=== PATIENT | female | born 1950 | race African-American/Black ===

== ENCOUNTER 2025-06-06 06:46 | Outpatient (REF) | payer OTHER, SELFPAY ==
--- OUTSIDE RECORDS SUMMARY | 2025-06-02 23:59 | XMS_ITS | Continuity of Care Document ---
Author Organization [facility] ter Address [address] [place] [id number]- Care Team Providers Care Speech Language Pathologist Prn Name Role Phone Faustino Guy MD Primary Care Physician Encounter 06/01/25 - 06/02/[address] [address] Attending Physician: Not on Staff, Attending MD Referring Physician: Not on Staff, Referring MD Encounter Type: SMRI Allergies, Adverse Reactions, Alerts Substance Criticality Severity Reaction Reaction Severity Status codeine VOMITING Active Contrast Dye ANAPHLAXIS/HIVES Active Losartan Potassium Prednisone Active NIFEdipine 1 Active Enbrel RASH ON LEGS Active NSAIDs BLEEDING Active Feraheme dyspnea,hives,b ack pain,cough,chest pain Active 1leg swelling Immunizations Given and Recorded Vaccine Date Status Refusal Reason pneumococcal 13-valent vaccine 10/27/15 Given pneumococcal 23-valent vaccine 05/25/14 Given Medications Actemra 162 mg/0.9 mL subcutaneous solution = 162 mg, Subcutaneous Injection, Every week, 0 Refills, Maintenance, 10/31/24 9:00:00 PM EST, Solution, Partial fill upon patient request if the prescription is for a schedule II opioid drug. Start Date: 10/31/24 Status: Ordered Repeat number: 1 bisoprolol 5 mg oral tablet 2 tablet = 10 mg, By Mouth, Daily, # 30 tablet, 0 Refills, Maintenance, 12/19/24 9:15:00 AM EST, Tablet, Partial fill upon patient request if the prescription is for a schedule II opioid drug. Start Date: 12/19/24 Status: Ordered Quantity: 30.0 Unit: tablet Repeat number: 1 calcitriol 0.5 mcg oral capsule 1 capsule = 0.5 mcg, By Mouth, Daily, # 30 capsule, 0 Refills, Maintenance, 10/31/24 9:00:00 PM EST, Capsule, Partial fill upon patient request if the prescription is for a schedule II opioid drug. Start Date: 10/31/24 Status: Ordered Quantity: 30.0 Unit: capsule Repeat number: 1 Compression Stockings See Instructions, # 1 pair, Maintenance, surgical, knee length 20-30 mm Hg. Diagnosis: Lower extremity edema; R60.0, 10/27/15 5:32:26 PM EST, Compound Start Date: 10/27/15 Status: Ordered Quantity: 1.0 Unit: pair Repeat number: 1 diazepam 5 mg oral tablet 5 mg, 1, tablet, By Mouth, Daily at bedtime, # 5 tablet, Refills 0, Tot. Refills 0, Maintenance, 05/08/23 5:38:00 PM EDT, Route to Pharmacy Electronically, [facility]/pharmacy #[id number], Partial fill upon patientrequest if the prescription is for a schedule II opioid drug., 170, cm, 05/08/23 9:45:00 EDT, Height, 77.5, kg, 05/08/23 9:45:00 EDT, Dry Weight Start Date: 05/08/23 Status: Ordered Quantity: 5.0 Unit: tablet Repeat number: 1 Farxiga 5 mg oral tablet 1 tablet = 5 mg, By Mouth, Daily, # 30 tablet, 0 Refills, Maintenance, 10/31/24 9:00:00 PM EST, Tablet, Partial fill upon patient request if the prescription is for a schedule II opioid drug. Start Date: 10/31/24 Status: Ordered Quantity: 30.0 Unit: tablet Repeat number: 1 fluticasone 50 mcg/inh nasal spray SHAKE LIQUID AND USE 2 SPRAYS IN EACH NOSTRIL EVERY DAY DIRECTED Start Date: 10/31/24 Status: Ordered Repeat number: 1 Home Blood Pressure Monitor See Instructions, # 1 each, Maintenance, Diagnosis: CKD stage 3; N18.3. To be used daily to monitorblood pressure, 10/27/15 5:32:40 PM EST, Compound Start Date: 10/27/15 Status: Ordered Quantity: 1.0 Unit: each Repeat number: 1 NIFEdipine 30 mg oral tablet, extended release 90 mg, By Mouth, Daily, # 30 tablet, Refills 0, Tot. Refills 0, Maintenance, 11/03/24 3:39:00 PM EST, Route to Pharmacy Electronically, [facility]/pharmacy #[id number], Partial fill upon patient request if the prescription is for a schedule II opioid drug., 170, cm, 11/03/24 8:10:00 EST, Height, 86, kg, 10/31/24 21:23:00 EST, Dry Weight Start Date: 11/03/24 Stop Date: 12/03/24 Status: Ordered Quantity: 30.0 Unit: tablet Repeat number: 1 torsemide 10 mg oral tablet 1 tablet = 10 mg, By Mouth, Daily, # 30 tablet, 0 Refills, Maintenance, 12/19/24 9:42:00 AM EST, Tablet, Partial fill upon patient request if the prescription is for a schedule II opioid drug. Start Date: 12/19/24 Status: Ordered Quantity: 30.0 Unit: tablet Repeat number: 1 traMADol 50 mg oral tablet TAKE 1 TABLET BY MOUTH EVERY MORNING Start Date: 10/31/24 Status: Ordered Repeat number: 1 Problem List Condition Confirmation Course Effective Dates Status Health St atus Informant Anemia Confirmed Active Asthma Confirmed Active CKD (chronic kidney disease) stage 2, GFR 60-89 ml/min Confirmed Active Lower extremity edema Confirmed Active Obesity Confirmed Active Acute pulmonary embolus Confirmed Active Lumbar spinal stenosis Confirmed Active Social History Social History Type Response Smoking Status Never smoker entered on: 01/05/16 Sex Female Sex Representation Female (finding) Patient Care team information Care Team Personnel Name: Darleen White NP Position: [facility] PCO Associate Professional Member Role: Primary Care Nurse Name: Mireya Cervantes RN Position: [facility] SN RN Member Role: Primary Care Nurse Name: Rebecca Corrales Position: [facility] Outreach Member Role: Lifetime Consulting Physician Name: Chloe Leon RN Position: [facility] RN Member Role: Primary Care Nurse Name: Tayla Blake Position: [facility] Outreach Member Role: Lifetime Consulting Physician Name: Tomasa Charles RN Position: [facility] AMB Nurse Member Role: Primary Care Nurse Name: Radu Frazier MD Position: [facility] Renal MD Member Role: Lifetime Consulting Physician Address: [address] [place], [place] [address] [place] [place] [address]- Telecom: Name: Nora Barrios RN Position: S RN Member Role: Primary Care Nurse Name: Micheline Blackmon RN Position: S RN Member Role: Primary Care Nurse Name: Faustino Guy MD Position: Reference Physician Member Role: PCP Address: [address] [place], [place] [address] Telecom: Name: Will Mccauley DO Position: [facility] Renal MD Member Role: Lifetime Consulting Physician Address: [address] [facility] [place] [place] [address]- Telecom: Name: Odell Hernández III, RN Position: [facility] RN Member Role: Primary Care Nurse Name: Florina Red RN Position: S RN Member Role: Primary Care Nurse Name: Thomas Cooper Position: [facility] Outreach Member Role: Lifetime Consulting Physician Address: [address], [address] [place], [place] [address] Telecom: Name: Mary Kapadia RN Position: S RN Member Role: Primary Care Nurse Name: Jen Pike NP Position: [facility] Associate Professional Member Role: Primary Care Nurse Address: [address] [facility] [place], [place] [address] Telecom: Name: Kiara Workman LPN Position: S RN Member Role: Primary Care Nurse Care Team Related Persons Name: EMMETT REAGAN Name: NISHA REAGAN Insurance Providers Guarantor name: JAN REAGAN Health Plan Information #: 1 Payer: GROUP [employer]OUNT Payer Identifier: NA Member Number: NA Group Number: NA Subscriber Identifier: [id number] Relationship to Subscriber: self Coverage Type: MISCELLANEOUS/OTHER Coverage Verification Date: NA Telecom: NA Address: NA
--- OUTSIDE RECORDS SUMMARY | 2025-06-03 20:00 | XMS_ITS ---
Author Name Ada Trejo Address [address] [place] [address] Phone [phone] Organization [facility] e, NA DOCUMENT DISCLAIMER Multiple document versions may exist, please be sure you review the latest version. The information in the [facility] Progress Note Document represents a providers documented clinical note containing certain health and medical information. It may not contain the complete medical history for the patient and should be independently verified. The represented time in the document is Eastern Time PROVIDER ROUNDING NOTE BASIC Patient:?Lauren?Owen,?1950,?74y,?F Dialysis?Location:?[facility] Attending?Multimedia Editor:?Will?Garrick Service?Date:?06/04/2025 Service?Provider:?Ada?Maya,?GLUING MACHINE OFFBEARER I?met?face?to?face?with?the?patient?today. 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 Primary?cause?of?renal?failure:?Polycystic?kidney,?adult?type DIALYSIS?PRESCRIPTION ??IHD?3x?Week?Start?date:?06/01/25 ??Dialyzer:?160NRe?Optiflux ??BFR:?450 ??DFR:?Manual?700 ??Potassium:?2.0 ??Sodium:?138 ??EDW:?86.5 ??Duration:?4:00 ??Calcium:?2.50 ??Bicarb:?34 ??Rx?updated?on:?05/30/2025 TREATMENT?ASSESSMENT BP?Sit?Pre ??06/01/2025:?156/71 ??05/30/2025:?151/64 ??05/28/2025:?199/83 BP?Stand?Post ??05/30/2025:?135/64 ??05/28/2025:?140/70 BP?Sit?Post ??06/01/2025:?131/57 ??05/30/2025:?143/68 ??05/28/2025:?149/64 Tx?Duration ??06/01/2025:?4:00 ??05/30/2025:?4:00 ??05/28/2025:?4:03 Missed?Treatments 0?-?last?30?days 0?-?last?60?days FLUID?ASSESSMENT EDW?(kg) ??06/01/2025:?86.5 ??05/30/2025:?87.0 ??05/28/2025:?87.0 Weight?Pre?(kg) ??06/01/2025:?89.3 ??05/30/2025:?88.8 ??05/28/2025:?89.9 Weight?Post?(kg) ??06/01/2025:?86.6 ??05/30/2025:?86.3 ??05/28/2025:?86.7 PWV?(kg) ??06/01/2025:?0.1 ??05/30/2025:?-0.7 ??05/28/2025:?-0.3 UF?Rate?(mL/kg/hr) ??06/01/2025:?7.8 ??05/30/2025:?7.2 ??05/28/2025:?9.1 ADEQUACY?ASSESSMENT spKt/V,?URR ??05/09/2025:?1.7,?77.0 ??04/11/2025:?1.83,?79.0 ??03/14/2025:?1.63,?75.0 ?? Urine?Cr?Clearance ??04/23/2025:?1.2 ACCESS?ASSESSMENT ??Access?Type:?CVCatheter ??Access?SubType:?Tunneled ??Access?Status:?Active?(In?Use)?-?02/04/2025 ??Access?Location:?Chest ??Placed:?02/04/2025 ANEMIA?ASSESSMENT HGB,?TSAT ??05/30/2025:?9.8,?- ??05/23/2025:?10.3,?81.0 ??05/16/2025:?10.8,?- ?? Ferritin ??05/23/2025:?840.0 ??04/25/2025:?746.0 ??03/28/2025:?647.0 Mircera,?IVP?(mcg) ??05/28/2025:?50 ??04/16/2025:?60 ??03/19/2025:?75 Iron?Sucrose?(Venofer)?(mg) ??05/21/2025:?50 ??05/14/2025:?50 ??05/07/2025:?50 BMM?ASSESSMENT PTH,?Intact ??05/23/2025:?484.0 ??04/25/2025:?408.0 ??03/28/2025:?426.0 ?? Calcium,?Phosphorus ??05/23/2025:?9.0,?7.5 ??04/25/2025:?8.9,?6.6 ??04/02/2025:?9.0,?- Vitamin?D?(Calcitriol)?Oral?(mcg) ??06/01/2025:?0.5 ??05/30/2025:?0.5 ??05/28/2025:?0.5 NUTRITION?ASSESSMENT Potassium,?Albumin ??05/23/2025:?5.4,?4.4 ??04/25/2025:?5.0,?4.3 ??03/28/2025:?4.9,?4.0 ?? eNPCR ??05/09/2025:?1.03 ??04/11/2025:?1.12 ??03/14/2025:?0.74 DIAGNOSIS Chief?Complaint:?N18.6?End?stage?renal?disease Comments:?Patient?seen?and?examined.?VSS?with?no?complaints& #160;to?offer.?S1,?S2,?RRR.?LS?CTA?bilaterally.?Access?patent.? Patient?is?stable. Patient?data?updated?06/04/2025?at?8:22?AM Signed?By:?Maya,?Ada,?GLUING MACHINE OFFBEARER??on?06/04/2025?8:22:54?AM END OF DOCUMENT
--- NOTE | ~2025-06-06 | XR_ITS ---
EXAMINATION: XR PELVIS CLINICAL INFORMATION: M25.559 - Pain in unspecified hip COMPARISON: 06/23/2017. TECHNIQUE: AP view of the pelvis. FINDINGS: There has been total arthroplasty of the right hip, with femoral and acetabular components intact, in anatomic alignment, without periprosthetic abnormality. There is an associated with lateral plate and screw fixation construct involving the lateral right femur, also well seated without complication. There is a healed fracture in the proximal metadiaphyseal region of the right femur. There are compression screws within the left femoral head. There is severe arthritis in the left hip joint, with complete joint space loss, subchondral sclerosis and cystic changes of the femoral head and acetabulum. There are marginal osteophytic spurs. This has progressed somewhat since 2017. The pelvis is intact without fracture. Severe degenerative changes in the lower lumbar spine. Moderate degenerative changes in both SI joints. Soft tissues demonstrate no significant abnormality. XR/XR pelvis 1-2V IMPRESSION: 1. Worsening left hip arthrosis, now severe with complete joint space loss. 2. Right hip total arthroplasty without complication. 3. Additional findings as discussed. Electronically signed by: Refugio Barlow MD 06/06/2025 11:31 AM EDT
--- OUTSIDE RECORDS SUMMARY | 2025-06-06 06:48 | XMS_ITS | Clinical Summary ---
Author Organization [address] [place] [address] [place] [phone] Phone Care Team Providers Care Volunteer Coordinator Name Role Phone Lew Victor MD Primary Care Provider [phone] Allergies Active Allergy Reactions Criticality Noted Date Comments Codeine Nausea And Vomiting Medium 01/31/2025 Iodinated Contrast Media Hives Medium 01/31/2025 Ibuprofen Hives Medium 01/31/2025 Prednisone Hives Medium 01/31/2025 Medications capsaicin (ZOSTRIX) 0.025 % cream Apply topically 4 (four) times a day if needed (pain). 60 g 4 Active hydrALAZINE (APRESOLINE) 25 mg tablet Take 1 tablet (25 mg total) by mouth 2 (two) times a day. 5 12/28/19 26 Active labetaloL (NORMODYNE) 100 mg tablet Take 1 tablet (100 mg total) by mouth 2 (two) times a day. 60 each 5 Active sevelamer carbonate (RENVELA) 800 mg tabletIndications :ESRD (end stage renal disease) (CMS/HCC V24, CMS/[facility] V28) Take 2 tablets (1,600 mg total) by mouth 3 (three) times a day with meals. Swallow tablet whole; do not crush, break, or chew. 180 each 5 Active torsemide (DEMADEX) 20 mg tablet Take 4 tablets (80 mg total) by mouth 1 (one) time each day. 120 each 5 Active Actemra subcutaneous injection Inject 0.9 mL (162 mg total) under the skin 1 (one) time. 2 Active Active Problems Problem Noted Date Diagnosed Date Acute renal failure superimp osed on stage 5 chronic kidney disease, not on chronic dialysis, unspecified acute renal failure type ([facility] [place], [facility] V28) 01/31/2025 Surgical History Surgery Date Site/Laterality Comments HIP FRACTURE SURGERY Medical History Medical History Date Comments DM (diabetes mellitus) ([facility] [place]24, [facility] V28 ) HTN (hypertension) Asthma CKD (chronic kidney disease), stage V ([facility] V 24, [facility] V28) Polycystic kidney disease Social History Tobacco Use Types Packs/Day Years Used Date Smoking Tobacco: Never Smokeless Tobacco: Never Tobacco Cessation:Counseling Given: Not Answered Housing Instability Answer Date Recorde d Are you worried that in the next 2 months you may not have stable housing? No 02/01/2025 Food Access & Nutrition Answer Date Rec orded Do you have access to a vari ety of food including fruits and vegetables? Yes 02/01/2025 Health Literacy Answer Date Recorded How often do you need to hav e someone help you when you read instructions, pamphlets, or other written material from your doctor or pharmacy? Never 02/01/2025 Caregiver: How often do you need to have someone help you when you read instructions, pamphlets, or other written material from your doctor or pharmacy? Not on file 02/01/2025 Financial Risk Answer Date Recorded How hard is it for you to pa y for the very basics like food, housing, medical care, and air conditioning / heating? Not asked 02/01/2025 Transportation Answer Date Recorded Has the lack of transportati on kept you from meetings, work, or from getting things needed for daily living? No Has the lack of transportati on kept you from medical appointments or from getting medications? No 02/01/2025 Social Isolation Answer Date Recorded How often do you feel lonely or isolated from th ose around you? Never 02/01/2025 Food Risk Answer Date Recorded Within the past 12 months we worried whether our food would run out before we got money to buy more. Never true 02/01/2025 Within the past 12 months th e food we bought just didn't last and we didn't have money to get more. Never true 02/01/2025 Dependent Care Answer Date Recorded Do you need help finding or paying for care for your loved ones. For example, child care giver or elderly care for an older adult? No 02/01/2025 Education Answer Date Recorded Do you think completing more education or training, like finishing a GED, going to college, or learning a trade, would be helpful for you? Yes 02/01/2025 Employment and Income Answer Date Recor ded During the last four weeks, have you been actively looking for work? No 02/01/2025 Living Situation Answer Date Recorded What is your living situation? 0 02/01/2025 Interpersonal Safety Answer Date Record ed Physical Abuse 02/01/2025 Verbal Abuse 02/01/2025 Comments Unknown Sex and Gender Information Value Date Recorded Sex Assigned at Female 01/11/2025 4:21 PM EST Legal Sex Female 6:51 AM EST Gender Identity Female 01/11/2025 4:21 PM EST Sexual Orientation Straight 01/11/2025 4: 21 PM EST Obstetrics History Last Filed Vital Signs Vital Sign Reading Time Taken Comments Blood Pressure 124/60 02/12/2025 12:17 PM EDT Pulse 73 02/12/2025 12:17 PM EDT Temperature 36.5 C (97.7 F) 02/12/2025 12:17 PM EDT Respiratory Rate 16 02/12/2025 12:17 PM EDT Oxygen Saturation 100% 02/12/2025 12:17 PM EDT Inhaled Oxygen Concentration - - Weight 107 kg (235 lb 12.8 oz) 02/12/2025 6:00 A M EDT Height 167.6 cm (5' 5.98 ) 02/03/2025 11:30 AM E DT Body Mass Index 38.08 02/03/2025 11:30 AM EDT Plan of Treatment Health Maintenance Due Date Last Done Comments Diabetes: Annual Foot Exam 1960 Diabetes: Annual Retina Eye Exam 1960 Zoster Vaccines (1 of 2) 1969 Breast Cancer Screening 11/21/2020 11/21/2018, 11/21 Colorectal Cancer Screening: Colonoscopy 10/10/2022 Medicare Annual Wellness Visit 10/10/2022 DTaP,Tdap,and Td Vaccines (2 - Td or Tdap) 01/10/2023 01/10/2013 COVID-19 Vaccine ( season) 2024 08/24/2023, 08/05/2022, 04/01/2022, Additional history exists Depression Screening 11/07/2024 Influenza Vaccine (#1) 2025 , 07/21/2022, 07/28/2021, Additional history exists Diabetes: Blood Sugar Control Test (HGBA1C) 08/03/2025 01/31/2025, 01/23/2024 Osteoporosis Screening (Bone Density Screening) 12/16/2025 12/16/2015 Social Influencers of Health Screening 02/01/2026 02/01/2025 Falls Risk Assessment 02/12/2026 02/12/2025 Hypertension/CHF/CAD Annual BMP Blood Test 02/12/2026 02/12/2025, 02/11/2025, 02/10/2025, Additional history exists Cholesterol Screening (Lipid Panel) 12/21/2029 12/21/2024 Pneumococcal Vaccine: 50+ Years Completed 02/13/2018, 08/02/2017, 10/27/2015, Additional history exists RSV Immunization Adult Patients Completed 10/11/2023 Hepatitis C Screening Completed 02/03/2025, 024 HIB Vaccines Aged Out No longer eligi ble based on patient's age to complete this topic HPV Vaccines Aged Out No longer eligi ble based on patient's age to complete this topic Hepatitis A Vaccines Aged Out No long er eligible based on patient's age to complete this topic Hepatitis B Vaccines Aged Out No long er eligible based on patient's age to complete this topic IPV Vaccines Aged Out No longer eligi ble based on patient's age to complete this topic MMR Vaccines Aged Out No longer eligi ble based on patient's age to complete this topic Meningococcal ACWY Vaccine Aged Out N o longer eligible based on patient's age to complete this topic Meningococcal B Vaccine Aged Out No l onger eligible based on patient's age to complete this topic RSV Immunization Patients Under 20 months Aged Out No longer eligible based on patient's age to complete this topic Varicella Vaccines Aged Out No longer eligible based on patient's age to complete this topic Medical Devices Implanted Type Area Fabrication Operator Device Identifier Shelf Expiration Date Model / Serial / Lot Cath Dial W/Vt Kt [id number] Palindrome Tim - [id number] - [id number] Implanted:Qty: 1 on 02/04/2025 by Darien Yanes MD at [facility] Dialysis Catheters Right: Chest Wall [facility] [id number] 04/06/2029 [id number] / [id number] / [id number] Procedures Procedure Name Priority Date/Time Associated Diagnosis Comments BASIC METABOLIC PANEL Timed 02/12/2025 7:37 AM EDT HEPATITIS C ANTIBODY Routine 02/03/2025 6:08 AM EDT HEMOGLOBIN A1C Add-On 01/31/2025 6:02 PM EDT CHANCE SCREENING DIGITAL Routine 11/21/2018 11:45 AM EST Encounter for screening mammogram for malignant neoplasm of breast from Last 3 Months or Most Recently Relevant to Health Maintenance Results * (ABNORMAL) Basic metabolic panel (02/12/2025 7:37 AM EDT) Sodium 131(L) 133 - 145 mmol/L LAB CHEMISTRY METHOD 02/12/2025 8:18 AM EDT [facility] Potassium 4.3 3.5 - 5.5 mmol/L LAB CHEMISTRY METHOD 02/12/2025 8:18 AM EDT [facility] Chloride 97 96 - 110 mmol/L LAB CHEMISTRY METHOD 02/12/2025 8:18 AM EDT [facility] CO2 29 21 - 32 mmol/L LAB CHEMISTRY METHOD 02/12/2025 8:18 AM EDT [facility] Anion Gap 5 3 - 11 LAB CHEMISTRY METHOD 02/12/2025 8:18 AM EDT [facility] Glucose 87 70 - 100 mg/dL LAB CHEMISTRY METHOD 02/12/2025 8:18 AM EDT [facility] BUN 16 5 - 25 mg/dL LAB CHEMISTRY METHOD 02/12/2025 8:18 AM EDT [facility] Creatinine 4.24(H) 0.50 - 1.10 mg/dL LAB CHEMISTRY METHOD 02/12/2025 8:18 AM EDT [facility] eGFR 10(L) >=60 mL/min/1. 73m2 LAB CHEMISTRY METHOD 02/12/2025 8:18 AM EDT [facility] Comment:Calculation based on the Chronic Kidney Disease Epidemiology Collaboration (CKD-EPI) equation refit without adjustment for race. BUN/Creatinine Ratio 3.8 LAB CHEMISTRY METHOD 02/12/2025 8:18 AM EDT [facility] Calcium 8.5 8.5 - 10.5 mg/dL LAB CHEMISTRY METHOD 02/12/2025 8:18 AM EDT [facility] Blood Venous blood specimen / Unknown Venipuncture / Unknown 02/12/2025 7:37 AM EDT 02/12/2025 7:43 AM EDT us Maninder Frankel MD LAB BLOOD ORDERABLES Final Resul t Performing Organization Address City/[facility]/ZIP Co de Phone Number [facility] [address] [place] [address], * Hepatitis C antibody (02/03/2025 6:08 AM EDT) Hepatitis C Antibody Negative Negative LAB CHEMISTRY METHOD 02/03/2025 9:05 AM EDT [facility] Blood Venous blood specimen / Unknown Venipuncture / Unknown 02/03/2025 6:08 AM EDT 02/03/2025 6:13 AM EDT us Anastasia Lugo MD LAB BLOOD ORDERABLES Final Re sult [facility] [address] [place] [address], * Hemoglobin A1c (01/31/2025 6:02 PM EDT) Hemoglobin A1C 5.3 <6.5 % LAB CHEMISTRY METHOD 02/01/2025 12:41 PM EDT [facility] Mean Bld Glu Estim. 105 mg/dL LAB CHEMISTRY METHOD 02/01/2025 12:41 PM EDT [facility] Blood Venous blood specimen / Unknown Venipuncture / Unknown 01/31/2025 6:02 PM EDT 01/31/2025 6:38 PM EDT Dhara Becerra NP LAB BLOOD ORDERABLES Fin al Result [facility] [address] [place] [address], * CHANCE SCREENING DIGITAL (11/21/2018 11:45 AM EST) Anatomical Region Laterality Modality Mammography 11/21/2018 9:37 AM EST Narrative 11/21/2018 11:45 AM EST [facility] Diagnostic Imaging Department [address] [place] [address] Patient: JAN WEAVER./Age/Sex: 1950 - 68 - F Unit#: [id number] Location/Status: SPDIMAM/REG CLI Mnemonic/Ordering Site: DIGSC/SPMAM Ordering Physician: LEW VICTOR MD Chance Screening Digital - 11/21/18 - 1008 INDICATION: SCREENING COMPARISON: [facility] mammograms dating back to 12/22/2011 FINDINGS: CC and MLO views of the breasts were obtained, using full field digital mammography with 3D tomosynthesis views in the MLO projection. Computer aided detection with the [employer]2-H was employed. The breasts are almost entirely composed of fat. A metallic biopsy marker is present within the upper inner quadrant of the right breast. No suspicious masses, suspicious microcalcifications, or areas of architectural distortion are identified. Benign-appearing breast calcifications are present bilaterally. There are no secondary signs of breast malignancy. Compared to the prior exam, no adverse interval change. IMPRESSION: No specific mammographic evidence of breast malignancy. Lack of a mammographic finding in the presence of a clinically suspicious palpable abnormality does not preclude the possibility of malignancy or alter the indications for biopsy. BI-RADS - Category 2 - Benign finding 3342F, 7025F Annual screening mammography is recommended. Patient entered into a reminder system with a target date for the next mammogram. [id number] / [id number]) , [id number] Dictating Physician: REMINGTON VÁSQUEZ MD Electronically Signed by: REMINGTON VÁSQUEZ MD Dic Date/Time: 11/21/18 1141 Sign date/Time: 11/21/18 1145 Procedure Note Remington Vásquez MD - 10/27/2022 [facility] Diagnostic Imaging Department [address] [place] [address] Patient: JAN WEAVER./Age/Sex: 1950 - 68 - F Unit#: [id number] Location/Status: SPDIMAM/REG CLI Mnemonic[facility] Order[facility] Physician: LEW VICTOR MD Chance Screening Digital - 11/21/18 - 1008 INDICATION: SCREENING COMPARISON: [facility] mammograms dating back to 12/22/2011 FINDINGS: CC and MLO views of the breasts were obtained, using full field digital mammography with 3D tomosynthesis views in the MLO projection. Computeraided detection with the [employer]2-H was employed. The breasts are almost entirely composed of fat. A metallic biopsy markeris present within the upper inner quadrant of the right breast. No suspicious masses, suspicious microcalcifications, or areas ofarchitectural distortion are identified. Benign-appearing breast calcifications arepresent bilaterally. There are no secondary signs of breast malignancy. Comparedto the prior exam, no adverse interval change. IMPRESSION: No specific mammographic evidence of breast malignancy. Lack of a mammographic finding in the presence of a clinicallysuspicious palpable abnormality does not preclude the possibility of malignancy oralter the indications for biopsy. BI-RADS - Category 2 - Benign finding 3342F, 7025F Annual screening mammography is recommended. Patient entered into a reminder system with a target date for the next mammogram. 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 Do not modify or discontinue any currently active code status orders. * Full Code - Default Date Activated Date Inactivated Comments 01/31/2025 8:26 PM 01/31/2025 10:07 PM This is ord er is used when code status has not been discussed with the patient, or code status is otherwise unknown/unconfirmed To update the patient's code status, place a code status order. Do not modify or discontinue any currently active code status orders. Healthcare Agents on File Name Relationship Healthcare Agent [facility] p Communication rFoylan Weaver Spouse Health Care Agent Zachery Cr First Alternate Health Care Agent Care Teams Volunteer Coordinator Relationship Specialty Start Date End Date Lew Victor MD [address] PCP - General Internal Medicine 04/10/14
--- OUTSIDE RECORDS SUMMARY | 2025-06-06 06:48 | XMS_ITS | Encounter Summary ---
Author Organization [facility], Address [address] [place] [address] Phone Care Team Providers Care Assistant Inventory Manager Name Role Phone Lew Keys MD Primary Care Provider [phone] Encounter Details Date Type Department Care Team (Late st Contact Info) Description 05/16/2025 Documentation Only [facility], [address] [place] [address] [address] [place] [phone] Social History Tobacco Use Types Packs/Day Years Used Date Smoking Tobacco: Never Alcohol Use Standard Drinks/Week Comments No 0 (1 standard drink = 0.6 oz pur e alcohol) Comments Unknown Sex and Gender Information Value Date Recorded Sex Assigned at Not on file Legal Sex Female 4:34 PM EST Gender Identity Female 11/25/2023 3:27 PM EST Sexual Orientation Not on file documented as of this encounter Plan of Treatment Not on file documented as of this encounter Visit Diagnoses Not on filedocumented in this encounter Care Teams Assistant Inventory Manager Relationship Specialty Start Date End Date Lew Keys MD [address] [facility] [address] [place], [place] PCP - General Internal Medicine 03/03/20 documented as of this encounter
--- OUTSIDE RECORDS SUMMARY | 2025-06-06 06:49 | XMS_ITS | Clinical Summary ---
Author Organization [facility] Address [address] [place] [address] Care Team Providers Care Aco Coordinator Name Role Phone Unavailable Primary Care Provider Unavailabl e Source Comments PLEASE NOTE, if this patient is a minor, it may be UNLAWFUL to discuss sensitive information that is contained in these records (such as FAMILY PLANNING, MENTAL HEALTH or SUBSTANCE ABUSE) with the minor patient's parent or other person without the patient's specific authorization.[facility] Social History Tobacco Use Types Packs/Day Years Used Date Smoking Tobacco: Never Assessed Social Connections Answer Date Recorded Connectedness 0 07/19/2024 Financial Resource Strain Answer Date R ecorded Financial Resource Strain 0 2020 Stress Answer Date Recorded Stress 0 08/01/2021 Physical Activity Answer Date Recorded Physical Activity 0 08/01/2021 Food Insecurity Answer Date Recorded Food 0 08/02/2024 Transportation Needs Answer Date Record ed Transportation 0 08/01/2021 Housing Stability Answer Date Recorded Housing 0 08/01/2021 Safety and Environment Answer Date Jacoby rded Safety 0 08/01/2021 Utilities Answer Date Recorded Utilities 0 08/01/2021 Employment Answer Date Recorded Stress 0 07/19/2024 Comments Unknown Sex and Gender Information Value Date Recorded Sex Assigned at Not on file Legal Sex Female 9:32 AM PDT Gender Identity Not on file Sexual Orientation Not on file Plan of Treatment Not on file Insurance [facility]
--- OUTSIDE RECORDS SUMMARY | 2025-06-06 06:49 | XMS_ITS | Clinical Summary ---
Author Organization [facility] Address [address] [place] [address] Care Team Providers Care Community Support Specialist Name Role Phone Lew Keys MD Primary Care Provider [phone] Social History Tobacco Use Types Packs/Day Years Used Date Smoking Tobacco: Never Assessed Sex and Gender Information Value Date Recorded Sex Assigned at Not on file Gender Identity Not on file Sexual Orientation Not on file Plan of Treatment Health Maintenance Due Date Last Done Comments Hepatitis C Screening 1950 COVID-19 Vaccine (#1) 01/04/1951 Depression Screening 1962 Preventative Health Evaluation 1968 Colon Cancer Screening (Colonoscopy) 1995 Breast Cancer Screening (Mammogram) 2000 Shingrix-Zoster Vaccine (1 of 2) 2000 Fall Risk Assessment 2015 Osteoporosis Screening (DEXA Scan) 2015 DTap / Tdap / Td (2 - Td or Tdap) 01/10/2023 01/10/2013 RSV Adult > 60+ Yrs or (1 - 1-dose 75+ series) 2025 Influenza Vaccine (#1) 2025 0, 07/18/2020, 07/18/2020, Additional history exists Pneumococcal Vaccine Completed 02/13/2018, 10/27/2015, 05/25/2014, Additional history exists Hepatitis B Vaccines Aged Out No long er eligible based on patient's age to complete this topic RSV Ped < 20 months Aged Out No longe r eligible based on patient's age to complete this topic Care Teams Community Support Specialist Relationship Specialty Start Date End Date Lew Keys MD [address] [facility] [address] [place] [address] PCP - General Internal Medicine 01/06/21
--- OUTSIDE RECORDS SUMMARY | 2025-06-06 06:49 | XMS_ITS | Patient Health Record ---
Author Organization [facility] [place] Address [address] [place] [address] Care Team Providers Care Blood Bank Laboratory Technician Name Role Phone Lew Keys MD Primary Care Provider Bharti Marks Unavailable [phone] Allergies Allergen (clinical drug ingredient) Drug/Non Drug Allergy documented on EMR Reaction Allergy Type Onset Date Status pregabalin Lyrica swelling Drug Allergy Active gabapentin Neurontin swelling Drug Allergy Active ibuprofen Ibuprofen stomach irritations Drug Allergy Active IVP dye Unknown Drug Allergy Active nsaids Unknown Drug Allergy Active Reason For Referral No Information Medications Medication SIG (Take, Route, Frequency, Duration) Notes Start Date End Date Status metFORMIN HCl 500 MG Orally Once a day Not-Taking oxyCODONE HCl Active Lisinopril 10 MG 1 tablet Orally Once a day Not-Taking Simvastatin Active Lasix Active Furosemide Active oxyCODONE-Acetaminophen Active Actemra Active Atorvastatin Calcium Not-Taking Enbrel Not-Taking Social History Tobacco use other than smoking: Question Answer Notes Are you an other tobacco user? No Problems Problem Type SNOMED Code ICD Code Onset Dates Problem Status W/U Status Risk Notes Problem Diabetes mellitus type 2, diet-controlle d (E11.9) Active confirmed Plan Of Treatment Pending Test Test Name Order Date , J0702- INJECT or DRAIN, JOINT/BUR SA 08/14/2015, J0702- INJECT or DRAIN, JOINT/BUR SA 08/28/2015, J0702- INJECT or DRAIN, JOINT/BUR SA 01/16/2016 Insurance Providers Payer Name Payer Address Payer Phone Subscriber Number Group Number Insured Name Patient Relationship to Insured Coverage Start Date Coverage End Date Medicare National [employer] [address] [place] [phone] [id number] Lauren Weaver Self - patient is the insured 5 Medical (General) History Medical History History ICD Code Allergic rhinitis Anemia of Chronic Disease Ankle Pain Arthritis of Hip asthma back pain Chronic Pain Syndrome Chronic Renal Impairment chronic sinusitis Degenerative of Lumbosacral Intervertebr al Disc Degenerative of Lumbar Intervertebral Di sc Diabetes Edema Hyperlipidemia hypertension Inflammation of Rotator Cuff Tendon Iridocyclitis Lumbosacral Radiculitis Obesity, morbid osteoarthritis Otitis Media Premature Beats rheumatoid arthritis Spinal Stenosis of Lumbar Region Vitamin D deficiency Injury of Ullnar Nerve Surgical History Surgery Date(Month/Year) appendectomy 11/07/1969 back surgery 2006 left hip replacement right hip replacement 12/2014 knee surgery, right 11/07/1989, 11/07/1993 Lumbar Spine Fusion 11/07/1987,05/07/2007, 05/24/2014 leg surgery 1989 total knee 09/15/2009, 05/16/11 total hip 12/22/2013 Orthopedic Surgery 12/10/2014 Hospitalization History Reason Date(Month/Year) Right hip replacement 12/22
--- OUTSIDE RECORDS SUMMARY | 2025-06-06 06:49 | XMS_ITS | Patient Health Record ---
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 Name Role Phone Lew Keys Primary Care Provider Unavailabl e Allergies Allergen (clinical drug ingredient) Drug/Non Drug Allergy documented on EMR Reaction Allergy Type Onset Date Status codeine codeine (uncoded) hives (moderat e to severe) Allergy Active Iodinated contrast media (substance) Iodinated contrast media (uncoded) Unknown Allergy Active etanercept Enbrel Unknown Drug Allergy Active ibuprofen Ibuprofen Unknown Drug Allergy Active doxycycline Doxycycline abdominal pain (mild) Drug Allergy Active atorvastatin Atorvastatin myalgias (muscle pain) Drug Allergy Active simvastatin Simvastatin myalgias (muscle pain) Drug Allergy Active etanercept Etanercept Unknown Drug Allergy Activ e ferumoxytol Ferumoxytol Unknown Drug Allergy Act isaias indomethacin Indomethacin Unknown Drug Allergy A ctive Non-steroidal anti-inflammatory agent (FN) NSAIDs Unknown Drug Allergy Active Reason For Referral No Information Medications Medication SIG (Take, Route, Frequency, Duration) Notes Start Date End Date Status Benefiber - as directed Orally Active oxyCODONE-Acetaminoph en 10-325 MG 1 tablet as needed Orally every 6 hrs Active Narcan 4 MG/0.1ML as directed Nasally Active Durezol 0.05 % 1 drop into affected eye Ophthalmic Twice a day Active Rosuvastatin Calcium 5 MG 1 tablet Orally Once a day Active diazePAM 10 MG 1 tablet Orally Once a day Active ProAir HFA 108 (90 Base) MCG/ACT 1 puff as needed Inhalation every 4 hrs Active Capsaicin 0.025 % 1 application as needed Externally Three times a day Active Lidocaine 5 % 1 patch remove after 12 hours Externally Once a day Active Calcitriol 0.5 MCG 1 capsule Orally Onc e a day Active Potassium 10 mEq tablet, extended release take 2 tablets twice a day Active metOLazone 5 MG 1 tablet Orally Once a day Active Lidocaine 5 % 1 application as needed Externally Three times a day Active Fluticasone Propionate 50 MCG/ACT 1 spray in each nostril Nasally Once a day Active Torsemide 20 MG as directed Orally Active Fexofenadine HCl 180 MG 1 tablet Orally Once a day Active Symbicort 160-4.5 MCG/ACT 2 puffs Inhalation Twice a day Active Allopurinol 300 MG 1 tablet Orally Once a day Active Actemra 162 MG/0.9ML 0.9 ml Subcutaneous Active Multivitamin - 1 tablet Orally Once a day Active Problems Problem Type SNOMED Code ICD Code Onset Dates Problem Status W/U Status Risk Notes Problem Osteoarthritis of right subtalar joint (9993489905588302 1) 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 Plan Of Treatment Pending Test Test Name Order Date X ray : Foot, left 3v 10/24/2020 X ray : Foot, right 3v 10/24/2020 DRAIN/INJECT, INTERMEDIATE JOINT/BURSA 1 12/25/2019 AFO ANK GADRAKE PREFAB [id number] 020 Insurance Providers Payer Name Payer Address Payer Phone Subscriber Number Group Number Insured Name Patient Relationship to Insured Coverage Start Date Coverage End Date [facility] [address] [place] [address] [id number] Lauren Weaver Self - patient is the insured Medications Administered Medication Instructions Date of Administration Dosage Notes Dexamethasone 10/24/2020 4 mg Medical (General) History Medical History History ICD Code 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 me llitus Vitamin D deficiency Hyperlipidemia Gout-onset: 11/22/2016 Hypokalemia-onset: 03/15/2019 Obesity Body Mass index 30+ - obesity Anemia of chronic disease Chronic pain syndrome Iridocyclitis Essential hypertension Pulmonary embolism Premature beats Heart failure-onset: 07/30/18 Allergic Rhinitis Asthma Chronic kidney disease stage 3- Onset: 0 07/30/19 Rheumatoid arthritis Osteoarthritis Arthritis of hip, right Shoulder joint pain Degeneration of lumbosacral intervertebr al disc Degeneration of lumbar intervertebral di sc Spinal stenosis of lumbar region- with s lippage; L3-L4 Low back pain Lumbosacral radiculitis Inflammation of rotator cuff tendon Edema Edema of lower extremity Contusion of chest- onset: 10/11/19 Injury of ulnar nerve Screening for malignant neoplasm of colo n- onset: 09/15/19 Menopause present Surgical History Surgery Date(Month/Year) Facet injections to lumbar spine 12/09/16 Egd diagnostic brush wash 09/10/16 Orthopedic surgery-Right total hip arthr oplasty/removal of hardware 12/10/14 Lumbar spine fusion L3-L4 05/24/14 Total knee arthroplasty- Right TKA 2008; Left TKA 200911/07/09 Lumbar spine fusion 05/2007 Knee surgery-arthroscopy 1993 Knee surgery-arthroscopy 1989 Lumbar spine fusion 1987 Appendectomy 1970 Revision of femur epiphysis 11/07/1960
--- OUTSIDE RECORDS SUMMARY | 2025-06-06 06:49 | XMS_ITS ---
Author Name [facility] Address [address] [place] [id number] Phone [phone] Organization [facility], NA DOCUMENT DISCLAIMER Multiple document versions may exist, please be sure you review the latest version. The information in the [facility] Continuity of Care Document represents a summary of certain health and medical information. It may not contain the complete medical history for the patient and should be independently verified. The represented time in the document is Eastern Time. 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, or end stage renal disease I13.2 Active February 13 Dependence on renal dialysis Z99.2 Active February 13, 2025 Rheumatoid arthritis, unspecified M06.9 Active February 12, 2025 Other disorders of phosphorus metabolism E83.39 Active February 12, 2025 Other asthma J45.998 Active February 12, 2025 Polycystic kidney, adult type Q61.2 Active February 12, 2025 Acute on chronic diastolic (congestive) heart failure I50.33 Active February 12, 2025 Pruritus, unspecified L29.9 Active February 12, 2025 Shortness of breath R06.02 Active February Encounter for screening for respiratory tuberculosis Z 11.1 Active February 12, 2025 Allergy, unspecified, initial encounter T78.40XA A ctive February 12, 2025 Anaphylactic shock, unspecified, initial encounter T78 .2XXA Active February 12, 2025 Coagulation defect, unspecified D68.9 Active February 12, 2025 Iron deficiency anemia, unspecified D50.9 Activ e February 12, 2025 Anemia in chronic kidney disease D63.1 Active February 12, 2025 Secondary hyperparathyroidism of renal origin N25.81 Active February 12, 2025 End stage renal disease N18.6 Active Apri l 2024 ALLERGIES AND ADVERSE REACTIONS Substance Reaction Severity Status Motrin Unknown Moderate Active Decadron Unknown Active IODINATED CONTRAST MEDIA Unknown Moderate Act isaias CODEINE Unknown Moderate Active prednisone Unknown Moderate Active SOCIAL HISTORY Tobacco Use Status Tobacco Type Unknown if ever consumed tobacco - Caregiver Characteristics No Information Available Characteristics of Home environment No Information Available Gender and Sex Information Gender Identity Sexual Orientation Female Heterosexual MEDICATIONS Prescribed Medications for Dialysis Treatments Medication Instructions Dosage Route Start Date End Date Status Heparin Sodium (Porcine) 1,000 Units/mL Catheter Lock Arterial Every Treatment 1900 units Arterial Red Port February 26, 2025 February 22, 2026 Active Heparin Sodium (Porcine) 1,000 Units/mL Catheter Lock Venous Every Treatment 1900 units Venous Blue Port February 26, 2025 February 22, 2026 Active Heparin Sodium (Porcine) 1,000 Units/mL Systemic Bolus, Every Treatment, Total treatment minutes 240 3000 units Intravenous - push March 12, 2025 March 11, 2026 Active Mircera During Dialysis, Every 2 weeks 50 mcg Intravenous - push May 28, 2025 May 27, 2026 Active Vitamin D (Calcitriol) Oral During Dialysis, 3X Week 0.5 mcg Oral March 05, 2025 March 04, 2026 Active Iron Sucrose (Venofer) During Dialysis, 1X Week 50 mg Intravenous - push April 02, 2025 April 01, 2026 Discontinued Home Medications Medication Instructions Dosage Route Start Date End Date Stat us Actemra 162 mg/0.9 mL subcutaneously once a month 1 syringe SUBCUTANEOUS May 16, 2025 Active azelastine 137 mcg (0.1 %) into both nostrils once a day 1 spray NASAL May 16, 2025 Active capsaicin 0.1% TOPICAL May 16, 2025 Active labetalol 100 mg twice a day 1 tablet ORAL April Active pravastatin 20 mg once a day 1 tablet ORAL May Active Sevelamer Carbonate Tablet 800 mg Take By Mouth Three times a day With Meals 1 Tablet By Mouth March 13, 2025 March 12, 2026 Active torsemide 20 mg every morning 2 tablet ORAL April Active valsartan 160 mg once a day 1 tablet ORAL March 07, 2025 Active VITAL SIGNS Post-Treatment Vital Signs Vital Sign Value Date / Time Blood Pressure-sitting 106/103 mmHg June 04, 2025 07:31 AM Blood Pressure-standing 120/73 mmHg June 04, 2025 07:31 AM Heart Rate 92 beats per minute June 04 07:31 AM Respiratory Rate 18 breaths per minute June 04, 2025 07:31 AM Temperature 98.0 deg. F June 04, 2025 07 :31 AM Weight Vital Sign Value Date / Time Estimated Dry Weight 86.5 kg June 01 11:59 PM Pre-Dialysis 89.60 kg June 04, 2025 07 :31 AM Post-Dialysis 86.10 kg June 04, 2025 07 :31 AM Other Other Value Date / Time Height 170 cm February 25, 2025 1 2:00 AM Body Mass Index 29.93 kg/m2 June 04, 2025 08 :52 AM HEALTH CONCERNS Tuberculosis Testing TST Date Administered TST Date Read TST Result 02/14/2025 02/16/2025 Negative (<5) mm LAB RESULTS Hematology Result Type Result Value Relevant Referen ce Range Interpretation Date WBC (No Diff) 5.77 1000/mcL 4.80 - 10.80 1000/mcL - February 14, 2025 Transferrin Sat. (Calc) 18 % 20 - 55 % Low February 14, 2025 UIBC/TIBC 218 mcg/dL 155 - 355 mcg/dL - February TIBC (Calc) 267 mcg/dL 185 - 515 mcg/dL - February 052024 Ferritin 395 ng/mL 10 - 291 ng/mL High February 14, 2025 UIBC/TIBC 256 mcg/dL 155 - 355 mcg/dL - February WBC (No Diff) 4.04 1000/mcL 4.80 - 10.80 1000/mcL Low February 28, 2025 Transferrin Sat. (Calc) 18 % 20 - 55 % Low February 28, 2025 TIBC (Calc) 313 mcg/dL 185 - 515 mcg/dL - February 062024 Ferritin 288 ng/mL 10 - 291 ng/mL - February 28, 2025 Platelets 132 1000/mcL 130 - 400 1000/mcL - Apri l 2024 Hemoglobin x 3 31.2 % 36.0 - 48.0 % Low March 16, 2025 Hemoglobin x 3 30.3 % 36.0 - 48.0 % Low March 21, 2025 Iron 104 mcg/dL 30 - 160 mcg/dL - March 28 025 UIBC/TIBC 175 mcg/dL 155 - 355 mcg/dL - March 28, 2025 TIBC (Calc) 279 mcg/dL 185 - 515 mcg/dL - March 28, 2025 Ferritin 647 ng/mL 10 - 291 ng/mL High March 28 25 Transferrin Sat. (Calc) 37 % 20 - 55 % - March 28, 2025 MCH 29.1 pg 27.0 - 31.0 pg - March 28 25 RDW 17.7 % 11.5 - 14.5 % High March 28 MCHC 31.7 g/dL 30.0 - 36.0 g/dL - March 28, 2025 Hemoglobin x 3 34.5 % 36.0 - 48.0 % Low March 28, 2025 Platelets 150 1000/mcL 130 - 400 1000/mcL - March 28, 2025 WBC (No Diff) 5.59 1000/mcL 4.80 - 10.80 1000/mcL - March 28, 2025 Hemoglobin x 3 33.9 % 36.0 - 48.0 % Low April 04, 2025 Retic HGB (CHr) 31.6 pg 25.4 - 31.8 pg - March 082024 Hemoglobin x 3 33 % 36.0 - 48.0 % Low April Hemoglobin x 3 33.6 % 36.0 - 48.0 % Low April WBC (No Diff) 5.45 1000/mcL 4.80 - 10.80 1000/mcL - April 25, 2025 MCH 30.0 pg 27.0 - 31.0 pg - April 25 025 Hemoglobin x 3 35.7 % 36.0 - 48.0 % Low April Platelets 129 1000/mcL 130 - 400 1000/mcL Low April 25, 2025 MCHC 31.7 g/dL 30.0 - 36.0 g/dL - April 25, 2025 RDW 16.9 % 11.5 - 14.5 % High April 25 25 Iron 99 mcg/dL 30 - 160 mcg/dL - April 25, 2025 Transferrin Sat. (Calc) 37 % 20 - 55 % - April 25, 2025 TIBC (Calc) 269 mcg/dL 185 - 515 mcg/dL - April UIBC/TIBC 170 mcg/dL 155 - 355 mcg/dL - April 25, 2025 Ferritin 746 ng/mL 10 - 291 ng/mL High April 25 Hemoglobin x 3 33.6 % 36.0 - 48.0 % Low April HGB 11.3 g/dL 12.0 - 16.0 g/dL Low May 09, 2025 Hemoglobin x 3 33.9 % 36.0 - 48.0 % Low May Hemoglobin x 3 32.4 % 36.0 - 48.0 % Low May HGB 10.8 g/dL 12.0 - 16.0 g/dL Low May 16, 2025 RBC 3.52 mill/mcL 4.20 - 5.40 mill/mcL Low May 23, 2025 WBC (No Diff) 4.27 1000/mcL 4.80 - 10.80 1000/mcL Low May 23, 2025 HCT 33.6 % 37.0 - 47.0 % Low May 23 MCHC 30.6 g/dL 30.0 - 36.0 g/dL - May 23, 2025 MCH 29.2 pg 27.0 - 31.0 pg - May 23 Hemoglobin x 3 30.9 % 36.0 - 48.0 % Low May Platelets 134 1000/mcL 130 - 400 1000/mcL - May 23, 2025 HGB 10.3 g/dL 12.0 - 16.0 g/dL Low May 23, 2025 Transferrin Sat. (Calc) 81 % 20 - 55 % High May 23, 2025 RDW 14.7 % 11.5 - 14.5 % High May 23 TIBC (Calc) 263 mcg/dL 185 - 515 mcg/dL - May UIBC/TIBC 51 mcg/dL 155 - 355 mcg/dL Low May 23, 2025 Iron 212 mcg/dL 30 - 160 mcg/dL High May 23, 2025 Ferritin 840 ng/mL 10 - 291 ng/mL High May 23 Hemoglobin x 3 29.4 % 36.0 - 48.0 % Low May HGB 9.8 g/dL 12.0 - 16.0 g/dL Low May 30, 2025 Metabolic/Renal Result Type Result Value Relevant Referen ce Range Interpretation Date Hemoglobin A1c 5.0 % 4.8 - 5.9 % - February 14, 2025 BUN, Post 10 mg/dL 6 - 19 mg/dL - March 14, 2025 Potassium 4.7 mEq/L 3.5 - 5.1 mEq/L - March 14 BUN 40 mg/dL 6 - 19 mg/dL High March 14, 2025 URR, Calc 75 % 65 - 80 % - March 14, 2025 Sodium 136 mEq/L 136 - 145 mEq/L - March 28 Potassium 4.9 mEq/L 3.5 - 5.1 mEq/L - March 28 Bicarbonate 26 mEq/L 22 - 29 mEq/L - March 28 Creatinine, Serum 7.48 mg/dL 0.60 - 1.30 mg/dL High April 02, 2025 BUN, Post 13 mg/dL 6 - 19 mg/dL - April 11 URR, Calc 79 % 65 - 80 % - April 11, 2025 BUN 62 mg/dL 6 - 19 mg/dL High April 11 Creatinine, Serum 8.65 mg/dL 0.60 - 1.30 mg/dL High April 23, 2025 BUN 62 mg/dL 6 - 19 mg/dL High April 23 BUN/Creat Ratio 7.2 10.0 - 20.0 Low April 23, 2025 Creatinine Clearance, Urine 1.2 mL/min 77.0 - 94.0 mL/min Low April 23, 2025 Urea Nitrogen, Urine, Timed 203 mg/dL No Reference Range Provided - April 23, 2025 Creatinine, Serum 6.90 mg/dL 0.60 - 1.30 mg/dL High April 25, 2025 Sodium 139 mEq/L 136 - 145 mEq/L - April 25, 2025 Potassium 5.0 mEq/L 3.5 - 5.1 mEq/L - April 25, 2025 Bicarbonate 22 mEq/L 22 - 29 mEq/L - April 25 BUN 57 mg/dL 6 - 19 mg/dL High May 09 URR, Calc 77 % 65 - 80 % - May 09, 2025 BUN, Post 13 mg/dL 6 - 19 mg/dL - May 09 Bicarbonate 25 mEq/L 22 - 29 mEq/L - May 23 Potassium 5.4 mEq/L 3.5 - 5.1 mEq/L High May 23, 2025 Sodium 137 mEq/L 136 - 145 mEq/L - May 23, 2025 Creatinine, Serum 7.24 mg/dL 0.60 - 1.30 mg/dL High May 23, 2025 HD Adequacy Result Type Result Value Relevant Referen ce Range Interpretation Date Krt/V 0.00 No Reference Ran ge Provided - February 16, 2025 Krt/V 0.00 No Reference Ran ge Provided - February 28, 2025 spKt/V ([place]augirdas II) 1.63 No Referen ce Range Provided - March 14, 2025 wstdKt/V, residual 0.0 No Reference Range Provided - March 14, 2025 wstdKt/V without residual 2.5 No Reference Range Provided - March 14, 2025 spKt/V Gotch 1.67 No Reference Ran ge Provided - March 14, 2025 wstdKt/V 2.5 No Reference Ran ge Provided - March 14, 2025 eKt/V ([place]) 1.42 No Reference Range Provided - March 14, 2025 Krt/V 0.00 No Reference Ran ge Provided - March 14, 2025 spKt/V (Daugirdas II) 1.83 No Referen ce Range Provided - April 11, 2025 wstdKt/V 2.6 No Reference Ran ge Provided - April 11, 2025 spKt/V Gotch 1.89 No Reference Ran ge Provided - April 11, 2025 Krt/V 0.00 No Reference Ran ge Provided - April 11, 2025 wstdKt/V, residual 0.0 No Reference Range Provided - April 11, 2025 eKt/V ([place]) 1.60 No Reference Range Provided - April 11, 2025 wstdKt/V without residual 2.6 No Reference Range Provided - April 11, 2025 wstdKt/V without residual 2.5 No Reference Range Provided - May 09, 2025 wstdKt/V, residual 0.2 No Reference Range Provided - May 09, 2025 Krt/V 0.07 No Reference Ran ge Provided - May 09, 2025 spKt/V (Daugirdas II) 1.70 No Referen ce Range Provided - May 09, 2025 eKt/V ([place]) 1.49 No Reference Range Provided - May 09, 2025 wstdKt/V 2.7 No Reference Ran ge Provided - May 09, 2025 spKt/V Gotch 1.74 No Reference Ran ge Provided - May 09, 2025 Bone/Mineral Result Type Result Value Relevant Referen ce Range Interpretation Date PTH-Intact, Plasma 350 pg/mL 16 - 80 pg/mL High Feb Magnesium 2.0 mg/dL 1.6 - 2.6 mg/dL - February 14, 2025 Vitamin D 25 Hydroxy 33.6 ng/mL 30.0 - 100.0 ng/mL - February 14, 2025 PTH-Intact, Plasma 577 pg/mL 16 - 80 pg/mL High Feb Magnesium 2.0 mg/dL 1.6 - 2.6 mg/dL - February 28, 2025 Vitamin D 25 Hydroxy 35.4 ng/mL 30.0 - 100.0 ng/mL - February 28, 2025 Phosphorus 5.2 mg/dL 2.6 - 4.5 mg/dL High March 28 Magnesium 2.1 mg/dL 1.6 - 2.6 mg/dL - March 28 PTH-Intact, Plasma 426 pg/mL 16 - 80 pg/mL High March 28, 2025 Calcium, Total 9.0 mg/dL 8.4 - 10.2 mg/dL - April 02, 2025 PTH-Intact, Plasma 408 pg/mL 16 - 80 pg/mL High Apr Phosphorus 6.6 mg/dL 2.6 - 4.5 mg/dL High April 25, 2025 Corrected Ca x P Product 57 0 - 54 High April 25, 2025 Ca x P Product 59 0 - 54 High April 25 025 Calcium, Total 8.9 mg/dL 8.4 - 10.2 mg/dL - April 25, 2025 Magnesium 2.3 mg/dL 1.6 - 2.6 mg/dL - April 25, 2025 PTH-Intact, Plasma 484 pg/mL 16 - 80 pg/mL High May Magnesium 2.2 mg/dL 1.6 - 2.6 mg/dL - May 23, 2025 Corrected Ca x P Product 65 0 - 54 High May 23, 2025 Ca x P Product 68 0 - 54 High Holly 17, 2 025 Phosphorus 7.5 mg/dL 2.6 - 4.5 mg/dL High May 23, 2025 Calcium, Total 9.0 mg/dL 8.4 - 10.2 mg/dL - May 23, 2025 Liver/Nutrition Result Type Result Value Relevant Reference Range Interpre tation eNPCR 0.74 No Reference Range Provided - March 14, 2025 SGOT (AST) 14 U/L 13 - 39 U/L - March 28, 2025 SGPT (ALT) 10 U/L 7 - 52 U/L - March 28, 2025 Albumin (BCG) 4.0 g/dL 3.5 - 5.2 g/dL - March 28, 2025 eNPCR 1.12 No Reference Range Provided - April 11, 2025 Albumin (BCG) 4.3 g/dL 3.5 - 5.2 g/dL - April eNPCR 1.03 No Reference Range Provided - May 09, 2025 Albumin (BCG) 4.4 g/dL 3.5 - 5.2 g/dL - May Immunochemistry Result Type Result Value Relevant Reference Range Interpre tation HCV s/co ratio 0.15 0.00 - 0.79 - February 14, 2025 HCV s/co ratio < 0.02 0.00 - 0.79 - February 28, 2025 Trace Elements Result Type Result Value Relevant Reference Range Interpre tat Aluminum < 5 mcg/L 0 - 10 mcg/L - February 14 Aluminum < 5 mcg/L 0 - 10 mcg/L - February 28 Peritoneal Dialysis Testing Result Type Result Value Relevant Referen ce Range Interpretation Date Total Urea Nitrogen, Urine 0.4 g/24 hr 12.0 - 20.0 g/24 hr Low April 23 Urea Clearance, Urine 0.5 mL/min 64.0 - 99.0 mL/min Low April 23, 2025 Creatinine, Urine 88.6 mg/dL No Reference R damon Provided - April 23, 2025 Total Creatinine, Urine 0.2 g/24 hr 0.5 - 1.6 g/24 hr Low April 23, 2025 Infectious Diseases Result Type Result Value Relevant Referen ce Range Interpretation Date Hep B core Ab Total (anti-HBc) Negative No Reference Range Provided - February 28, 2025 HCV Ab (anti-HCV) Nonreactive No Reference R damon Provided - February 28, 2025 Hep B Surface Ab (anti-HBs) < 10 mIU/mL No Reference Range Provided - February 28, 2025 Hep B Surface Ag (HBsAg) Negative No Reference Range Provided - May 23, 2025 DIALYSIS PRESCRIPTION Conventional Hemodialysis Data Element Value Order Date/Time June 01, 2025 Frequency 3X Week Treatment Days TueThuSat Dialyzer [id number] Optiflux Treatment Time (Total Minutes) 240 min Blood Flow Rate (mL/min) 450 mL/min Dialysate Flow Rate Manual 700 Estimated Dry Weight 86.5 kg Dialysate Concentrate 2.0 K, 2.50 Ca, 1. 0 Mg, 100 Dextrose ([id number]) Sodium (mEq/L) 138 mEq/L Bicarb Machine Setting (mEq/L) 34 mEq/L Dialysis Access Hemodialysis-CV Cath eter-Tunneled, Chest, Right Subclavian Access Placed on February 04, 2025 IMMUNIZATIONS Vaccine Date Dose Route Status HEPLISAV-B, Series 3 of 4 April 30, 2025 20.0 mcg Intramu scular Completed HEPLISAV-B, Series 2 of 4 April 02, 2025 20.0 mcg Intramus cular Completed HEPLISAV-B, Series 1 of 4 February 21, 2025 20.0 mcg Intram uscular Completed PREVNAR 20 February 19, 2025 0.5 mL Intramuscular Complet ed TRANSPLANT WAITLIST STATUS No Information on Transplant Waitlist Status ADVANCE DIRECTIVES Directive Description Ordered By Effective Date Resuscitation status Full Code Will Mccauley Feb DIALYSIS TREATMENTS Conventional Hemodialysis Date Pre-Treatment Vitals Post-Treatment Alla ls Duration (hr) BFR (mL/min) Dialysate Dialyzer Dialysis Access Meds Admin May 30, 2025 Weight 88.80 kg Weight 86.30 kg 04:00:00 450 2.0 K, 2.50 Ca, 1.0 Mg, 100 Dextrose ([id number]) 160nre Optifl ux Blood Pressure-sitting 151/64 mmHg Blood Pressure-sit ting 143/68 mmHg Heart Rate 76 beats per minute Blood Pressure-standi ng 135/64 mmHg Respiratory Rate 18 breaths per minute Heart Rate 71 beats per minute Temperature 98.0 deg. F Respiratory Rate 18 breaths per minute - - Temperature 97.1 deg. F June 01, 2025 Weight 89.30 kg Weight 86.60 kg 04:00:00 450 2.0 K, 2.50 Ca, 1.0 Mg, 100 Dextrose ([id number]) 160nre Optiflux Hemodialysis-CV Catheter-Tunneled, Chest, Right Subclavian Access Placed on February 04, 2025 Heparin Sodium (Porcine) 1,000 Units/mL Catheter Lock Arterial; 1900units,Arterial Red Port Heparin Sodium (Porcine) 1,000 Units/mL Catheter Lock Venous; 1900units,Venous Blue Port Heparin Sodium (Porcine) 1,000 Units/mL Systemic; 3000units,Intravenous - push Vitamin D (Calcitriol) Oral; 0.5mcg,Oral Blood Pressure-sitting 156/71 mmHg Blood Pressure-sit ting 131/57 mmHg Heart Rate 82 beats per minute Heart Rate 99 beats per minute Respiratory Rate 16 breaths per minute Respiratory Rate 16 breaths per minute Temperature 97.0 deg. F Temperature 96.6 deg. F June 04, 2025 Weight 89.60 kg Weight 86.10 kg 03:51:00 450 2.0 K, 2.50 Ca, 1.0 Mg, 100 Dextrose ([id number]) 160nre Optiflux Hemodialysis-CV Catheter-Tunneled, Chest, Right Subclavian Access Placed on February 04, 2025 Heparin Sodium (Porcine) 1,000 Units/mL Catheter Lock Arterial; 1900units,Arterial Red [place] Heparin Sodium (Porcine) 1,000 Units/mL Catheter Lock Venous; 1900units,Venous Blue [place] Heparin Sodium (Porcine) 1,000 Units/mL Systemic; 3000units,Intravenous - push Vitamin D (Calcitriol) Oral; 0.5mcg,Oral Blood Pressure-sitting 208/89 mmHg Blood Pressure-sit ting 106/103 mmHg Heart Rate 93 beats per minute Blood Pressure-standi ng 120/73 mmHg Respiratory Rate 18 breaths per minute Heart Rate 92 beats per minute Temperature 98.2 deg. F Respiratory Rate 18 breaths per minute - - Temperature 98.0 deg. F
--- OUTSIDE RECORDS SUMMARY | 2025-06-06 06:49 | XMS_ITS | Clinical Summary ---
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 Name Role Phone Faustino Guy MD Primary Care Provider [phone] Allergies Active Allergy Reactions Criticality Noted Date Comments Atorvastatin Other (See Comments) 03/04/2020 Myalgia Azathioprine 12/12/2023 Codeine Nausea and/or Vomiting 12/12/2023 Doxycycline Other (See Comments) Low 03/04/2020 Abdominal pain (mild) Etanercept 03/04/2020 Other Reaction(s): RASH ON LEGS Ferumoxytol 12/08/2009 Other Reaction(s): dyspnea,hives,back pain,cough,chest pain Gabapentin 04/08/2022 Gadolinium-Containing Contrast Media 12/12/2023 Ibuprofen 03/04/2020 Indomethacin 03/04/2020 Iodinated Contrast Media Anaphylaxis High 12/12/2023 Losartan 12/21/2024 Leg swell Nifedipine 12/21/2024 leg swelling Nsaids (Non-Steroidal Anti-Inflammatory Drug) Bleeding High 03/04/2020 Simvastatin Other (See Comments) 09/09/2020 Medications amLODIPine (NORVASC) 5 MG tablet Take 5 mg by mouth. 4 Active dapagliflozin propanediol (FARXIGA) 5 mg tablet Take 5 mg by mouth. 4 Active torsemide (DEMADEX) 10 MG tablet Take 10 mg by mouth daily. 5 Active azelastine (ASTELIN) 137 mcg (0.1 %) nasal spray 2 sprays by Nasal route 2 (two) times a day. 5 Active ACTEMRA 162 mg/0.9 mL subcutaneous injection syringeIndications :Rheumatoid arthritis involving multiple sites with positive rheumatoid factor Inject 0.9 mL (162 mg total) under the skin every 7 days. 7.2 mL 3 5 Active labetaloL (TRANDATE) 100 MG tablet Take 100 mg by mouth 2 (two) times a day. 5 Active pravastatin (PRAVACHOL) 20 MG tablet Take 1 tablet by mouth every morning. 5 Active valsartan (DIOVAN) 160 MG tablet Take 160 mg by mouth daily. 5 Active traMADoL (ULTRAM) 50 mg tabletIndications: Primary osteoarthritis involving multiple joints Take 1 tablet (50 mg total) by mouth every morning. 30 tablet 5 5 Active traMADoL (ULTRAM) 50 mg tabletIndications: Primary osteoarthritis involving multiple joints Take 1 tablet (50 mg total) by mouth every morning. 30 tablet 5 4 05/22/20 25 Discontinu ed(Reorder ) bisoprolol (ZEBETA) 5 MG tablet Take 10 mg by mouth daily. 5 05/22/20 25 Discontinu ed(No longer taking) Active Problems Problem Noted Date Diagnosed Date Class 1 obesity due to exces s calories with serious comorbidity and body mass index (BMI) of 31.0 to 31.9 in adult 05/22/2025 Assessment & Plan (05/22/2025 5:22 PM EDT): Congratulations on losing 7 pounds from 203 on 12/21/2024 down to 196 today and keep it off. Portion control. Limit concentrated sugars, saturated fats and calories in the diet. Keep well-hydrated. If unable to achieve expected goal consider formal dietary/nutritional support. On statin therapy 05/22/2025 Assessment & Plan (05/22/2025 5:18 PM EDT): Monitor for muscle tenderness, swelling and weakness Trochanteric bursitis of left hip 05/22/2025 Assessment & Plan (05/22/2025 4:15 PM EDT): Procedure: After an informed written consent, under sterile conditions using Ethyl chloride spray for local anesthesia I have injected 40 mg Kenalog and 2 cc 1% Lidocaine into Left trochanteric bursa approach uneventfully. Details of post-procedure care were explained to the patient in the office and given in writing. Provider: Celi Zaragoza MD Patient: Lauren Weaver : 1950 Date: 05/22/2025 ESRD (end stage renal disease) on dialysis 05/22 Assessment & Plan (05/22/2025 5:17 PM EDT): Believed secondary to poorly controlled hypertension vs chronic GN vs/and possible additional insult from nephrotoxic antibiotics. She follows closely with her credit risk analyst-Dr. Mccauley Renal failure 12/23/2024 Assessment & Plan (12/23/2024 11:06 AM EST): She just underwent renal biopsy yesterday and has a follow-up scheduled with her credit risk analyst= Dr. Mccauley on 12/29/2024. Later in the afternoon I was paged regarding critical creatinine 8.50 (0.5-1.5) and communicated it to patient and covering credit risk analyst- Dr Frazier. Visit for monitoring Actemra therapy 12/21/2024 Assessment & Plan (05/22/2025 3:45 PM EDT): Carefully continue weekly subcutaneous injections on the same weekly daily. Hold Actemra whenever running fever, feeling sick or taking antibiotics. Monitor for injection site reaction versus unusual abdominal pain, diarrhea, nausea, skin discoloration etc. Make sure to inform any new MD, PA, SANITARIAN INSPECTOR about chronic therapy with Actemra particularly in emergency situations. Assessment & Plan (12/23/2024 11:01 AM EST): Carefully continue weekly subcutaneous injections on the same weekly daily. Hold Actemra whenever running fever, feeling sick or taking antibiotics. Monitor for injection site reaction versus unusual abdominal pain, diarrhea, nausea, skin discoloration etc. Make sure to inform any new MD, PA, SANITARIAN INSPECTOR about chronic therapy with Actemra particularly in emergency situations. Rheumatoid arthritis involvi ng multiple sites with positive rheumatoid factor 12/12/2023 Assessment & Plan (05/22/2025 5:21 PM EDT): Clinically appears stable today once she resumed weekly subcutaneous Actemra. New set of lab work requested at the time of lab work for Dr. Mccauley and prior to next visit with me in 5 months. Continue joint protection, energy conservation techniques. Avoid falls, injuries, overuse and sick contacts. Gentle, regular exercise routine. Call if problems or questions otherwise return in 5 months. Assessment & Plan (12/23/2024 10:58 AM EST): Clinically appears stable today once she resumed weekly subcutaneous Actemra. New set of lab work requested today Continue joint protection, energy conservation techniques. Avoid falls, injuries, overuse and sick contacts. Gentle, regular exercise routine. Call if problems or questions otherwise return in 3 months. Assessment & Plan (06/18/2024 2:01 PM EDT): Seropositive rheumatoid arthritis well-controlled on Actemra injected weekly. She has no active synovitis or swelling. Sent her for some baseline labs today. Assessment & Plan (01/09/2024 11:13 PM EST): Seropositive RA well-controlled on weekly Actemra with no active synovitis and swelling. Continue with same dose she has chronic joint deformities but no active synovitis. Her for some labs today. 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 May need to restart it once credit risk analyst approves it to prevent uric acid crystallization and subsequent risk of gouty attacks and renal stones formation. Assessment & Plan (12/23/2024 11:00 AM EST): Was well-controlled with allopurinol 300 mg that was stopped by her credit risk analyst recently. May need to restart it once credit risk analyst approves it to prevent uric acid crystallization and subsequent risk of gouty attacks and renal stones formation. Assessment & Plan (06/18/2024 2:00 PM EDT): Chronic gout well-controlled on allopurinol 300 mg. Continue with same dose. Assessment & Plan (01/09/2024 11:13 PM EST): Chronic gout with no recent flares. Continue with allopurinol 300 mg daily. Primary osteoarthritis involving multiple joints 12/12/2023 Assessment & Plan (05/22/2025 3:45 PM EDT): Joint protection, energy conservation. Gentle, regular exercise routine. Avoid falls, injuries, overuse. Work on reducing her body weight as close as possible to ideal range for her height. Topical cream such as Aspercreme, Arnica, Biofreeze versus medicated patches such as Salonpas or Icy hot 2-3 times daily and if needed at bedtime x 3 wks.to Assessment & Plan (12/21/2024 10:08 AM EST): Joint protection, energy conservation. Gentle, regular exercise routine. Avoid falls, injuries, overuse. Work on reducing her body weight as close as possible to ideal range for her height. Topical cream such as Aspercreme, Arnica, Biofreeze versus medicated patches such as Salonpas or Icy hot 2-3 times daily and if needed at bedtime x 3 wks.to Assessment & Plan (06/18/2024 2:01 PM EDT): Osteoarthritis in multiple joints with no swelling. She takes tramadol 1 tablet daily which I prescribe for her. Assessment & Plan (01/09/2024 11:12 PM EST): Arthritis in multiple joints with chronic joint deformities but no active swelling. Continue with tramadol as needed once daily. Resolved Problems Problem Noted Date Diagnosed Date Resolved Date Class 1 obesity due to exces s calories with serious comorbidity and body mass index (BMI) of 32.0 to 32.9 in adult 12/21/2024 05/22/2025 Assessment & Plan (12/23/2024 11:07 AM EST): Continue diligent portion control particularly in view of 3 pounds weight gain from 200 on 06/18/2024 up to 203 today. Limit concentrated sugars, saturated fats and calories in the diet. Keep well-hydrated. If unable to achieve expected goal consider formal dietary/nutritional support. Encounters Date Type Department Care Team Description 05/29/2025 Orders Only [facility] Health Info Management Virtual Department [address] [place] [address] ProviderEsteban MD 05/22/2025 3:30 PM EDT Office Visit [facility] Rheumatology [address] [place] [address] Celi Zaragoza MD Rheumatoid arthritis involving multiple sites with positive rheumatoid factor (Primary Dx); Visit for monitoring Actemra therapy; Trochanteric bursitis of left hip; Primary osteoarthritis involving multiple joints; Idiopathic chronic gout of multiple sites without tophus; ESRD (end stage renal disease) on dialysis; On statin therapy; Class 1 obesity due to excess calories with serious comorbidity and body mass index (BMI) of 31.0 to 31.9 in adult 05/22/2025 Telephone [facility] All[facility] Medicine [address] [place] [address] Mckenzie Marcelo cortisone injection from Last 3 Months Family History Medical History Relation Comments Arthritis Father Coronary artery disease Father Diabetes Mother Kidney disease Mother Relation Status Comments Father Mother Social History Tobacco Use Types Packs/Day Years Used Date Smoking Tobacco: Never Smokeless Tobacco: Never Tobacco Cessation:Counseling Given: Not Answered Alcohol Use Standard Drinks/Week Comments Never 0 (1 standard drink = 0.6 oz pur e alcohol) Education Answer Date Recorded Are you interested in more education? Not on jonathan e 06/09/2023 Are you concerned about learning? Not on file 06/09/2023 No 06/09/2023 No 06/09/2023 Digital Access Answer Date Recorded No 06/09/2023 No 06/09/2023 Reliable internet access at home? Not on file 06/09/2023 Device with a working camera? Not on file Comments Unknown Sex and Gender Information Value Date Recorded Sex Assigned at Not on file Legal Sex Female 4:19 PM EDT Gender Identity Not on file Sexual Orientation Not on file Last Filed Vital Signs Vital Sign Reading Time Taken Comments Blood Pressure 142/72 05/22/2025 3:30 PM EDT Pulse 74 05/22/2025 3:30 PM EDT Temperature - - Respiratory Rate - - Oxygen Saturation 92% 05/22/2025 3:30 PM EDT Inhaled Oxygen Concentration - - Weight 89 kg (196 lb 3.2 oz) 05/22/2025 3:30 PM EDT Height 167.6 cm (5' 6 ) 05/22/2025 3:30 PM EDT Body Mass Index 31.67 05/22/2025 3:30 PM EDT Plan of Treatment Upcoming Encounters Date Type Department Care Team (Late st Contact Info) Description 10/23/2025 10:00 AM EST Office Visit [facility] Rheumatology [address] [place] [address] Celi Zaragoza MD [address] [facility], [address] [place] [address] Health Maintenance Due Date Last Done Comments DEPRESSION SCREENING 1962 ZOSTER VACCINES (1 of 2) 1969 COLOGUARD 1995 COLONOSCOPY 1995 COLORECTAL CANCER SCREENING 1995 FIT TEST 1995 FOBT 1995 SIGMOIDOSCOPY 1995 VIRTUAL COLONOSCOPY 1995 OSTEOPOROSIS SCREENING INITIAL (ONE-TIME) 2015 MAMMOGRAM 11/21/2020 11/21/2018 Adult Td,Tdap Booster 01/10/2023 01/10/2013 COVID-19 VACCINE ( season) 2024 08/24/2023, 08/05/2022, 04/01/2022, Additional history exists CREATININE LEVEL 12/21/2025 12/21/2024, 10/2024, 12/12/2023 POTASSIUM LEVEL 12/21/2025 12/21/2024, 06/07, 12/12/2023 LIPID PANEL 12/21/2029 12/21/2024 RSV VACCINE Completed 10/11/2023 HEPATITIS C SCREENING Completed 12/12/2023 PNEUMOCOCCAL VACCINES (50+ years) Completed 02/19/2025, 02/13/2018, 08/02/2017, Additional history exists SMOKING STATUS SCREENING (Once After 26 Yrs) Completed 05/22/2025 HEPATITIS A VACCINES Aged Out No long er eligible based on patient's age to complete this topic HIB VACCINES Aged Out No longer eligi ble based on patient's age to complete this topic MENINGOCOCCAL VACCINES (ACWY) Aged Out No longer eligible based on patient's age to complete this topic MENINGOCOCCAL VACCINES (B) Aged Out N o longer eligible based on patient's age to complete this topic Medical Devices Not on file Procedures Procedure Name Priority Date/Time Associated Diagnosis Comments LIPID PANEL Routine 12/21/2024 10:27 AM EST Encounter for monitoring statin therapy Class 1 obesity due to excess calories with serious comorbidity and body mass index (BMI) of 32.0 to 32.9 in adult COMPREHENSIVE METABOLIC PANEL Routine 12/21/2024 10:27 AM EST Rheumatoid arthritis involving multiple sites with positive rheumatoid factor Idiopathic chronic gout of multiple sites without tophus Visit for monitoring Actemra therapy HEPATITIS C ANTIBODY, QUALITATIVE Routine 12/12/2023 2:31 PM EST Rheumatoid arthritis involving multiple sites with positive rheumatoid factor from Last 3 Months or Most Recently Relevant to Health Maintenance Results * (ABNORMAL) Comprehensive metabolic panel (12/21/2024 10:27 AM EST) SODIUM 139 133 - 146 mmol/L [facility] POTASSIUM 4.3 3.3 - 5.1 mmol/L [facility] CHLORIDE 101 96 - 108 mmol/L [facility] CO2 23 21 - 35 mmol/L [facility] BUN 99(H) 6 - 19 mg/dL [facility] CREATININE 8.50(HH) 0.5 - 1.5 mg/dL [facility] Comment: Critical value: Results called to and read back by: JOSE Montelongo, 1655 GLUCOSE 113(H) 70 - 99 mg/dL [facility] ALBUMIN 4.3 3.9 - 4.8 g/dL [facility] TOTAL PROTEIN 6.6 6.5 - 8.0 g/dL [facility] CALCIUM 9.4 8.4 - 10.3 mg/dL [facility] ALKALINE PHOSPHATASE 68 39 - 117 U/L [facility] TOTAL BILIRUBIN 0.3 0.0 - 1.2 mg/dL [facility] AST 22 0 - 37 U/L [facility] ALT 30 0 - 40 U/L [facility] GLOBULIN 2.3 1 - 4.8 g/dL [facility] EGFR 5(L) >59 mL/min/1.7 3m2 [facility] Comment:Estimated glomerular filtration rate calculated using the CKD-EPI refit equation. ANION GAP 19 10 - 20 mmol/L [facility] Blood 12/21/2024 10:2 7 AM EST 12/21/2024 10:34 AM EST us Celi Zaragoza MD LAB BLOOD ORDERABLES Fin al Result [facility] [address] [place], [place] [id number] * (ABNORMAL) Lipid panel (12/21/2024 10:27 AM EST) HDL 57 mg/dL [facility] Comment: Interpretation <40 mg/dL: Low HDL cholesterol (major risk factor for CHD) Greater than or equal to 60 mg/dL: High HDL cholesterol ( negative risk factor for CHD) HDL - cholesterol is affected by a number of factors, e.g. smoking, excerise, hormones, sex and age. CHOLESTEROL 227 0 - 240 mg/dL [facility] TRIGLYCERIDES 110 30 - 160 mg/dL [facility] LDL 148(H) 50 - 129 mg/dL [facility] Comment: LDL levels in terms of risk for coronary heart disease: <100 mg/dL: Optimal 100-129 mg/dL: Near or above optimal 130-159 mg/dL: Borderline high 160-189 mg/dL: High >190 mg/dL: Very High CARDIAC RISK RATIO 4.0 3.3 - 4.4 [facility] Blood 12/21/2024 10:2 7 AM EST 12/21/2024 10:34 AM EST us Celi Zaragoza MD LAB BLOOD ORDERABLES Fin al Result [address] [address] * Hepatitis C antibody, qualitative (12/12/2023 2:31 PM EST) HCV NON-REACTIV E NON-REACTI VE [facility] Blood 12/12/2023 2:31 PM EST 12/12/2023 2:33 PM EST us Alex Antoine MD LAB BLOOD ORDERABLES Fi nal Result Performing Organization Address City[facility] Co de Phone Number [address] [address] from Last 3 Months or Most Recently Relevant to Health Maintenance Insurance MEDICARE REPLACEMENT MEDICARE REPLACEMENT MEDICARE REPLACEMENT MEDICARE REPLACEMENT MEDICARE REPLACEMENT [facility] MEDICARE REPLACEMENT Care Teams Cement Worker Relationship Specialty Start Date End Date Faustino Guy MD [address] [id number] PCP - General Family Medicine 06/09/23 Additional Source Comments The information contained in this document represents components of the legal health record. It is not the complete legal health record.[facility]
== END 2025-06-06 06:47 | disposition home or self-care (01) ==
LOC: HO.HOSX 06:46
PROVIDERS: Visit Provider Orthopaedic Surgery
DX: M16.52 Unilateral post-traumatic osteoarthritis, left hip (principal); M25.552 Pain in left hip
CPT/HCPCS: 72170

== ENCOUNTER 2025-06-06 11:10 | Outpatient (AMB) | payer OTHER, SELFPAY ==
--- NOTE | 2025-06-06 11:20 | A.OFFVIS_ITS ---
Vital Signs 06/06/25 11:23 Height 5 ft 6 in Weight 180 lb BMI 29.0 Intake Visit Reasons: New Patient - Left Hip Pain Intake Note: Lauren is a 74 year old female who presents today as a New Patient with complaints of Left Hip Pain. Patient has called office requesting an urgent MRI, when we called back to inform her that we cannot place this order as we have not seen them in quite some time, they hung up. Patient reports pain has been going on for about 8 months, stating when she walk she hears a clicking and feels a popping sensation in her hip. Pain is felt in her groin area, and when she lays its felt in her back and radiates down to her knee. Had a previous injection done in with jewelry bearing maker office in [facility]. Has taken Tylenol, with minimal relief. Denies any other treatments or injury. Allergies Iodinated Contrast Media Allergy (Mild, Verified 06/06/25 11:29) HIVES NSAIDS (Non-Steroidal Anti-Inflamma Allergy (Mild, Verified 06/06/25 11:29) SWELLING/BLEEDING fentanyl (FENTANYL) Allergy (Unknown, Verified 06/06/25 11:29) ADVISED NOT TO TAKE Gadolinium-Containing Contrast Medi (GADOLINIUM-CONTAINING CONTRAST) Allergy (Unknown, Verified 06/06/25 11:29) HIVES acetaminophen (From Vicodin) Adverse Reaction (Severe, Verified 06/06/25 11:29) Hives hydrocodone (From Vicodin) Adverse Reaction (Severe, Verified 06/06/25 11:29) Hives codeine (CODEINE) Adverse Reaction (Intermediate, Verified 06/06/25 11:29) VOMITING HPI HPI New Patient - Left Hip Pain: Details: Lauren is a 74 year old female who presents today as a New Patient with complaints of Left Hip Pain. Patient has called office requesting an urgent MRI, when we called back to inform her that we cannot place this order as we have not seen them in quite some time, they hung up. Patient reports pain has been going on for about 8 months, stating when she walk she hears a clicking and feels a popping sensation in her hip. Pain is felt in her groin area, and when she lays its felt in her back and radiates down to her knee. Had a previous injection done in with jewelry bearing maker office in [facility]. Has taken Tylenol, with minimal relief. Denies any other treatments or injury. 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 She has an antalgic gait for which she uses a walker. Results Reviewed Results Reviewed: I personally reviewed relevant radiographs. RIght CORNELL in expected post operative position with no hardware complications or evidence of loosening Left hip with severe and worsening progression of osteoarthritis. Pediatric orthopedic hardware present in the femoral neck and head on the left. Assessment & Plan Assessment & Plan (1) Post-traumatic osteoarthritis of left hip: Code(s): M16.52 - Unilateral post-traumatic osteoarthritis, left hip Category: Medical Plan: This is a 74-year-old woman known to me from a prior right hip surgery. She had been doing well until some worsening underlying medical problems required a hospitalization and she has since been suffering from worsening left hip pain. This has been going on since the new year. She did have hip pain in the past but it has never been this bad. Radiographs show worsening left hip severe osteoarthritis. I had a long discussion with her and her . I think she would benefit from hip arthroplasty but she is very hesitant to undergo this. She would like, instead, to try another hip injection. I discussed that this is reasonable to do but in the long term care pharmacist I am not really sure if it is going to suffice as a reasonable solution to her pain. She understands this. I will set up a guided injection in her left hip and she can follow up to see me in approximately 3 months. Thank you Orders: Orders XR pelvis 1-2V 06/06/25 M25.559 - Pain in unspecified hip Referrals Pain Management Referral M16.52 - Unilateral post-traumatic osteoarthritis, left hip Coding Level of Care Code New Pt Level 4 (47486) Diagnoses Post-traumatic osteoarthritis of left hip M16.52
[2025-06-06 11:23] VITALS: BMI 29.0
== END 2025-06-06 11:51 | disposition home or self-care (01) ==
LOC: HO.HOS 11:10
PROVIDERS: PCP Internal Medicine; Visit Provider Orthopaedic Surgery
DX: M16.52 Unilateral post-traumatic osteoarthritis, left hip (principal)
CPT/HCPCS: 99204

== ENCOUNTER → 2025-06-06 11:11 | Outpatient (BNV) | payer OTHER, SELFPAY | PROVIDERS: Visit Provider Radiology Diagnostic Radiology | DX: M16.12 Unilateral primary osteoarthritis, left hip (principal) | CPT/HCPCS: 72170 ==

== ENCOUNTER 2025-08-09 11:07 | Outpatient (AMB) | payer OTHER, MEDICAID, SELFPAY ==
[2025-08-09 11:14] VITALS: BP 150/76; PULSE 67; RESP 16; O2SAT 96; BMI 29.0
--- NOTE | 2025-08-09 11:14 | A.OFFVIS_ITS ---
Vital Signs 08/09/25 11:14 Height 5 ft 6 in Weight 180 lb BMI 29.0 BP 150/76 H Blood Pressure Location Rt brachial Position Sitting Respiration 16 Pulse 67 Pulse Source Pulse Oximeter Pulse Oximetry (%) 96 Oxygen Delivery Method Room Air Intake Visit Reasons: Left hip intra-articular injection Incident Manager Required: No Facility Maintenance Worker: Facility Maintenance Worker Present Accompanied by: Fred Deng Allergies Iodinated Contrast Media Allergy (Mild, Verified 08/09/25 11:17) HIVES NSAIDS (Non-Steroidal Anti-Inflamma Allergy (Mild, Verified 08/09/25 11:17) SWELLING/BLEEDING fentanyl (FENTANYL) Allergy (Unknown, Verified 08/09/25 11:17) ADVISED NOT TO TAKE Gadolinium-Containing Contrast Medi (GADOLINIUM-CONTAINING CONTRAST) Allergy (Unknown, Verified 08/09/25 11:17) HIVES hydrocodone (From Vicodin) Adverse Reaction (Severe, Verified 08/09/25 11:17) Hives codeine (CODEINE) Adverse Reaction (Intermediate, Verified 08/09/25 11:17) VOMITING Medication List - Last Reconciled 08/09/25 by Gladys Antonio LPN labetalol 100 mg PO BID sevelamer carbonate 800 mg PO TID torsemide 40 mg PO valsartan 160 mg PO DAILY HPI HPI Left hip intra-articular injection: Details: History of Present Illness The patient is a 75-year-old female presenting with left hip pain. She was initially referred for a left hip injection but has since decided to proceed with a left hip replacement scheduled for December. The patient had a previous injection in February which was ineffective and caused discomfort radiating to her cheek bone. The patient has a history of right hip replacement in 2014, which was complicated by a femur fracture requiring additional surgery. She is currently on dialysis, which poses a risk for infection with surgical procedures. The patient reports pain radiating from the hip to the buttocks, which is suspected to be due to greater trochanteric bursitis. She also has a history of rheumatoid arthritis, which was managed by her family practice medical doctor. Pain Description - Onset: Pain has been ongoing, with a previous ineffective injection in February. - Quality: Pain radiates from the hip to the buttocks, described as severe. - Location: Primarily in the left hip, radiating to the buttocks. - Exacerbating factors: Sitting and certain movements increase the pain. - Relieving factors: No specific relieving factors were discussed. Physical Exam - Appears afebrile. - Alert and oriented. - Mood and affect appropriate. - Follows and participates in conversation appropriately. - Respiratory effort is unlabored. Procedure - Procedure: Left hip injection with 30 mg of Kenalog and ropivacaine 0.5% at the femoral neck and hip capsule under ultrasound guidance. - Additional injection: 10 mg of Kenalog injected into the greater trochanteric bursa under ultrasound guidance. - Consent: Informed consent was obtained prior to the procedure. Images saved. [facility] Medical History (Updated 08/05/25 @ 09:35 by Gladys Antonio LPN) Chronic kidney disease Injury of ulnar nerve Lumbosacral radiculitis Spinal stenosis of lumbar region Degeneration of lumbosacral intervertebral disc Osteoarthritis Rheumatoid arthritis Asthma Allergic rhinitis Heart failure Premature beats Pulmonary embolism Hypertensive renal disease Iridocyclitis Chronic pain syndrome Anemia Obesity Hypokalemia Gout Hyperlipidemia Vitamin D deficiency Post-traumatic osteoarthritis of left hip Surgical History (Updated 06/06/25 @ 11:32 by SMA Seth) History of total knee arthroplasty History of total right hip arthroplasty Social History (Updated 06/06/25 @ 11:32 by SMA Seth) Patient Tobacco Use Status: Never used Tobacco Current occupational status: retired 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 1. Left Hip Osteoarthritis - Plan: Proceed with left hip replacement surgery scheduled for December. - Interim management: Hip injection performed today to manage pain until surgery. 2. Greater Trochanteric Bursitis - Plan: Injection of Kenalog into the bursa to alleviate pain. 3. Dialysis Dependency - Considerations: Monitor for potential infection risk due to dialysis during surgical procedures. 4. Rheumatoid Arthritis - Management: Continue current management with family practice medical doctor. Discussion Notes I discussed with the patient the plan to proceed with left hip replacement surgery in December and the interim management with a hip injection today to alleviate pain. We also addressed the potential risk of infection due to her dialysis dependency and the importance of monitoring for any signs of infection post-procedure. The patient was informed about the injection procedure, and informed consent was obtained prior to the administration of Kenalog and ropivacaine. Patient Instructions - Monitor for any signs of infection, such as redness, swelling, or fever, and report immediately. - Follow up with the orthopedic surgeon for the scheduled hip replacement in December. - Continue current management for rheumatoid arthritis with your family practice medical doctor. Coding Level of Care Code New Pt Level 4 (66161) Diagnoses Post-traumatic osteoarthritis of left hip M16.52 Comment w/ procedure
--- OUTSIDE RECORDS SUMMARY | 2025-08-09 12:22 | XMS_ITS | Encounter Summary ---
Author Organization [facility], Address [address] [place] [address] Phone Care Team Providers Care Pouncing Machine Operator Name Role Phone Lew Keys MD Primary Care Provider [phone] Encounter Details Date Type Department Care Team (Late st Contact Info) Description 05/16/2025 Documentation Only [facility], [address] [place] [address] [address] [place] [address] [place] [phone] Social History Tobacco Use Types Packs/Day Years [...] on filedocumented in this encounter Care Teams Pouncing Machine Operator Relationship Specialty Start Date End Date Lew Keys MD [address] [facility] [address] [place], [place] PCP - General Internal Medicine 03/03/20 documented as of this encounter
--- OUTSIDE RECORDS SUMMARY | 2025-08-09 12:22 | XMS_ITS | Encounter Summary ---
Author Organization [facility], Address [address] [place] [address] Phone Care Team Providers Care Casting Carrier Name Role Phone Lew Keys MD Primary Care Provider [phone] Encounter Details Date Type Department Care Team (Late st Contact Info) Description 11/08/2024 Documentation Only [facility], [address] [place] [address] Will Mccauley, [address] [place] [phone] Social History Tobacco Use Types Packs/Day Years [...] on filedocumented in this encounter Care Teams Casting Carrier Relationship Specialty Start Date End Date Lew Keys MD [address] [facility] [address] [place], [place] PCP - General Internal Medicine 03/03/20 documented as of this encounter
--- OUTSIDE RECORDS SUMMARY | 2025-08-09 12:22 | XMS_ITS | Encounter Summary ---
Author Organization [facility], Address [address] [place] [address] Phone Care Team Providers Care Technician Anatomic Pathology Name Role Phone Lew Keys MD Primary Care Provider [phone] Encounter Details Date Type Department Care Team (Late st Contact Info) Description 03/04/2025 Documentation Only [facility], [address] [place] [address] [address] [place] [address] [place] [phone] Social History Tobacco Use Types Packs/Day Years [...] on filedocumented in this encounter Care Teams Technician Anatomic Pathology Relationship Specialty Start Date End Date Lew Keys MD [address] [facility] [address] [place], [place] PCP - General Internal Medicine 03/03/20 documented as of this encounter
--- OUTSIDE RECORDS SUMMARY | 2025-08-09 12:22 | XMS_ITS | Clinical Summary ---
Author Organization [facility] Address [address] [place] [address] Care Team Providers Care Paleologist Name Role Phone Unavailable Primary Care Provider [...] Plan of Treatment Not on file Insurance [facility]
--- OUTSIDE RECORDS SUMMARY | 2025-08-09 12:22 | XMS_ITS | Clinical Summary ---
Author Organization [address] [place] [address] [place] [phone] Phone Care Team Providers Care Chiller Tender Name Role Phone Faustino Guy MD Primary Care Provider [phone] Allergies Active Allergy Reactions Criticality Noted Date Comments Atorvastatin Other,Pain 03/04/2020 Myalgia Azathioprine Unknown 12/12/2023 Codeine Nausea And Vomiting Medium 01/31/2025 Dapagliflozin Propanediol Unknown 07/24/2025 Farxiga Dexamethasone Swelling High 07/24/2025 Doxycycline Other Low 03/04/2020 Other Reaction(s): abdominal pain (mild) Abdominal pain (mild) Etanercept Unknown 03/27/2014 Other Reaction(s): RASH ON LEGS Ferumoxytol Unknown 12/08/2009 Other Reaction(s): dyspnea,hives,back pain,cough,chest pain Gabapentin Unknown 04/08/2022 gabapentin Gadolinium-Containing Contrast Media Unknown 12/12/2023 Indomethacin Unknown 03/27/2014 Iodinated Contrast Media Hives Medium 01/31/2025 Lifitegrast Rash Low 04/24/2021 Ibuprofen Hives Medium 01/31/2025 Nsaids (Non-Steroidal Anti-Inflammatory Drug) GI bleeding,Unknown High 03/04/2020 Prednisone Hives Medium 01/31/2025 Simvastatin Muscular Issues,Other 09/09/2020 Medications capsaicin (ZOSTRIX) 0.025 % cream Apply topically 4 (four) times a day if needed (pain). 60 g 4 Active hydrALAZINE (APRESOLINE) 25 mg tablet Take 1 tablet (25 mg total) by mouth 2 (two) times a day. 5 026 Active labetaloL (NORMODYNE) 100 mg tablet Take 1 tablet (100 mg total) by mouth 2 (two) times a day. 60 each 5 Active sevelamer carbonate (RENVELA) 800 mg tabletIndication s:ESRD (end stage renal disease) ([facility] V24, [facility] V28) Take 2 tablets (1,600 mg total) [...] the skin 1 (one) time. 2 Active azelastine (ASTELIN) 137 mcg (0.1 %) nasal spray SPRAY 2 SPRAYS BY INTRANASAL ROUTE TWICE A DAY FOR 30 DAYS 2 Active dapagliflozin propanediol (Farxiga) 5 mg tablet Take 1 tablet (5 mg total) by mouth. 4 Active fluticasone propionate (FLONASE) 50 mcg/actuation nasal spray Administer 2 sprays into each nostril 1 (one) time each day. 4 Active capsaicin cream (CAPZASIN-HP) 0.1 % cream cream Apply topically 2 (two) times a day. Active bran/gum/fib/santiago /psyl/kelp/pec (FIBER 6 ORAL) Take by mouth. Active pravastatin (PRAVACHOL) 20 mg tablet Take 1 tablet (20 mg total) by mouth at bedtime. Active blood-glucose meter kit 1 each if needed. Active polyethylene glycol (Golytely) 236-22.74-6.74 -5.86 gram solution Take 4L by mouth once for one dose. May substitue any PEG. Starting at 2PM the day before your procedure drink 1 8oz glasses at your own pace until you complete half of the gallon. Finish 2nd half of the gallon at 8PM. 4000 mL 5 Active bisacodyL (DULCOLAX) 5 mg EC tablet Take 2 tablets by mouth right before beginning bowel prep. See instructions provided by the office 2 tablet 5 Active Active Problems Problem Noted Date Diagnosed Date Acute renal failure superimp osed on stage 5 chronic kidney disease, not on chronic dialysis, unspecified acute renal failure type ([facility] V24, [facility] V28) 01/31/2025 Encounters Date Type Department Care Team Description 07/31/2025 10:00 AM EDT - 07/31/2025 11:59 PM EDT [facility] [address] [place] [address] Encounter for screening mammogram for breast cancer Discharge Disposition: Home or Self Care 07/23/2025 Telephone Gastroenterology - [place] [address] [facility] [address] [facility] [address] [place] [address] Dulce Tovar MD from Last 3 Months Surgical History Surgery Date Site/Laterality Comments HIP FRACTURE SURGERY Medical History Medical History Date Comments DM (diabetes mellitus) ([facility] V24, [facility] V28 ) HTN (hypertension) Asthma CKD (chronic kidney disease), stage V ([facility] V 24, [facility] V28) Polycystic kidney disease Family History Medical History Relation Name Comments Breast cancer Mother's Sister Relation Name Status Comments Mother's Sister Alive Social History Tobacco Use Types Packs/Day Years [...] for your loved ones. For example, child abuse worker or elderly care for an older adult? [...] Date Recorded What is your living situation? Unrecognized valu e 02/01/2025 Interpersonal Safety Answer Date Record ed Physical Abuse Unrecognized value 02/01/2025 Verbal Abuse Unrecognized value 02/01/2025 Comments No Sex and Gender Information Value Date Recorded Sex Assigned at Female 01/11/2025 4:21 PM EST Legal Sex Female 6:51 AM EST Gender Identity Female 01/11/2025 4:21 PM EST Sexual Orientation Straight 01/11/2025 4: 21 PM EST Obstetrics History Para Term AB IAB SAB Ectopic Multiple Livin g Live Births 2 Last Filed Vital Signs Vital Sign Reading Time Taken Comments Blood Pressure 124/60 02/12/2025 12:17 PM EDT Pulse 73 02/12/2025 12:17 PM EDT Temperature 36.5 C (97.7 F) 02/12/2025 12:17 PM EDT Respiratory Rate 16 02/12/2025 12:17 PM EDT Oxygen Saturation 100% 02/12/2025 12:17 PM EDT Inhaled Oxygen Concentration - - Weight 80.7 kg (178 lb) 07/31/2025 11:00 AM EDT Height 167.6 cm (5' 6 ) 07/31/2025 11:00 AM EDT Body Mass Index 28.73 07/31/2025 11:00 AM EDT Plan of Treatment Upcoming Encounters Date Type Department Care Team (Late st Contact Info) Description 08/13/2025 3:00 PM EDT Appointment [facility] Endoscopy [address] [place] [address] Osmin Arriola MD [address] [place] [phone] Health Maintenance Due Date Last Done Comments Colorectal Cancer Screening: Colonoscopy 1950 Diabetes: Annual Foot Exam 1960 Diabetes: Annual Retina Eye Exam 1960 Zoster Vaccines (1 of 2) 1969 Medicare Annual Wellness Visit 10/10/2022 DTaP,Tdap,and Td Vaccines (2 - Td or Tdap) 01/10/2023 01/10/2013 Depression Screening 11/07/2024 Hepatitis B Vaccines (2 of 2 - CpG 2-dose series) 03/21/2025 02/21/2025 COVID-19 Vaccine ( season) 2025 08/24/2023, 08/05/2022, 04/01/2022, Additional history exists Influenza Vaccine (#1) 2025 , 07/21/2022, 07/28/2021, Additional history exists Diabetes: Blood Sugar Control Test (HGBA1C) 08/03/2025 01/31/2025, 01/23/2024 Osteoporosis Screening (Bone Density Screening) 12/16/2025 12/16/2015 Social Influencers of Health Screening 02/01/2026 02/01/2025 Falls Risk Assessment 02/12/2026 02/12/2025 Hypertension/CHF/CAD Annual BMP Blood Test 02/12/2026 02/12/2025, 02/11/2025, 02/10/2025, Additional history exists Cholesterol Screening (Lipid Panel) 12/21/2029 12/21/2024 RSV Immunization Adult Patients Completed 10/11/2023 Hepatitis C Screening Completed 02/03/2025, 024 Pneumococcal Vaccine: 50+ Years Completed 02/19/2025, 02/13/2018, 08/02/2017, Additional history exists Breast Cancer Screening Discontinued 07/31/20, 11/21/2018, 11/21/2018 HIB Vaccines Aged Out No longer eligi [...] on patient's age to complete this topic Goals Goal Patient Goal Type Associated Problems Recent Progress Patient-Stated? Author Autocarli yun Goal Care Plan Autogenerated Problem No Nicole Garvin Medical Devices Implanted Type Area Gauge And Weigh Machine Adjuster Device Identifier Shelf Expiration Date Model / Serial / Lot Cath Dial W/Vt Kt [id number] Palindrome Precision - [id number] - [id number] Implanted:Qty: 1 on 02/04/2025 by Darien Yanes MD at [facility] Dialysis Catheters Right: Chest Wall [facility] [id number] 04/06/2029 [id number] / [id number] / [id number] Procedures Procedure Name Priority Date/Time Associated Diagnosis Comments MG MAMMO DIGITAL SCREENING W CLAY BILAT Routine 07/31/2025 11:04 AM EDT Encounter for screening mammogram for breast cancer BASIC METABOLIC PANEL Timed 02/12/2025 7:37 AM EDT HEPATITIS C ANTIBODY Routine 02/03/2025 6:08 AM EDT HEMOGLOBIN A1C Add-On 01/31/2025 6:02 PM EDT from Last 3 Months or Most Recently Relevant to Health Maintenance Results * MG Mammo Digital Screening w Clay bilat (07/31/2025 11:04 AM EDT) Anatomical Region Laterality Modality Breast Bilateral Mammography 07/31/2025 11:1 4 AM EDT Impressions 07/31/2025 11:25 AM EDT Benign. BI-RADS CATEGORY: 2 - BENIGN RECOMMENDATION: Screening bilateral mammogram is recommended in 1 year. Mammo Location: [facility], [address] [place] [address], [id number], . -------- FINAL REPORT -------- Dictated By: Ad Baumann Dictated Date: 07/31/2025 11:14 ET Assigned Physician: Ad Baumann Reviewed and Electronically Signed By: Ad Baumann Signed Date: 07/31/2025 11:25 ET Workstation ID: [id number] Transcribed By: Self Edit Transcribed Date: 07/31/2025 11:14 ET Narrative 07/31/2025 11:25 AM EDT CLINICAL: 75 years old, Female, routine annual exam. COMPARISON: None. TECHNIQUE: Bilateral MLO and CC views were obtained digitally with 3-D mammogram (digital breast tomosynthesis). Computer-aided detection was utilized in evaluation of this exam (CAD). FINDINGS: Scattered benign calcifications. Postbiopsy marker clip in the posterior medial right breast. No suspicious mass or architectural distortion. No suspicious calcification. There has been no significant change from prior exam(s). BREAST DENSITY: B - There are scattered areas of fibroglandular density. Procedure Note Ad Baumann MD - 07/31/2025 CLINICAL: 75 years old, Female, routine annual exam. COMPARISON: None. TECHNIQUE: Bilateral MLO and CC views were obtained digitally with 3-Dmammogram (digital breast tomosynthesis). Computer-aided detection wasutilized in evaluation of this exam (CAD). FINDINGS: Scattered benign calcifications. Postbiopsy marker clip in theposterior medial right breast. No suspicious mass or architectural distortion. No suspiciouscalcification. There has been no significant change from prior exam(s). BREAST DENSITY: B - There are scattered areas of fibroglandular density. IMPRESSION: Benign. BI-RADS CATEGORY: 2 - BENIGN RECOMMENDATION: Screening bilateral mammogram is recommended in 1 year. Mammo Location: [facility], [address] [place] [address], [address], . -------- FINAL REPORT -------- Dictated By: Ad Baumann Dictated Date: 07/31/2025 11:14 ET Assigned Physician: Ad Baumann Reviewed and Electronically Signed By: Ad Baumann Signed Date: 07/31/2025 11:25 ET Workstation ID: [id number] Transcribed By: Self Edit Transcribed Date: 07/31/2025 11:14 ET us Self Referral Sppl IMG BI PROCEDURES Final Resul t * (ABNORMAL) Basic metabolic panel (02/12/2025 7:37 AM EDT) Sodium 131(L) 133 - 145 mmol/L LAB CHEMISTRY METHOD 02/12/2025 8:18 AM EDT [facility] Potassium 4.3 3.5 - 5.5 mmol/L LAB CHEMISTRY METHOD 02/12/2025 8:18 AM EDT [facility] Chloride 97 96 - 110 mmol/L LAB CHEMISTRY METHOD 02/12/2025 8:18 AM EDT [facility] CO2 29 21 - 32 mmol/L LAB CHEMISTRY METHOD 02/12/2025 8:18 AM EDT [facility] Anion Gap 5 3 - 11 LAB CHEMISTRY METHOD 02/12/2025 8:18 AM EDT [facility] Glucose 87 70 - 100 mg/dL LAB CHEMISTRY METHOD 02/12/2025 8:18 AM EDT [facility] BUN 16 5 - 25 mg/dL LAB CHEMISTRY METHOD 02/12/2025 8:18 AM EDT [facility] Creatinine 4.24(H) 0.50 - 1.10 mg/dL LAB CHEMISTRY METHOD 02/12/2025 8:18 AM EDT [facility] eGFR 10(L) >=60 mL/min/1. 73m2 LAB CHEMISTRY METHOD 02/12/2025 8:18 AM EDT [facility] Comment:Calculation based on the Chronic Kidney Disease Epidemiology Collaboration (CKD-EPI) equation refit without adjustment for race. BUN/Creatinine Ratio 3.8 LAB CHEMISTRY METHOD 02/12/2025 8:18 AM [facility] Calcium 8.5 8.5 - 10.5 mg/dL LAB CHEMISTRY METHOD 02/12/2025 8:18 AM EDT [facility] Blood Venous blood specimen / Unknown Venipuncture / Unknown 02/12/2025 7:37 AM EDT 02/12/2025 7:43 AM EDT us Maninder Frankel MD LAB BLOOD ORDERABLES Final Resul t [facility] [address] [place] [address], * Hepatitis C antibody (02/03/2025 6:08 AM EDT) Hepatitis C Antibody Negative Negative LAB CHEMISTRY METHOD 02/03/2025 9:05 AM EDT [facility] Blood Venous blood specimen / Unknown Venipuncture / Unknown 02/03/2025 6:08 AM EDT 02/03/2025 6:13 AM EDT Anastasia Lugo MD LAB BLOOD ORDERABLES Final Re sult Performing Organization Address City/[facility]/ZIP Co de Phone Number [facility] [address] [place] [address], [place] [phone] * Hemoglobin A1c (01/31/2025 6:02 PM EDT) Hemoglobin A1C 5.3 <6.5 % LAB CHEMISTRY METHOD 02/01/2025 12:41 PM EDT [facility] Mean Bld Glu Estim. 105 mg/dL LAB CHEMISTRY METHOD 02/01/2025 12:41 PM EDT [facility] Blood Venous blood specimen / Unknown Venipuncture / Unknown 01/31/2025 6:02 PM EDT 01/31/2025 6:38 PM EDT Dhara Becerra NP LAB BLOOD ORDERABLES Fin al Result Performing Organization Address [facility] Co de Phone Number [facility] [address] [place] [address], from Last 3 Months or Most Recently Relevant to Health Maintenance Additional Health Concerns Active Problems Noted Date Diagnosed Date Autogenerated Problem 08/07/2025 Insurance [employer] MEDICARE [place]ICAID - [place] Advance Directives Documents on File Type Date Recorded Patient Staff Development Manager Expl anation Advance Directives and Living Will 02/07/2025 3:06 PM Zachery Weaver [facility] Pr oxy * Full Code - Confirmed [...] Agents on File Name Relationship Healthcare Agent Relationshi p Communication Froylan Weaver Spouse Health Care Agent [phone] (Mobile) Zachery Weaver Son First Alternate Health Care Agent Care Teams Chiller Tender Relationship Specialty Start Date End Date Faustino Guy MD [address] [phone] PCP - General Family Medicine 07/23/25
--- OUTSIDE RECORDS SUMMARY | 2025-08-09 12:22 | XMS_ITS | Clinical Summary ---
Author Organization [facility] Address [address] [place] [id number] Phone Care Team Providers Care Chain Machine Operator Name Role Phone Faustino Guy MD Primary Care Provider [phone] Allergies Active Allergy Reactions Criticality Noted Date [...] Active ACTEMRA 162 mg/0.9 mL subcutaneous injection syringeIndications: Rheumatoid arthritis involving multiple sites with positive [...] daily. 5 Active traMADoL (ULTRAM) 50 mg tabletIndications:P rimary osteoarthritis involving multiple joints Take 1 tablet (50 mg total) by mouth every morning. 30 tablet 5 5 Active Active Problems Problem Noted Date [...] in writing. Provider: Celi Zaragoza MD Patient: Laruen Weaver : 1950 Date: 05/22/2025 ESRD (end stage renal disease) on dialysis 05/22 Assessment & Plan (05/22/2025 5:17 PM EDT): Believed secondary to poorly controlled hypertension vs chronic GN vs/and possible additional insult from nephrotoxic antibiotics. She follows closely with her parquetry floor layer-Dr. Mccauley Renal failure 12/23/2024 Assessment & Plan (12/23/2024 11:06 AM EST): She just underwent renal biopsy yesterday and has a follow-up scheduled with her parquetry floor layer= Dr. Mccauley on 12/29/2024. Later in the afternoon I was paged regarding critical creatinine 8.50 (0.5-1.5) and communicated it to patient and covering parquetry floor layer- Dr Frazier. Visit for monitoring Actemra therapy 12/21/2024 Assessment & Plan (05/22/2025 3:45 PM EDT): Carefully continue weekly subcutaneous injections on the same weekly daily. Hold Actemra whenever running fever, feeling sick or taking antibiotics. Monitor for injection site reaction versus unusual abdominal pain, diarrhea, nausea, skin discoloration etc. Make sure to inform any new MD PA, CLUB ATTENDANT about chronic therapy with Actemra particularly in emergency situations. Assessment & Plan (12/23/2024 11:01 AM EST): Carefully continue weekly subcutaneous injections on the same weekly daily. Hold Actemra whenever running fever, feeling sick or taking antibiotics. Monitor for injection site reaction versus unusual abdominal pain, diarrhea, nausea, skin discoloration etc. Make sure to inform any new MD PA, CLUB ATTENDANT about chronic therapy with Actemra particularly in [...] 300 mg that was stopped by her parquetry floor layer recently. May need to restart it once parquetry floor layer approves it to prevent uric acid crystallization and subsequent risk of gouty attacks and renal stones formation. Assessment & Plan (12/23/2024 11:00 AM EST): Was well-controlled with allopurinol 300 mg that was stopped by her parquetry floor layer recently. May need to restart it once parquetry floor layer approves it to prevent uric acid crystallization [...] Department Care Team Description 05/29/[address] [facility] Health Info Management Virtual Department [address] [place] [address] ProviderEsteban MD 05/22/2025 3:30 PM EDT Office Visit [facility] Rheumatology [address] [place] [address] Celi Zaragoza MD Rheumatoid arthritis involving multiple [...] Pulmonary, Allergy and Critical Care Medicine [address] [place] [address] Mckenzie Marcelo cortisone injection from Last 3 [...] Description 10/23/2025 10:00 AM EST Office Visit [facility] Rheumatology [address] [place] [address] Celi Zaragoza MD [address] [facility], [address] [place] [address] [email or web address] Maintenance Due Date Last Done Comments DEPRESSION SCREENING 1962 ZOSTER VACCINES (1 of 2) 1969 COLOGUARD 1995 COLONOSCOPY 1995 COLORECTAL CANCER SCREENING 1995 FIT TEST 1995 FOBT 1995 SIGMOIDOSCOPY 1995 VIRTUAL COLONOSCOPY 1995 OSTEOPOROSIS SCREENING INITIAL (ONE-TIME) 2015 Adult Td,Tdap Booster 01/10/2023 01/10/2013 INFLUENZA VACCINE (#1) 2025 , 07/21/2022, 07/28/2021, Additional history exists COVID-19 VACCINE ( season) 2025 08/24/2023, 08/05/2022, 04/01/2022, Additional history exists CREATININE [...] EST) SODIUM 139 133 - 146 mmol/L [facility] POTASSIUM 4.3 3.3 - 5.1 mmol/L [facility] CHLORIDE 101 96 - 108 mmol/L [facility] CO2 23 21 - 35 mmol/L [facility] BUN 99(H) 6 - 19 mg/dL [facility] CREATININE 8.50(HH) 0.5 - 1.5 mg/dL [facility] Comment: Critical value: Results called to and read back by: JOSE Montelongo 5225 GLUCOSE 113(H) 70 - 99 mg/dL [facility] ALBUMIN 4.3 3.9 - 4.8 g/dL [facility] TOTAL PROTEIN 6.6 6.5 - 8.0 g/dL [facility] CALCIUM 9.4 8.4 - 10.3 mg/dL [facility] ALKALINE PHOSPHATASE 68 39 - 117 U/L [facility] TOTAL BILIRUBIN 0.3 0.0 - 1.2 mg/dL [facility] AST 22 0 - 37 U/L [facility] ALT 30 0 - 40 U/L [facility] GLOBULIN 2.3 1 - 4.8 g/dL [facility] EGFR 5(L) >59 mL/min/1.7 3m2 [facility] Comment:Estimated glomerular filtration rate calculated using the CKD-EPI refit equation. ANION GAP 19 10 - 20 mmol/L [facility] Blood 12/21/2024 10:2 7 AM EST 12/21/2024 10:34 AM EST us Celi Zaraogza MD LAB BLOOD ORDERABLES Fin al Result [address] [address] * (ABNORMAL) Lipid panel (12/21/2024 10:27 AM EST) HDL 57 mg/dL [facility] Comment: Interpretation <40 mg/dL: Low HDL cholesterol (major risk factor for CHD) Greater than or equal to 60 mg/dL: High HDL cholesterol ( negative risk factor for CHD) HDL - cholesterol is affected by a number of factors, e.g. smoking, excerise, hormones, sex and age. CHOLESTEROL 227 0 - 240 mg/dL [facility] TRIGLYCERIDES 110 30 - 160 mg/dL [facility] LDL 148(H) 50 - 129 mg/dL [facility] Comment: LDL levels in terms of risk for coronary heart disease: <100 mg/dL: Optimal 100-129 mg/dL: Near or above optimal 130-159 mg/dL: Borderline high 160-189 mg/dL: High >190 mg/dL: Very High CARDIAC RISK RATIO 4.0 3.3 - 4.4 C [facility] Blood 12/21/2024 10:2 7 AM EST 12/21/2024 10:34 AM EST us Celi Zaragoza MD LAB BLOOD ORDERABLES Fin al Result [address] [address] * Hepatitis C antibody, qualitative (12/12/2023 2:31 PM EST) HCV NON-REACTIV E NON-REACTI VE [facility] Blood 12/12/2023 2:31 PM EST 12/12/2023 2:33 PM EST us Alex Antoine MD LAB BLOOD ORDERABLES Fi nal Result Performing Organization Address [facility] Co de Phone Number [address] [address] from Last 3 Months or Most Recently Relevant to Health Maintenance Insurance [place] [address] [place] [address] MEDICARE REPLACEMENT [place] [id number] MEDICARE REPLACEMENT MEDICARE REPLACEMENT [place]IC[place] [address] [place] [address] MEDICARE REPLACEMENT Care Teams Chain Machine Operator Relationship Specialty Start Date End Date Faustino Guy MD [address] [address] PCP - General Family Medicine 06/09/23 Additional Source Comments The information contained in this document represents components of the legal health record. It is not the complete legal health record.[facility]
--- OUTSIDE RECORDS SUMMARY | 2025-08-09 12:22 | XMS_ITS | Encounter Summary ---
Author Organization [facility] Address [address] [place] [address] Phone Care Team Providers Care Assembler Small Products Name Role Phone Lew Keys MD Primary Care Provider [phone] Encounter Details Date Type Department Care Team (Late st Contact Info) Description 03/07/2025 Telephone [facility], [address] [place] [address] Lesley Ramirez Social History Tobacco Use Types Packs/Day Years [...] on file documented as of this encounter Miscellaneous Notes * Telephone Encounter - Lesley Ramirez - 03/07/2025 11:20 AM EDT Hi Madeline Hassan called requesting a referral for [facility] for skin sensitivity/burning sensation she stated. Usually I would have pt give their PCP a call but unsure with Madeline, please advise, thanks! documented in this encounter Plan of Treatment Not on file documented as of this encounter Visit Diagnoses Not on filedocumented in this encounter Care Teams Assembler Small Products Relationship Specialty Start Date End Date Lew Keys MD [facility] [address] [place], [place] PCP - General Internal Medicine 03/03/20 documented as of this encounter
--- OUTSIDE RECORDS SUMMARY | 2025-08-09 12:22 | XMS_ITS | Encounter Summary ---
Author Organization [facility], Address [address] [place] [address] Phone Care Team Providers Care Cad Design Engineer Name Role Phone Lew Keys MD Primary Care Provider [phone] Encounter Details Date Type Department Care Team (Late st Contact Info) Description 12/10/2024 Documentation Only [facility], [address] [place] [address] Amador Cornejo [place] [address] [place] [phone] Social History Tobacco Use Types Packs/Day Years [...] on filedocumented in this encounter Care Teams Cad Design Engineer Relationship Specialty Start Date End Date Lew Keys MD [address] [facility] 207 [place], [place] PCP - General Internal Medicine 03/03/20 documented as of this encounter
--- OUTSIDE RECORDS SUMMARY | 2025-08-09 12:22 | XMS_ITS | Encounter Summary ---
Author Organization [facility] [place], Address [address] [place] [address] Phone Care Team Providers Care Hvac Project Engineer Name Role Phone Lew Keys MD Primary Care Provider [phone] Encounter Details Date Type Department Care Team (Late st Contact Info) Description 07/18/2023 Documentation Only [facility], [address] [place] [address] Will Mccauley, [address] [place] [phone] Social History Tobacco Use Types Packs/Day Years [...] on filedocumented in this encounter Care Teams Hvac Project Engineer Relationship Specialty Start Date End Date Lew Keys MD [address] [facility] 207 [place], [place] PCP - General Internal Medicine 03/03/20 documented as of this encounter
--- OUTSIDE RECORDS SUMMARY | 2025-08-09 12:22 | XMS_ITS | Encounter Summary ---
Author Organization [facility], Address [address] [place] [address] Phone Care Team Providers Care Lead Coater Name Role Phone Lew Keys MD Primary Care Provider [phone] Encounter Details Date Type Department Care Team (Late st Contact Info) Description 11/16/2024 Documentation Only [facility], [address] [place] [address] Will Mccauley, [address] [place] [phone] Social History Tobacco Use Types Packs/Day Years [...] on filedocumented in this encounter Care Teams Lead Coater Relationship Specialty Start Date End Date Lew Keys MD [address] [facility] [address] [place], [place] PCP - General Internal Medicine 03/03/20 documented as of this encounter
--- OUTSIDE RECORDS SUMMARY | 2025-08-09 12:22 | XMS_ITS | Encounter Summary ---
Author Organization [facility], Address [address] [place] [address] Phone Care Team Providers Care Process Architect Name Role Phone Lew Keys MD Primary Care Provider [phone] Encounter Details Date Type Department Care Team (Late st Contact Info) Description 12/05/2024 Documentation Only [facility], [address] [place] [address] Amador Cornejo [place] [address] [place] [phone] Social History Tobacco Use Types Packs/Day Years [...] on filedocumented in this encounter Care Teams Process Architect Relationship Specialty Start Date End Date Lew Keys MD [address] [facility] 207 [place], [place] PCP - General Internal Medicine 03/03/20 documented as of this encounter
--- OUTSIDE RECORDS SUMMARY | 2025-08-09 12:22 | XMS_ITS | Encounter Summary ---
Author Organization [facility] Address [address] [place] [address] Phone Care Team Providers Care Commissioning Agent Name Role Phone Faustino Guy MD Primary Care Provider Reason for Visit * Reason Onset Date Comments cortisone injection 05/22/2025 Encounter Details Date Type Department Care Team ([facility] st Contact Info) Description 05/22/2025 Telephone [facility] Pulmonary, Allergy and Critical Care Medicine [address] [facility][1] [place], [place] [id number] [email or web address] cortisone injection Social History Tobacco Use Types Packs/Day Years Used Date Smoking Tobacco: Never Smokeless Tobacco: Never Alcohol Use Standard Drinks/Week Comments Never 0 [...] on file Sexual Orientation Not on file documented as of this encounter Progress Notes * Renay Lantigua RN - 05/22/2025 12:54 PM EDT Spoke to patient who is in need of a left hip injection, Dr Leal used to give them to her. Appt booked at 3:30pm, patient thankful. * Mckenzie Marcelo - 05/22/2025 12:29 PM EDT Patient called requesting to see if she can receive a cortisone shot. Please contact and advise. Central Support Moisture Meter Reader (Please do not reply to this user; this inbox is not monitored.) Thank you. documented in this encounter Plan of Treatment Upcoming Encounters Date Type Department Care Team (Late st Contact Info) Description 10/23/2025 10:00 AM EST Office Visit [facility] Rheumatology [address] [place] [address] Celi Zaragoza MD 22 [facility], [facility] [address] [place] [address] documented as of this encounter Visit Diagnoses Not on filedocumented in this encounter Care Teams Commissioning Agent Relationship Specialty Start Date End Date Faustino Guy MD [address] [phone] PCP - General Family Medicine 06/09/23 documented as of this encounter Additional Source Comments The information contained in this document represents components of the legal health record. It is not the complete legal health record.[facility]
--- OUTSIDE RECORDS SUMMARY | 2025-08-09 12:22 | XMS_ITS | Encounter Summary ---
Author Organization [facility], Address [address] [place] [address] Phone Care Team Providers Care Pit Tanner Name Role Phone Lew Keys MD Primary Care Provider [phone] Encounter Details Date Type Department Care Team (Late st Contact Info) Description 06/01/2023 Documentation Only [facility], [address] [place] [address] Will Mccauley, [address] [facility] [place] [phone] Social History Tobacco Use Types Packs/Day Years [...] on filedocumented in this encounter Care Teams Pit Tanner Relationship Specialty Start Date End Date Lew Keys MD [address] [facility] 207 [place], [place] PCP - General Internal Medicine 03/03/20 documented as of this encounter
--- OUTSIDE RECORDS SUMMARY | 2025-08-09 12:22 | XMS_ITS | Encounter Summary ---
Author Organization [facility], Address [address] [place] [address] Phone Care Team Providers Care Lapeler Name Role Phone Lew Keys MD Primary Care Provider [phone] Encounter Details Date Type Department Care Team (Late st Contact Info) Description 01/25/2024 Documentation Only [facility], [address] [place] [address] Will Mccauley, [address] [place] [phone] Social History Tobacco Use Types Packs/Day Years [...] on filedocumented in this encounter Care Teams Lapeler Relationship Specialty Start Date End Date Lew Keys MD [address] [facility] [address] [place], [place] PCP - General Internal Medicine 03/03/20 documented as of this encounter
--- OUTSIDE RECORDS SUMMARY | 2025-08-09 12:22 | XMS_ITS | Clinical Summary ---
Author Organization [facility] Address [address] [place] [address] Care Team Providers Care Body Shop Manager Name Role Phone Lew Keys MD Primary Care Provider [phone] Social History Tobacco Use Types Packs/Day Years [...] Evaluation 1968 Colon Cancer Screening (Colonoscopy) 1995 Shingrix-Zoster Vaccine (1 of 2) 2000 Fall [...] age to complete this topic Care Teams Body Shop Manager Relationship Specialty Start Date End Date Lew Keys MD [address] [facility] [address] [place] [phone] PCP - General Internal Medicine 01/06/21
--- OUTSIDE RECORDS SUMMARY | 2025-08-09 12:22 | XMS_ITS | Clinical Summary ---
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 Name Role Phone Lew Keys MD Primary Care Provider [phone] Allergies Active Allergy Reactions Criticality Noted Date Comments Atorvastatin Other (see comments) 03/04/2020 Myalgia Codeine Hives High 09/09/2020 Iodinated Contrast Media 03/04/2020 Oral and IV dye Doxycycline Other (see comments) Low 03/04/2020 Abdominal pain (mild) Etanercept 03/04/2020 Ferumoxytol 04/24/2021 Gabapentin 04/08/2022 Ibuprofen 03/04/2020 Indomethacin 03/04/2020 Lifitegrast Rash Low 04/24/2021 Nsaids 03/04/2020 Simvastatin Other (see comments) 09/09/2020 Medications budesonide-form oterol (SYMBICORT) 160-4.5 MCG/ACT inhaler Inhale 2 puffs 2 (two) times a day Active simvastatin (ZOCOR) 10 MG tablet Take 10 mg by mouth 1 (one) time each day Active oxyCODONE-aceta minophen (PERCOCET) 10-325 MG per tablet Take 1 tablet by mouth twice a day Active Multiple Vitamin (MULTIVITAMIN) tablet Take 1 tablet by mouth 1 (one) time each day Active fluticasone (FLONASE) 50 MCG/ACT nasal spray Administer 2 sprays into each nostril 1 (one) time each day Active diazePAM (VALIUM) 10 MG tablet Take 10 mg by mouth at bed time Active fexofenadine (CECILY) 180 MG tablet Take 180 mg by mouth 1 (one) time each day Active allopurinol (ZYLOPRIM) 100 MG tablet Take 1 tablet (100 mg total) by mouth 1 (one) time each day 0 Active rosuvastatin (CRESTOR) 5 MG tablet rosuvastatin 5 mg tablet TK 1 T PO QOD Active calcitriol (ROCALTROL) 0.5 MCG capsuleIndicati ons:Stage 3a chronic kidney disease (HCC),Essential hypertension,Rh eumatoid arteritis (HCC),Type 2 diabetes mellitus with diabetic nephropathy (HCC) TAKE 4 CAPSULES BY MOUTH ONCE WEEKLY 52 capsule 3 4 Active torsemide (DEMADEX) 20 MG tabletIndicatio ns:Edema,Renal Disease Take 2 tablets (40 mg total) by mouth in the morning and 2 tablets (40 mg total) in the evening. 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 Stage 3a chronic kidney disease 03/04/2020 Overview (11/10/2020): Update for Diagnosis Load Anemia Vitamin D deficiency Hypokalemia Hyperlipidemia Heart failure Essential hypertension Resolved Problems Problem Noted Date Diagnosed Date Resolved Date Type 2 diabetes mellitus 01/2022 Edema 03/04/2022 Encounters Date Type Department Care Team Description 08/08/2025 Treatment [facility], [address] [place] [id number] Ada Trejo APRN End stage renal disease; Dependence on renal dialysis 08/04/2025 Refill [facility] [address] [place] [id number] Will Mccauley DO Anemia in chronic kidney disease; Iron deficiency anemia, not otherwise specified; Chronic kidney disease, Stage V (HCC); Hypertension; Edema of lower extremity 08/01/2025 Orders Only [facility] [address] [address] Will Mccauley, 08/01/2025 Treatment [facility] [address] [place] [address] Will Mccauley DO End stage renal disease; Dependence on renal dialysis; Hypertensive chronic kidney disease with stage 5 chronic kidney disease or end stage renal disease 07/25/2025 Orders Only [facility] [address] [address] Will Mccauley, 07/25/2025 Treatment [facility] [address] [place] [address] Ada Trejo APRN End stage renal disease; Dependence on renal dialysis 07/18/2025 Orders Only [facility] [address] [address] Will Mccauley, 07/16/2025 Treatment [facility] [address] [place] [address] Will Mccauley DO End stage renal disease; Dependence on renal dialysis; Hypertensive chronic kidney disease with stage 5 chronic kidney disease or end stage renal disease 07/11/2025 Orders Only [facility] [address] [address] Will Mccauley, 07/09/2025 Treatment [facility] [address] [place] [address] Will Mccauley DO End stage renal disease; Dependence on renal dialysis; Hypertensive chronic kidney disease with stage 5 chronic kidney disease or end stage renal disease 2025 Orders Only [facility] [address] [address] Will Mccauley, 06/27/2025 Orders Only [facility] [address] [address] Will Mccauley, DO 06/27/2025 Treatment [facility], [address] [place] [address] Ada Treoj APRN End stage renal disease; Dependence on renal dialysis 06/20/2025 Orders Only [facility] [address] [address] Will Mccauley, DO 06/20/2025 Treatment [facility], [address] [place] [address] Ada Trejo APRN End stage renal disease; Dependence on renal dialysis 06/19/2025 Documentation Only [facility] [address] [place] [address] Will Mccauley, 06/19/2025 Documentation Only [facility] [address] [place] [address] Will cMcauley, 06/13/2025 Orders Only [facility] [address] [address] Will Mccauley, DO 06/13/2025 Treatment [facility], [address] [place] [address] Will Mccauley DO End stage renal disease; Dependence on renal dialysis; Hypertensive chronic kidney disease with stage 5 chronic kidney disease or end stage renal disease 06/11/2025 Treatment [facility], [address] [place] [address] Will Mccauley DO End stage renal disease; Dependence on renal dialysis; Hypertensive chronic kidney disease with stage 5 chronic kidney disease or end stage renal disease 06/06/2025 Orders Only [facility] [address] [address] Will Mccauley, DO 06/04/2025 Treatment [facility], [address] [place] [address] Ada Trejo APRN End stage renal disease; Dependence on renal dialysis 05/30/2025 Orders Only [facility] [address] [address] Will Mccauley, DO 05/30/2025 Treatment [facility], [address] [place] [address] Ada Trejo APRN End stage renal disease; Dependence on renal dialysis 05/23/2025 Orders Only [facility] [address] [address] Will Mccauley, 05/21/2025 Treatment [facility], [address] [place] [address] Will Mccauley, End stage renal disease; Dependence on renal dialysis; Hypertensive chronic kidney disease with stage 5 chronic kidney disease or end stage renal disease 05/16/2025 Orders Only [facility] [address] [address] Will Mccauley, 05/16/2025 Documentation Only [facility], [address] [place] [address] [place] 05/09/2025 Orders Only [facility] [address] [address] Will Mccauley, 05/09/2025 Treatment [facility], [address] [place] [address] Ada Trejo APRN End stage renal disease; Dependence on renal dialysis from Last 3 Months Immunizations Immunization Administration Dates Next Due H1N1 All Forms 11/21/2009 Influenza (IM) Preservative Free 08/02/2014 Influenza Split High Dose Pr eservative Free IM 07/30/2019,07/29/2018,08/02/2017,08/18 Influenza Split Preservative Free ID 07/18/2013, 01/10/2013,01/10/2013 Influenza TIV (IM) 08/07/2015, 1,09/23/2010,09/23,07/25/2009 Influenza Vaccine, Quadrival ent, Adjuvanted 07/18/2020 Influenza, Intrademal, Quadr ivalent, Preservative Free 07/18/2020 Influenza, Quadrivalent, Intranasal 07/18/2020 Influenza, Quadrivalent, Pre servative Free 08/14/2015 Influenza, Unspecified 07/28/2021,2019,07/26/2011,09/23,07/25/2009 Pfizer SARS-COV-2 04/01/2022, 1,01/26/2021,01/05 Pneumococcal Conjugate 13-Valent 08/02/2017,10/08 Pneumococcal Polysaccharide 02/13/2018, 4,11/07/2008 Shingrix 10/06/2021,09/15/2019 Tdap 01/10/2013 Family History Medical History Relation Comments Heart disease Father Hypertension Father Other Father coronary arterio sclerosis Diabetes Mother Hypertension Mother Kidney disease Mother Kidney failure Mother Diabetes Sibling Other Sibling cerebral amyloid angiopathy Diabetes Sister Relation Status Comments Father Mother Sibling Sister Social History Tobacco Use Types Packs/Day Years Used Date Smoking Tobacco: Never Alcohol Use Standard Drinks/Week Comments No 0 (1 standard drink = 0.6 oz pur e alcohol) Comments Unknown Sex and Gender Information Value Date Recorded Sex Assigned at Not on file Legal Sex Female 4:34 PM EST Gender Identity Female 11/25/2023 3:27 PM EST Sexual Orientation Not on file Last Filed Vital Signs Vital Sign [place] Time Taken Comments Blood Pressure 142/80 11/16/2023 3:16 PM EST Pulse 74 11/16/2023 3:16 PM EST Temperature - - Respiratory Rate 22 01/30/2018 12:00 PM EDT Oxygen Saturation - - Inhaled Oxygen Concentration - - Weight 94.3 kg (208 lb) 04/09/2022 1:51 PM EDT Height 170.2 cm (5' 7 ) 05/28/2019 12:00 PM EDT Body Mass Index 32.58 05/28/2019 12:00 PM EDT Plan of Treatment Health Maintenance Due Date Last Done Comments Breast Cancer Screening 1950 Hepatitis B Vaccine (1 of 5 - Risk Dialysis 4-dose series) 1970 Colorectal Cancer Screening: Annual FOBT 1999 Colorectal Cancer Screening: Colonoscopy 1999 Colorectal Cancer Screening: Sigmoidoscopy 1999 Diabetes: Ophthalmology Exam 01/28/2020 Diabetes: Pedal Pulse Checked 01/28/2020 Diabetes: Sensory Foot Exam 01/28/2020 Diabetes: Visual Foot Exam 01/28/2020 Diabetes: Hemoglobin A1C 05/16/2025 025, 01/31/2025, 01/23/2024, Additional history exists Influenza Vaccine (#1) 2025 3, 07/21/2022, 07/28/2021, Additional history exists Pneumococcal Vaccine: 50+ Years Completed 02/13/2018, 08/02/2017, 10/27/2015, Additional history exists Pneumococcal Vaccine: Peds ( 0 to 5 Years) and At-Risk Patients (6 to 49 Years) Discontinued 02/13/2018, 08/02/2017, 10/27/2015, Additional history exists Procedures Procedure Name Priority Date/Time Associated Diagnosis Comments HEMATOLOGY Routine 08/01/2025 IMMUNO CHEMISTRY Routine 07/25/2025 CHEMISTRY Routine 07/25/2025 HEMATOLOGY Routine 07/25/2025 CHEMISTRY Routine 07/25/2025 HEMATOLOGY Routine 07/18/2025 [facility] RESULTS Routine 07/11/2025 HD KINETICS Routine 07/11/2025 CHEMISTRY Routine 07/11/2025 POST CHEMISTRY Routine 07/11/2025 HEMATOLOGY Routine 07/11/2025 HEMATOLOGY Routine 2025 TRACE ELEMENTS Routine 06/27/2025 IMMUNO CHEMISTRY Routine 06/27/2025 SPECIAL CHEMISTRY Routine 06/27/2025 CHEMISTRY Routine 06/27/2025 HEMATOLOGY Routine 06/27/2025 CHEMISTRY Routine 06/27/2025 HEMATOLOGY Routine 06/20/2025 [facility] RESULTS Routine 06/13/2025 HD KINETICS Routine 06/13/2025 POST CHEMISTRY Routine 06/13/2025 CHEMISTRY Routine 06/13/2025 HEMATOLOGY Routine 06/13/2025 HEMATOLOGY Routine 06/06/2025 HEMATOLOGY Routine 05/30/2025 IMMUNO CHEMISTRY Routine 05/23/2025 CHEMISTRY Routine 05/23/2025 CHEMISTRY Routine 05/23/2025 HEMATOLOGY Routine 05/23/2025 HEMATOLOGY Routine 05/16/2025 [facility] RESULTS Routine 05/09/2025 HD KINETICS Routine 05/09/2025 CHEMISTRY Routine 05/09/2025 POST CHEMISTRY Routine 05/09/2025 HEMATOLOGY Routine 05/09/2025 SPECIAL CHEMISTRY Routine 02/14/2025 from Last 3 Months or Most Recently Relevant to Health Maintenance Results * (ABNORMAL) HEMATOLOGY (08/01/2025) Only the most recent of13 resultswithin the time period is included. Hemoglobin 11.0(L) 12.0 - 16.0 g/dL [facility] Hemoglobin x 3 33(L) 36.0 - 48.0 % [facility] 08/01/2025 08/02/2025 7:4 6 AM EDT Narrative [facility] - 08/02/2025 Unless otherwise specified, test(s) performed at: [facility], [address] [place] [address] [employer] ENTERTAINER: Vince Fournier M.D. For any questions, please call customer service at FREQUENCY:OTHER Resulting Agency Comment Specimen source: Blood [place] LAB BLOOD ORDERABLES Final Resu lt Performing Organization Address [facility]/ZIP Co de Phone Number [facility] See order comments or contact performing lab Unknown, [place] * IMMUNO CHEMISTRY (07/25/2025) Only the most recent of3 resultswithin the time period is included. Pathologist [facility] Hep B Surface Ag Negative Negative [facility] 07/25/2025 07/26/2025 8:4 8 AM EDT Narrative Resulting Agency Comment Specimen source: Serum [email or web address] LAB BLOOD ORDERABLES Final Resu lt [facility] See order comments or contact performing lab Unknown, [place] * (ABNORMAL) [facility] (07/25/2025) Only the most recent of9 resultswithin the time period is included. Creatinine 7.95(H) 0.60 - 1.30 mg/dL [facility] Sodium 135(L) 136 - 145 mEq/L [facility] Potassium 5.6(H) 3.5 - 5.1 mEq/L [facility] Bicarbonate (CO2) 22 22 - 29 mEq/L [facility] Calcium 8.9 8.4 - 10.2 mg/dL [facility] Corrected Calcium 8.7 8.4 - 10.2 mg/dL [facility] Comment: Corrected Calcium is not equivalent to measured Ionized Calcium. Phosphorus 6.9(H) 2.6 - 4.5 mg/dL [facility] Calcium Phosphorus Product 61(H) 0 - 54 [facility] Calcium Phosporus Product, Cor 60(H) 0 - 54 [facility] Albumin 4.2 3.5 - 5.2 g/dL [facility] Magnesium 2.3 1.6 - 2.6 mg/dL [facility] Ferritin 496(H) 10 - 291 ng/mL [facility] Iron 110 30 - 160 mcg/dL [facility] UIBC 168 155 - 355 mcg/dL [facility] TIBC 278 185 - 515 mcg/dL [facility] Iron Saturation (TSat) 40 20 - 55 % [facility] 07/25/2025 07/26/2025 8:4 8 AM EDT Narrative [facility] - 07/26/2025 Unless otherwise specified, test(s) performed at: [facility], [address] [place] [address] [employer] ENTERTAINER: Vince Fournier M.D. For any questions, please call customer service at FREQUENCY:MONTHLY Resulting Agency Comment Specimen source: Serum Will Mccauley DO LAB BLOOD ORDERABLES Final Resu lt [facility] See order comments or contact performing lab Unknown, [place] * HD KINETICS (07/11/2025) Only the most recent of3 resultswithin the time period is included. % Urea Reduction 73 65 - 80 % [facility] 07/11/2025 07/15/2025 11: 12 AM EDT Narrative [facility] - 07/15/2025 Unless otherwise specified, test(s) performed at: [facility], [address] [place] [address] [employer] ENTERTAINER: Vince Fournier M.D. For any questions, please call customer service at FREQUENCY:OTHER Resulting Agency Comment Specimen source: Plasma Will Longoriary LAB BLOOD ORDERABLES Final Resu lt Performing Organization Address City/[facility]/ZIP Co de Phone Number [facility] See order comments or contact performing lab Unknown, [place] * POST CHEMISTRY (07/11/2025) Only the most recent of3 resultswithin the time period is included. BUN Post Dialysis 16 6 - 19 mg/dL [facility] 07/11/2025 07/15/2025 11: 12 AM EDT Narrative [facility] - 07/15/2025 Unless otherwise specified, test(s) performed at: [facility], [address] [place] [address] [employer] ENTERTAINER: Vince Forunier M.D. For any questions, please call customer service at FREQUENCY:OTHER Resulting Agency Comment Specimen source: Plasma Will Mccauley DO LAB BLOOD ORDERABLES Final Resu lt Performing Organization Address [facility] de Phone Number [facility] See order comments or contact performing lab Unknown, [place] * [facility] Results (07/11/2025) Only the most recent of3 resultswithin the time period is included. Pathologist [facility] eKdrt/V 1.38 [facility] nPCR_HD 1.09 [facility] [place] PCR 61.63 [facility] WSTDKT/V 2.6 [facility] Center spKt/V (Daugirdas II) 1.51 [facility] eKt/V ([place]) 1.28 [facility] Center spKt/V Gotch 1.57 [facility] eKt/V Gotch 1.31 Know[facility]g e [facility] eNPCR 1.00 [facility] 07/11/2025 07/11/2025 [facility] Ordering Provider LAB BLOOD ORDERABLES Final Result Performing Organization Address City/[facility]/ZIP Co de Phone Number [facility] Contact Performing lab Unknown, [place] * SPECIAL CHEMISTRY (06/27/2025) Only the most recent of2 resultswithin the time period is included. Vitamin D, 25-OH, Total 39.7 30.0 - 100.0 ng/mL [facility] Comment: Please Note: Effective September 05, 2023, the methodology for this test has changed to the [facility]. 06/27/2025 06/28/2025 9:3 6 AM EDT Narrative Resulting Agency Comment Specimen source: Serum Will Mccauley DO LAB BLOOD BANK TEST ORDERABLES Final Result [facility] See order comments or contact performing lab Unknown, [place] * TRACE ELEMENTS (06/27/2025) Pathologist [facility] Aluminum <5 0 - 10 mcg/L [facility] Comment: This test was developed and its performance characteristics determined by [facility]. It has not been cleared or approved by the FDA. The laboratory is regulated under CLIA as qualified to perform high complexity testing. This test is used for clinical purposes. It should not be regarded as investigational or for research. 06/27/2025 06/28/2025 8:5 1 AM EDT Narrative [facility] - 06/28/2025 Unless otherwise specified, test(s) performed at: [facility], [address] [place] [address] [employer] ENTERTAINER: Vince Fournier M.D. For any questions, please call customer service at FREQUENCY:MONTHLY Resulting Agency Comment Specimen source: Serum Will Mccauley DO LAB BLOOD ORDERABLES Final Resu lt [facility] See order comments or contact performing lab Unknown, [place] from Last 3 Months or Most Recently Relevant to Health Maintenance Insurance [facility] Choice ([id number]) Medicaid [place] UHC Medicare Care Teams Mechanical Apprentice Relationship Specialty Start Date End Date Lew Keys MD [address] [place] [address] PCP - General Internal Medicine 03/03/20
--- OUTSIDE RECORDS SUMMARY | 2025-08-09 12:23 | XMS_ITS | Data Portability ---
Author Organization MD - [facility], Allergy Address [address] [facility] [address] [place] [address] Care Team Providers Care Supervisor Liquid Yeast Name Role Phone TOMMY FLORES Primary Care Provider TESSY LARKIN Referring Provider [phone] Assessment Encounter Date Assessment Date Assessment LastModified by Organization Details LastModified Time 04/11/2025 04/11/2025 Patient feels decreased hearing on the right side. Cerumen was removed and audiometric testing was obtained. There is evidence of right-sided middle ear effusion that has likely been present since December. Nasopharynx examination was performed with no significant adenoid tissue or lesions of the fossa of Rosenmuller to better explain her eustachian tube dysfunction on the right side. Offered opportunity for placement of right side myringotomy tube in the office. [email or web address] Not available 04/11/2025 15:37:13 Plan of Treatment Reminders Order Date Submit Date Provider Last Modified By Organization Details Last Modified Time Details Appointments None record ed. Lab None record ed. Referral None record ed. Procedures None record ed. Surgeries None record ed. Imaging None record ed. Medication Orders None record ed. Patient TargetsNo targets recorded. Patient InstructionsNo instructions recorded. Reason for Referral None Reported. Results Created Date Observation Date Name Description Value Unit Range Abnormal Flag Note LastModifiedBy Organization Detail LastModifiedTime 04/12/20 25 audio gram No observ ation record ed. BARCODE Not Available 2024 10:24:55 Result Notes None recorded. Problems Name Problem SNOMED Code Status Onset Date Resolution Date Notes Provider Name and Address Organization Details Recorded Time Impacted cerumen in right ear 5421925509213 103 Active 2024 BON CHO MD [address] [address], [place], [phone], [facility] [place] 14:36:39 Sensorineur al hearing loss of bilateral ears 817961473 Active 2024 CÉSAR PAINTER [place], [facility] [address] [address], [place], [address], [facility] [place] 15:07:15 Problem Notes None recorded. Procedures Surgical History Date Name Laterality Status Provider Name and Address Organization Details Recorded Time 04/11/2025 Comp Audio with Tymps - 58982 & 23426 completed CÉSAR PAINTER [place], [address], [address], [facility] [place] 04/11/2025 15:07:03 04/11/2025 Wax_DP completed BON CHO MD [address] [place] [address], [phone], [facility] 04/11/2025 14:36:30 04/11/2025 Nasopharyng oscopy_DP completed BON CHO MD [address] [place] [address], [phone], [facility] 04/11/2025 15:34:58 Imaging Results None recorded. Procedure Notes None recorded. Medical Equipment None Reported. Allergies Allergen ID Allergen Name Allergen Category Reaction Reaction Severity Criticality Documentation Date Start Date Code Code System Note Provider Name and Address Organization Details Recorded Time 402262 prednison e medicatio n Not available Not available Not available 04/11/2025 8640 RxNorm LUZ MARIA COMVasile rodriguez [facility] 14:21:00 193013 Tylenol-C odeine medicatio n Not available Not available Not available 04/11/2025 LUZ MARIA rodriguez [facility] 14:21:22 Medications Name Sig Start Date Stop Date Status Note LastModified by Organization Details LastModified Time losartan 50 mg tablet TAKE 1 TABLET BY MOUTH TWICE A DAY (MORNING AND EVENING) active Not Available Not Available No t Available amoxicillin 500 mg capsule TAKE 4 CAPSULES BY MOUTH DIRECTED ONE HOUR BEFORE PROCEDURE active Not Available Not Available No t Available furosemide 40 mg tablet TAKE 2 TABLETS (80 MG TOTAL) BY MOUTH 1 (ONE) TIME EACH DAY active Not Available Not Available No t Available torsemide 20 mg tablet TAKE 2 TABLETS BY MOUTH IN THE MORNING AND 2 TABLETS IN THE EVENING. active Not Available Not Available No t Available hydralazine 25 mg tablet TAKE 1 TABLET (25 MG TOTAL) BY MOUTH IN THE MORNING AND IN THE EVENING active Not Available Not Available No t Available amlodipine 5 mg tablet TAKE 1 TABLET BY MOUTH 1 TIME EACH DAY. active Not Available Not Available No t Available tramadol 50 mg tablet TAKE 1 TABLET BY MOUTH EVERY MORNING active Not Available Not Available No t Available bisoprolol fumarate 5 mg tablet TAKE 1 TABLET BY MOUTH EVERY DAY FOR 30 DAYS active Not Available Not Available No t Available nifedipine ER 90 mg tablet,exten ded release 24 hr TAKE 1 TABLET BY MOUTH EVERY DAY active Not Available Not Available No t Available calcitriol 0.5 mcg capsule TAKE 4 CAPSULES BY MOUTH ONCE WEEKLY active Not Available Not Available No t Available allopurinol 300 mg tablet TAKE 1 TABLET (300 MG TOTAL) BY MOUTH EVERY MORNING. active Not Available Not Available No t Available capsaicin 0.025 % topical cream APPLY TO AFFECTED AREA 4 TIMES A DAY NEEDED FOR PAIN active Not Available Not Available No t Available azelastine 137 mcg (0.1 %) nasal spray SPRAY 2 SPRAYS BY INTRANASAL ROUTE TWICE A DAY FOR 30 DAYS active Not Available Not Available No t Available labetalol 100 mg tablet TAKE 1 TABLET BY MOUTH TWICE DAILY active Not Available Not Available No t Available fluticasone propionate 50 mcg/actuatio n nasal spray,suspen elicia SHAKE LIQUID AND USE 2 SPRAYS IN EACH NOSTRIL EVERY DAY DIRECTED active Not Available Not Available Not Available amoxicillin 875 mg-potassium clavulanate 125 mg tablet TAKE 1 TABLET BY MOUTH EVERY 12 HOURS FOR 2 DAYS active Not Available Not Available N ot Available valsartan 160 mg tablet TAKE 1 TABLET BY MOUTH 1 TIME EACH DAY. active Not Available Not Available No t Available sevelamer carbonate 800 mg tablet TAKE 1 TABLET BY MOUTH THREE TIMES A DAY WITH MEALS active Not Available Not Available N ot Available Farxiga 5 mg tablet TAKE 1 TABLET BY MOUTH EVERY MORNING active Not Available Not Available No t Available Vitals Date Recorded Body height Body mass index (BMI) Body weight Provider Name and Address Organization Details Last Updated DateTime 04/11/2025 167.64 cm 30.7 kg/m2 32394.55 g LUZ MARIA VELASQUEZ [place] - [facility] 04/11/2025 14:20:35 Social History None recorded. Functional Status None recorded. Mental Status None recorded. Family History Nothing Reported. Medical History No medical history recorded. Gynecological HistoryNo gynecological history recorded. Obstetrics History GPAL:G 0 P 0 0 0 0 Past Encounters Encounter ID Performer Location Encounter Start Date Encounter Closed Date Diagnosis/Indication Diagnosis SNOMED-CT Code Diagnosis ICD10 Code Diagnosis IMO Codes Diagnosis Note [id number] BON CHO MD [facility] [address] [address] 04/11/2025 13:04:18 04/11/2025 16:17:40 Impacted cerumen in right ear 5270101547 949609 H61.21 [id number] Ears were meticulous ly cleaned RIGHT today with fine pics, curettes and/or suction. Patient is encouraged to avoid Q-tips in their ears relative to packing the wax in tighter. They may use the corner of their bath towel to gently clean the nooks and crannies of the external ears as needed. Yearly visits or as needed are recommende maggie Sensorineu ral hearing loss of bilateral ears 386977236 H90.3 45860084 Audiologic al evaluation results: Right ear: Borderline normal hearing thru 3000Hz sloping to a mild to moderately severe SNHL with excellent word recognitio n. Left ear: Normal/ borderline normal hearing thru 6000Hz with a mild loss at 8000Hz with excellent word recognitio n. Tympanomet ry: Right Ear:Type Cs Left Ear:Type A Health Concerns Section Related Observation LastModified by Organization Detai ls LastModified Time None Recorded Concern Status LastModified by Organization Details LastModified Time None Recorded Advance Directives Directive None Recorded Payers Insurance Date Sequence Insurance Name Policy Number Policy Alexander Covered Member ID Alexander Member ID Guarantor Name 04/11/2025 1 [facility] (MEDICARE REPLACEMENT/ ADVANTAGE - HMO) [id number] Lauren Weaver [id number] Lauren Weaver 04/11/2025 2 [place] [facility] Lauren Weaver [id number] Lauren Weaver Notes Date Note Type Note Provider Name and Address Organization Details Recorded Time 04/11/2025 text/html ROS as noted in the HPI hearing loss right sideonset after hospital visit in Dec 2024hx of ear tube placement in 1990sno otorrhea BON CHO MD [address] [place] [address], [phone], [place] - [facility] 04/11/2025 15:38:11 OBGyn Episode No OBEpisode recorded.
--- OUTSIDE RECORDS SUMMARY | 2025-08-09 12:23 | XMS_ITS | Encounter Summary ---
Author Organization [facility] Address [address] [place] [address] Phone Care Team Providers Care Scientific Artist Name Role Phone Lew Keys MD Primary Care Provider [phone] Encounter Details Date Type Department Care Team (Late st Contact Info) Description 02/01/2025 Telephone [facility] [address] [place] [address] Lesley Ramirez Social History Tobacco [...] * Telephone Encounter - Lesley Ramirez - 02/01/2025 4:08 PM EDT Hi Madeline Hassan called to report she had echocardiogram done and would like to review with you. I've uploaded to media - thanks! documented in this encounter Plan of Treatment Not on file documented as of this encounter Visit Diagnoses Not on filedocumented in this encounter Care Teams Scientific Artist Relationship Specialty Start Date End Date Lew Keys MD [address] [place] [address] [address] [place], [place] PCP - General Internal Medicine 4/27/20 documented as of this encounter
--- OUTSIDE RECORDS SUMMARY | 2025-08-09 12:23 | XMS_ITS | Encounter Summary ---
Author Organization [facility] [place], Address [address] [place] [address] Phone Care Team Providers Care Spring Coverer Name Role Phone Lew Keys MD Primary Care Provider [phone] Encounter Details Date Type Department Care Team (Late st Contact Info) Description 02/01/2025 Documentation Only [facility] [place], [address] [place] [address] Will Mccauley, [address] [place] [phone] Social History Tobacco Use Types Packs/Day Years [...] on filedocumented in this encounter Care Teams Spring Coverer Relationship Specialty Start Date End Date Lew Keys MD [address] [facility] [address] [place], [place] PCP - General Internal Medicine 03/03/20 documented as of this encounter
--- OUTSIDE RECORDS SUMMARY | 2025-08-09 12:23 | XMS_ITS | Encounter Summary ---
Author Organization [facility] [place], Address [address] [place] [address] Phone Care Team Providers Care Mat Machine Operator Name Role Phone Lew Keys MD Primary Care Provider [phone] Encounter Details Date Type Department Care Team (Late st Contact Info) Description 01/14/2025 Documentation Only [facility] [place], [address] [place] [address] Amador Cornejo [place] [address] [place] [address] Social History Tobacco Use Types Packs/Day Years [...] on filedocumented in this encounter Care Teams Mat Machine Operator Relationship Specialty Start Date End Date Lew Keys MD [address] [facility] [address] [place], [place] PCP - General Internal Medicine 03/03/20 documented as of this encounter
--- OUTSIDE RECORDS SUMMARY | 2025-08-09 12:23 | XMS_ITS | Encounter Summary ---
Author Organization [facility] [place], Address [address] [place] [address] Phone Care Team Providers Care Senior Software Qa Engineer Name Role Phone Lew Keys MD Primary Care Provider [phone] Encounter Details Date Type Department Care Team (Late st Contact Info) Description 12/10/2024 Documentation Only [facility] [place], [address] [place] [address] Will Mccauley, [address] [place] [phone] Social History Tobacco Use Types Packs/Day Years [...] on filedocumented in this encounter Care Teams Senior Software Qa Engineer Relationship Specialty Start Date End Date Lew Keys MD [address] [facility] [address] [place], [place] PCP - General Internal Medicine 03/03/20 documented as of this encounter
--- OUTSIDE RECORDS SUMMARY | 2025-08-09 12:23 | XMS_ITS | Encounter Summary ---
Author Organization [facility] [place], Address [address] [place] [address] Phone Care Team Providers Care Scalehouse Attendant Name Role Phone Lew Keys MD Primary Care Provider Encounter Details Date Type Department Care Team (Late st Contact Info) Description 08/08/2025 Treatment [facility], [address] [place] [address] Ada Trejo APRN [address] [place] [address] End stage renal disease; Dependence on renal dialysis Social History Tobacco Use Types Packs/Day Years [...] as of this encounter Miscellaneous Notes * Dialysis Note - Ada Trejo APRN - 08/08/2025 12:00 AM EDT Patient: Lauren Weaver, 1950, 75y, F Dialysis Location: [facility] Attending Gear Cutting Machine Set Up Operator: iWll Mccauley Service Date: 08/08/2025 Service Provider: Ada Trejo NP I met face to face with the patient today. OVERVIEW The patient presented with ESRD on dialysis Primary cause of renal failure: Polycystic kidney, adult type DIALYSIS PRESCRIPTION IHD 3x Week Start date: 08/03/25 Dialyzer: FX CorAL 60 BFR: 400 DFR: Manual 700 Potassium: 2.0 Sodium: 138 EDW: 86.5 Duration: 4:00 Calcium: 2.50 Bicarb: 34 Rx updated on: 08/02/2025 TREATMENT ASSESSMENT BP Stand Pre 08/02/2025: 199/85 BP Sit Pre 08/06/2025: 199/96 08/02/2025: 177/76 08/01/2025: 218/96 BP Stand Post 08/06/2025: 135/80 08/02/2025: 185/97 BP Sit Post 08/06/2025: 164/81 08/02/2025: 177/80 08/01/2025: 158/107 Prescribed Tx time 08/06/2025: 4:00 08/02/2025: 4:00 08/01/2025: 4:00 Tx Duration 08/06/2025: 3:02 08/02/2025: 3:47 08/01/2025: 3:02 Missed Treatments 1 - last 30 days 1 - last 60 days 08/02 - recent FLUID ASSESSMENT EDW (kg) 08/06/2025: 86.5 08/02/2025: 86.5 08/01/2025: 86.5 Weight Pre (kg) 08/06/2025: 90.3 08/02/2025: 88.3 08/01/2025: 90.5 Weight Post (kg) 08/06/2025: 88.0 08/02/2025: 87.2 08/01/2025: 87.8 PWV (kg) 08/06/2025: 1.5 08/02/2025: 0.7 08/01/2025: 1.3 UF Rate (mL/kg/hr) 08/06/2025: 8.6 08/02/2025: 3.3 08/01/2025: 10.1 ADEQUACY ASSESSMENT spKt/V, URR 07/11/2025: 1.51, 73.0 06/13/2025: 1.78, 79.0 05/09/2025: 1.7, 77.0 Urine Cr Clearance 04/23/2025: 1.2 ACCESS ASSESSMENT Access Type: CVCatheter Access SubType: Tunneled Access Status: Active (In Use) - 02/04/2025 Access Location: Chest Placed: 02/04/2025 ANEMIA ASSESSMENT HGB, TSAT 08/01/2025: 11.0, - 07/25/2025: 11.3, 40.0 07/18/2025: 11.5, - Ferritin 07/25/2025: 496.0 06/27/2025: 498.0 05/23/2025: 840.0 Mircera, IVP (mcg) 08/06/2025: 30 07/09/2025: 50 06/25/2025: 50 Iron Sucrose (Venofer) (mg) 08/06/2025: 50 07/30/2025: 50 07/23/2025: 50 BMM ASSESSMENT PTH, Intact 07/25/2025: 452.0 06/27/2025: 405.0 05/23/2025: 484.0 Calcium, Phosphorus 07/25/2025: 8.9, 6.9 06/27/2025: 9.5, 6.0 05/23/2025: 9.0, 7.5 Vitamin D (Calcitriol) Oral (mcg) 08/06/2025: 0.75 08/02/2025: 0.75 08/01/2025: 0.75 NUTRITION ASSESSMENT Potassium, Albumin 07/25/2025: 5.6, 4.2 06/27/2025: 5.0, 4.2 05/23/2025: 5.4, 4.4 eNPCR 07/11/2025: 1.0 06/13/2025: 1.04 05/09/2025: 1.03 DIAGNOSIS Chief Complaint: N18.6 End stage renal disease Comments: Patient seen and examined. VSS with no complaints to offer. S1, S2, RRR. LS CTA bilaterally. Access patent. Patient is stable. Patient data updated 08/08/2025 at 8:26 AM Signed By: Ada Trejo NP on 08/08/2025 8:26:27 AM documented in this encounter Plan of Treatment Not on file documented as of this encounter Visit Diagnoses Diagnosis End stage renal disease Dependence on renal dialysis documented in this encounter Care Teams Scalehouse Attendant Relationship Specialty Start Date End Date Lew Keys MD [facility] [address] PCP - General Internal Medicine 03/03/20 documented as of this encounter
--- OUTSIDE RECORDS SUMMARY | 2025-08-09 12:23 | XMS_ITS | Encounter Summary ---
Author Organization [facility] [place], Address [address] [place] [address] Phone Care Team Providers Care Sack Filler Name Role Phone Lew Keys MD Primary Care Provider [phone] Encounter Details Date Type Department Care Team (Late st Contact Info) Description 12/13/2024 Documentation Only [facility] [place], [address] [place] [address] Amador Cornejo [place] [address] [place] [address] Social History Tobacco Use Types Packs/Day Years [...] on filedocumented in this encounter Care Teams Sack Filler Relationship Specialty Start Date End Date Lew Keys MD [address] [facility] [address] [place], [place] PCP - General Internal Medicine 03/03/20 documented as of this encounter
--- OUTSIDE RECORDS SUMMARY | 2025-08-09 12:23 | XMS_ITS | Patient Health Record ---
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
--- OUTSIDE RECORDS SUMMARY | 2025-08-09 12:23 | XMS_ITS | Patient Health Record ---
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
--- OUTSIDE RECORDS SUMMARY | 2025-08-09 12:23 | XMS_ITS | Encounter Summary ---
Author Organization [facility] [place], Address [address] [place] [address] Phone Care Team Providers Care Spring Floor Service Worker Name Role Phone Lew Keys MD Primary Care Provider [phone] Encounter Details Date Type Department Care Team (Late st Contact Info) Description 02/07/2025 Documentation Only [facility] [place], [address] [place] [address] Will Mccauley, [address] [place] [phone] Social History Tobacco Use Types Packs/Day Years [...] filedocumented in this encounter Care Teams Spring Floor Service Worker Relationship Specialty Start Date End Date Lew Keys MD [address] [facility] [address] [place], [place] PCP - General Internal Medicine 03/03/20 documented as of this encounter
--- OUTSIDE RECORDS SUMMARY | 2025-08-09 12:23 | XMS_ITS | Encounter Summary ---
Author Organization [facility] Address [address] [place] [address] Phone Care Team Providers Care Condenser Tester Name Role Phone Lew Keys MD Primary Care Provider [phone] Encounter Details Date Type Department Care Team (Late st Contact Info) Description 02/28/2025 Documentation Only [facility] [place], [address] [place] [address] Lesley Ramirez Social History Tobacco [...] on filedocumented in this encounter Care Teams Condenser Tester Relationship Specialty Start Date End Date Lew Keys MD [address] [place] [address] PCP - General Internal Medicine 03/03/20 documented as of this encounter
--- OUTSIDE RECORDS SUMMARY | 2025-08-09 12:23 | XMS_ITS | Encounter Summary ---
Author Organization [facility] [place], Address [address] [place] [address] Phone Care Team Providers Care Program Medical Director Name Role Phone Lew Keys MD Primary Care Provider [phone] Encounter Details Date Type Department Care Team (Late st Contact Info) Description 02/08/2025 Documentation Only [facility] [place], [address] [place] [address] Will Mccauley, [address] [place] [phone] Social History Tobacco Use Types Packs/Day Years [...] on filedocumented in this encounter Care Teams Program Medical Director Relationship Specialty Start Date End Date Lew Keys MD [address] [facility] [address] [place], [place] PCP - General Internal Medicine 03/03/20 documented as of this encounter
--- OUTSIDE RECORDS SUMMARY | 2025-08-09 12:23 | XMS_ITS | Encounter Summary ---
Author Organization [facility] [place], Address [address] [place] [address] Phone Care Team Providers Care Scoop Filler Name Role Phone Lew Keys MD Primary Care Provider [phone] Reason for Visit * Reason Comments Med Refill Encounter Details Date Type Department Care Team (Late st Contact Info) Description 08/04/2025 Refill [facility] [place], - [facility] [address] [place] [phone] Will Mccauley DO [address] [place] [phone] Anemia in chronic kidney disease; Iron deficiency anemia, not otherwise specified; Chronic kidney disease, Stage V (HCC); Hypertension; Edema of lower extremity Social History Tobacco Use Types Packs/Day Years [...] encounter Miscellaneous Notes * Telephone Encounter - Amador Cornejo MA - 08/05/2025 8:10 AM EDT Dialysis patient documented in this encounter Plan of Treatment Not on file documented as of this encounter Visit Diagnoses Diagnosis Anemia in chronic kidney disease Iron deficiency anemia, not otherwise specified Chronic kidney disease, Stage V (HCC) Chronic kidney disease, Stage V Hypertension Edema of lower extremity documented in this encounter Care Teams Scoop Filler Relationship Specialty Start Date End Date Lew Keys MD [address] [place] [address] PCP - General Internal Medicine 03/03/20 documented as of this encounter
--- OUTSIDE RECORDS SUMMARY | 2025-08-09 12:23 | XMS_ITS | Encounter Summary ---
Author Organization [facility] [place], Address [address] [place] [address] Phone Care Team Providers Care Help Desk Rep Name Role Phone Lew Keys MD Primary Care Provider [phone] Encounter Details Date Type Department Care Team (Late st Contact Info) Description 02/04/2025 Documentation Only [facility] [place], [address] [place] [address] Will Mccauley, [address] [facility] [place] [phone] Social History Tobacco Use Types Packs/Day Years [...] on filedocumented in this encounter Care Teams Help Desk Rep Relationship Specialty Start Date End Date Lew Keys MD [address] [facility] [address] [place], [place] PCP - General Internal Medicine 03/03/20 documented as of this encounter
--- OUTSIDE RECORDS SUMMARY | 2025-08-09 12:23 | XMS_ITS | Encounter Summary ---
Author Organization [facility], Address [address] [place] [address] Phone Care Team Providers Care Drug Room Clerk Name Role Phone Lew Keys MD Primary Care Provider [phone] Encounter Details Date Type Department Care Team (Late st Contact Info) Description 12/28/2024 Documentation Only [facility], [address] [place] [address] Will Mccauley, [address] [place] [phone] Social History Tobacco Use Types Packs/Day Years [...] on filedocumented in this encounter Care Teams Drug Room Clerk Relationship Specialty Start Date End Date Lew Keys MD [address] [facility] [address] [place], [place] PCP - General Internal Medicine 03/03/20 documented as of this encounter
--- OUTSIDE RECORDS SUMMARY | 2025-08-09 12:23 | XMS_ITS | Encounter Summary ---
Author Organization [facility], Address [address] [place] [address] Phone Care Team Providers Care Supervisor [employer] Name Role Phone Lew Keys MD Primary Care Provider Encounter Details Date Type Department Care Team (Late st Contact Info) Description 01/09/2025 Documentation Only [facility], [address] [place] [address] Will Mccauley, [address] [place] [phone] Social History Tobacco Use Types Packs/Day Years [...] on filedocumented in this encounter Care Teams Supervisor [employer] Relationship Specialty Start Date End Date Lew Keys MD [address] [facility] 207 [place], [place] PCP - General Internal Medicine 03/03/20 documented as of this encounter
--- OUTSIDE RECORDS SUMMARY | 2025-08-09 12:23 | XMS_ITS | Encounter Summary ---
Author Organization [facility], Address [address] [place] [address] Phone Care Team Providers Care Chronometer Adjuster Name Role Phone Lew Keys MD Primary Care Provider [phone] Encounter Details Date Type Department Care Team (Late st Contact Info) Description 01/31/2025 Documentation Only [facility], [address] [place] [address] Will Mccauley, [address] [place] [phone] Social History Tobacco Use Types Packs/Day Years [...] on filedocumented in this encounter Care Teams Chronometer Adjuster Relationship Specialty Start Date End Date Lew Keys MD [address] [facility] 207 [place], [place] PCP - General Internal Medicine 03/03/20 documented as of this encounter
--- OUTSIDE RECORDS SUMMARY | 2025-08-09 12:23 | XMS_ITS | Encounter Summary ---
Author Organization [facility], Address [address] [place] [address] Phone Care Team Providers Care Community Relations Police Lieutenant Name Role Phone Lew Keys MD Primary Care Provider Encounter Details Date Type Department Care Team (Late st Contact Info) Description 02/20/2025 Telephone [facility], [address] [place] [address] Lesley Ramirez Social History Tobacco [...] * Telephone Encounter - Lesley Ramirez - 02/21/2025 3:14 PM EDT Madeline White called to follow up on yesterday's call. Please advise- thanks. * Telephone Encounter - Lesley Ramirez - 02/20/2025 3:41 PM EDT Christopher Mccauley, Call from Madeline to report she's noticed lumps in her stomach since she was dc from the hospital; she's questioning those lumps. Please advise- thanks! documented in this encounter Plan of Treatment Not on file documented as of this encounter Visit Diagnoses Not on filedocumented in this encounter Care Teams Community Relations Police Lieutenant Relationship Specialty Start Date End Date Lew Keys MD [address] [place] [address] PCP - General Internal Medicine 03/03/20 documented as of this encounter
--- OUTSIDE RECORDS SUMMARY | 2025-08-09 12:23 | XMS_ITS | Encounter Summary ---
Author Organization [facility] Address [address] [place] [address] Care Team Providers Care Lye Bath Operator Name Role Phone Faustino Guy MD Primary Care Provider [phone] Reason for Visit * Reason Onset Date Comments special procedure 07/23/2025 Encounter Details Date Type Department Care Team (Late st Contact Info) Description 07/23/2025 Telephone Gastroenterology - [place] [address] [facility] [address] [place] [address] Dulce Tovar MD [address] [facility] [address] [place], [place] [id number] Social History Tobacco Use Types Packs/Day Years Used Date Smoking Tobacco: Never Smokeless Tobacco: Never Housing Instability Answer Date Recorde d Are [...] care for your loved ones. For example, children's court magistrate or elderly care for an older adult? [...] 02/01/2025 Verbal Abuse Unrecognized value 02/01/2025 Comments Unknown Sex and Gender Information Value Date Recorded Sex Assigned at Female 01/11/2025 4:21 PM EST Legal Sex Female 6:51 AM EST Gender Identity Female 01/11/2025 4:21 PM EST Sexual Orientation Straight 01/11/2025 4: 21 PM EST documented as of this encounter Progress Notes * Hanna Asher MA - 08/07/2025 1:56 PM EDT scheduled * Trista Mendoza - 08/07/2025 9:12 AM EDT Patient returning call to schedule colonoscopy * Ghassan Lozano - 07/30/2025 2:34 PM EDT 3rd attempt to schedule an appointment patient left message to call back letter sent * Ghassan Lozano - 07/29/2025 1:25 PM EDT 2nd attempt to schedule an appointment patient left message to call back * Ghassan Lozano - 07/25/2025 2:38 PM EDT 1st attempt to schedule an appointment patient left message to call back ASK PT HX * Merle Natarajan MA - 07/24/2025 12:26 PM EDT Meds and allergies updates, referral packet given to schedulers. K * Trista Mendoza - 07/23/2025 11:52 AM EDT Records received from [facility] for colonoscopy, given to Selena to update meds &allergies documented in this encounter Plan of Treatment Upcoming Encounters Date Type Department Care Team (Late st Contact Info) Description 08/13/2025 3:00 PM EDT Appointment [facility] [address] [place] [address] Osmin Arriola MD [address] [place] [phone] documented as of this encounter Goals Goal Patient Goal Type Associated Problems Recent Progress Patient-Stated? Author Autogenera jama Goal Care Plan Autogenerated Problem No Virgie, Nicole Sasha documented as of this encounter Visit Diagnoses Not on filedocumented in this encounter Additional Health Concerns Active Problems Noted Date Diagnosed Date Autogenerated Problem 08/07/2025 documented as of this encounter Care Teams Lye Bath Operator Relationship Specialty Start Date End Date Faustino Guy MD [address] [phone] PCP - General Family Medicine 07/23/25 documented as of this encounter
== END 2025-08-09 11:39 | disposition home or self-care (01) ==
PROVIDERS: PCP Family Medicine; Visit Provider Internal Medicine
DX: M16.52 Unilateral post-traumatic osteoarthritis, left hip (principal); M70.62 Trochanteric bursitis, left hip
CPT/HCPCS: 20611; 99204

== ENCOUNTER → 2025-08-09 11:07 | Outpatient (BNVA) | payer OTHER, SELFPAY | PROVIDERS: PCP Family Medicine; Visit Provider Internal Medicine | DX: M16.12 Unilateral primary osteoarthritis, left hip (principal) | CPT/HCPCS: 20611; J2795; J3301 ==

== ENCOUNTER 2025-10-07 09:36 | Outpatient (AMB) | payer OTHER, MEDICAID, SELFPAY ==
--- NOTE | 2025-10-07 09:43 | MHC.OFFVIS ---
Vital Signs 10/07/25 09:46 Height 5 ft 6 in Weight 180 lb BMI 29.0 BP 146/82 H Blood Pressure Location Rt brachial Position Sitting Respiration 16 Pulse 68 Pulse Source Pulse Oximeter Pulse Oximetry (%) 98 Oxygen Delivery Method Room Air Intake Visit Reasons: Bursa injection Clean Room Operator Required: No Terrazzo Tile Maker: Terrazzo Tile Maker Present Accompanied by: Fred Deng Allergies Iodinated Contrast Media Allergy (Mild, Verified 10/07/25 09:50) HIVES NSAIDS (Non-Steroidal Anti-Inflamma Allergy (Mild, Verified 10/07/25 09:50) SWELLING/BLEEDING fentanyl (FENTANYL) Allergy (Unknown, Verified 10/07/25 09:50) ADVISED NOT TO TAKE Gadolinium-Containing Contrast Medi (GADOLINIUM-CONTAINING CONTRAST) Allergy (Unknown, Verified 10/07/25 09:50) HIVES hydrocodone (From Vicodin) Adverse Reaction (Severe, Verified 10/07/25 09:50) Hives codeine (CODEINE) Adverse Reaction (Intermediate, Verified 10/07/25 09:50) VOMITING Medication List - Last Reconciled 10/07/25 by Gladys Antonio LPN labetalol 100 mg PO BID sevelamer carbonate 800 mg PO TID torsemide 40 mg PO valsartan 160 mg PO DAILY HPI HPI Bursa injection: Details: History of Present Illness The patient is a 75-year-old individual presenting with left hip pain. The patient reports daily soreness in the front and side of the hip. The patient has a history of receiving prior hip injections, which provided some relief. However, the patient notes that the pain relief dissipates after undergoing dialysis. The patient was previously informed that anterior hip pain may indicate a need for hip replacement surgery. Pain Description - Location: The patient experiences pain in the left hip, localized to both the anterior and lateral aspects. - Quality: The pain is described as soreness. - Timing: The patient reports being sore every day. - Alleviating factors: Previous hip injections have provided relief. - Exacerbating factors: Dialysis treatments appear to diminish the effect of the injections. Physical Exam - General: The patient was placed in a supine position for the procedure. - Musculoskeletal: Ultrasound was used to visualize the left hip joint and femoral neck. Results - Imaging: An ultrasound image of the left hip injection was saved to the patient's record. Pain Management - Analgesia: The patient reports prior injections have been helpful for pain relief. - Activities of Daily Living: The patient reports being sore every day. Procedure - Procedure: Ultrasound-guided left hip injection. - Informed consent was obtained. - The patient was placed in a supine position. - Under direct ultrasound visualization of the left hip joint and femoral neck, a 100 mm 21-gauge sonographic needle was advanced, and contact was made with the femoral neck. - A solution containing 40 mg of Kenalog and 0.25% ropivacaine was injected. - The patient tolerated the procedure well and was discharged in stable condition. - An image of the injection was saved to the record. [facility] Medical History (Updated 08/05/25 @ 09:35 by Gladys Antonio LPN) Chronic kidney disease Injury of ulnar nerve Lumbosacral radiculitis Spinal stenosis of lumbar region Degeneration of lumbosacral intervertebral disc Osteoarthritis Rheumatoid arthritis Asthma Allergic rhinitis Heart failure Premature beats Pulmonary embolism Hypertensive renal disease Iridocyclitis Chronic pain syndrome Anemia Obesity Hypokalemia Gout Hyperlipidemia Vitamin D deficiency Post-traumatic osteoarthritis of left hip Surgical History (Updated 06/06/25 @ 11:32 by SMA Seth) History of total knee arthroplasty History of total right hip arthroplasty Social History (Updated 06/06/25 @ 11:32 by SMA Seth) Patient Tobacco Use Status: Never used Tobacco Current occupational status: retired Current occupation: right Physical Exam Vital Signs: Last Vital Signs Pulse 68 10/07/25 09:46 Resp 16 10/07/25 09:46 BP 146/82 H 10/07/25 09:46 Pulse Ox 98 10/07/25 09:46 Oxygen Delivery Method Room Air 10/07/25 09:46 BMI result Body Mass Index 29.0 Assessment & Plan Assessment & Plan (1) Post-traumatic osteoarthritis of left hip: Code(s): M16.52 - Unilateral post-traumatic osteoarthritis, left hip Category: Medical Plan Plan Patient was informed and verbally consented to the use of an ambient scribe for clinic note documentation during this visit. 1. Left Hip Pain - An ultrasound-guided left hip joint injection was performed to address the patient's pain, targeting the anterior aspect of the hip as requested. - The injection consisted of 40 mg of Kenalog and a local anesthetic. - The patient may follow up as needed. 2. End-Stage Renal Disease - The patient will continue with regularly scheduled dialysis treatments, although it is noted this may reduce the efficacy of the hip injection. Discussion Notes I discussed the patient's hip pain, noting that pain in the front is typically from the joint, while pain on the side is from the bursa. The options of injecting either the bursa or the joint were presented, and the patient opted for an injection in the front (joint). Informed consent was obtained for a left hip injection. I advised the patient to follow up as needed. Patient Instructions - A Band-Aid will be applied to the injection site. - You should follow up as needed if your pain persists or worsens. Coding Level of Care Code Procedure Only Diagnoses Post-traumatic osteoarthritis of left hip M16.52
[2025-10-07 09:46] VITALS: BP 146/82; PULSE 68; RESP 16; O2SAT 98; BMI 29.0
--- OUTSIDE RECORDS SUMMARY | 2025-10-07 11:21 | XMS_ITS | Clinical Summary ---
Author Organization [facility] Address [address] [place] [phone] Phone Care Team Providers Care C Developer Name Role Phone Faustino Guy MD Primary Care Provider [phone] Allergies Active Allergy Reactions Criticality Noted Date [...] 2 (two) times a day. 5 Active labetaloL (TRANDATE) 100 MG tablet [...] every morning. 30 tablet 5 5 Active ACTEMRA 162 mg/0.9 mL subcutaneous injection syringeIndications: Rheumatoid arthritis involving multiple sites with positive rheumatoid factor Inject 0.9 mL (162 mg total) under the skin every 7 days. 7.2 mL 3 5 Active Active Problems Problem Noted Date [...] nephrotoxic antibiotics. She follows closely with her customer experience analyst-Dr. Mccauley Renal failure 12/23/2024 Assessment & Plan (12/23/2024 11:06 AM EST): She just underwent renal biopsy yesterday and has a follow-up scheduled with her customer experience analyst= Dr. Mccauley on 12/29/2024. Later in the afternoon I was paged regarding critical creatinine 8.50 (0.5-1.5) and communicated it to patient and covering customer experience analyst- Dr Frazier. Visit for monitoring Actemra therapy 12/21/2024 Assessment & Plan (05/22/2025 3:45 PM EDT): Carefully continue weekly subcutaneous injections on the same weekly daily. Hold Actemra whenever running fever, feeling sick or taking antibiotics. Monitor for injection site reaction versus unusual abdominal pain, diarrhea, nausea, skin discoloration etc. Make sure to inform any new MD PA, [employer] CONSULTANT about chronic therapy with Actemra particularly in emergency situations. Assessment & Plan (12/23/2024 11:01 AM EST): Carefully continue weekly subcutaneous injections on the same weekly daily. Hold Actemra whenever running fever, feeling sick or taking antibiotics. Monitor for injection site reaction versus unusual abdominal pain, diarrhea, nausea, skin discoloration etc. Make sure to inform any new MD PA, [employer] CONSULTANT about chronic therapy with Actemra particularly in [...] 300 mg that was stopped by her customer experience analyst recently. May need to restart it once customer experience analyst approves it to prevent uric acid crystallization and subsequent risk of gouty attacks and renal stones formation. Assessment & Plan (12/23/2024 11:00 AM EST): Was well-controlled with allopurinol 300 mg that was stopped by her customer experience analyst recently. May need to restart it once customer experience analyst approves it to prevent uric acid [...] Encounters Date Type Department Care Team Description 08/15/2025 Documentation [facility] Rheumatology [address] [place] [address] [place] [address] Celi Zaragoza MD 08/15/2025 Orders Only [facility] Rhe[facility]ology [address] [place] [address] [place] [address] Tish Fermin CMA Rheumatoid arthritis involving multiple sites with positive rheumatoid factor; Encounter for monitoring tocilizumab therapy; Idiopathic chronic gout of multiple sites without tophus; Encounter for monitoring allopurinol therapy 08/15/2025 Telephone [facility] Rheumatology [address] [place] [address] [place] [address] Celi Zaragoza MD RX Request 08/13/2025 Refill [facility] [address] [place] [address] [place] [address] Celi Zaragoza MD Medication Refill 08/13/2025 Telephone [facility] Rhe[facility]ology [address] [place] [address] [place] [address] Celi Zaragoza MD Medication Refill from Last 3 Months Family History Medical [...] Description 10/23/2025 10:00 AM EST Office Visit [facility] Rheumatology [address] [place] [address] Celi Zaragoza MD [address] [facility], [address] [place] [address] [email or web address] Health Maintenance Due Date Last Done Comments [...] 2025 08/24/2023, 08/05/2022, 04/01/2022, Additional history exists POTASSIUM LEVEL 12/21/2025 12/21/2024, 06/07, 12/12/2023 CREATININE LEVEL 08/14/2026 08/14/2025, , 06/18/2024, Additional history exists LIPID PANEL 12/21/2029 12/21/2024 RSV VACCINE Completed 10/11/2023 HEPATITIS C SCREENING Completed 12/12/2023, 024 PNEUMOCOCCAL VACCINES (50+ years) Completed 02/19/2025, 02/13/2018, [...] Procedure Name Priority Date/Time Associated Diagnosis Comments COMPREHENSIVE METABOLIC PANEL (CMP) Routine 08/14/2025 11:39 AM EDT Rheumatoid arthritis involving multiple sites with positive rheumatoid factor Encounter for monitoring tocilizumab therapy Idiopathic chronic gout of multiple sites without tophus Encounter for monitoring allopurinol therapy C-REACTIVE PROTEIN (CRP) Routine 08/14/2025 11:38 AM EDT Rheumatoid arthritis involving multiple sites with positive rheumatoid factor Encounter for monitoring tocilizumab therapy Idiopathic chronic gout of multiple sites without tophus Encounter for monitoring allopurinol therapy SEDIMENTATION RATE (ESR) Routine 08/14/2025 11:38 AM EDT Rheumatoid arthritis involving multiple sites with positive rheumatoid factor Encounter for monitoring tocilizumab therapy Idiopathic chronic gout of multiple sites without tophus Encounter for monitoring allopurinol therapy CBC AND DIFFERENTIAL Routine 08/14/2025 11:38 AM EDT Rheumatoid arthritis involving multiple sites with positive rheumatoid factor Encounter for monitoring tocilizumab therapy Idiopathic chronic gout of multiple sites without tophus Encounter for monitoring allopurinol therapy URIC ACID Routine 08/14/2025 11:38 AM EDT Idiopathic chronic gout of multiple sites without tophus Encounter for monitoring allopurinol therapy LIPID PANEL Routine 12/21/2024 10:27 AM EST Encounter for monitoring statin therapy Class 1 obesity due to excess calories with serious comorbidity and body mass index (BMI) of 32.0 to 32.9 in adult COMPREHENSIVE METABOLIC PANEL (CMP) Routine 12/21/2024 10:27 AM EST Rheumatoid arthritis involving multiple sites with positive rheumatoid factor Idiopathic chronic gout of multiple sites without tophus Visit for monitoring Actemra therapy HEPATITIS C ANTIBODY, QUALITATIVE Routine 12/12/2023 2:31 PM EST Rheumatoid arthritis involving multiple sites with positive rheumatoid factor from Last 3 Months or Most Recently Relevant to Health Maintenance Results * Comprehensive metabolic panel (08/14/2025 11:39 AM EDT) Only the most recent of2 resultswithin the time period is included. Blood us Celi Zaragoza MD LAB BLOOD BKR ORDERABLES Final Result Performing Organization Address [facility] Co de Phone Number EXTERNAL NON-INTERFACED REF LAB * C-Reactive Protein (08/14/2025 11:38 AM EDT) Blood Result Alex Zaragoza MD LAB BLOOD BKR ORDERABLES Final Result Performing Organization Address [facility] Co de Phone Number EXTERNAL NON-INTERFACED REF LAB * Sedimentation rate (ESR) (08/14/2025 11:38 AM EDT) Blood us Celi Zaragoza MD LAB BLOOD BKR ORDERABLES Final Result Performing Organization Address [facility] Co de Phone Number EXTERNAL NON-INTERFACED REF LAB * CBC and differential (08/14/2025 11:38 AM EDT) Blood us Celi Zaragoza MD LAB BLOOD BKR ORDERABLES Final Result EXTERNAL NON-INTERFACED REF LAB * Uric acid (08/14/2025 11:38 AM EDT) Blood us Celi Zaragoza MD LAB BLOOD BKR ORDERABLES Final Result Performing Organization Address [facility] Co de Phone Number EXTERNAL NON-INTERFACED REF LAB * (ABNORMAL) Lipid panel (12/21/2024 10:27 AM EST) HDL 57 mg/dL [facility] Comment: Interpretation <40 mg/dL: Low HDL cholesterol (major risk factor for CHD) Greater than or equal to 60 mg/dL: High HDL cholesterol ( negative risk factor for CHD) HDL - cholesterol is affected by a number of factors, e.g. smoking, excerise, hormones, sex and age. CHOLESTEROL 227 0 - 240 mg/dL [facility] TRIGLYCERIDES 110 30 - 160 mg/dL [facility] LDL 148(H) 50 - 129 mg/dL [facility] Comment: LDL levels in terms of risk for coronary heart disease: <100 mg/dL: Optimal 100-129 mg/dL: Near or above optimal 130-159 mg/dL: Borderline high 160-189 mg/dL: High >190 mg/dL: Very High CARDIAC RISK RATIO 4.0 3.3 - 4.4 [facility] Blood 12/21/2024 10:2 7 AM EST 12/21/2024 10:34 AM EST us Celi Zaragoza MD LAB BLOOD BKR ORDERABLES Final Result Performing Organization Address [facility] Co de Phone Number [address] [address] * Hepatitis C antibody, qualitative (12/12/2023 2:31 PM EST) HCV NON-REACTIV E NON-REACTI VE [facility] Blood 12/12/2023 2:31 PM EST 12/12/2023 2:33 PM EST us Alex Antoine MD LAB BLOOD BKR ORDERABLE S Final Result [facility] [address] [place] [address] from Last 3 Months or Most Recently Relevant to Health Maintenance Insurance MEDICARE REPLACEMENT Member Subscriber Plan / Payer (Ef fective 2023-Present) Name:Lauren Weaver Relation to Subscriber:Self Name:Lauren Weaver Payer ID:[id number] (NAIC) Type:Medicare Address: [place] [phone] MEDICARE REPLACEMENT Member Subscriber Plan / Payer (Ef fective 2023-Present) Name:Lauren Weaver Relation to Subscriber:Self Name:Lauren Weaver Payer ID:[id number] (NAIC) Type:Medicare Address: [place] [id number] [place] [address] MEDICARE REPLACEMENT MEDICARE REPLACEMENT MEDICARE REPLACEMENT MEDICARE REPLACEMENT Care Teams C Developer Relationship Specialty Start Date End Date Faustino Guy MD [address] [phone] PCP - General Family Medicine 06/09/23 Additional Source Comments The information contained in this document represents components of the legal health record. It is not the complete legal health record.[facility]
--- OUTSIDE RECORDS SUMMARY | 2025-10-07 11:21 | XMS_ITS | Encounter Summary ---
Author Organization [facility] Address [address] [place] [address] Phone Care Team Providers Care Television Station Manager Name Role Phone Lew Keys MD Primary Care Provider [phone] Encounter Details Date Type Department Care Team (Late st Contact Info) Description 03/07/2025 Telephone [facility] [place], [address] [place] [place] [address] Lesley Ramirez Social History Tobacco [...] Madeline Hassan called requesting a referral for [place] [facility] for skin sensitivity/burning sensation she stated. Usually I would have pt give their PCP a call but unsure with Madeline, please advise, thanks! documented in this encounter Plan of Treatment Not on file documented as of this encounter Visit Diagnoses Not on filedocumented in this encounter Care Teams Television Station Manager Relationship Specialty Start Date End Date Lew eKys MD [facility] [address] [place], [place] PCP - General Internal Medicine 03/03/20 documented as of this encounter
--- OUTSIDE RECORDS SUMMARY | 2025-10-07 11:21 | XMS_ITS | Encounter Summary ---
Author Organization [facility], Address [address] [place] [address] Phone Care Team Providers Care Foundry Technician Name Role Phone Lew Keys MD Primary Care Provider [phone] Encounter Details Date Type Department Care Team (Late st Contact Info) Description 05/16/2025 Documentation Only [facility], [address] [place] [address] Amador Cornejo [place] [address] [place] [phone] Social History Tobacco Use Types Packs/Day Years [...] on filedocumented in this encounter Care Teams Foundry Technician Relationship Specialty Start Date End Date Lew Keys MD [address] [facility] [address] [place], [place] PCP - General Internal Medicine 03/03/20 documented as of this encounter
--- OUTSIDE RECORDS SUMMARY | 2025-10-07 11:21 | XMS_ITS | Clinical Summary ---
Author Organization [facility] Address [address] [facility] [address] [place] [address] Phone Care Team Providers Care Respiratory Therapy Director Name Role Phone Lew Keys MD Primary Care Provider [phone] Allergies Active Allergy Reactions Criticality Noted Date [...] in the evening. 120 tablet 6 5 Active valsartan (Diovan) 160 MG tablet Take [...] Encounters Date Type Department Care Team Description 10/02/2025 Orders Only [facility] [address] [place] [address] Will Mccauley DO 09/30/2025 Treatment [facility], [address] [place] [address] Ada Trejo APRN End stage renal disease; Dependence on renal dialysis 09/26/2025 Orders Only [facility] [address] [address] Will Mccauley DO 09/24/2025 Treatment [facility] [address] [place] [address] Will Mccauley, End stage renal disease; Dependence on renal dialysis; Hypertensive chronic kidney disease with stage 5 chronic kidney disease or end stage renal disease 09/21/2025 Orders Only [facility] [address] [address] Will Mccauley, 09/19/2025 Orders Only [facility] [address] [address] Will Mccauley, 09/17/2025 Treatment [facility] [address] [place] [address] Will Mccauley DO End stage renal disease; Dependence on renal dialysis; Hypertensive chronic kidney disease with stage 5 chronic kidney disease or end stage renal disease 09/12/2025 Orders Only [facility] [address] [address] Will Mccauley, 09/10/2025 Treatment [facility] [address] [place] [address] Ada Trejo APRN End stage renal disease; Dependence on renal dialysis 09/05/2025 Orders Only [facility] [address] [address] Will Mccauley, 08/29/2025 Orders Only [facility] [address] [address] Will Mccauley, 08/29/2025 Treatment [facility] [address] [place] [address] Will Mccauley, End stage renal disease; Dependence on renal dialysis; Hypertensive chronic kidney disease with stage 5 chronic kidney disease or end stage renal disease 08/24/2025 Orders Only [facility] [address] [address] Will Mccauley, 08/22/2025 Orders Only [facility] [address] [address] Will Mccauley, 08/22/2025 Treatment [facility] [address] [place] [address] Ada Trejo APRN End stage renal disease; Dependence on renal dialysis 08/17/2025 Orders Only [facility] [address] [place] [address] Will Mccauley, 08/15/2025 Orders Only [facility] [address] [address] Will Mccauley, 08/13/2025 Treatment [facility] [address] [place] [address] Will Mccauley DO End stage renal disease; Dependence on renal dialysis; Hypertensive chronic kidney disease with stage 5 chronic kidney disease or end stage renal disease 08/08/2025 Orders Only [facility] [address] [phone] Will Mccauley, 08/08/2025 Treatment [facility], [address] [place] [address] Ada Trejo, JASMYN End stage renal disease; Dependence on renal dialysis 08/04/2025 Refill [facility] [address] [place] [phone] Will Mccauley DO Anemia in chronic kidney disease; Iron deficiency anemia, not otherwise specified; Chronic kidney disease, Stage V (HCC); Hypertension; Edema of lower extremity 08/01/2025 Orders Only [facility] [address] [address] Will Mccauley, 08/01/2025 Treatment [facility] [address] [place] [address] Will Mccauley DO End stage renal disease; Dependence on renal dialysis; Hypertensive chronic kidney disease with stage 5 chronic kidney disease or end stage renal disease 07/25/2025 Orders Only [facility] [address] [address] Will Mccauley, 07/25/2025 Treatment [facility] [address] [place] [address] Ada Trejo APRN End stage renal disease; Dependence on renal dialysis 07/18/2025 Orders Only [facility] [address] [address] Will Mccauley, 07/16/2025 Treatment [facility] [address] [place] [address] Will Mccauley DO End stage renal disease; Dependence on renal dialysis; Hypertensive chronic kidney disease with stage 5 chronic kidney disease or end stage renal disease 07/11/2025 Orders Only [facility] [address] [address] Will Mccauley, 07/09/2025 Treatment [facility] [address] [place] [address] Will Mccauley DO End stage renal disease; Dependence on renal dialysis; Hypertensive chronic kidney disease with stage 5 chronic kidney disease or end stage renal disease from Last 3 Months Immunizations Immunization Administration [...] 01/28/2020 Diabetes: Hemoglobin A1C 05/16/2025 025, 01/31/2025, 01/31/2025, Additional history exists Influenza Vaccine (#1) 2025 3, 07/21/2022, 07/28/2021, Additional history exists Pneumococcal Vaccine: 50+ Years Completed 02/13/2018, 08/02/2017, 10/27/2015, Additional history exists Pneumococcal Vaccine: Peds ( 0 to 5 Years) and At-Risk Patients (6 to 49 Years) Discontinued 02/13/2018, 08/02/2017, 10/27/2015, Additional history exists Procedures Procedure Name Priority Date/Time Associated Diagnosis Comments HEMATOLOGY Routine 10/02/2025 HD KINETICS Routine 09/26/2025 POST CHEMISTRY Routine 09/26/2025 IMMUNO CHEMISTRY Routine 09/26/2025 CHEMISTRY Routine 09/26/2025 CHEMISTRY Routine 09/26/2025 HEMATOLOGY Routine 09/26/2025 [facility] LAB RESULTS Routine 09/21/2025 HD KINETICS Routine 09/21/2025 POST CHEMISTRY Routine 09/21/2025 CHEMISTRY Routine 09/21/2025 HEMATOLOGY Routine 09/19/2025 [facility] LAB RESULTS Routine 09/12/2025 HD KINETICS Routine 09/12/2025 POST CHEMISTRY Routine 09/12/2025 CHEMISTRY Routine 09/12/2025 HEMATOLOGY Routine 09/12/2025 HEMATOLOGY Routine 09/05/2025 HEMATOLOGY Routine 08/29/2025 IMMUNO CHEMISTRY Routine 08/29/2025 [facility] LAB RESULTS Routine 08/24/2025 HD KINETICS Routine 08/24/2025 CHEMISTRY Routine 08/24/2025 POST CHEMISTRY Routine 08/24/2025 IMMUNO CHEMISTRY Routine 08/22/2025 CHEMISTRY Routine 08/22/2025 CHEMISTRY Routine 08/22/2025 HEMATOLOGY Routine 08/22/2025 PROTEIN / CREATININE RATIO, URINE Routine 08/17/2025 7:00 AM EDT [facility] RESULTS Routine 08/15/2025 HD KINETICS Routine 08/15/2025 POST CHEMISTRY Routine 08/15/2025 CHEMISTRY Routine 08/15/2025 HEMATOLOGY Routine 08/15/2025 CBC Routine 08/14/2025 11:56 AM EDT [facility] RESULTS Routine 08/08/2025 HD KINETICS Routine 08/08/2025 POST CHEMISTRY Routine 08/08/2025 CHEMISTRY Routine 08/08/2025 HEMATOLOGY Routine 08/08/2025 HEMATOLOGY Routine 08/01/2025 IMMUNO CHEMISTRY Routine 07/25/2025 CHEMISTRY Routine 07/25/2025 HEMATOLOGY Routine 07/25/2025 CHEMISTRY Routine 07/25/2025 HEMATOLOGY Routine 07/18/2025 [facility] LAB RESULTS Routine 07/11/2025 HD KINETICS Routine 07/11/2025 CHEMISTRY Routine 07/11/2025 POST CHEMISTRY Routine 07/11/2025 HEMATOLOGY Routine 07/11/2025 SPECIAL CHEMISTRY Routine 02/14/2025 from Last 3 Months or Most Recently Relevant to Health Maintenance Results * (ABNORMAL) HEMATOLOGY (10/02/2025) Only the most recent of13 resultswithin the time period is included. Hemoglobin 10.3(L) 12.0 - 16.0 g/dL [facility] Hemoglobin x 3 30.9(L) 36.0 - 48.0 % [facility] 10/02/2025 10/04/2025 11: 22 AM EST Narrative MARCEL - 10/04/2025 Unless otherwise specified, test(s) performed at: [facility], [address] [place] [id number] [employer] G[employer]: Vince Fournier M.D. For any questions, please call customer service at FREQUENCY:OTHER Resulting Agency Comment Specimen source: Blood us Will Mccauley [facility] LAB BLOOD ORDERABLES Final Resu lt Performing Organization Address [facility]/ZIP Co de Phone Number [facility] See order comments or contact performing lab Unknown, [place] * HD KINETICS (09/26/2025) Only the most recent of7 resultswithin the time period is included. % Urea Reduction 75 65 - 80 % [facility] 09/26/2025 09/27/2025 7:5 8 AM EST Narrative Resulting Agency Comment Specimen source: Plasma Will [facility] LAB BLOOD ORDERABLES Final Resu lt Performing Organization Address [facility] de Phone Number [facility] See order comments or contact performing lab Unknown, [place] * POST CHEMISTRY (09/26/2025) Only the most recent of7 resultswithin the time period is included. BUN Post Dialysis 17 6 - 19 mg/dL [facility] 09/26/2025 09/27/2025 7:5 8 AM EST Narrative SPECTRAE - 09/27/2025 Unless otherwise specified, test(s) performed at: [facility], [address] [place] [id number] [employer]: Vince Fournier M.D. For any questions, please call customer service at FREQUENCY:MONTHLY Resulting Agency Comment Specimen source: Plasma Will [employer] [facility] LAB BLOOD ORDERABLES Final Resu lt Performing Organization Address [facility] de Phone Number [facility] See order comments or contact performing lab Unknown, [place] * IMMUNO CHEMISTRY (09/26/2025) Only the most recent of4 resultswithin the time period is included. Hep B Surface Ag Negative Negative [facility] 09/26/2025 09/27/2025 8:0 9 AM EST Narrative SPECTRAE - 09/27/2025 Unless otherwise specified, test[place]s) performed at: [place] [phone] [employer]: Vince Fournier M.D. For any questions, please call customer service at FREQUENCY:MONTHLY Resulting Agency Comment Specimen source: Serum [facility]LOOD ORDERABLES Final Resu lt Performing Organization Address City/[facility]/ZIP Co de Phone Number [facility] See order comments or contact performing lab Unknown, [place] * (ABNORMAL) [facility] Chemistry (09/26/2025) Only the most recent of12 resultswithin the time period is included. PTH 507(H) 16 - 80 pg/mL [facility] 09/26/2025 09/27/2025 7:4 6 AM EST Narrative SPECTRAE - 09/27/2025 Unless otherwise specified, test(s) performed at: [place] [address] [employer]: Vince Fournier M.D. For any questions, please call customer service at FREQUENCY:MONTHLY Resulting Agency Comment Specimen source: Plasma Will [facility] LAB BLOOD ORDERABLES Final Resu lt Performing Organization Address [facility] Co de Phone Number [facility] See order comments or contact performing lab Unknown, [place] * [facility] Lab Results (09/21/2025) Only the most recent of6 resultswithin the time period is included. eKt/V [facility]ch [facility] PCR 63.42 [facility] spKt/V (Daugirdas II) 1.34 [facility] spKt/V Gotch 1.37 [facility] eKt/V ([place]) 1.14 [facility] eKdrt/V 1.15 [facility] nPCR_HD 1.11 [facility] eNPCR 0.99 [facility] WSTDKT/V 2.3 [facility] 09/21/2025 09/21/2025 [facility] Ordering Provider LAB BLOOD ORDERABLES Final Result [facility] Contact Performing lab Unknown, [place] * (ABNORMAL) Protein, Total, Random Urine w/Creatinine (Protein/Creat Ratio) (08/17/2025 7:00 AM EDT) Creatinine, Ur 70.3 Not Estab. mg/dL [facility] Protein, Ur 195.9 Not Estab. mg/dL [facility] Urine Protein/Creati nine Ratio 2,787(H) 0 - 200 mg/g creat [facility] 08/17/2025 7:00 AM EDT 08/17/2025 us Will Mccauley DO LAB URINE ORDERABLES Final Resu lt [facility] [address] [place] [address] * (ABNORMAL) CBC (08/14/2025 11:56 AM EDT) WBC 5.2 3.4 - 10.8 x10E3/uL [facility] RBC 3.73(L) 3.77 - 5.28 x10E6/uL [facility] Hemoglobin 11.5 11.1 - 15.9 g/dL [facility] Hematocrit 35.4 34.0 - 46.6 % [facility] MCV 95 79 - 97 fL [facility] MCH 30.8 26.6 - 33.0 pg [facility] MCHC 32.5 31.5 - 35.7 g/dL [facility] RDW 13.0 11.7 - 15.4 % [facility] Platelets 150 150 - 450 x10E3/uL [facility] 08/14/2025 11:5 6 AM EDT 08/14/2025 Will Mccauley DO LAB BLOOD ORDERABLES Final Resu lt [facility] [address] [place] [phone] * SPECIAL CHEMISTRY (02/14/2025) Hemoglobin A1C 5.0 4.8 - 5.9 % [facility] 02/14/2025 02/15/2025 8:5 3 AM EDT Narrative SPECTRAE - 02/15/2025 Unless otherwise specified, test(s) performed at: [facility], [address] [place] [id number] [employer]: Vince Fournier M.D. For any questions, please call customer service at FREQUENCY:MONTHLY Resulting Agency Comment Specimen source: Blood Ramiro Saunders MD LAB BLOOD BANK TEST ORDERABLE S Final Result [facility] See order comments or contact performing lab [facility], [place] from Last 3 Months or Most Recently Relevant to Health Maintenance Insurance [facility] Choice ([id number]) Medicaid [place] UHC Medicare Care Teams Respiratory Therapy Director Relationship Specialty Start Date End Date Lew Keys MD [address] [place] [address] PCP - General Internal Medicine 03/03/20
--- OUTSIDE RECORDS SUMMARY | 2025-10-07 11:21 | XMS_ITS | Encounter Summary ---
Author Organization [facility], Address [address] [place] [address] Phone Care Team Providers Care Graphic Design Assistant Name Role Phone Lew Keys MD Primary Care Provider Encounter Details Date Type Department Care Team (Late st Contact Info) Description 03/04/2025 Documentation Only [facility], [address] [place] [address] Amador Cornejo [place] [address] [place] [phone] Social History Tobacco Use Types Packs/Day Years [...] on filedocumented in this encounter Care Teams Graphic Design Assistant Relationship Specialty Start Date End Date Lew Keys MD [address] [facility] [address] [place], [place] PCP - General Internal Medicine 03/03/20 documented as of this encounter
--- OUTSIDE RECORDS SUMMARY | 2025-10-07 11:22 | XMS_ITS | Encounter Summary ---
Author Organization [facility], Address [address] [place] [address] Phone Care Team Providers Care Interactive Project Manager Name Role Phone Lew Keys MD Primary Care Provider [phone] Encounter Details Date Type Department Care Team (Late st Contact Info) Description 11/08/2024 Documentation Only [facility], [address] [place] [address] Will Mccauley, [address] [place] [phone] Social History Tobacco Use Types Packs/Day Years [...] on filedocumented in this encounter Care Teams Interactive Project Manager Relationship Specialty Start Date End Date Lew Kesy MD [address] [facility] [address] [place], [place] PCP - General Internal Medicine 03/03/20 documented as of this encounter
--- OUTSIDE RECORDS SUMMARY | 2025-10-07 11:22 | XMS_ITS | Encounter Summary ---
Author Organization [facility], Address [address] [place] [address] Phone Care Team Providers Care Impression Printer Name Role Phone Lew Keys MD Primary Care Provider [phone] Encounter Details Date Type Department Care Team (Late st Contact Info) Description 12/05/2024 Documentation Only [facility], [address] [place] [address] Amador Cornejo [place] [address] [place] [phone] Social History Tobacco Use Types Packs/Day Years [...] on filedocumented in this encounter Care Teams Impression Printer Relationship Specialty Start Date End Date Lew Keys MD [address] [facility] [address] [place], [place] PCP - General Internal Medicine 03/03/20 documented as of this encounter
--- OUTSIDE RECORDS SUMMARY | 2025-10-07 11:22 | XMS_ITS | Encounter Summary ---
Author Organization [facility] [place], Address [address] [place] [address] Phone Care Team Providers Care Adjunct Psychology Instructor Name Role Phone Lew Keys MD Primary Care Provider [phone] Encounter Details Date Type Department Care Team (Late st Contact Info) Description 12/10/2024 Documentation Only [facility], [address] [place] [address] Amador Cornejo [place] [address] [place] [phone] Social History Tobacco Use Types Packs/Day Years [...] on filedocumented in this encounter Care Teams Adjunct Psychology Instructor Relationship Specialty Start Date End Date Lew Keys MD [address] [facility] [address] [place], [place] PCP - General Internal Medicine 03/03/20 documented as of this encounter
--- OUTSIDE RECORDS SUMMARY | 2025-10-07 11:22 | XMS_ITS | Encounter Summary ---
Author Organization [facility] [place], Address [address] [place] [address] Phone Care Team Providers Care Boat Hoist Operator Helper Name Role Phone Lew Keys MD Primary Care Provider [phone] Encounter Details Date Type Department Care Team (Late st Contact Info) Description 11/16/2024 Documentation Only [facility], [address] [place] [address] Will Mccauley, [address] [place] [phone] Social History Tobacco Use Types Packs/Day Years [...] on filedocumented in this encounter Care Teams Boat Hoist Operator Helper Relationship Specialty Start Date End Date Lew Keys MD [address] [facility] [address] [place], [place] PCP - General Internal Medicine 03/03/20 documented as of this encounter
--- OUTSIDE RECORDS SUMMARY | 2025-10-07 11:22 | XMS_ITS | Data Portability ---
Author Organization [facility], Main Office Address [address] [place] [address] Care Team Providers Care Loader Technician Name Role Phone ARPIT DEL VALLE Tea Tree Farmer BEVERLEY PEREZ Orthopedic Surgeon [phone] JANAE UGARTE Pain Management RHODA PERSON Hand Sizer JANAE MARTINEZ Produce Team Member CARLOTA GRANGER Hair Worker [phone] RADHA WILLIS Orthopedic Surgeon [phone] DARSHANA WILSON Thoracic Surgeon BON MIRANDA Dyer Helper BERHANE FINN Assistant Facility Manager TESSY GUY Primary Care Provider [phone] ERIN TSANG Hair Worker [phone] MARII LINTON Assembler Rubber Footwear [phone] Assessment Encounter Date Assessment Date Assessment LastModified by Organization Details LastModified Time 02/18/2025 02/18/2025 Newly started on HD for management of ESRD after ROMULO and hypertensive urgency prompting admission to [facility]. Troponin positive during admission considered NSTEMI likely related to increase load from volume overload, and uncontrolled HTN. Stable now without symtpoms of CP or dyspnea. Follow up in 1 month as planned. Pt will discuss fluid status and dry weight with nephrology. [email or web address] Not available 02/19/2025 21:37:56 05/01/2025 05/01/2025 This service was provided using telemedicine. Patient consented to telephone visit Patient was located at home in the [facility]. Provider was located in the office. No other persons participated in the telemedicine visit except for the patient unless otherwise indicated here. Total time of visit was 15 minutes. Hyperlipidemia: -Discontinued rosuvastatin. -Started pravastatin 20 mg daily. -Repeat lipid panel and LFTs in 2 months. Elevated ALP: -Reassured patient regarding mildly elevated ALP(129 U/L). -Pending labs: ALP isoenzyme, GGT and mitochondrial antibodies. -Vit D reassuring. -Likely secondary to ESRD-related bone disease. Hip Pain: -Due to history of RA and imaging showing severe arthritis. -Declined PT referral at this time; will evaluate in clinic first. -Advised capsaicin cream trial. -Avoid NSAIDs and opioids. -Follow-up with orthopedics on June 06. Follow-Up: -Routine labs in 2 months. -Schedule clinic visit for hip pain assessment prior to initiating PT referral. juliana Not available 05/01/2025 09:43:37 Plan of Treatment Reminders Order Date Submit Date Provider Last Modified By Organization Details Last Modified Time Details Appointments [id number] 2025 09:00A M Tessy Guy MD Not available Not available Not available Lab pap, IG + HPV, cervic al 2024 025 CAROL ANN [facility], [address] [facility], [place], [address], 09/06/2025 18:05:48 hemogl obin A1C, finger stick 2024 025 juliana In-Office Order, Internal Use Only DO Not Attach Compendium DO Not Attach Compendium, Do Not Delete/merge, [id number] 08/21/2025 09:34:31 lipid panel, serum 2024 025 [email or web address] [facility] (Centralized Electronic Ordering - All Locations), Patient Can Go To The Location Of Their Choice, [id number] 05/08/2025 09:30:19 aspart ate aminot ransfe rase/a lanine aminot ransfe rase, ratio, serum or plasma (OBS) 2024 025 CAROL ANN [facility] (Centralized Electronic Ordering - All Locations), Patient Can Go To The Location Of Their Choice, [id number] 08/19/2025 06:05:42 hemogl obin A1C, finger stick 2024 025 juliana In-Office Order, Internal Use Only DO Not Attach Compendium DO Not Attach Compendium, Do Not Delete/merge, [id number] 03/20/2025 10:12:10 Referral nutrit ionist /suhail spencer referr al 2024 025 anh Not available 02/20/2025 12:17:48 Procedures None record ed. Surgeries None record ed. Imaging None record ed. Medication Orders capsai suze 0.1 % topica l cream 2024 025 [id number], [address] [place], [address], 08/21/2025 09:34:34 capsai suze 0.1 % topica l cream 2024 025 [id number] [address] [place], [address], 05/01/2025 09:08:48 pravas tatin 20 mg tablet 2024 025 [id number] [address] [place], [address], 05/01/2025 09:08:49 Patient TargetsNo targets recorded. Patient Instructions Encounter Date Encounter Id Patient Instructions Last Modified By Organization Details Last Modified Time 02/18/2025 [id number] leg and ankle edema: care instructions phelmuth Not available 02/19/2025 21:37:57 Starting a Weight-Loss Plan: Care Instructions phelmuth Not available 02/19/2025 21:37:56 Nutrition Referral and Weight Management Follow-up Information phelmuth Not available 02/19/2025 21:37:56 At [facility] follow [facility] visit, all current and discharge medications (OTC, herbal therapies, supplements) reviewed and reconciled with patient and or caregiver, including potential side effects, drug interactions, instructions, and the consequences of not taking medication. Reviewed potential barriers to medication adherence, such as side effects from medication or cost of medication. [email or web address] Not available 02/18/2025 15:34:43 03/20/2025 [id number] hoarseness: care instructions ckokar Not available 03/20/2025 10:12:59 Medications (OTC, herbal therapies, supplements) reviewed and reconciled with patient and or caregiver, including potential side effects, drug interactions, instructions, and the consequences of not taking medication. Reviewed potential barriers to medication adherence, such as side effects from medication or cost of medication. kcolbymontone Not available 03/20/2025 09:45:21 05/01/2025 [id number] high cholesterol: care instructions ckokar Not available 05/01/2025 09:08:47 09/04/2025 [id number] I have reviewed the note and agree with the assessment and plan of care. 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 Refer ral for Body mass index 30+ - obesity Referring Physician: Lew Keys, Internal Medicine, Encounter Date: 02/18/2025 Results Created Date Observation Date Name Description Value Unit Range Abnormal Flag Note LastModifiedBy Organization Detail LastModifiedTime 03/20/2003/20/2025 hemog lobin A1C, finge rstic k A1C 4.4 % 4-6 normal Not Available In-Office Order Internal Use Only DO Not Attach Compendium DO Not Attach Compendium, Do Not Delete/merge, [id number] 03/19/2025 08:22:39 04/19/2004/20/2025 CBC WITH DIFFE RENTI AL/PL ATELE T WBC 5.7 x10e3 /uL 3.4-10 .8 normal Not Available [facility] ([facility]) [address] [facility], [place], [address], 04/20/2025 22:05:40 04/19/2004/20/2025 CBC WITH DIFFE RENTI AL/PL ATELE T RBC 4.07 x10e6 /uL 3.77-5 .28 normal Not Available [facility] ([facility]) [address] [facility], [place], [address], 04/20/2025 22:05:40 04/19/20 25 04/20/2025 CBC WITH DIFFE RENTI AL/PL ATELE T hemoglobin 11.8 g/dL 11.1-1 5.9 normal Not Available [facility] ([facility]) [address] [place], [address], 04/20/2025 22:05:40 04/19/20 25 04/20/2025 CBC WITH DIFFE RENTI AL/PL ATELE T hematocrit 38.7 % 34.0-4 6.6 normal Not Available [facility] ([facility]) [address] [place], [address], 04/20/2025 22:05:40 04/19/20 25 04/20/2025 CBC WITH DIFFE RENTI AL/PL ATELE T MCV 95 fL 79-97 normal Not Available [facility] ([facility]) [address] [place], [address], 04/20/2025 22:05:40 04/19/20 25 04/20/2025 CBC WITH DIFFE RENTI AL/PL ATELE T MCH 29.0 pg 26.6-3 3.0 normal Not Available [facility] ([facility]) [address] [place], [address], 04/20/2025 22:05:40 04/19/20 25 04/20/2025 CBC WITH DIFFE RENTI AL/PL ATELE T MCHC 30.5 g/dL 31.5-3 5.7 below low normal Not Available [facility] ([facility]) [address] [place], [address], 04/20/2025 22:05:40 04/19/20 25 04/20/2025 CBC WITH DIFFE RENTI AL/PL ATELE T RDW 14.6 % 11.7-1 5.4 Not Available [facility] ([facility]) [address] [place], [address], 04/20/2025 22:05:40 04/19/20 25 04/20/2025 CBC WITH DIFFE RENTI AL/PL ATELE T platelets 172 x10e3 /uL 150-45 0 normal Not Available [facility] ([facility]) [address] [facility], [place], [address], 04/20/2025 22:05:40 04/19/20 25 04/20/2025 CBC WITH DIFFE RENTI AL/PL ATELE T neutrophils 65 % not estab. normal Not Available [facility] ([facility]) [address] [facility], [place], [address], 04/20/2025 22:05:40 04/19/20 25 04/20/2025 CBC WITH DIFFE RENTI AL/PL ATELE T lymphs 19 % not estab. normal Not Available [facility] ([facility]) [address] [facility], [place], [address], 04/20/2025 22:05:40 04/19/20 25 04/20/2025 CBC WITH DIFFE RENTI AL/PL ATELE T monocytes 9 % not estab. normal Not Available [facility] ([facility]) [address] [facility], [place], [address], 04/20/2025 22:05:40 04/19/20 25 04/20/2025 CBC WITH DIFFE RENTI AL/PL ATELE T eos 6 % not estab. normal Not Available [facility] ([facility]) [address] [facility], [place], [address], 04/20/2025 22:05:40 04/19/20 25 04/20/2025 CBC WITH DIFFE RENTI AL/PL ATELE T basos 1 % not estab. normal Not Available [facility] ([facility]) [address] [facility], [place], [address], 04/20/2025 22:05:40 04/19/20 25 04/20/2025 CBC WITH DIFFE RENTI AL/PL ATELE T immature cells GUN SYNCHRONIZER Not Available [facility] ([facility]) [address] [place], [address], 04/20/2025 22:05:40 04/19/20 25 04/20/2025 CBC WITH DIFFE RENTI AL/PL ATELE T neutrophils (absolute) 3.7 x10e3 /uL 1.4-7. 0 normal Not Available [facility] ([facility]) [address] [place], [address], 04/20/2025 22:05:40 04/19/20 25 04/20/2025 CBC WITH DIFFE RENTI AL/PL ATELE T lymphs (absolute) 1.1 x10e3 /uL 0.7-3. 1 normal Not Available [facility] ([facility]) [address] [place], [address], 04/20/2025 22:05:40 04/19/20 25 04/20/2025 CBC WITH DIFFE RENTI AL/PL ATELE T monocytes(ab solute) 0.5 x10e3 /uL 0.1-0. 9 normal Not Available [facility] ([facility]) [address] [place], [address], 04/20/2025 22:05:40 04/19/20 25 04/20/2025 CBC WITH DIFFE RENTI AL/PL ATELE T eos (absolute) 0.3 x10e3 /uL 0.0-0. 4 normal Not Available [facility] ([facility]) [address] [place], [address], 04/20/2025 22:05:40 04/19/20 25 04/20/2025 CBC WITH DIFFE RENTI AL/PL ATELE T baso (absolute) 0.0 x10e3 /uL 0.0-0. 2 normal Not Available [facility] ([facility]) [address] [place], [address], 04/20/2025 22:05:40 04/19/20 25 04/20/2025 CBC WITH DIFFE RENTI AL/PL ATELE T immature granulocytes 0 % not estab. Not Available [facility] ([facility]) [address] [facility], [place], [address], 04/20/2025 22:05:40 04/19/20 25 04/20/2025 CBC WITH DIFFE RENTI AL/PL ATELE T immature grans (abs) 0.0 x10e3 /uL 0.0-0. 1 Not Available [facility] ([facility]) [address] [facility], [place], [address], 04/20/2025 22:05:40 04/19/20 25 04/20/2025 CBC WITH DIFFE RENTI AL/PL ATELE T NRBC GUN SYNCHRONIZER Not Available [facility] ([facility]) [address] [facility], [place], [address], 04/20/2025 22:05:40 04/19/20 25 04/20/2025 CBC WITH DIFFE RENTI AL/PL ATELE T hematology comments: GUN SYNCHRONIZER Not Available [facility] ([facility]) [address] [facility], [place], [address], 04/20/2025 22:05:40 04/19/20 25 04/20/2025 COMP. METAB OLIC PANEL (14) glucose 133 mg/dL 70-99 above high normal Not Available [facility] ([facility]) [address] [facility], [place], [address], 04/20/2025 22:05:41 04/19/20 25 04/20/2025 COMP. METAB OLIC PANEL (14) BUN 36 mg/dL 8-27 above high normal Not Available [facility] ([facility]) [address] [facility], [place], [address], 04/20/2025 22:05:41 04/19/20 25 04/20/2025 COMP. METAB OLIC PANEL (14) creatinine 5.12 mg/dL 0.57-1 .00 above high normal Not Available [facility] ([facility]) [address] [facility] [place], [address], 04/20/2025 22:05:41 04/19/20 25 04/20/2025 COMP. METAB OLIC PANEL (14) eGFR 8 mL/mi n/1.7 3 >59 below low normal Not Available [facility] ([facility]) [address] [facility] [place], [address], 04/20/2025 22:05:41 04/19/20 25 04/20/2025 COMP. METAB OLIC PANEL (14) BUN/creatini ne ratio 7 12-28 below low normal Not Available [facility] ([facility]) [address] [facility] [place], [address], 04/20/2025 22:05:41 04/19/20 25 04/20/2025 COMP. METAB OLIC PANEL (14) sodium 144 mmol/ L 134-14 4 normal Not Available [facility] ([facility]) [address] [facility] [place], [address], 04/20/2025 22:05:41 04/19/20 25 04/20/2025 COMP. METAB OLIC PANEL (14) potassium 4.7 mmol/ L 3.5-5. 2 normal Not Available [facility] ([facility]) [address] [facility] [place], [address], 04/20/2025 22:05:41 04/19/20 25 04/20/2025 COMP. METAB OLIC PANEL (14) chloride 101 mmol/ L 96-106 normal Not Available [facility] ([facility]) [address] [facility] [place], [address], 04/20/2025 22:05:41 04/19/20 25 04/20/2025 COMP. METAB OLIC PANEL (14) carbon dioxide, total 20 mmol/ L 20-29 normal Not Available [facility] ([facility]) [address] [place], [address], 04/20/2025 22:05:41 04/19/20 25 04/20/2025 COMP. METAB OLIC PANEL (14) calcium 9.7 mg/dL 8.7-10 .3 normal Not Available [facility] ([facility]) [address] [place], [address], 04/20/2025 22:05:41 04/19/20 25 04/20/2025 COMP. METAB OLIC PANEL (14) protein, total 6.9 g/dL 6.0-8. 5 normal Not Available [facility] ([facility]) [address] [place], [address], 04/20/2025 22:05:41 04/19/20 25 04/20/2025 COMP. METAB OLIC PANEL (14) albumin 4.4 g/dL 3.8-4. 8 normal Not Available [facility] ([facility]) [address] [place], [address], 04/20/2025 22:05:41 04/19/20 25 04/20/2025 COMP. METAB OLIC PANEL (14) globulin, total 2.5 g/dL 1.5-4. 5 Not Available [facility] ([facility]) [address] [place], [address], 04/20/2025 22:05:41 04/19/20 25 04/20/2025 COMP. METAB OLIC PANEL (14) bilirubin, total 0.2 mg/dL 0.0-1. 2 normal Not Available [facility] ([facility]) [address] [place], [address], 04/20/2025 22:05:41 04/19/20 25 04/20/2025 COMP. METAB OLIC PANEL (14) alkaline phosphatase 129 IU/L 44-121 above high normal Not Available [facility] ([facility]) [address] [place], [address], 04/20/2025 22:05:41 04/19/20 25 04/20/2025 COMP. METAB OLIC PANEL (14) AST (SGOT) 17 IU/L 0-40 normal Not Available [facility] ([facility]) [address] [place], [address], 04/20/2025 22:05:41 04/19/20 25 04/20/2025 COMP. METAB OLIC PANEL (14) ALT (SGPT) 12 IU/L 0-32 normal Not Available [facility] ([facility]) [address] [place], [address], 04/20/2025 22:05:41 04/19/20 25 04/20/2025 LIPID PANEL cholesterol, total 215 mg/dL 100-19 9 above high normal Not Available [facility] ([facility]) [address] [place], [address], 04/20/2025 22:05:42 04/19/20 25 04/20/2025 LIPID PANEL triglyceride s 94 mg/dL 0-149 normal Not Available [facility] ([facility]) [address] [place], [address], 04/20/2025 22:05:42 04/19/20 25 04/20/2025 LIPID PANEL HDL cholesterol 84 mg/dL >39 normal Not Available [facility] ([facility]) [address] [place], [address], 04/20/2025 22:05:42 04/19/20 25 04/20/2025 LIPID PANEL VLDL cholesterol lesia 16 mg/dL 5-40 Not Available [facility] ([facility]) [address] [place], [address], 04/20/2025 22:05:42 04/19/20 25 04/20/2025 LIPID PANEL LDL chol calc ([facility]) 115 mg/dL 0-99 above high normal Not Available [facility] ([facility]) [address] [place], [address], 04/20/2025 22:05:42 04/19/20 25 04/20/2025 LIPID PANEL LDL calc comment: GUN SYNCHRONIZER Not Available [facility] ([facility]) [address] [place], [address], 04/20/2025 22:05:42 04/19/20 25 04/20/2025 ALBUM IN/CR EAT RATIO , RANDO M UR creatinine, urine COMMEN T mg/dL Test not perfo rmed. Patie nt was unabl e to provi de a self- colle cted speci men for the reque sted testi ng. The follo wing test( s) were not perfo rmed: Not Available [facility] ([facility]) [address] [place], [address], 04/20/2025 22:05:42 04/19/20 25 04/20/2025 ALBUM IN/CR EAT RATIO , RANDO M UR albumin, urine TNP Test not perfo rmed Not Available [facility] ([facility]) [address] [place], [address], 04/20/2025 22:05:42 04/19/20 25 04/20/2025 ALBUM IN/CR EAT RATIO , RANDO M UR alb/creat ratio GUN SYNCHRONIZER Not Available [facility] ([facility]) [address] [place], [address], 04/20/2025 22:05:42 04/19/20 25 04/20/2025 ESR-W ES+CR P sedimentatio n rate-westerg rashid 24 mm/HR 0-40 normal Not Available [facility] ([facility]) [address] [place], [address], 04/20/2025 22:05:42 04/19/20 25 04/20/2025 ESR-W ES+CR P C-reactive protein, quant <1 mg/L 0-10 Not Available [facility] ([facility]) [address] [facility], [place], [address], 04/20/2025 22:05:42 04/19/20 25 04/20/2025 HEMOG LOBIN A1C hemoglobin A1C 4.8 % 4.8-5. 6 normal Predi abete s: 5.7 - 6.4 Diabe rhea: >6.4 Glyce mustapha contr ol for adult s with diabe rhea: <7.0 Not Available [facility] ([facility]) [address] [facility], [place], [address], 04/20/2025 22:05:43 04/19/20 25 04/20/2025 VITAM IN D, 25-HY DROXY vitamin D, 25-hydroxy 43.0 NG/mL 30.0-1 00.0 Vitam in D defic iency has been defin ed by the Insti tute of Medic ine and an Endoc rine Socie ty pract ice guide line as a level of serum 25-OH vitam in D less than 20 ng/mL (1,2) . The Endoc rine Socie ty went on to furth er defin e vitam in D insuf ficie ncy as a level betwe en 21 and 29 ng/mL (2). 1. IOM (Inst itute of Medic ine). 2009. Dieta ry refer ence ashli es for calci um and D. Twan georges [place]: The [facility] Press . 2. Mark Anthony karimi MF, Erinn gayle [place], Bk off-F errar i HANEY, et al. Evalu ation , treat ment, and preve ntion of vitam in D defic iency : an Endoc rine Socie ty clini lesia pract ice guide line. JCEM. 2010; 96(7) :1911 -30. Not Available [facility] ([facility]) [address] [facility], [place], [address], 04/20/2025 22:05:44 04/19/20 25 04/20/2025 URIC ACID uric acid 3.5 mg/dL 3.1-7. 9 normal Thera pefigueroai c targe t for gout patie nts: <6.0 Not Available [facility] ([facility]) [address] [place], [address], 04/20/2025 22:05:44 04/19/20 25 04/20/2025 MAGNE SIUM magnesium 2.1 mg/dL 1.6-2. 3 normal Not Available [facility] ([facility]) [address] [facility], [place], [address], 04/20/2025 22:05:45 04/19/20 25 04/20/[address] PROBL EM request problem COMMEN T Test not perfo rmed. Patie nt was unabl e to provi de a self- colle cted speci men for the reque sted testi ng. The follo wing test( s) were not perfo rmed: TEST: [id number] Album in/Cr eat Ratio , Rando m Ur Not Available [facility] ([facility]) [address] [place], [address], 04/20/2025 22:05:45 04/19/20 25 04/22/2025 ALK PHOS ISOEN ZYMES alkaline phosphatase COMMEN T IU/L Test not perfo rmed. Insuf ficie nt speci men to perfo rm or compl ete leslie sis. Not Available [facility] ([facility]) [address] [place], [address], 04/24/2025 12:06:20 04/19/20 25 04/22/2025 ALK PHOS ISOEN ZYMES liver fraction %: TNP Test not perfo rmed Not Available [facility] ([facility]) [address] [place], [address], 04/24/2025 12:06:20 04/19/20 25 04/22/2025 ALK PHOS ISOEN ZYMES liver fraction IU/L: GUN SYNCHRONIZER Not Available [facility] ([facility]) [address] [facility], [place], [address], 04/24/2025 12:06:20 04/19/20 25 04/22/2025 ALK PHOS ISOEN ZYMES bone fraction %: TNP Test not perfo rmed Not Available [facility] ([facility]) [address] [place], [address], 04/24/2025 12:06:20 04/19/20 25 04/22/2025 ALK PHOS ISOEN ZYMES bone fraction IU/L: GUN SYNCHRONIZER Not Available [facility] ([facility]) [address] [place], [address], 04/24/2025 12:06:20 04/19/20 25 04/22/2025 ALK PHOS ISOEN ZYMES intestinal frac.%: TNP Test not perfo rmed Not Available [facility] ([facility]) [address] [facility], [place], [address], 04/24/2025 12:06:20 04/19/20 25 04/22/2025 ALK PHOS ISOEN ZYMES intestinalfr ac.IU/L: GUN SYNCHRONIZER Not Available [facility] ([facility]) [address] [place], [address], 04/24/2025 12:06:20 04/19/20 25 04/22/2025 MITOC HONDR IAL (M2) ANTIB HERIBERTO mitochondria l (M2) antibody COMMEN T units Test not perfo rmed. Insuf ficie nt speci men to perfo rm or compl ete leslie sis. Negat isaias 0.0 - 20.0 Equiv ocal 20.1 - 24.9 Posit isaias >24.9 Mitoc hondr ial (M2) Antib odies are found in 90-96 % of patie nts with prima ry bilia ry cirrh osis. Not Available [facility] ([facility]) [address] [facility], [place], [address], 04/24/2025 12:06:22 04/19/20 25 04/22/2025 GGT GGT COMMEN T IU/L Test not perfo rmed. Insuf ficie nt speci men to perfo rm or compl ete leslie sis. Not Available [facility] ([facility]) [address] [facility], [place], [address], 04/24/2025 12:06:22 04/19/20 25 04/24/2025 LIPAS E lipase COMMEN T U/L Test not perfo rmed. We have recei emeli your reque st for addit ional testi ng. We are not able to add the test( s) reque sted. Not Available [facility] ([facility]) [address] [facility], [place], [address], 04/24/2025 12:06:23 04/19/2004/22/2025 WRITT EN AUTHO RIZAT ION written authorizatio n Commen t Writt en Autho rizat ion Recei emeli. Autho rizat ion recei emeli from [facility] for Link Reque st on 04-22 Logge d by Juvencio Alvarado Not Available [facility] ([facility]) [address] [facility], [place], [address], 04/24/2025 12:06:23 04/19/20 25 04/24/[address] PROBL EM request problem COMMEN T Test not perfo rmed. We have recei emeli your reque st for addit ional testi ng. We are not able to add the test( s) reque sted. TEST: [id number] 4 Lipas e Not Available [facility] ([facility]) [address] [facility], [place], [address], 04/24/2025 12:06:24 08/14/20 25 08/14/2025 LIPID PANEL cholesterol, total 186 mg/dL 100-19 9 normal Not Available [facility] ([facility]) [address] [place], [address], 08/19/2025 06:05:41 08/14/2008/14/2025 LIPID PANEL triglyceride s 42 mg/dL 0-149 normal Not Available [facility] ([facility]) [address] [place], [address], 08/19/2025 06:05:41 08/14/20 25 08/14/2025 LIPID PANEL HDL cholesterol 99 mg/dL >39 normal Not Available [facility] orp ([facility]) [address] [place], [address], 08/19/2025 06:05:41 08/14/2008/14/2025 LIPID PANEL VLDL cholesterol lesia 9 mg/dL 5-40 Not Available [facility] ([facility]) [address] [place], [address], 08/19/2025 06:05:41 08/14/20 25 08/14/2025 LIPID PANEL LDL chol calc ([facility]) 78 mg/dL 0-99 Not Available [facility] ([facility]) [address] [place], [address], 08/19/2025 06:05:41 08/14/20 25 08/14/2025 LIPID PANEL LDL calc comment: GUN SYNCHRONIZER Not Available [facility] ([facility]) [address] [place], [address], 08/19/2025 06:05:41 08/14/2008/14/2025 ALK PHOS ISOEN ZYME alkaline phosphatase 96 IU/L 49-135 normal Not Available [facility] ([facility]) [address] [place], [address], 08/19/2025 06:05:42 08/14/2008/19/2025 ALK PHOS ISOEN ZYME liver fraction: 19 % 18-85 Not Available [facility] ([facility]) [address] [place], [address], 08/19/2025 06:05:42 08/14/2008/19/2025 ALK PHOS ISOEN ZYME bone fraction: 67 % 14-68 Not Available [facility] ([facility]) [address] [place], [address], 08/19/2025 06:05:42 08/14/2008/19/2025 ALK PHOS ISOEN ZYME intestinal frac.: 14 % 0-18 Not Available [facility] ([facility]) [address] [place], [address], 08/19/2025 06:05:42 08/14/2008/14/2025 ALT+A ST AST (SGOT) 12 IU/L 0-40 normal Not Available [facility] ([facility]) [address] [place], [address], 08/19/2025 06:05:42 08/14/2008/14/2025 ALT+A ST ALT (SGPT) 9 IU/L 0-32 normal Not Available [facility] ([facility]) [address] [place], [address], 08/19/2025 06:05:42 08/14/20 25 08/15/2025 MITOC HONDR IAL (M2) ANTIB HERIBERTO mitochondria l (M2) antibody <20.0 units 0.0-20 .0 Negat isaias 0.0 - 20.0 Equiv ocal 20.1 - 24.9 Posit isaias >24.9 Mitoc hondr ial (M2) Antib odies are found in 90-96 % of patie nts with prima ry bilia ry cirrh osis. Not Available [facility] ([facility]) [address] [place], [address], 08/19/2025 06:05:42 08/14/2008/15/2025 GGT WITH REFLE X AMYLA SE/LI PASE GGT 13 IU/L 0-60 normal Not Available [facility] ([facility]) [address] [facility], [place], [address], 08/19/2025 06:05:43 08/21/20 25 08/21/2025 hemog lobin A1C, finge rstic k A1C 4.9 % 4-6 normal Not Available In-Office Order Internal Use Only DO Not Attach Compendium DO Not Attach Compendium, Do Not Delete/merge, [id number] 08/20/2025 17:53:43 09/04/2009/06/2025 IGP, APTIM A HPV diagnosis: Ernestine SCHAFER FOR INTRA EPITH ELIAL NANCY Gonzalez OR EDILIA LINDSEY . Not Available [facility] ([facility]) [address] [facility], [place], [address], 09/06/2025 18:05:48 09/04/2009/06/2025 IGP, APTIM A HPV specimen adequacy: Ernestine farmer Satis factdeana san for evalu ation . Endoc ervic al and/o r squam ous metap lasti c cells (endo cervi lesia compo nent) are prese nt. Not Available [facility] ([facility]) [address] [facility], [place], [address], 09/06/2025 18:05:48 09/04/2009/06/2025 IGP, APTIM A HPV clinician provided ICD10: Ernestine farmer Z01.4 19 Not Available [facility] ([facility]) [address] [place], [address], 09/06/2025 18:05:48 09/04/2009/06/2025 IGP, APTIM A HPV performed by: Ernestine Reid il, Cytol ogist (ASCP ) Not Available [facility] ([facility]) [address] [place], [address], 09/06/2025 18:05:48 09/04/2009/06/2025 IGP, APTIM A HPV . . Not Available [facility] ([facility]) [address] [place], [address], 09/06/2025 18:05:48 09/04/2009/06/2025 IGP, APTIM A HPV note: Commen t The Pap smear is a scree theresa test desig aldair to aid in the detec tion of susana ligna nt and malig nant condi tions of the uteri ne cervi x. It is not a diagn ostic proce dure and shoul d not be used as the sole means of detec ting cervi lesia cance r. Both false -posi tive and false -nega tive repor ts do occur . Not Available [facility] ([facility]) [address] [place], [address], 09/06/2025 18:05:48 09/04/20 25 09/06/2025 IGP, APTIM A HPV test methodology: Commen t This liqui d based ThinP rep(R ) pap test was scree aldair with the use of an image guide velma pelaez. Not Available [facility] ([facility]) [address] [place], [address], 09/06/2025 18:05:48 09/04/2009/06/2025 IGP, APTIM A HPV HPV aptima Negati ve negati ve This nucle ic acid ampli ficat ion test detec ts fourt een high- risk HPV types (16,1 8,31, 33,35 ,39,4 5,51, 52,56 ,58,5 9,66, 68) witho ut diffe renti ation . Not Available [facility] ([facility]) [address] [place], [address], 09/06/2025 18:05:48 02/02/20 25 01/25/2025 US, echoc ardio gram No observ ation record ed. juliana [facility] - [address], [place], [address], 02/12/2025 14:46:15 03/07/20 25 01/30/2025 retin al scan (PROC ) No observ ation record ed. juliana Not Available 2024 17:20:52 06/03/20 25 06/01/2025 MRI, hip, w/o contr ast No observ ation record ed. anh [facility] [address], [place], [address], 06/18/2025 15:44:18 07/31/20 25 07/31/2025 mg mammo digit al scree theresa W lachelle bilat See Note [facility] , a member of [facility] Name: DEBBIE WEAVER Date of : 1949 Reason for Exam: Exam Date: 2024 [id number] EST Report Status : Final Orderi ng Provid er: SELF REFERR AL SPPL PCP: [facility] AL: 75 years old, Female , routin e annual exam. COMPAR CAROLINE: None. TECHNI QUE: Bilate ral MLO and CC views were obtain ed digita lly with 3-D mammog blanka (digit al breast tomosy nthesi s). Comput er-aid ed detect ion was utiliz ed in evalua tion of this exam (CAD). FINDIN GS: Scatte red benign calcif icatio ns. Postbi opsy marker clip in the dispatch coordinator ior medial right breast . No suspic ious mass or ambrocio ectura l distor tion. No suspic ious calcif icatio n. There has been no signif icant change from prior exam(s ). BREAST DENSIT Y: B - There are scatte red areas of fibrog landul ar densit y. IMPRES ELICIA: Benign . BI-RAD S CATEGO RY: 2 - BENIGN RECOMM ENDATI ON: Screen ing bilate ral mammog blanka is recomm ended in 1 year. Mammo Locati on: [facility] , [address] [place] [address], Chandrakant tamayo, [id number], [phone] . ------ -- FINAL REPORT ------ -- Dictat ed By: Ad Cronin Dictat ed Date: 2024 11:14 ET Assign ed Physic patsy: Ad Cronin Review ed and Electr onical ly Signed By: Ad Cronin Signed Date: 2024 11:25 ET Workst ation ID: [id number] Transc ribed By: Self Edit Transc ribed Date: 2024 11:14 ET [facility] [address] [place], [address], 08/29/2025 11:39:48 08/13/20 25 colon oscop y scree theresa (PROC ) No observ ation record ed. ckokar [facility] [address] [facility], [place], [address], 08/13/2025 15:49:19 Result Notes None recorded. Problems Name Problem SNOMED Code Status Onset Date Resolution Date Notes Provider Name and Address Organization Details Recorded Time Anemia of chronic disease 880177320 Active NILAM Stewart [facility] 2 10:55:19 Chronic renal impairme nt Completed 03/29/2020 Lew Keys MD [address] [facility] [address], [place], [address], [facility] 0 08:33:28 Chronic pain syndrome 700171792 Active NILAM Stewart [facility] 2 10:55:19 Type 2 diabetes mellitus without complica tion 502336570 Completed 02/13/2018 Lew Keys MD [address] [facility] [address], [place], [address], [facility] 8 15:44:03 Injury of ulnar nerve 91188521 Completed 11/23/2023 Tessy Guy MD [address] [facility] [address] [address], [facility] 4 14:05:13 Iridocyc litis 10170659 Active Karo Dean-NILAM Gonzalez, [facility] 2 10:55:19 Asthma 303575842 [facility] 10:[facility]18 Prematur e beats 03557881 Active NILAM Stewart, [facility] 2 10:55:18 Rheumato id arthriti s 84894933 NILAM Alcaraz, [facility] 2 10:55:19 Vitamin D deficien cy 22579189 Active Kellenalana rodriguez, [facility] 0 10:44:31 Degenera tion of lumbosac ral interver tebral disc 68969985 Active NILAM Stewart, [facility] 2 10:55:19 Spinal stenosis of lumbar region 11898411 Active with slippage ; L3-L4; Dx: M48.06 NILAM Stewart, [facility] 2 10:55:18 Degenera tion of lumbar interver tebral disc 61300470 Active NILAM Stewart, [facility] 2 10:55:18 Lumbosac ral radiculi tis 74096141 Active NILAM Stewart, [facility] 2 10:55:18 Arthriti s of hip 07866605 Active NILAM Stewart, [facility] 2 10:55:19 Edema 984512122 Completed 11/23/2023 Tessy Guy MD [address], [place], [address], [facility] 4 14:04:47 Otitis media 85521676 Completed 09/21/2016 NILAM Stewart, [facility] 6 11:09:43 Inflamma tion of rotator cuff tendon 567957307 Active NILAM Stewart, [facility] 2 10:55:19 Sinusiti s 56919687 Completed 09/21/2016 NILAM Stewart, [facility] 6 11:09:25 Acute sinusiti s 57141751 Completed 08/18/2016 Lew Keys MD [address], [place], [address], [facility] 6 16:48:06 Allergic rhinitis 11400708 Active NILAM Stewart, [facility] 2 10:55:19 Hyperlip idemia 74807072 Active Kellenalana rodriguez, [facility] 0 10:44:31 Ankle pain 382800212 Completed 09/21/2016 NILAM Stewart, [facility] 6 11:09:09 Menopaus e present 958404616 Completed 11/23/2023 Tessy Guy MD [address], [place], [address], [facility] 4 14:05:32 Low back pain 132634956 Active NILAM Stewart, [facility] 2 10:55:18 Pulmonar y embolism 47980812 Completed 11/23/2023 Tessy Guy MD [address], [place], [address], [facility] 4 08:49:09 Contusio n of face 343214966 Completed 08/18/2016 Lew Keys MD [address], [place], [address], [facility] 6 16:48:02 Pain of hip region 00604582 Completed 09/21/2016 NILAM Stewart, [facility] 6 11:09:37 Shoulder joint pain 746255923 Active NILAM Stewart, [facility] 2 10:55:18 Strain of trapeziu s muscle 247982562 Completed 09/21/2016 NILAM Stewart, [facility] 6 11:09:30 Edema of lower extremit y 578524254 Active NILAM Stewart, [facility] 2 10:55:18 Chronic kidney disease stage 2 571475670 Completed 01/07/2020 Lew Keys MD [address], [place], [address], [facility] 0 11:14:09 Screenin g for malignan t neoplasm of colon Completed 200805/21/2014 RECORDED 01/24/20 09 2:15PM BY KARO GARCIA MA, ANNOTATI ON/ADDEN DUM NILAM Stewart, [facility] 1 09:02:48 Screenin g for malignan t neoplasm of colon Completed 200806/13/2014 RECORDED 01/24/20 09 2:15PM BY KARO GARCIA MA, ANNOTATI ON/ADDEN DUM Karo conti MA null, [facility] 1 09:02:48 Screenin g for malignan t neoplasm of colon Completed 200806/14/2014 RECORDED 01/24/20 09 2:15PM BY KARO GARCIA MA, ANNOTATI ON/ADDEN DUM Karo conti MA null, [facility] 1 09:02:48 Chest pain 72012648 Completed 200805/21/2014 RECORDED 05/26/20 09 11:12AM BY KARO GARCIA MA, CASAATI ON/ADDEN DUM Lani Jovany ESCALERA-C [address], [place], [address], [facility] 6 16:00:49 Chest pain 32841007 Completed 200806/13/2014 RECORDED 05/26/20 09 11:12AM BY KARO GARCIA MA, ANNOTATI ON/ADDEN DUM Lani Jovany ESCALERA-C [address], [place], [address], [facility] 6 16:00:49 Chest pain 31021207 Completed 200806/14/2014 RECORDED 05/26/20 09 11:12AM BY KARO GARCIA MA, CASAATI ON/ADDEN DUM Lani Jovany ESCALERA-C [address], [place], [address], [facility] 6 16:00:49 Edema 014068749 Completed 200905/21/2014 IMPRESSI ON: LOWER EXTREMIT IES; RECORDED 01/22/20 10 11:19AM BY ZAIDA DELATORRE ON/ADDEN DUM Tessy Guy MD [address], [place], [address], [facility] 4 14:04:47 Iron deficien cy anemia 34381011 Completed 200905/21/2014 RECORDED 01/22/20 10 11:19AM BY ZAIDA DELATORRE/HARDEEP Manzo PA-C [address], [place], [address], [facility] 6 16:00:48 Edema 014048692 Completed 200906/13/2014 IMPRESSI ON: LOWER EXTREMIT IES; RECORDED 01/22/20 10 11:19AM BY ZAIDA DELATORRE ON/HARDEEP Guy MD [address], [place], [address], [facility] 4 14:04:47 Iron deficien cy anemia 64863612 Completed 200906/13/2014 RECORDED 01/22/20 10 11:19AM BY ZAIDA DELATORRE ON/HARDEEP Manzo PA-C [address], [place], [address], [facility] 6 16:00:48 Edema 548384642 Completed 200906/14/2014 IMPRESSI ON: LOWER EXTREMIT IES; RECORDED 01/22/20 10 11:19AM BY ZAIDA DELATORRE ON/HARDEEP Guy MD [address], [place], [address], [facility] 4 14:04:47 Iron deficien cy anemia 31044372 Completed 200906/14/2014 RECORDED 01/22/20 10 11:19AM BY ZAIDA DELATORRE/HARDEEP Manzo PA-C [address], [place], [address], [facility] 6 16:00:48 Essentia l hyperten elicia 26216752 Completed 201005/21/2014 RECORDED 06/14/20 11 2:04PM BY KARO GARCIA MA, ANNOTATI ON/ADDEN DUM [facility] 2 11:46:33 Type 2 diabetes mellitus without complica tion 317953943 Completed 201005/21/2014 RECORDED 07/26/20 11 11:14AM BY KARO GARCIA MA, ANNOTATI ON/ADDEN DUM Lew Keys MD [address], [place], [address], [facility] 8 15:44:03 Acute secretor y otitis media 922629806 Completed 201105/21/2014 RECORDED 06/20/20 12 3:49PM BY ZAIDA HA ON/ADDEN DUM Lani Manzo PA-C [address], [place], [address], [facility] 6 16:00:48 Adult health examinat ion Completed 201105/21/2014 RECORDED 06/20/20 12 3:49PM BY ZAIDA HA ON/ADDEN DUM Lani Manzo PA-C [address], [place], [address], [facility] 6 16:00:49 Acute secretor y otitis media 308173813 Completed 201106/13/2014 RECORDED 06/20/20 12 3:49PM BY ZAIDA HA ON/ADDEN DUM Lani Manzo PA-C [address], [place], [address], [facility] 6 16:00:48 Adult health examinat ion Completed 201106/13/2014 RECORDED 06/20/20 12 3:49PM BY ZAIDA HA ON/ADDEN DUM Lain Manzo PA-C [address], [place], [address], [facility] 6 16:00:49 Acute secretor y otitis media 908106337 Completed 201106/14/2014 RECORDED 06/20/20 12 3:49PM BY ZAIDA HA ON/ADDEN DUM Lani Manzo PA-C [address], [place], [address], [facility] 6 16:00:48 Adult health examinat ion Completed 201106/14/2014 RECORDED 06/20/20 12 3:49PM BY ZAIDA HA ON/ADDEN DUM Lani Manzo PA-C [address], [place], [address], [facility] 6 16:00:49 Screenin g for malignan t neoplasm of cervix Completed 201105/21/2014 RECORDED 10/11/20 12 10:52AM BY KARO GARCIA MA, ZAIDA ON/ADDEN DUM Lani Jovany ESCALERA-C [address], [place], [address], [facility] 6 16:00:49 Pruritic disorder 848247550 Completed 201105/21/2014 RECORDED 10/11/20 12 10:52AM BY KARO GARCIA MA, ZAIDA ON/ADDEN DUM Lani Jovany PA-C [address], [place], [address], [facility] 6 16:00:48 Red eye Completed 201105/21/2014 STORY: RED, PAINFUL EYES. HISTORY OF RHEUMATO ID ARTHRITI S.; RECORDED 10/11/20 12 10:52AM BY KARO GARCIA MA, ZAIDA ON/ADDEN DUM Lani Jovany PA-C [address], [place], [address], [facility] 6 16:00:49 Screenin g for malignan t neoplasm of cervix Completed 201106/13/2014 RECORDED 10/11/20 12 10:52AM BY KARO GARCIA MA, ANNOTATI ON/ADDEN DUM Lani Manzo PA-C [address], [place], [address], [facility] 6 16:00:49 Pruritic disorder 977801650 Completed 201106/13/2014 RECORDED 10/11/20 12 10:52AM BY KARO GARCIA MA, ANNOTATI ON/ADDEN DUM Lani Manzo PA-C [address] [facility] [address], [place], [address], [facility] 6 16:00:48 Red eye Completed 201106/13/2014 STORY: RED, PAINFUL EYES. HISTORY OF RHEUMATO ID ARTHRITI S.; RECORDED 10/11/20 12 10:52AM BY KARO GARCIA MA, ANNOTTENNILLE ON/ADDEN DUM Lani Manzo PA-C [address] [facility] [address], [place], [address], [facility] 6 16:00:49 Screenin g for malignan t neoplasm of cervix Completed 201106/14/2014 RECORDED 10/11/20 12 10:52AM BY KARO GARCIA MA, ZAIDA ON/ADDEN DUM Lani Manzo PA-C [address], [place], [address], [facility] 6 16:00:49 Pruritic disorder 215630307 Completed 201106/14/2014 RECORDED 10/11/20 12 10:52AM BY KARO GARCIA MA, ANNOTTENNILLE ON/ADDEN DUM Lani Manzo PA-C [address], [place], [address], [facility] 6 16:00:48 Red eye Completed 201106/14/2014 STORY: RED, PAINFUL EYES. HISTORY OF RHEUMATO ID KRYSTAL Tamayo.; RECORDED 10/11/20 12 10:52AM BY KARO GARCIA MA, ZAIDA ON/ADDEN DUM Lani Jovany PA-C [address], [place], [address], [facility] 6 16:00:49 Renewal of prescrip tion Completed 201205/21/2014 RECORDED 01/11/20 13 10:30AM BY KARO GARCIA MA, ZAIDA ON/ADDEN DUM Lani Jovany PA-C [address], [place], [address], [facility] 6 16:00:49 Renewal of prescrip tion Completed 201206/13/2014 RECORDED 01/11/20 13 10:30AM BY KARO GARCIA MA, ZAIDA ON/ADDEN DUM Lani Jovany PA-C [address], [place], [address], [facility] 6 16:00:49 Renewal of prescrip tion Completed 201206/14/2014 RECORDED 01/11/20 13 10:30AM BY KARO GARCIA MA, ZAIDA ON/ADDEN DUM Lani Jovany PA-C [address], [place], [address], [facility] 6 16:00:49 Acute bronchit is 59175015 Completed 201205/21/2014 RECORDED 02/02/20 13 2:23PM BY KARO GARCIA MA, ZAIDA ON/ADDEN DUM Lani Jovany PA-C [address], [place], [address], [facility] 6 16:00:48 Cough 09465431 Completed 201205/21/2014 RECORDED 02/02/20 13 2:24PM BY KARO GARCIA MA, ANNOTATI ON/ADDEN DUM Lani Manzo PA-C [address], [place], [address], [facility] 6 16:00:49 Influenz a vaccine needed [id number] 06 Completed 201205/21/2014 RECORDED 02/02/20 13 2:23PM BY KARO GARCIA MA, ANNOTTENNILLE ON/ADDEN DUM Lani Manzo PA-C [address], [place], [address], [facility] 6 16:00:49 Administ ration of diphther ia and tetanus vaccine Completed 201205/21/2014 RECORDED 02/02/20 13 2:23PM BY KARO GARCIA MA, ANNOTATI ON/ADDEN DUM Lani Manzo PA-C [address], [place], [address], [facility] 6 16:00:49 Acute bronchit is 64708524 Completed 201206/13/2014 RECORDED 02/02/20 13 2:23PM BY KARO GARCIA MA, ANNOTATI ON/ADDEN DUM Lani Manzo PA-C [address], [place], [address], [facility] 6 16:00:48 Cough 66161430 Completed 201206/13/2014 RECORDED 02/02/20 13 2:24PM BY KARO GARCIA MA, ANNOTATI ON/ADDEN DUM Lani Manzo PA-C [address], [place], [address], [facility] 6 16:00:49 Influenz a vaccine needed [id number] 06 Completed 201206/13/2014 RECORDED 02/02/20 13 2:23PM BY KARO GARCIA MA, ANNOTATI ON/ADDEN DUM Lani Manzo PA-C [address], [place], [address], [facility] 6 16:00:49 Administ ration of diphther ia and tetanus vaccine Completed 201206/13/2014 RECORDED 02/02/20 13 2:23PM BY KARO GARCIA MA, ZAIDA ON/ADDEN DUM Lani Manzo PA-C [address], [place], [address], [facility] 6 16:00:49 Acute bronchit is 18427036 Completed 201206/14/2014 RECORDED 02/02/20 13 2:23PM BY KARO GARCIA MA, ZAIDA ON/ADDEN DUM Lani Manzo PA-C [address], [place], [address], [facility] 6 16:00:48 Cough 59911825 Completed 201206/14/2014 RECORDED 02/02/20 13 2:24PM BY KARO GARCIA MA, ZAIDA ON/ADDEN DUM Lani Manzo PA-C [address] [facility] [address], [place], [address], [facility] 6 16:00:49 Influenz a vaccine needed [id number] 06 Completed 201206/14/2014 RECORDED 02/02/20 13 2:23PM BY KARO GARCIA MA, ANNOTATI ON/ADDEN DUM Lani Manzo PA-C [address], [place], [address], [facility] 6 16:00:49 Administ ration of diphther ia and tetanus vaccine Completed 201206/14/2014 RECORDED 02/02/20 13 2:23PM BY KARO GARCIA MA, ANNOTATI ON/ADDEN DUM Lani Jovany MAYERSC [address], [place], [address], [facility] 6 16:00:49 Screenin g for malignan t neoplasm of breast Completed 201205/21/2014 RECORDED 05/07/20 13 10:37AM BY KARO GARCIA MA, ANNOTATI ON/ADDEN DUM Lani Jovany MAYERSC [address], [place], [address], [facility] 6 16:00:49 Screenin g for malignan t neoplasm of breast Completed 201206/13/2014 RECORDED 05/07/20 13 10:37AM BY KARO GARCIA MA, ANNOTATI ON/ADDEN DUM Lani Jovany EID [address], [place], [address], [facility] 6 16:00:49 Screenin g for malignan t neoplasm of breast Completed 201206/14/2014 RECORDED 05/07/20 13 10:37AM BY KARO GARCIA MA, CASAATI ON/ADDEN DUM Lani Jovany EID [address], [place], [address], [facility] 6 16:00:49 Acute sinusiti s 93527418 Completed 201305/21/2014 RECORDED 01/22/20 14 12:39PM BY KARO GARCIA MA, ANNOTATI ON/ADDEN DUM Lew Keys MD [address], [place], [address], [facility] 6 16:48:06 Follow-u p encounte r Completed 201305/21/2014 RECORDED 01/22/20 14 12:39PM BY KARO GARCIA MA, ANNOTTENNILLE ON/ADDEN DUM Lani Jovany MAYERSC [address], [place], [address], [facility] 6 16:00:49 Contusio n of face, scalp and neck, excludin g eye(s) Completed 201305/21/2014 RECORDED 01/22/20 14 12:39PM BY KARO GARCIA MA, ZAIDA ON/ADDEN DUM Lani Jovany MAYERSC [address], [place], [address], [facility] 6 16:00:49 Accident al fall Completed 201305/21/2014 RECORDED 01/22/20 14 12:39PM BY KARO GARCIA MA, ZAIDA ON/ADDEN DUM Lani Jovany MAYERSC [address], [place], [address], [facility] 6 16:00:49 Acute sinusiti s [id number] Completed 201306/13/2014 RECORDED 01/22/20 14 12:39PM BY KARO GARCIA MA, CASAATI ON/ADDEN DUM Lew Keys MD [address], [place], [address], [facility] 6 16:48:06 Follow-u p encounte r Completed 201306/13/2014 RECORDED 01/22/20 14 12:39PM BY KARO GARCIA MA, ANNOTATI ON/ADDEN DUM Lani Jovany MAYERSC [address], [place], [address], [facility] 6 16:00:49 Contusio n of face, scalp and neck, excludin g eye(s) Completed 201306/13/2014 RECORDED 01/22/20 14 12:39PM BY KARO GARCIA MA, ANNOTATI ON/ADDEN DUM Lani Jovany ESCALERA-C [address], [place], [address], [facility] 6 16:00:49 Accident al fall Completed 201306/13/2014 RECORDED 01/22/20 14 12:39PM BY KARO GARCIA MA, ANNOTATI ON/ADDEN DUM Lani Jovany PA-C [address], [place], [address], [facility] 6 16:00:49 Acute sinusiti s [id number] Completed 201306/14/2014 RECORDED 01/22/20 14 12:39PM BY KARO GARCIA MA, ANNOTATI ON/ADDEN DUM Lew Keys MD [address], [place], [address], [facility] 6 16:48:06 Follow-u p encounte r Completed 201306/14/2014 RECORDED 01/22/20 14 12:39PM BY KARO GARCIA MA, ANNOTTENNILLE ON/ADDEN DUM Lani Jovany ESCALERA-C [address], [place], [address], [facility] 6 16:00:49 Contusio n of face, scalp and neck, excludin g eye(s) Completed 201306/14/2014 RECORDED 01/22/20 14 12:39PM BY KARO GARCIA MA, ANNOTATI ON/ADDEN DUM Lani Jovany ESCALERA-C [address], [place], [address], [facility] 6 16:00:49 Accident al fall Completed 201306/14/2014 RECORDED 01/22/20 14 12:39PM BY KARO GARCIA MA, ANNOTATI ON/ADDEN DUM Lani Manzo PA-C [address], [place], [address], [facility] 6 16:00:49 Laborato ry procedur e performe d [id number] Completed 201305/21/2014 RECORDED 03/27/20 14 9:46AM BY ALISSON PEREZ MA, ANNOTATI ON/ADDEN DUM Lani Manzo PA-C [address], [place], [address], [facility] 6 16:00:49 Pre-surg joe evaluati on Completed 201306/04/2014 STORY: LEFT TKA. DR. CARROLL 0.; RECORDED 03/27/20 14 9:49AM BY ALISSON PEREZ MA, REVIEW Lani Manzo PA-C [address], [place], [address], [facility] 6 16:00:49 Laborato ry procedur e performe d [id number] Completed 201306/13/2014 RECORDED 03/27/20 14 9:46AM BY ALISSON PEREZ MA, ANNOTATI ON/ADDEN DUM Lani Manzo PA-C [address], [place], [address], [facility] 6 16:00:49 Laborato ry procedur e performe d [id number] Completed 201306/14/2014 RECORDED 03/27/20 14 9:46AM BY ALISSON PEREZ MA, ANNOTATI ON/ADDEN DUM Lani Manzo PA-C [address], [place], [address], [facility] 6 16:00:49 Dyspnea [id number] Completed 201306/13/2014 RECORDED 04/27/20 14 8:50AM BY ALISSON PEREZ MA, ANNOTATI ON/ADDEN DUM Lani Manzo PA-C [address], [place], [address], [facility] 6 16:00:49 Dyspnea [id number] Completed 201306/14/2014 RECORDED 04/27/20 14 8:50AM BY ALISSON PEREZ MA, ANNOTATI ON/ADDEN DUM Lani Manzo PA-C [address], [place], [address], [facility] 6 16:00:49 Obesity Completed 201308/06/2014 RECORDED 05/03/20 14 9:36AM BY ALISSON PEREZ MA, OFFICE VISIT Lani Manzo PA-C [address], [place], [address], [facility] 6 16:00:49 Vomiting [id number] Completed 201306/13/2014 RECORDED 05/03/20 14 9:35AM BY ALISSON PEREZ MA, ANNOTATI ON/ADDEN DUM Lani Manzo PA-C [address], [place], [address], [facility] 6 16:00:49 Vomiting [id number] Completed 201306/14/2014 RECORDED 05/03/20 14 9:35AM BY ALISSON PEREZ MA, ANNOTATI ON/ADDEN DUM Lani Manzo PA-C [address], [place], [address], [facility] 6 16:00:49 Gout [id number] Active 2016 Karo conti [place] [facility], [facility] 2 10:55:19 Hypokale guillermo [id number] Completed 201811/23/2023 Tessy Guy MD [address], [place], [address], [facility] 4 14:04:37 Screenin g for malignan t neoplasm of colon Completed 201811/27/2020 NILAM Stewart, [facility] 1 09:02:48 Contusio n of chest [id number] Completed 201811/27/2020 NILAM Stewart, [facility] 1 09:02:28 Chronic kidney disease stage 3A [id number] Completed 202007/20/2022 Tessy Guy MD [address], [place], [address], [facility] 2 08:02:30 Drug-ind uced hypokale guillermo [id number] Completed 202011/23/2023 Tessy Guy MD [address], [place], [address], [facility] 4 14:04:42 Pain of left hand [id number] 9103 Active 2020 NILAM Stewart, [facility] 2 10:55:19 Pain in left knee Active 2020 NILAM Stewart, [facility] 2 10:55:19 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 mellitus 362794356 Active 2021 NILAM Stewart, [facility] 2 10:55:19 Hyperten elicia monitori ng status 144834635 Active 2021 disenrol led Tina rodriguez, [facility] 2 13:37:05 Migraine [id number] Completed 202211/23/2023 Tessy Guy MD [address], [place], [address], [facility] 4 14:05:47 Lumbar radiculo zenaida 832104631 Active [address] [facility] [address], [place], [address], [facility] 3 15:05:30 Peripher al venous insuffic iency 66830843 Active 2022 Alfredo Cheng MD [address], [place], [address], [facility] 3 16:20:35 History of pulmonar y embolus 743381811 Active 2023 Unprovok ed PE. Dec 2015. Tessy Guy MD [address], [place], [address], [facility] 4 08:49:16 Heart failure with normal ejection fraction 766910551 Active 2023 Tessy Guy MD [address], [place], [address], [facility] 4 08:53:17 Body mass index 30+ - obesity 800787521 Active 2023 Tessy Guy MD [address], [place], [address], [facility] 4 14:12:25 Morbid obesity 178874523 Active 2023 Tessy Guy MD [address], [place], [address], [facility] 4 14:12:26 Generali zed osteoart hritis 439763303 Active 2023 Monica Griffith LPN null, [facility] 4 14:01:29 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 567623793 Active 2023 Monica Griffith LPN null, [facility] 4 14:01:29 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 Please review these documents and add these problems to the patient's chart manually as needed. Problem Notes None recorded. Procedures Surgical History Date Name Laterality Status Provider Name and Address Organization Details Recorded Time 03/20/20 25 Diabetic Foot Exam (Monofilament) completed Tessy Guy MD [address], [address], [facility] 03/19/2025 08:22:47 12/21/19 25 Advanced Care Planning completed Tessy Guy MD [address], [address], [facility] 12/20/2024 16:13:06 11/23/19 24 Advanced Care Planning completed Tessy Guy MD [address], [address], [facility] 11/23/2023 08:42:44 11/23/19 24 Diabetic Foot Exam (Monofilament) completed Tessy Guy MD [address] [place], [address], [facility] 11/23/2023 14:10:26 07/21/20 22 Diabetic Foot Exam (Monofilament) completed Tessy Guy MD [address] [address], [place], [address], [facility] 07/21/2022 10:41:17 04/20/20 22 Diabetic Foot Exam (Monofilament) completed Tessy Guy MD [address] [address], [place], [address], [facility] 04/19/2022 08:53:45 10/06/20 21 Advanced Care Planning completed Tessy Guy MD [address] [address], [place], [address], [facility] 10/06/2021 08:16:58 10/06/20 21 Diabetic Foot Exam (Monofilament) completed Tessy Guy MD [address] [address], [place], [address], [facility] 10/06/2021 11:21:43 05/29/20 21 Chronic Pain Assessment completed Lety Irizarry MA [facility] 05/29/2021 08:52:53 04/03/20 21 Chronic Pain Assessment completed Kandy Cox MA [facility] 04/03/2021 10:08:41 01/02/20 21 Chronic Pain Assessment completed Lety Irizarry MA [facility] 01/02/2021 09:58:36 12/19/19 21 Chronic Pain Assessment completed Kandy Cox [facility] 12/19/2020 13:52:28 09/29/20 20 Chronic Pain Assessment completed Karo tamayo MA [facility] 09/29/2020 11:25:59 09/29/20 20 Six-Item Cognitive Test completed Karo tamayo MA [facility] 09/29/2020 11:24:55 07/25/20 20 Chronic Pain Assessment completed Lindsay Garsia MA [facility] 07/25/2020 13:52:55 03/29/20 20 Chronic Pain Assessment completed Karo tamayo [place] [facility] 03/29/2020 08:17:52 01/07/20 20 Chronic Pain Assessment completed Karo tamayo [place] [facility] 01/07/2020 10:28:24 09/15/20 19 Chronic Pain Assessment completed Russell Allison [facility] 09/15/2019 11:12:36 09/15/20 19 Diabetic Foot Exam (Monofilament) completed Russell Allison [facility] 09/15/2019 10:54:17 07/30/20 19 Mini-Cog Test completed Tierra Milian [facility] 07/30/2019 11:38:11 03/19/20 19 Chronic Pain Assessment completed Karo tamayo [place] [facility] 03/19/2019 11:37:02 12/29/19 19 Diabetic Foot Exam (Monofilament) completed Karo tamayo [place] [facility] 12/29/2018 14:24:50 11/21/19 19 Most Recent Mammogram completed Kellen Bruno [facility] 11/21/2018 14:38:35 11/21/19 19 Mammogram screening completed Honey Jang [facility] 01/20/2022 18:43:01 10/14/20 18 Chronic Pain Assessment completed Karo tamayo [place] [facility] 10/14/2018 10:46:56 10/14/20 18 Diabetic Foot Exam (Monofilament) completed Karo tamayo [place] [facility] 10/14/2018 10:35:19 07/29/20 18 Chronic Pain Assessment completed Karo tamayo [place] [facility] 07/29/2018 09:58:59 04/17/20 18 Mini-Cog Test completed Karo tamayo [place] [facility] 04/17/2018 14:07:29 02/14/20 18 Chronic Pain Assessment completed Karo tamayo [place] [facility] 02/13/2018 15:20:41 11/02/20 17 Chronic Pain Assessment completed Karina Servin [facility] 11/02/2017 14:55:12 08/02/20 17 Chronic Pain Assessment completed Karo tamayo [place] [facility] 08/02/2017 14:45:31 05/17/20 17 Chronic Pain Assessment completed Karo tamayo [place] [facility] 05/17/2017 11:19:53 02/16/20 17 Chronic Pain Assessment completed Karo tamayo [place] [facility] 02/15/2017 10:48:27 12/09/19 17 Other completed Karo tamayo MA [facility] 12/14/2016 09:16:22 09/10/20 16 Egd diagnostic brush wash completed Karo tamayo MA [facility] 03/19/2019 11:28:03 03/25/20 16 Chronic Pain Assessment completed Karo tamayo [place] [facility] 03/25/2016 11:23:39 12/16/19 16 Most Recent Bone Density completed Karo tamayo MA [facility] 04/17/2018 13:55:48 12/16/19 16 Dxa bone density morgan vrt fx completed Karo tamayo [place] [facility] 04/17/2018 13:56:02 01/14/20 15 Joint Injection completed Lew Keys MD [address] [address], [place], [address], [facility] 01/14/2015 07:27:39 12/10/19 15 Orthopedic Surgery completed Cori Ospina [place] [facility] 01/17/2015 15:10:31 05/24/20 14 Arthrd ant ntrbd min dsc lum completed Karo tamayo [place] [facility] 06/04/2014 11:49:42 11/07/19 10 Total knee arthroplasty completed Lew Keys MD [address] [address], [place], [address], [facility] 10/21/2017 13:18:29 10/05/20 07 Date of Last Colonoscopy completed Karo tamayo [place] [facility] 03/19/2019 11:28:29 10/05/20 07 Colonoscopy completed Karo tamayo [place] [facility] 03/25/2016 11:11:36 05/07/20 07 Arthrd pst tq 1ntrspc lum completed Karo tamayo [place] [facility] 10/15/2014 13:13:58 11/07/18 94 Knee Surgery completed Karo tamayo [place] [facility] 10/15/2014 13:13:58 11/07/18 90 Knee Surgery completed Karo tamayo [place] [facility] 10/15/2014 13:13:58 11/07/18 88 Arthrd pst tq 1ntrspc lum completed Karo tamayo [place] [facility] 10/15/2014 13:13:58 11/07/18 70 Appendectomy completed Karo tamayo [place] [facility] 10/15/2014 13:13:58 11/07/18 61 Revision of femur epiphysis completed Karo tamayo [place] [facility] 01/07/2020 10:17:40 Total knee arthroplasty completed Lew Keys MD [address] [address], [place], [address], [facility] 10/21/2017 13:17:46 Imaging Results None recorded. Procedure Notes None recorded. Medical Equipment None Reported. Allergies Allergen ID Allergen Name Allergen Category Reaction Reaction Severity Criticality Documentation Date Start Date Code Code System Note Provider Name and Address Organization Details Recorded Time 47000 atorvasta tin medicatio n myalgias (muscle pain) Not available Not available 07/16/2015 61226 [facility] 11:01[facility]59 2632 Enbrel medicatio n Not available Not available Not available 05/21/20142013 87407 1 [facility] 4 11:49:42 2633 ibuprofen medicatio n Not available Not available Not available 05/21/20142013 5640 [facility] 4 11:49:42 2634 indometha suze medicatio n Not available Not available Not available 05/21/20142013 5781 [facility] 4 11:49:42 2635 Iodinated contrast media (substanc e) medicatio n Not available Not available Not available 05/21/20142013 66204 2004 SN[facility]ED [facility] 4 11:49:42 2636 Non-stero idal anti-infl ammatory agent (substanc e) medicatio n Not available Not available Not available 05/21/20142013 39522 5008 SNOMED [facility] 4 11:49:42 86882 doxycycli ne Not available other mild Not available 03/15/20182019 3640 [facility] 2 15:54:03 08458 codeine medicatio n hives severe Not available 07/30/20192019 2670 RxNorm NILAM Patel [facility] 2 15:54:03 13261 etanercep t medicatio n Not available Not available Not available 01/04/20202019 14652 5 RxNorm NILAM Patel, [facility] 2 15:54:03 66189 ferumoxyt ol medicatio n Not available Not available Not available 01/04/20202020 80200 7 RxNorm NILAM Patel [facility] 2 15:54:03 67741 simvastat in medicatio n other Not available Not available 03/29/20202019 40518 RxNorm NILAM Patel [facility] 2 15:54:03 32725 Xiidra medicatio n rash Not available Not available 11/27/2020 10819 36 RxNorm Karo Jermaine-NILAM Gonzalez [facility] 1 09:13:41 60886 gabapenti n medicatio n Not available Not available Not available 08/27/2021 41722 RxNorm edema , bruis ing as per pt Elias Manzo PA-C [address] [facility] [address] [address], [facility] 1 13:42:22 69133 prednison e medicatio n hives Not available Not available 05/19/2023 8640 RxNorm Karo Jermaine-NILAM Gnozalez [facility] 3 09:12:42 28990 indometha suze medicatio n Not available Not available Not available 03/02/20242019 5781 RxNorm Monicalui StevensoneABDULLAHI [facility] 5 15:45:23 93912 ibuprofen medicatio n Not available Not available Not available 03/02/20242019 5640 RxNorm Monica CaporaleABDULLAHI [facility] 5 15:45:17 09240 azathiopr ine medicatio n Not available Not available Not available 03/02/20242023 1256 RxNorm Monica Caporale, CONTROL OFFICER null, [facility] 4 13:58:24 24793 Product containin g gadoliniu m and/or gadoliniu m compound (product) medicatio n Not available Not available Not available 03/02/20242023 83074 3008 SNOMED Monica Caporale, CONTROL OFFICER null, [facility] 4 13:58:24 21426 Decadron medicatio n edema severe high 11/08/2024 16634 2 RxNorm Monica Caporale, CONTROL OFFICER null, [facility] 5 15:52:03 42946 Farxiga medicatio n Not available Not available Not available 12/03/2024 26903 72 RxNorm cause s ROMULO Karo Jermaine-NILAM Gonzalez, [facility] 5 14:22:22 Medications Name Sig Start Date Stop Date Status Note LastModified by Organization Details LastModified Time oxycodone hydrochlo ride 5 mg tabs 07/25 completed Not Available Not Available Not Available actemra 162 mg/0.9ml sosy 07/25 completed Not Available Not Available Not Available potassium chloride er 10 meq tbcr 07/25 completed Not Available Not Available Not Available calcitrio l 0.5 mcg caps 07/25 completed Not Available Not Available Not Available oxycod/ap ap tab 10-325mg 07/25 completed Not Available Not Available Not Available klor-con m20 20 meq tbcr 07/25 completed Not Available Not Available Not Available fluticaso ne propionat e 50 mcg/act susp 07/25 completed Not Available Not Available Not Available potassium chloride er 20 meq tbcr 07/25 completed Not Available Not Available Not Available allopurin ol 300 mg tabs 07/25 completed Not Available Not Available Not Available metolazon e 5 mg tabs 07/25 completed Not Available Not Available Not Available rosuvasta tin calcium 5 mg tabs 07/25 completed Not Available Not Available Not Available torsemide 20 mg tabs 07/25 completed Not Available Not Available Not Available diazepam 10 mg tabs 07/25 completed Not Available Not Available Not Available simvastat in 10 mg tabs 09/29 completed Not Available Not Available Not Available losartan 50 mg tablet TAKE 1 TABLET BY MOUTH TWICE A DAY (MORNING AND EVENING) 02/18 completed Not Available Not Available Not Available carisopro dol 350 mg tablet FOUR TIMES DAILY 05/07 completed RECORDED 05/07/20 13 10:48AM BY KARO GARCIA MA, OFFICE VISIT;DR PRATIBHA WELLS Not Available Not Available Not Available cyclobenz aprine 10 mg tablet TAKE 1 TABLET BY MOUTH EVERY DAY AT BEDTIME NEEDED 05/19 completed Not Available Not Available Not Available amoxicill in 500 mg capsule TAKE 4 CAPSULE BY MOUTH DIRECTED 1 HOUR BEFORE DENTAL APPOINTM ENT active Not Available Not Available No t Available furosemid e 40 mg tablet TAKE 2 TABLETS (80 MG TOTAL) BY MOUTH 1 (ONE) TIME EACH DAY 02/18 completed Not Available Not Available Not Available Levaquin 250 mg tablet Take 1 tablet every day by oral route. active Not Available Not Available No t Available azithromy suze 250 mg capsule DIRECTED BELOW 2012 active RECORDED 05/09/20 13 2:32PM BY ZAIDA ALVAREZ ON/HARDEEP DUM;2 TABS ON DAY 1, THEN 1 TAB DAILY Not Available Not Available Not Available metformin 500 mg tablet TAKE 1 TABLET BY MOUTH TWICE A DAY active Not Available Not Available No t Available Colace 100 mg capsule Take 1 capsule twice a day by oral route as needed. active Not Available Not Available No t Available potassium chloride ER 10 mEq capsule,e xtended release TAKE 2 CAPSULES BY MOUTH TWICE DAILY 03/22 completed insuranc e will cover tablets Not Available Not Available Not Available prednison e 10 mg tablet 04/17 completed Not Available Not Available Not Available doxycycli ne hyclate 100 mg capsule Take 1 capsule twice a day by oral route for 10 days. 03/15 completed Not Available Not Available Not Available torsemide 20 mg tablet TAKE 2 TABLETS BY MOUTH IN THE MORNING AND 2 TABLETS IN THE EVENING. active Not Available Not Available No t Available tizanidin e 2 mg tablet TAKE 1 TABLET BY MOUTH 3 TIMES DAILY NEEDED (SPASM) FOR UP TO 7 DAYS. 05/19 completed taking instead of cycloben zaprine Not Available Not Available Not Available clindamyc in HCl 300 mg capsule active Not Available Not Available Not Available Vitamin C 500 mg tablet TAKE 1 TABLET BY MOUTH EVERY DAY 12/03 completed eats citrus Not Available Not Available Not Available oxybutyni n chloride ER 10 mg tablet,ex tended release 24 hr TAKE 1 TABLET BY MOUTH EVERY DAY 03/26 completed Not Available Not Available Not Available benzonata te 200 mg capsule Take 1 capsule 3 times a day by oral route as needed for 10 days. 03/26 completed Not Available Not Available Not Available clarithro mycin 500 mg tablet TWO TIMES DAILY 09/21 completed RECORDED 10/01/20 09 8:46AM BY JOAQUIM MERIDA MD, MEDICATI ON AUTO-CANDIE CTIVATIO N; Not Available Not Available Not Available lisinopri l 20 mg tablet 20 mg by oral route. 10/22 completed Not Available Not Available Not Available prednison e 20 mg tablet TAKE 2 TABLETS BY MOUTH DAILY 05/19 completed Not Available Not Available Not Available simvastat in 10 mg tablet TAKE 1 TABLET BY MOUTH EVERY DAY 03/29 completed Not Available Not Available Not Available methylpre dnisolone 4 mg tablet active Not Available Not Available Not Available metolazon e 5 mg tablet TAKE 1 TABLET BY MOUTH EVERY DAY NEEDED active Not Available Not Available No t Available clindamyc in HCl 150 mg capsule Take 1 capsule 3 times a day by oral route. active Not Available Not Available No t Available torsemide 10 mg tablet Take 1 tablet every day by oral route. 01/25 completed per patient: this was changed to furosemi de 20 mg (2 qd), but she is only taking one Not Available Not Available Not Available hydralazi ne 25 mg tablet Take 1 tablet twice a day by oral route. 03/20 completed 03/20/25 per patient stopped by the hosp Not Available Not Available Not Available amlodipin e 2.5 mg tablet TAKE 1 TABLET BY MOUTH EVERY DAY FOR 30 DAYS active Not Available Not Available No t Available potassium chloride ER 10 mEq tablet,ex tended release TAKE 3 TABLETS BY MOUTH TWICE DAILY 05/19 completed ON HOLD per DR MIRANDA Not Available Not Available Not Available azathiopr ine 50 mg tablet active Not Available Not Available Not Available amlodipin e 5 mg tablet TAKE 1 TABLET BY MOUTH 1 TIME EACH DAY. 11/08 completed Not Available Not Available Not Available allopurin ol 100 mg tablet Take 1 tablet twice a day by oral route as directed for 30 days. 07/23 completed Not Available Not Available Not Available sulfameth oxazole 800 mg-trimet hoprim 160 mg tablet 04/17 completed Not Available Not Available Not Available iron polysacch cplx 150 mg iron-vit B12 25 mcg-folic acid 1 mg capsule DAILY FOR IRON DEFICIEN CY ANEMIA 2013 active Not Available Not Available Not Avai lable lovastati n 10 mg tablet Take 1 tablet every day by oral route. 2014 active Not Available Not Available Not Avai lable tramadol 50 mg tablet TAKE 1 TABLET BY MOUTH EVERY MORNING active Not Available Not Available No t Available triamcino lone acetonide 0.1 % topical cream APPLY TOPICALL Y TWICE DAILY TO LOWER LEGS FOR 1 WEEK, BREAK FOR 1 WEEK. REPEAT NEEDED FOR BURNING 07/18 completed Not Available Not Available Not Available phentermi ne 30 mg capsule DAILY 10/15 completed RECORDED 04/24/20 14 12:35PM BY LEW KEYS MD, REFILL REQUEST; Not Available Not Available Not Available amoxicill in 500 mg tablet Take 4 tablets every day by oral route x 1 dose prior to dental work for 1 day. 06/04 completed Not Available Not Available Not Available dexametha sone sodium phosphate 0.1 % eye drops INSTILL 1 DROP INTO BOTH EYES TWICE A DAY DIRECTED 04/02 completed Not Available Not Available Not Available ketorolac 0.5 % eye drops Instill 1 drop twice a day by ophthalm ic route as needed for 13 days. 08/02 completed Not Available Not Available Not Available bisoprolo l fumarate 5 mg tablet TAKE 1 TABLET BY MOUTH EVERY DAY FOR 30 DAYS 01/[address] Miranda Not Available Not Available Not Available oxycodone -acetamin ophen 5 mg-325 mg tablet 02/15 completed Not Available Not Available Not Available Fluticaso ne Propionat e (Inhal) 50 mcg/BLIST inhl powd DAILY 2012 active RECORDED 05/09/20 13 2:32PM BY ZAIDA ALVAREZ ON/ADDEN DUM; Not Available Not Available Not Available amoxicill in 875 mg tablet Take 1 tablet twice a day by oral route for 10 days. 04/06 completed Not Available Not Available Not Available prednisol one acetate 1 % [facility] drops[facility] ONE DROP IN THE LEFT EYE FOUR TIMES DAILY FOR ONE WEEK, THEN TAPER DIRECTED 10/06 completed Not Available Not Available Not Available methocarb edilma 750 mg tablet TAKE 1 TABLET BY MOUTH EVERY 6 HOURS 05/19 completed Not Available Not Available Not Available oxycodone -acetamin ophen 10 mg-325 mg tablet TAKE 1 TABLET BY MOUTH TWICE DAILY NEEDED 08/27 completed Not Available Not Available Not Available ciproflox acin 0.3 % eye drops 08/27 completed Not Available Not Available Not Available OneTouch Ultra Test strips USE TWICE A DAY active Not Available Not Available No t Available nifedipin e ER 90 mg tablet,ex tended release 24 hr Take 1 tablet every day by oral route for 30 days. 12/21 completed Not Available Not Available Not Available benzonata te 100 mg capsule THREE TIMES DAILY NEEDED 2012 active RECORDED 05/09/20 13 2:32PM BY ZAIDA ALVAREZ/HARDEEP DUM; Not Available Not Available Not Available simvastat in 5 mg tablet Take 1 tablet every day by oral route in the evening. 12/29 completed Not Available Not Available Not Available cephalexi n 500 mg capsule TAKE 1 CAPSULE BY MOUTH 3 TIMES A DAY FOR 7 DAYS 05/19 completed Not Available Not Available Not Available ferrous sulfate 325 mg (65 mg iron) tablet Take 2 tablets every day by oral route. 07/28 completed Not Available Not Available Not Available calcitrio l 0.5 mcg capsule TAKE 4 CAPSULES BY MOUTH ONCE WEEKLY 12/21 completed Not Available Not Available Not Available lisinopri l 10 mg tablet Take 1 tablet every day by oral route for 30 days. active Not Available Not Available No t Available fluoromet holone 0.1 % eye drops,uzair pension 09/21 completed Not Available Not Available Not Available lidocaine 5 % topical patch APPLY 1 PATCH EXTERNAL LY TO THE SKIN EVERY DAY, MAY WEAR UP TO 12 HOURS 11/08 completed Not Available Not Available Not Available warfarin 5 mg tablet Take 1 tablet as needed by oral route as directed for 30 days. 09/21 completed Not Available Not Available Not Available losartan 25 mg tablet TAKE 1 TABLET BY MOUTH EVERY DAY 07/28 completed Not Available Not Available Not Available oxycodone 5 mg capsule TAKE 1 CAPSULE BY MOUTH EVERY 6 HOURS NEEDED FOR PAIN 05/19 completed Not Available Not Available Not Available Advair Diskus 250 mcg-50 mcg/dose powder for inhalatio n TWO TIMES DAILY 01/25 completed RECORDED 02/02/20 13 8:36AM BY LEW KEYS MD, MEDICATI ON AUTO-CANDIE CTIVATIO N; Not Available Not Available Not Available gabapenti n 300 mg capsule TID 09/23 completed RECORDED 09/23/20 10 1:20PM BY COURTNEY SERNA , OFFICE VISIT; Not Available Not Available Not Available allopurin ol 300 mg tablet TAKE 1 TABLET (300 MG TOTAL) BY MOUTH EVERY MORNING. 11/12 completed 11/08/19 25- ON HOLD D/T ROMULO PER D/[facility] Not Available Not Available Not Available capsaicin 0.025 % topical cream APPLY TO AFFECTED AREA 4 TIMES A DAY NEEDED FOR PAIN 09/04 completed Not Available Not Available Not Available pravastat in 20 mg tablet TAKE 1 TABLET BY MOUTH EVERY DAY active Not Available Not Available No t Available lisinopri l 5 mg tablet 5 mg by oral route. 10/21 completed Not Available Not Available Not Available furosemid e 20 mg tablet Take 1 tablet every day by oral route in the morning. 02/[address] Miranda Not Available Not Available Not Available Ionamin-3 0 30 mg capsule,e xtended release DAILY 10/28 completed RECORDED 10/28/20 11 11:00AM BY KARO GARCIA MA, OFFICE VISIT; Not Available Not Available Not Available ergocalci ferol (vitamin D2) 1,250 mcg (50,000 unit) capsule WEEKLY 05/07 completed RECORDED 05/07/20 13 10:48AM BY KARO GARCIA MA, OFFICE VISIT; Not Available Not Available Not Available azelastin e 137 mcg (0.1 %) nasal spray SPRAY 2 SPRAYS BY INTRANAS AL ROUTE TWICE A DAY FOR 90 DAYS active Not Available Not Available No t Available diazepam 10 mg tablet TAKE 1 TABLET BY MOUTH EVERY DAY NEEDED 04/02 completed on hold Not Available Not Available Not Available estradiol 0.01% (0.1 mg/gram) vaginal cream INSERT 1 GM VAGINALL Y EVERY TUESDAY AND 10/06 completed Not Available Not Available Not Available methylpre dnisolone 4 mg tablets in a dose pack USE DIRECTED 02/16 completed Not Available Not Available Not Available labetalol 100 mg tablet TAKE 1 TABLET BY MOUTH TWICE DAILY active Not Available Not Available No t Available cefdinir 300 mg capsule TAKE 1 CAPSULE BY MOUTH TWICE A DAY 02/16 completed Not Available Not Available Not Available topiramat e 100 mg tablet BID 01/21 completed RECORDED 01/22/20 10 12:14PM BY LEW KEYS MD, OFFICE VISIT; Not Available Not Available Not Available fluticaso ne propionat e 50 mcg/actua tion nasal spray,uzair pension SHAKE LIQUID AND USE 2 SPRAYS IN EACH NOSTRIL EVERY DAY DIRECTED active Not Available Not Available No t Available lisinopri l 2.5 mg tablet Take 1 tablet every day by oral route for 90 days. 05/29 completed Not Available Not Available Not Available doxycycli ne hyclate 100 mg tablet Take 1 tablet twice a day by oral route for 10 days. 03/19 completed Not Available Not Available Not Available loratadin e 10 mg tablet Take 1 tablet every day by oral route for 30 days. 04/06 completed Not Available Not Available Not Available oxycodone -acetamin ophen 10 mg-650 mg tablet FOUR TIMES DAILY 05/04 completed RECORDED 05/04/20 14 11:24AM BY LEW KEYS MD, ANNOTATI ON/ADDEN DUM; Not Available Not Available Not Available diazepam 5 mg tablet TAKE 1 TABLET BY MOUTH THREE TIMES A DAY NEEDED FOR 5 DAYS 11/08 completed Not Available Not Available Not Available amoxicill in 875 mg-potass ium clavulana te 125 mg tablet TAKE 1 TABLET BY MOUTH EVERY 12 HOURS FOR 10 DAYS 11/12 completed Not Available Not Available Not Available Tylenol Extra Strength 500 mg tablet Take 2 tablets every 6 hours by oral route as needed for 30 days. 08/23 completed Not Available Not Available Not Available tobramyci n 0.3 %-dexamet hasone 0.1 % eye drops,uzair pension Instill 1 drop twice a day by ophthalm ic route. 08/02 completed Not Available Not Available Not Available oxycodone 5 mg tablet TAKE 1 TABLET BY MOUTH EVERY 6 HOURS NEEDED FOR PAIN FOR 3 DAYS 03/26 completed Not Available Not Available Not Available valsartan 160 mg tablet TAKE 1 TABLET BY MOUTH 1 TIME EACH DAY. active Not Available Not Available No t Available neomycin 3.5 mg/g-poly myxin B 10,000 unit/g-de xameth 0.1 % eye oint 02/15 completed Not Available Not Available Not Available Vitamin D 50,000 unit capsule ONCE A WEEK 06/30 completed RECORDED 06/30/20 10 4:07PM BY LEW KEYS MD, REFILL REQUEST; THIS ORDER DISCONTI NUED PER [facility]. Not Available Not Available Not Available enoxapari n 100 mg/mL subcutane ous syringe Inject 1 mL every day by subcutan eous route as directed . active LOVENOX Not Available Not Available No t Available codeine-g uaifenesi n oral syrup Q 4 HOURS PRN 01/18 completed RECORDED 02/02/20 13 8:36AM BY LEW KEYS MD, MEDICATI ON AUTO-CANDIE CTIVATIO N; Not Available Not Available Not Available rosuvasta tin 5 mg tablet TAKE 1 TABLET BY MOUTH EVERY OTHER DAY active Not Available Not Available No t Available rosuvasta tin 10 mg tablet TAKE 1 TABLET BY MOUTH EVERY DAY 12/21 completed Not Available Not Available Not Available Klor-Con M20 mEq tablet,ex tended release Take 1 tablet every day by oral route for 30 days. 03/29 completed Not Available Not Available Not Available potassium chloride ER 10 mEq tablet,ex tended release(p art/cryst ) Take 2 tablets twice a day by oral route for 90 days. 03/19 completed Not Available Not Available Not Available Multivita min 50 Plus tablet Take 1 tablet every day by oral route. 12/21 completed Not Available Not Available Not Available metformin ER 500 mg tablet,ex tended release 24hr (osmotic) Take 2 tablets every day by oral route. 2013 active Not Available Not Available Not Avai lable capsaicin 0.1 % topical cream APPLY TOPICALL Y EVERY DAY active Not Available Not Available No t Available Procrit WEEKLY 09/23 completed RECORDED 09/23/20 10 1:20PM BY COURTNEY SERNA , OFFICE VISIT; Not Available Not Available Not Available Flonase DAILY 10/11 completed RECORDED 10/20/20 09 7:33AM BY LEW KEYS MD, MEDICATI ON AUTO-CANDIE CTIVATIO N; Not Available Not Available Not Available hydroxyzi ne HCl THREE TIMES DAILY 09/23 completed RECORDED 09/23/20 10 1:19PM BY COURTNEY SERNA , OFFICE VISIT; Not Available Not Available Not Available multivita min dosage as on bottle, take one tablet by mouth daily 11/27 completed Not Available Not Available Not Available blood pressure monitor DAILY MONITORI NG OF BP FOR HTN 01/18 completed RECORDED 01/19/20 11 4:36PM BY ZAIDA ALVAREZ ON/ADDEN DUM; Not Available Not Available Not Available Ascensia Autodisc Test TWO TIMES DAILY 03/31 completed RECORDED 03/31/20 12 11:19AM BY ZAIDA ALVAREZ ON/ADDEN DUM; Not Available Not Available Not Available Benefiber Clear Sugar Free(dext rin) 3 gram/3.5 gram oral powder packet 12/03 completed Not Available Not Available Not Available ProAir HFA 90 mcg/actua tion aerosol inhaler INHALE 2 PUFFS BY MOUTH EVERY 4 HOURS NEEDED 11/08 completed Not Available Not Available Not Available abatacept (with maltose) 250 mg intraveno us solution WEEKLY active RECORDED 10/18/20 13 1:46PM BY KARO GARCIA MA, OFFICE VISIT;PE R RHEUMATO LOGY Not Available Not Available Not Available Symbicort 160 mcg-4.5 mcg/actua tion HFA aerosol inhaler INHALE 2 PUFFS BY MOUTH TWICE A DAY DIRECTED 11/08 completed Not Available Not Available Not Available sevelamer carbonate 800 mg tablet TAKE 1 TABLET BY MOUTH THREE TIMES A DAY WITH MEALS active Not Available Not Available No t Available compressi on socks, x-large active Not Available Not Available Not Available oxycodone 10 mg tablet Take 1 tablet every 6 hours by oral route for 3 days. active Not Available Not Available No t Available Fiber Powder 3 gram/3.5 gram oral Take 2 tsp 3 times a day by oral route as directed . active Not Available Not Available No t Available diflupred yary 0.05 % eye drops INSTILL 1 DROP LEFT EYE ONCE A DAY ( OK TO USE IN BOTH EYES) 11/08 completed Not Available Not Available Not Available GaviLyte- G 236 gram-22.7 4 gram-6.74 gram-5.86 gram oral solution PLEASE SEE ATTACHED FOR DETAILED DIRECTIO NS 08/21 completed Not Available Not Available Not Available Senexon-S 8.6 mg-50 mg tablet TAKE 1-2 TABLETS BY MOUTH AT BEDTIME NEEDED CONSTIPA TION FOR 30 DAYS 07/21 completed Not Available Not Available Not Available OneTouch Delica Lancets 33 gauge USE TWICE A DAY active Not Available Not Available No t Available butalbita l-acetami nophen-ca ffeine 50 mg-300 mg-40 mg capsule TAKE 1 CAPSULE EVERY 6 HOURS BY ORAL ROUTE DIRECTED FOR 5 DAYS. * NOT COVERED 07/18 completed Not Available Not Available Not Available Allergy Relief (fexofena dine) 180 mg tablet TAKE 1 TABLET BY MOUTH EVERY DAY 12/03 completed Rx goes to [facility] Not Available Not Available Not Available abatacept 125 mg/mL subcutane ous syringe ONCE A WEEK 03/27 completed RECORDED 03/27/20 14 10:28AM BY ALISSON PEREZ MA, OFFICE VISIT;RH EUMATOLO GY Not Available Not Available Not Available lidocaine 5 % topical ointment Apply 1 applicat ion every day by topical route at bedtime for 30 days. 10/21 completed prefers patches Not Available Not Available Not Available Actemra 162 mg/0.9 mL subcutane ous syringe Inject 0.9 mL every week by sub-q route for 28 days. active Not Available Not Available No t Available Farxiga 5 mg tablet TAKE 1 TABLET BY MOUTH EVERY MORNING 08/21 completed ON HOLD Not Available Not Available Not Available Narcan 4 mg/actuat ion nasal spray one spray in one nostril, may repeat dose every 2-3min until pt responsi ve or EMS arrives 06/21 completed Not Available Not Available Not Available Xiidra 5 % eye drops in a dropperet te INSTILL 1 DROP INTO BOTH EYES TWICE A DAY DIRECTED 10/06 completed Not Available Not Available Not Available Flonase Sensimist 27.5 mcg/actua tion nasal spray,uzair pension Take 2 sprays every day by nasal route at bedtime for 90 days. 05/19 completed Not Available Not Available Not Available OneTouch Ultra2 Meter USE WITH LANCETS AND TEST STRIPS TO TEST BLOOD SUGAR TWICE DAILY active Not Available Not Available No t Available Fluad Quad [id number] (65yr up)(PF) 60 mcg (15 mcg x 4)/0.5mL IM syringe PHARMACY ADMINIST ERED 07/25 completed Not Available Not Available Not Available Vitals Date Recorded Body height Body mass index (BMI) Body weight Oxygen saturation Body temperature Systolic And Diastolic Systolic And Diastolic Provider Name and Address Organization Details Last Updated DateTime 5 165.1 cm 39.4 kg/m2 936476. 6 g 95 % 98.2 [degF] 216/114 mm[Hg] 174/92 mm[Hg] Monica Griffith LPN [facility] 5 15:52:15 Date Recorded Body height Body mass index (BMI) Body weight Heart rate Oxygen saturation Body temperature Systolic And Diastolic Systolic And Diastolic Provider Name and Address Organization Details Last Updated DateTime 5 165.1 cm 34.1 kg/m2 20041.4 4 g 85 /min 95 % 97.3 [degF] 168/73 mm[Hg] 140/66 mm[Hg] Kylie Prakash MA [facility] 5 10:19:50 Date Recorded Body height Provider Name an d Address Organization Details Last Updated DateTime 05/01/2025 165.1 cm Lety Irizarry MA [facility]25 08:10:56 Date Recorded Body weight Heart rate Oxygen saturation Systolic And Diastolic Provider Name and Address Organization Details Last Updated DateTime 08/21/2025 10456.74 g 85 /min 95 % 130/80 mm[Hg] Flower Sanchez MA [facility] 08/21/2025 09:18:20 Date Recorded Body height Body mass index (BMI) Body weight Oxygen saturation Heart rate Body temperature Systolic And Diastolic Provider Name and Address Organization Details Last Updated DateTime 5 165.1 cm 32 kg/m2 32226.4 4 g 96 % 77 /min 97.5 [degF] 132/69 mm[Hg] Blanca Burger MA [facility] 5 09:21:08 Social History Question Answer Notes LastModified by Organizat ion Details LastModified Time Tobacco Smoking Status Never Smoker Alisson rodriguez [facility] 08/02/2014 11:07:04 Do You Have An Advance Directive? No [email or web address] Information not available 07/28/2022 Is Blood Transfusion Acceptable In An Emergency? Yes Information not available 09/21/2016 What Is Your Level Of Caffeine Consumption? None Information not available 10/15/2014 How Much Tobacco Do You Chew? None Information not available 09/21/2016 What Type Of Diet Are You Following? SPECIFIC Diabetic Diet, Low Salt, Not Much Meat Information not available 10/15/2014 Which Illicit Or Recreational Drugs Have You Used? None Information not available 07/16/2015 Do You Take Precautions To Prevent Distracted Driving? Yes Information not available 09/21/2016 How Often Do You Need To Have Someone Help You When You Read Instructions, Pamphlets, Or Other Written Material From Your Doctor Or Pharmacy? Sometimes Information not available 09/21/2016 Have You Served In The ? No Information not available 09/21/2016 Have You Or Anyone In Your Household Had Any Of The Following Symptoms In The Last 14 Days: Sore Throat, Cough, Chills, Body Aches For Unknown Reasons, Shortness Of Breath For Unknown Reasons, Loss Of Smell, Loss Of Taste, Fever At Or Greater Than 100 Degrees Fahrenheit? No [email or web address] Information not available 07/25/2020 Are You Or Anyone In Your Household A Health Care Provider Or Emergency Responder? No [email or web address] Information not available 07/25/2020 To The Best Of Your Knowledge Have You Been In Close Proximity To Any Individual Who Tested Positive For COVID-19? No [email or web address] Information not available 07/25/2020 *AWV ONLY* Are You Presently Prescribed Opioid Medication By PCP Or Specialist? If YES -Provider Assess The Benefit For Other, Non-opioid Pain Therapies Instead, Even If The Patient Does Not Have OUD But Is Possibly At Risk. Yes Information not available 09/29/2020 Have You Recently Traveled To A COVID-19 High Risk Area Or Gathering In The Last 10 Days? No [email or web address] Information not available 12/19/2020 What Was The Date Of Your Most Recent Tobacco Screening? 03/20/2025 [email or web address] Information not available 03/20/2025 How Many Children Do You Have? 2 Zachery And Marcus Information not available 11/23/2023 Do You Use Protection During Sex? No Information not available 09/21/2016 Are You Sexually Active? Yes Froylan Information not available 09/26/2023 At What Age Did You Start Smoking Tobacco? 0 Information not available 09/21/2016 Are You Passively Exposed To Smoke? No Information not available 09/21/2016 How Much Tobacco Do You Smoke? No Information not available 10/15/2014 Do You Use Sunscreen Routinely? No Information not available 09/21/2016 How Many Years Have You Smoked Tobacco? 0 Information not available 09/21/2016 Sex: Unknown Functional Status Question Answer Note LastModified by Organizat ion Details LastModified Time Do you use any illicit or recreational drugs? No Information not available 09/26/2023 Do you or have you ever used any other forms of tobacco or nicotine? No Information not available 05/19/2023 What is your level of alcohol consumption? None Information not available 10/15/2014 Do you or have you ever used smokeless tobacco? Never used smokeless tobacco [email or web address] Information not available 07/30/2019 Are you currently employed? No disabled Information not available 10/15/2014 Are you able to walk independently without assistance or assistive devices? YESLIMIT [email or web address] Information not available 07/28/2022 Are you able to care for yourself independently? 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 Never used electronic cigarettes [email or web address] Information not available 07/28/2022 What is your exercise level? Occasional light stretches Information not available 10/15/2014 Mental Status None recorded. Family History Relationship Description Onset Age of this Age Resolved Age Notes LastModified by Organization Details LastModified Time Mother Diabetes mellitus [email or web address] Not available 06/2016 11:15:52 Mother Renal failure syndrome [email or web address] Not available 07/28 10:19:20 Sister Diabetes mellitus [email or web address] Not available 06/2016 11:15:52 Sister Cerebral amyloid angiopathy [email or web address] Not available 07/09 10:19:20 Father Coronary arterioscler [email or web address] Not available 07/28 10:19:20 Father Essential hypertension [email or web address] Not available 10:19:20 Medical History Condition Response Diabetes Y Arthritis Y Hypertension Y Gynecological History Statement/Question Response Date of Last Pap Smear Date of Last Colonoscopy 10/05/2007 Most Recent Mammogram 11/21/2018 Most Recent Bone Density 12/16/2015 Obstetrics History GPAL:G 0 P 0 0 0 0 Immunizations Vaccine Type Date Status Note Provider Dandy patel and Address Organization Details Recorded Time Pneumococcal conjugate PCV 13 5 completed Not Available [facility] 05[facility]27[facility]2020 02:42:58 pneumococcal polysaccharide PPV23 4 completed NILAM Posey [facility] 07/28/2022 10:40:27 COVID-19, mRNA, LNP-S, PF, 30 mcg/0.3 mL dose [facility]:20 COVID-19, mRNA, LNP-S, PF, 30 mcg/0.3 mL dose 1 completed NILAM Posey [facility] 04/20/2022 10:55:20 Influenza, adjuvanted, quadrivalent, PF 0 [facility] 10:55:20 COVID-19, mRNA, LNP-S, PF, 30 mcg/0.3 mL dose 1 completed NILAM Posey [facility] 04/20/2022 10:55:19 Influenza, high-dose, quadrivalent, PF 1 completed NILAM Posey [facility] 04/20/2022 10:55:20 Pneumococcal conjugate PCV 13 7 completed Not Available [facility] 12/10/2021 09:04:07 COVID-19, mRNA, LNP-S, PF, 30 mcg/0.3 mL dose, priscilla-sucrose 2 completed NILAM Posey, [facility] 04/20/2022 10:55:19 Influenza, split virus, trivalent, PF 4 completed NILAM Posey, [facility] 07/28/2022 10:40:26 Influenza, high-dose, trivalent, PF 7 completed NILAM Posey, [facility] 07/28/2022 10:40:27 Influenza, high-dose, trivalent, PF 6 completed NILAM Posey, [facility] 07/28/2022 10:40:27 Influenza, high-dose, trivalent, PF 8 completed NILAM Posey, [facility] 07/28/2022 10:40:27 Influenza, split virus, quadrivalent, PF 5 completed NILAM Posey, [facility] 07/28/2022 10:40:27 pneumococcal polysaccharide PPV23 8 completed NILAM Posey, [facility] 07/28/2022 10:40:27 Influenza, high-dose, trivalent, PF 9 completed NILAM Posey, [facility] 07/28/2022 10:40:27 COVID-19, mRNA, LNP-S, bivalent, PF, 30 mcg/0.3 mL dose 2 completed NILAM Carlson, [facility] 07/18/2023 15:59:23 Influenza, adjuvanted, quadrivalent, PF 3 completed NILAM Posey, [facility] 09/26/2023 14:41:06 COVID-19, mRNA, LNP-S, PF, priscilla-sucrose, 30 mcg/0.3 mL 3 completed NILAM Posey, [facility] 09/26/2023 14:41:06 RSV, recombinant, protein subunit RSVpreF, adjuvant reconstituted, 0.5 mL, PF 3 completed NILAM Posey, [facility] 11/23/2023 14:00:34 Pneumococcal conjugate PCV20, polysaccharide PIP178 conjugate, adjuvant, PF 5 completed Not Available [facility] 09/04/2025 08:57:24 HepB-CpG 5 completed Not Available [facility] 09/04/2025 08:57:24 Pneumococcal conjugate PCV 13 7 completed Not Available [facility] 09/04/2025 08:57:24 Influenza, recombinant, trivalent, PF 5 completed Not Available [facility] 09/04/2025 08:57:24 Influenza, split virus, trivalent, preservative 9 completed Kellen rodriguez, [facility] 01/04/2020 10:44:27 Novel Roubrotam-[id number], all formulations 0 completed Kellen rodriguez, [facility] 01/04/2020 10:44:27 Influenza, split virus, trivalent, preservative 0 completed Michelineangelic rodriguez, [facility] 10/27/2021 15:00:41 pneumococcal polysaccharide PPV23 9 completed Kellen rodriguez, [facility] 01/04/2020 10:44:27 Influenza, split virus, trivalent, preservative 1 completed Kellen rodriguez [facility] 01/04/2020 10:44:27 Tdap 3 completed Kellen rodriguez, [facility] 01/04/2020 10:44:27 influenza, seasonal, intradermal, preservative free 3 completed NILAM Posey, [facility] 04/20/2022 10:55:19 influenza, seasonal, intradermal, preservative free 3 completed Kellenjesu rodriguez, [facility] 01/04/2020 10:44:27 Influenza, split virus, quadrivalent, PF 2 completed NILAM Neri, [facility] 07/21/2022 10:46:12 Past Encounters Encounter ID Performer Location Encounter Start Date Encounter Closed Date Diagnosis/Indication Diagnosis SNOMED-CT Code Diagnosis ICD10 Code Diagnosis IMO Codes Diagnosis Note [id number] [facility] [address] [facility] [place] [address] 10/28/2011 00:00:00 [id number] [facility] [address] [facility],[address] [place] [address] 01/24/2012 00:00:00 [id number] auto[facility] erce [address] [facility],[address] [place] [address] 04/24/2012 00:00:00 [id number] auto[facility] erce [address] [facility],[address] [place] [address] 06/20/2012 00:00:00 [id number] auto[facility] erce [address] [facility],[address] [place] [address] 07/06/2012 00:00:00 [id number] [facility] [address] [facility],[address] [place] [address] 10/11/2012 00:00:00 [id number] [facility] [address] [facility],[address] [place] [address] 01/10/2013 00:00:00 [id number] auto[facility] erce [address] [facility],[address] [place] [address] 02/01/2013 00:00:00 [id number] auto[facility]Comm erce [address] [facility] [place] [address] 05/07/2013 00:00:00 [id number] auto[facility]Comm erce [address] [facility],[address] [place] [address] 07/18/2013 00:00:00 [id number] auto[facility]Comm erce [address] [facility],[address] [place] [address] 08/31/2013 00:00:00 [id number] [place] [address] 10/18/2013 00:00:00 [id number] autoEComm erce [address] [facility],[address] [place] [address] 01/21/2014 00:00:00 [id number] auto[facility]Comm erce [address] [facility],[address] [place] [address] 03/27/2014 00:00:00 [id number] auto[facility]Comm erce [address] [facility],[address] [place] [address] 04/27/2014 00:00:00 [id number] auto[facility]Comm erce [address] [facility],[address] [place], [place] [address] 05/03/2014 00:00:00 [id number] Lew Keys MD Main Office [address] [address] [place], [place] [address] 08/02/2014 10:35:40 08/02/2014 11:53:34 Type 2 diabetes mellitus without complication 744412362 Needs infl uenza immunization 480554465 Chronic pain syndrome 920731581 Rheumatoid arthritis 01320488 Followed by Maranda Antoine [id number] Lew Keys MD Main Office [address] [address] [place], [place] [address] 10/15/2014 13:37:19 10/15/2014 14:37:22 Pre-surgery evaluation 295804999 Essential hypertension 72981034 Renal diso rder due to type 2 diabetes mellitus 067608974 Body mass index 30+ - obesity 989432626 Edema 636426813 Degenerati on of lumbar intervertebral disc 94542122 [id number] Lew Keys MD Main Office [address] [address] [place], [place] [address] 01/13/2015 15:13:08 01/13/2015 16:34:26 Inflammation of rotator cuff tendon 583232281 Renal diso rder due to type 2 diabetes mellitus 072169755 Rheumatoid arthritis 26716124 Followed by Maranda Antoine [id number] Alfredo Cheng MD Main Office [address] [place] [address] 02/15/2015 10:45:54 02/15/2015 11:45:20 Acute sinusitis 59031079 Duration of symptoms and comorbidit ies raises concern bacterial process. Will try another course of treatment which will cover atypical organisms as well. INB/worse may need further evaluation . Allergic rhinitis 00624724 Suspect that this might also be a component of her symptoms. She will continue nasal steroid and start sinus rinse as well as antihistam ine. [id number] Lew Keys MD Main Office [address] [place] [address] 04/14/2015 10:55:56 04/14/2015 12:03:37 Degeneration of lumbar intervertebral disc 81618735 Lumbosacra l radiculitis 63741198 Type 2 yulia betes mellitus without complication 108600432 Essential hypertension 00083829 Hyperlipidemia 71020402 [id number] Lew Keys MD Main Office [address] [address] [place] [address] 07/16/2015 10:48:22 07/16/2015 11:55:17 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 mellitus 897585623 Essential hypertension 34800110 Chronic pain syndrome 628128331 [id number] Lew Keys MD Main Office [address] [address] [place] [address] 08/14/2015 10:08:58 08/14/2015 10:58:37 Needs influenza immunization 459623970 Z23 Edema 577300173 R60.9 Chronic re nal impairment 679029289 N18.3 Ankle pain 235177456 M25 .572 [id number] Lew Keys MD Main Office [address] [address] [place] [address] 10/14/2015 10:30:50 10/14/2015 11:42:07 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 mellitus 937681099 E11.29 Essential hypertension 69097408 I10 Menopause present 385637 006 Z78.0 Chronic pain syndrome 37 5209120 G89.4 Hyperlipidemia 35706502 E78.5 [id number] Lew Keys MD Main Office [address] [address] [place] [address] 01/02/2016 11:10:09 01/06/2016 10:02:31 [id number] Lew Keys MD Main Office [address] [address] [place] [address] 01/06/2016 14:50:33 01/06/2016 15:46:32 Chronic pain syndrome 458300029 G89.4 Lumbosacra l radiculitis 92604599 M54.17 Type 2 yulia betes mellitus without complication 664852431 E11.9 Pulmonary embolism 34336 003 I26.99 Acute PE prompting admission. Possible RA or obesity as clotting diathesis. [id number] Lani Manzo PA-C Main Office [address] [address] [place] [address] 02/13/2016 11:03:01 02/13/2016 11:59:35 Contusion of face 732340275 S00.83XA Contusion of face and R. external ear due to fall. CT negative for bleed. INR will be repeated today. Pt. reassured. Pain of hip region 30422 002 M25.551 Xray to r/o prosthetic fracture. Shoulder joint pain 2679 65194 M25.519 Secondary to contusion. Pt. misplaced her contract narcotic meds. discussed small amount of Tramadol will be prescribed to control pain and f/u with PCP as scheduled. Strain of trapezius muscle 455113456 S46.811A [id number] Lew Keys MD Main Office [address] [address] [place] [address] 03/25/2016 10:59:58 03/25/2016 12:30:33 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 mellitus 541904141 E11.29 Essential hypertension 15812314 I10 Chronic pain syndrome 37 9044253 G89.4 Edema 489680181 R60.9 Low back pain 955081655 M54.5 Rheumatoid arthritis 698 45510 M06.9 Followed by Maranda Antoine [id number] Lew Keys MD Main Office [address] [address] [place] [address] 06/04/2016 14:13:06 06/04/2016 15:27:28 Pulmonary embolism 93520245 I26.99 Chronic pain syndrome 37 1000708 G89.4 Renal diso rder due to type 2 diabetes mellitus 917655952 E11.29 Body mass index 30+ - obesity 767518752 E66.01 [id number] Lew Keys MD Main Office [address] [address] 08/18/2016 11:24:40 08/18/2016 12:37:12 Body mass index 30+ - obesity 324976580 E66.01 Z68.38 Renal diso rder due to type 2 diabetes mellitus 586993789 E11.29 Essential hypertension 78543071 I10 Hyperlipidemia 77114962 E78.5 Influenza vaccine needed 5545983297 106 Z23 Chronic pain syndrome 37 5405595 G89.4 Pulmonary embolism 84342 003 I26.99 Unprovoked PE. Dec 2015. Rheumatoid arthritis 698 25876 M06.9 Followed by Maranda Antoine [id number] Lew Keys MD Main Office [address] [address] 09/21/2016 10:56:03 09/21/2016 12:13:04 Diastolic heart failure 845876081 I50.30 Compensate d CHF on diuretics [id number] Lew Keys MD Main Office [address] [address] 11/18/2016 10:39:16 11/18/2016 11:44:26 Type 2 diabetes mellitus without complication 333553010 E11.9 Continue present meds with quarterly follow up labs. Chronic pain syndrome 37 2142424 G89.4 Rheumatoid arthritis 698 79880 M06.9 Followed by Maranda Antoine Diastolic heart failure 551531283 I50.30 Compensate d CHF on diuretics Renal diso rder due to type 2 diabetes mellitus 823095418 E11.29 Stable renal function generally with some increase in serum creatinine noted after aggressive diuresis. [id number] Lew Keys MD Main Office [address] [address] 02/15/2017 10:33:44 02/15/2017 11:42:55 Chronic pain syndrome 201206230 G89.4 Renal diso rder due to type 2 diabetes mellitus 559496236 E11.29 Stable renal function generally with some increase in serum creatinine noted after aggressive diuresis. Hypokalemia 47176024 E87 .6 Gout 92104563 M10.9 Chronic ki dney disease stage 3 354812900 N18.3 [id number] Lew Keys MD Main Office [address] [address] [place] [address] 04/19/2017 13:43:54 04/25/2017 09:30:10 [id number] Lew Keys MD Main Office [address] [address] [place] [address] 05/17/2017 10:58:24 05/17/2017 11:53:15 Type 2 diabetes mellitus without complication 639560505 E11.9 Continue present meds with quarterly follow up labs. Chronic pain syndrome 37 9413510 G89.4 Contact dermatitis 35332 004 L25.9 Body mass index 30+ - obesity 080243137 E66.01 Z68.35 [id number] Lew Keys MD Main Office [address] [place] [address] 08/02/2017 14:27:38 08/02/2017 15:35:08 Type 2 diabetes mellitus without complication 551902595 E11.9 Continue present meds with quarterly follow up labs. Chronic pain syndrome 37 1453803 G89.4 Essential hypertension 55234103 I10 Hyperlipidemia 56572253 E78.5 Administra tion of pneumococcal vaccine 43437865 Z23 Influenza vaccine needed 1171989517 106 Z23 Screening for malignant neoplasm of breast 641406347 Z12.39 [id number] Lew Keys MD Main Office [address] [place] [address] 10/21/2017 12:34:20 10/21/2017 13:37:46 Knee pain 62523871 M25.562 [id number] Lew Keys MD Main Office [address] [address] [place] [address] 11/02/2017 14:37:44 11/02/2017 16:00:30 Chronic pain syndrome 602268012 G89.4 Type 2 yulia betes mellitus without complication 922850627 E11.9 Continue present meds with quarterly follow up labs. [id number] Lani Manzo PA-C Main Office [address] [facility] [address] [place] [address] 12/19/2017 09:11:58 12/19/2017 10:23:29 Chronic hypokalemia 81205481 E87.6 Increase Potassium to 40 mEq daily and recheck in 1 week. ADvised to test BP at home and bring log to her reshma with nephrologi st. F/u with PCP as scheduled. Costal chondritis 599238 04 M94.0 Acute costochond ritis of the L> anterior ribcage. Pt. was encouraged to continue meds and muscle relaxants, add heating compress 2-3 times daily. Care instructio ns were provided. PT. reassured. Will f/u if needed with pain management . [id number] Lew Keys MD Main Office [address] [address] [place] [address] 02/13/2018 15:03:42 02/13/2018 15:53:01 Urinary incontinence 762408867 R32 Hepatitis C screening 41 1834998 Z11.59 Chronic pain syndrome 37 6349896 G89.4 Administra tion of pneumococcal vaccine 30646945 Z23 Renal diso rder due to type 2 diabetes mellitus 321075427 E11.29 Continue present meds with quarterly follow up labs. Chronic re nal impairment 268639752 N18.3 Stable, followed by renal Rheumatoid arthritis 698 77360 M06.9 Followed by Maranda Antoine.. Stable on Actemra Diastolic heart failure 649801127 I50.30 Compensate d CHF on diuretics Body mass index 30+ - obesity 498410854 E66.01 [id number] Alfredo Cheng MD Main Office [address] [facility] [address] [place] [address] 03/15/2018 10:44:13 03/15/2018 11:40:47 Cough 65088792 R05 I suspect that allergies and asthma are the cause. No compelling findings on exam to suggest a bacterial process at this time. If XR is abnormal of symptoms persist/wo rsen or second sickening develops would need to reconsider abx. Acute sinusitis 01113478 J01.90 See if short course of prednisone helps while waiting for allergy treatments to take effect. Allergic rhinitis 085087 04 J30.1 Suspect that this is a large component of her symptoms. She will resume meds promise. Wheezing 26452213 R06.2 Try rescue inhaler in addition to short course of prednisone . Call if worsening. [id number] ALAN Matias Main Office [address] [address] [place] [address] 04/06/2018 14:36:58 04/06/2018 15:52:34 Asthma 404098135 J45.909 patient states she went to [facility] and had CXR which was negative. has had prednsione , amox, bactrim, is taking flonase and deborah as well as singulair. I explained to her she likely need a long acting steroid inhaler to help control her sx. to take 2 puffs BID and will rx medrol dose pack to help while med kicks in. use albuterol 2 puffs every 4 hours as needed. f/u 04/17 as scheduled for recheck. Acute asthma 376673687 J 45.901 duoneb given with improvemen t of sx. [id number] Lew Keys MD Main Office [address] [place] [address] 04/17/2018 13:46:48 04/17/2018 15:00:09 Adult health examination 112846313 Z00.00 Essential hypertension 80080905 I10 Renal diso rder due to type 2 diabetes mellitus 789902243 E11.29 Continue present meds with quarterly follow up labs. Hyperlipidemia 51828759 E78.5 Chronic pain syndrome 37 8325258 G89.4 [id number] Lew Keys MD Main Office [address] [place] [address] 07/29/2018 09:26:13 07/29/2018 11:00:04 Essential hypertension 56502457 I10 Renal diso rder due to type 2 diabetes mellitus 950430544 E11.29 Continue present meds with quarterly follow up labs. Degenerati on of lumbosacral intervertebral disc 11609664 M51.37 Influenza vaccine needed 0421037622 106 Z23 Chronic pain syndrome 37 0982934 G89.4 Anemia of chronic disease 146996227 D63.8 Chronic re nal impairment 438102731 N18.3 Stable, followed by renal Rheumatoid arthritis 698 23506 M06.9 Followed by Maranda Antoine.. Stable on Actemra Uric acid level above reference range 93525644 E79.0 Mild inter mittent asthma 094160304 J45.20 Heart failure 93716590 I 50.[address] Del Valle from [facility] [id number] Lew Keys MD Main Office [address] [address] 10/14/2018 09:45:14 10/14/2018 11:19:07 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 mellitus 764255795 E11.29 Continue present meds with quarterly follow up labs. Chronic pain syndrome 37 5168765 G89.4 Screening for malignant neoplasm of breast 895074316 Z12.39 Screening for malignant neoplasm of cervix 992617138 Z12.4 Hyperlipidemia 59874333 E78.5 Gout 26682355 M10.9 [id number] Lew Keys MD Main Office [address] [address] 12/29/2018 14:04:19 12/29/2018 15:38:53 Chronic pain syndrome 506926340 G89.4 Rheumatoid arthritis 698 96455 M06.9 Followed by Maranda Antoine.. Stable on Actemra Heart failure 66752528 I 50.[address] Del Valle from [facility] Body mass index 30+ - obesity 097011214 E66.01 Z68.35 Renal diso rder due to type 2 diabetes mellitus 153584223 E11.29 Continue present meds with quarterly follow up labs. [id number] Kia booth MD Main Office [address] [address] 02/01/2019 13:17:44 02/01/2019 14:22:42 Wheezing 71640769 R06.2 pt better with nebulizer treatment. Will start symbicort, she does not want prednisone , will use proair prn Allergic rhinitis 026816 04 J30.1 suggested flonase and claritin or zyrtec Acute exac erbation of chronic obstructive pulmonary disease 049527605 J44.1 Use proair prn, call if continuing to wheeze and would add oral prednisone . Sinusitis 41674767 J32.9 Pt has mild sinus sx but is insistent on antibiotic . I asked her to try allergy treament for a day or two and consider holding off on antibiotic and only use in not improving. She wants to take doxycyclin e even though allergy list states mild abdominal pain.She never had a rash with this. [id number] Lew Keys MD Main Office [address] [address] 03/19/2019 11:13:41 03/19/2019 12:21:19 Screening for malignant neoplasm of colon 098385037 Z12.11 Chronic pain syndrome 37 9373291 G89.4 Renal diso rder due to type 2 diabetes mellitus 813632814 E11.29 Continue present meds with quarterly follow up labs. Allergic rhinitis 378718 04 J30.9 Hypokalemia 03496503 E87 .6 [id number] Lew Keys MD Main Office [address] [address] 07/30/2019 11:30:10 07/30/2019 12:19:13 Adult health examination 346649491 Z00.00 Screening for malignant neoplasm of colon 165000797 Z12.11 Influenza vaccine needed 1325608588 106 Z23 Renal diso rder due to type 2 diabetes mellitus 914247432 E11.29 Continue present meds with quarterly follow up labs. Anemia of chronic disease 924923849 D63.8 Essential hypertension 91363471 I10 Rheumatoid arthritis 698 05543 M06.9 Followed by Maranda Antoine.. Stable on Actemra Iridocyclitis 56597548 H 20.9 Chronic pain syndrome 37 9083904 G89.4 Chronic ki dney disease stage 3 649201991 N18.3 Heart failure 26350495 I 50.[address] Del Valle from [facility] [id number] Lew Keys MD Main Office [address] [place] [address] 09/15/2019 10:40:30 09/15/2019 11:47:43 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 mellitus 537632338 E11.29 Continue present meds with quarterly follow up labs. Chronic pain syndrome 37 5879498 G89.4 Varicella vaccination 68 736439 Z23 Screening for malignant neoplasm of colon 594387523 Z12.11 [id number] Alfredo Cheng MD Main Office [address] [address] [place] [address] 10/11/2019 10:00:00 10/11/2019 10:59:25 Contusion of chest 69139660 S20.212D Pt requesting supplement al med for pain in chest and sternum. tylenol not helping and cannot take too much as she is taking oxycodone with tylenol up to 4 times a day now. She has allergy to all nsaids and states she has had bleeding with them before. Needs med for breakthrou gh pain. Will use lower dose sparingly, warned of drowsiness . Xrays today Fall on sa me level from slipping, tripping or stumbling 489264670 W01.10XD Pt is following with ortho for olecranon fracture, knees are better, has continued chest wall pain which is under evaluation . NO head trauma. Pt to call if not continuing to improve. Essential hypertension 37174596 I10 BP up today, will recheck in a few weeks. [id number] Alfredo Cheng MD Main Office [address] [address] [place] [address] 10/26/2019 10:53:51 10/26/2019 12:26:43 Essential hypertension 18021611 I10 BP better today on recheck. Contusion of chest 77865 004 S20.212D healing, pt had 2 nondisplac ed fractures, healing, less painful Chronic pain syndrome 37 7128587 G89.4 pt states she can do without the valium, just taking oxycodone bid Pain of le ft shoulder joint 0888189278 8009065 M25.512 check xray and try PT to increase ROM, see ortho if not improving. Contusion of left knee 6472410016 6404222 S80.02XD xray asssess and derangemen t from the fall, encouraged range of motion, ice prn Pain of le ft elbow joint 7538377284 9511852 M25.522 no fracture, following with ortho Fall on sa me level from slipping, tripping or stumbling 111227515 W01.10XD [id number] Lew Keys MD Main Office [address] [facility]3] [address] [place] [address] 01/07/2020 09:55:23 01/07/2020 11:35:13 Chronic pain syndrome 220108719 G89.4 Renal diso rder due to type 2 diabetes mellitus 540024695 E11.29 Continue present meds with quarterly follow up labs. Essential hypertension 43020233 I10 Hypokalemia 65063451 E87 .6 Subclinica l hyperthyroidism 465329328 E05.90 Chronic ki dney disease stage 3 839938823 N18.3 Hyperlipidemia 66703470 E78.5 Rheumatoid arthritis 698 87624 M06.9 Followed by Maranda Antoine.. Stable on Actemra Heart failure 81714497 I 50.[address] Del Valle from [facility] Acute exac erbation of chronic obstructive pulmonary disease 234023538 J44.1 Body mass index 30+ - obesity 161692060 E66.01 [id number] Lew Keys MD [facility] [address] [facility] [address] [facility] [place] [address] 03/29/2020 08:15:25 03/29/2020 09:50:24 Chronic pain syndrome 903610077 G89.4 Anemia of chronic disease 098220711 D63.8 Chronic ki dney disease stage 3 669676588 N18.3 Heart failure 95840312 I 50.[address] Del Valle from [facility] for HFpEF Renal diso rder due to type 2 diabetes mellitus 752821452 E11.29 Continue present meds with quarterly follow up labs. Gout 95101569 M10.9 Rheumatoid arthritis 698 89630 M06.9 Followed by Maranda Antoine.. Stable on Actemra [id number] Joaquim Proctor MD [facility] [address] [facility] [address] [place] [address] 05/09/2020 14:40:46 05/13/2020 09:43:54 Allergic rhinitis 25614348 J30.9 Counseling 575828900 Z71 .9 Health advice, education or counseling done for COVID 19 [id number] Lew Keys MD [address] [place] [address] 07/25/2020 13:05:34 07/25/2020 16:13:25 Chronic pain syndrome 610322871 G89.4 Anemia of chronic disease 418958795 D63.8 Chronic ki dney disease stage 3 450525717 N18.3 Heart failure 93777603 I 50.[address] Del Valle from [facility] for HFpEF Renal diso rder due to type 2 diabetes mellitus 405859843 E11.29 Continue present meds with quarterly follow up labs. Gout 10651571 M10.9 Rheumatoid arthritis 698 88430 M06.9 Followed by Maranda Antoine.. Stable on Actemra [id number] Lew Keys MD Main Office [address] [place] [address] 09/29/2020 10:41:54 09/29/2020 12:09:04 Adult health examination 250176697 Z00.00 Chronic pain syndrome 37 9011632 G89.4 Low back pain 469186964 M54.5 Allergic rhinitis 670364 04 J30.9 Essential hypertension 66080574 I10 Hyperlipidemia 39873215 E78.5 Renal diso rder due to type 2 diabetes mellitus 752042836 E11.29 Continue present meds with quarterly follow up labs. Anemia of chronic disease 823961347 D63.8 Chronic ki dney disease stage 3 859150689 N18.30 Heart failure 04429227 I 50.[address] Del Valle from [facility] for HFpEF Gout 02087529 M10.9 Rheumatoid arthritis 698 62291 M06.9 Followed by Maranda Antoine.. Stable on Actemra Body mass index 30+ - obesity 765583620 E66.01 Z68.35 [id number] Joaquim Proctor MD [facility] [address] [place] [address] 11/27/2020 07:42:27 11/27/2020 10:39:56 Degeneration of lumbosacral intervertebral disc 79614455 M51.37 Chronic pain syndrome 37 0561327 G89.4 Essential hypertension 32248011 I10 Spinal bartolo nosis of lumbar region 68361162 M48.061 hx degenerati on and stenosis. was followed by dr. maldonado. last MRI was 2017, she can no longer have MRI due to bilateral hip and knee hardware. Back pain worsening and she would like a referral to Dr. Clifford whom her also sees for back pain. [id number] Lew Keys MD [facility] [address] [place] [address] 12/19/2020 09:13:34 12/23/2020 14:36:26 Chronic pain syndrome 548831178 G89.4 Hyperlipidemia 35954799 E78.5 Renal diso rder due to type 2 diabetes mellitus 262861278 E11.22 Continue present meds with quarterly follow up labs. Anemia of chronic disease 701005286 D63.8 Chronic ki dney disease stage 3 319583392 N18.31 Heart failure 44594404 I 50.[address] Del Valle from [facility] for HFpEF Gout 45779480 M10.9 Rheumatoid arthritis 698 38294 M06.9 Followed by Maranda Antoine.. Stable on Actemra Body mass index 30+ - obesity 599253285 E66.01 Z68.35 Hypertensi ve renal disease 74915873 I12.9 Medication s reviewed. Will continue present medication s or changes as indicated. Follow home BP. [id number] [facility] [address] [address] 01/02/2021 07:13:08 01/02/2021 12:07:46 Chronic pain syndrome 496619581 G89.4 [id number] Lew Keys MD [facility] [address] [address] 04/03/2021 09:15:52 04/10/2021 14:09:06 Chronic pain syndrome 637848123 G89.4 Renal diso rder due to type 2 diabetes mellitus 987498860 E11.22 Continue present meds with quarterly follow up labs. Chronic ki dney disease stage 3A [id number] N18.31 [id number] Joaquim Proctor MD Main Office [address] [address] 05/13/2021 08:38:21 05/13/2021 09:49:47 Chalazion of lower eyelid of left eye 2815539767 81936 H00.15 [id number] Lew Keys MD [place] [address] [facility] [address] [place] [address] 05/29/2021 08:12:15 05/29/2021 11:17:37 Chronic pain syndrome 924561197 G89.4 Anemia of chronic disease 605971110 D63.8 Chronic ki dney disease stage 3A 192224261 N18.31 Followed by renal Gout 26446428 M10.9 Renal diso rder due to type 2 diabetes mellitus 572307681 E11.22 Continue present meds with quarterly follow up labs. Rheumatoid arthritis 698 46431 M06.9 Followed by Maranda Antoine.. Stable on Actemra Pain of left hand 379349 6326 71987 M79.642 Persistent hand pain related to ulnar neuropathy . Followed by Dr. Geiger Pain in left knee 243218 4538 08669 M25.562 History of TKA in 2009 [id number] Lew Keys MD [facility] [address] [place] [address] 08/21/2021 14:30:22 08/25/2021 13:35:46 Low back pain 734225521 M54.50 [id number] Alfredo Cheng MD Main Office [address] [place] [address] 08/27/2021 13:01:27 08/27/2021 14:09:08 Chronic pain syndrome 331282464 G89.4 last seen by [facility] pain management back on 02.27.18 - will get re-eval - will fwd last neurosurge ry note from 01.05.21 and last HH pain man note from 02.27.18 cont turmeric, evan, and also recommend max dose tyl 500mg 2 tabs 3x/day cont f/u c rheum re: RA - see below see below re: hand and knee pain Rheumatoid arthritis 698 27753 M06.9 cont meds, f/u c rheum as dir Pain in left knee 971906 9378 16288 M25.562 printed her ortho orders and encouraged pt to call them directly Pain of left hand 160312 2849 84461 M79.642 printed her ortho orders and encouraged pt to call them directly [id number] Tessy Guy MD Main Office [address] [place] [address] 10/06/2021 10:19:42 10/06/2021 11:55:10 Adult health examination 065535007 Z00.00 Patient was counseled on healthy diet, exercise and nutrition due to Body mass index is 33 kg/m . Last Colonoscop y:Date:Res ult:Plan: Had done at Dr. Zeinab willams 2006. Will try to get record. Last Mammogram: Date: 11/11/18Resu lt: Birad-2Pla n: ordered mammogram. Last Pap smearDate: Result:Johnny n: no longer screening due to age Bone density scanDate: 12/16/15Resu lt: wnl Vaccines:T dAP: 01/10/13Zost er: script provided.P CV13: 10/27/15PP SV23: 02/13/18Infl uenza: 07/28/21Cov id: 01/05/21, 01/26/21, 07/30/21 Routine labs today Immunizati on status reviewed. Will screen based on risk factors. Regular dental and ophtho care advised as well as seat belt and sunscreen use. Distracted driving discussed. Medication reconciled . Advance directives discussed. Chronic ki dney disease stage 3A 901612893 N18.31 Rheumatoid arthritis 698 26392 M06.9 Vitamin D deficiency 347 41561 E55.9 Renal diso rder due to type 2 diabetes mellitus 812142535 E11.22 Fatigue 99444839 R53.83 Hyperlipidemia 55905577 E78.5 Varicella vaccination 68 009643 Z23 Screening for malignant neoplasm of breast 655052241 Z12.39 Advance di rective discussed with patient 860320297 Z71.89 Hypokalemia 44430839 E87 .6 Gout 75240585 M10.9 Insomnia 430816947 G47.0 0 Rib pain 584756207 R07.8 1 Was seen in ED for 2 rib fracture, no sob, not dyspnoeic or in resp distress still has some pain will provide tramadol. Advised to avoid benzo with tramadol. [id number] Joaquim Proctor MD Telehealt h [address] [facility] [address] [place] [address] 12/10/2021 09:02:48 12/11/2021 10:34:11 Cough 88202852 R05.1 Chronic pain syndrome 37 7101565 G89.4 [id number] Tessy Guy MD Main Office [address] [place] [address] [place] [address] 03/26/2022 09:36:17 03/26/2022 10:32:39 Gagging 940888145 R19.8 due to post nasal drip Posterior rhinorrhea 758 39809 R09.82 will steam, do flonase, add aszelastin e, try treatment for sinus infection Acute sinusitis 18536043 J01.90 steam, flonase, antbiotic, keep hydrated, Call if not improving or if worsening in the next week Bilateral cramp of muscle of lower limbs [id number] 5015025 R25.2 check labs, stretch before bed, can try tonic water Asthma 025013632 J45.90 9 restart symbicort with spacer and rinse after with salt water [id number] Tessy Guy MD Main Office [address] [place] [address] 04/02/2022 11:17:03 04/02/2022 12:21:50 Acute nontraumatic kidney injury 3487233046 55243 N17.9 Pt will be followed by Dr Miranda for this, she is off all recommende d meds for now, BP holding , legs with some edema but trying low salt diet and elevation. Check labs to day toa assess renal function. Has short term followup with Dr Guy Anemia of chronic disease 327729550 D63.8 Hypertensi ve renal disease 35714721 I12.9 BP ok today off lisinopril Hypervitaminosis D 92925 000 E67.3 Gout 00265469 M10.9 off allupurino l, check uric acid. Had elevation in 2018, will follow off meds due to recent ROMULO Renal diso rder due to type 2 diabetes mellitus 596588698 E11.22 due for strips to test BS Chronic ki dney disease stage 3A 205781937 N18.31 [id number] Tessy Guy MD Main Office [address] [address] [place] [address] 04/20/2022 10:49:07 04/20/2022 12:06:52 Body mass index 30+ - obesity 047672177 E66.01 - Diet and exercise discussed- Patient made aware of risks of obesity- Encouraged to loose weight.- Avoid starchy and fatty food- Encouraged use of green vegetables and fruits Rheumatoid arthritis 698 22434 M06.9 Follows rheumatolo gy next apt in Actemra Heart failure 72975621 I 50.30 Per chart has hx of HF likely with preserved ef.Will get echo, hx of compliance issues, gets torasemide by renal.Will also refer to cardiology . Renal diso rder due to type 2 diabetes mellitus 840253435 E11.29 diet controlled HBA1C a6teplpu doneACE/AR B held due to recent ROMULO, following renalAspir in EC 81 mg po qdaily - held for now due to high riskregula r feet exam advisedOph thalmology follows yearly, notes up to date, last see februaryFolldeana ws renal.Lipi d profile done/ labs orderedCou nselled about regular physical activityCo unselled on diet Anemia of chronic disease 842993147 D63.8 Chronic ki dney disease stage 3A 586191695 N18.31 Follow renal next apt july. Obesity 727831537 E66.9 Hyperlipidemia 27965880 E78.5 Closed fra cture of humerus 56432302 S42.301D Follows ortho, seeing May.Has been taking tramdol for pain.I advised I will fill this 1x for break through otherwise, advise tylenol no more than 4gm in 24hr Hypertensi ve renal disease 46907256 I12.9 Low sodium diet discussed Counseled on medication adherence - all meds held due to romulo, notes home bp acceptable , will have her monitor and follow in 2 weeks, she is asymptomat ic. Counseled on diet/exerc ise Advised to keep BP daily BP log and technique counseled. - will also set up for RPM. Red flags of HTN emergency discussed and when to go to ED. Essential hypertension 39487724 I10 [id number] Tessy Guy MD Main Office [address] [facility] [address] [facility] [place] [address] 05/04/2022 08:46:59 05/04/2022 16:58:52 Hypertensive renal disease 96289954 I12.9 Low sodium diet discussedC ounseled on medication adherence - all meds held due to romulo at hospital notes bp at home with her own cuff below 130/90 however [facility] all over Couns eled on diet/exerc iseAdvised to cont. to keep BP daily BP log and technique counseled. Red flags of HTN emergency discussed and when to go to ED.Will follow up 1 mo she will bring all bp cuff to compare. Chronic ki dney disease stage 3A 791975169 N18.31 Follow renal next apt july. [id number] Tessy Guy MD Main Office [address] [facility] [address] [place] [address] 06/21/2022 11:16:19 06/21/2022 12:15:49 Hypertensive renal disease 60083454 I12.9 Low sodium diet discussedC ounseled on medication adherence - all meds held due to romulo at hospital notes bp at home with her own cuff below 130/90 however [facility] all over she tells me she was told by renal to start lisinopril however renal note suggest otherwise, she notes lisnopril caused cough advised to stop startred on losartan. Has not been taking torsemide, notes swelling better and only uses PRN. Advised to hold K+ will recheck BMP 2 weeks. She was supposed to bring cuff today to comapare but forgot.Cou nseled on diet/exerc iseAdvised to cont. to keep BP daily BP log and technique counseled. Red flags of HTN emergency discussed and when to go to ED.Will follow up in jul, she was also advised to reach to renal.If ac1 climb for lab work in july will also consider sglt2. Chronic wisam dney disease stage 3A 804297843 N18.31 Followong renal Rheumatoid arthritis 698 95749 M06.9 Follows rheumatolo gy next apt in Actemra Vitamin D deficiency 347 01611 E55.9 Fatigue 88978176 R53.83 Gout 78281601 M10.9 Renal diso rder due to type 2 diabetes mellitus 122398215 E11.29 diet controlled HBA1C d2rfqaxe doneACE/AR B restarted. Aspirin EC 81 mg po qdaily - held for now due to high riskregula r feet exam advisedOph thalmology follows yearly, notes up to date, last see februaryFollo ws renal.Lipi d profile done/ labs orderedCou nselled about regular physical activityCo unselled on diet Hyperlipidemia 06555053 E78.5 Tolerated crestor without myopatyh increased dose to 10mg. Low back pain 738501366 M54.50 long standing hx of back pain.Will send tylenol.Ad vised PT which she has not tried and physiatry referral given if no improvment .Strenght and sensation intact. No incontiene ce. Anemia of chronic disease 468265138 D63.8 On iron will check in julemeber [id number] Tessy Guy MD Main Office [address] [facility] [address] [place] [address] 07/21/2022 09:59:58 07/21/2022 10:45:52 Hypertensive renal disease 89431248 I12.9 Low sodium diet discussedC ounseled on medication adherence - all meds held due to romulo at hospital notes bp at home with her own cuff below 130/90 however [facility] she tells me she was told by renal to start lisinopril however renal note suggest otherwise, she notes lisinopril caused cough advised to stop started on losartan. Has not been taking torsemide, notes swelling better and only uses PRN. Advised to hold K+ will recheck BMP 2 weeks. She was supposed to bring cuff today to compare but forgot again. Notes home bp in 140/70'sI' ve increased losartan to 50mg.BP elevated today she is asymptomat ic.Has mild pedal edema advised to take torsemide today.Coun seled on diet/exerc iseAdvised to cont. to keep BP daily BP log and technique counseled. Red flags of HTN emergency discussed and when to go to ED.Will follow up in jul, she was also advised to reach to renal.A1c good will let nephro determine if sglt 2 will be good for Lauren Renal diso rder due to type 2 diabetes mellitus 483499736 E11.29 diet controlled HBA1C f0ecuezt done 5.4ACE/ARB restarted. Aspirin EC 81 mg po qdaily - held for now due to high riskregula r feet exam advisedOph thalmology follows yearlyFoll ows renal.Lipi d profile done/ labs orderedCou nselled about regular physical activityCo unselled on diet Chronic ki dney disease stage 3B 633485286 N18.32 Following renal. Body mass index 30+ - obesity 116266817 E66.01 - Diet and exercise discussed- Patient made aware of risks of obesity- Encouraged to loose weight.- Avoid starchy and fatty food- Encouraged use of green vegetables and fruits Obesity 257701702 E66.9 Needs infl uenza immunization 060365587 Z23 Rheumatoid arthritis 698 96918 M06.9 Follows rheumatolo gy next apt in Actemra Seasonal a llergic rhinitis 894631313 J30.2 [id number] Alfredo Cheng MD Main Office [address] [place] [address] 07/28/2022 10:18:49 07/28/2022 11:16:34 Hypertensive renal disease 02972271 I12.9 BP is 142/72 today, patient just started Losartan 50mg this week. Recommend continue taking Losartan 50mg and Torsemide 20mg and will follow up in 1 month via telehealth . Recommend to continue checking her BP daily. Will repeat BMP for renal function. Chronic ki dney disease stage 3B 482211578 N18.32 Continue taking medication s as directed, will get BMP today and will follow up in a month via telehealth . [id number] Tessy Guy MD Telehealt h [address] [place] [address] 08/23/2022 08:31:12 08/23/2022 10:36:39 Hypertensive renal disease 19173551 I12.9 BP normalized , pt. will continue losartan 50 and continue testing 3 times weekly, keep low sodium diet and f/u with renal and PCP in October. Chronic ki dney disease stage 3B 276913398 N18.32 F/u with Dr. Miranda as scheduled in October. [id number] Joaquim Proctor MD Main Office [address] [facility] [address] [place] [address] 05/19/2023 08:47:34 05/19/2023 09:50:23 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 mellitus 724806692 E11.29 due for labs, will recheck. Rheumatoid arthritis 698 [address] M06[address] Antoine is due for refill. she will call to get refill and re-start med. Chronic wisam dney disease stage 3B 378359749 N18.32 Migraine 77022954 G43.90 9 will give rx for fioricet to use as needed. caution advised with driving, should take only as needed and caution with tramadol and diazepam. Low back pain 021794115 M54.50 will hold off on percocet at this time as she will be refilling her tramadol and takign diazepam and fioricet as needed. [id number] Alfredo Cheng MD Main Office [address] [facility] [address] [place] [address] 07/18/2023 15:02:12 07/18/2023 16:33:47 Peripheral venous insufficiency 12197506 I87.2 Will restart torsemide and arrange f/u with vascular for venous insufficie ncy./stock ing measuremen ts, while trying to get BP under better control. Hypertensi ve renal disease 29981776 I12.9 Previously well controlled on ACEI/loop diuretic but elevated since stopped for ROMULO and only on ARB. Will resume torsemide for now. Pt has f/u with Dr. Miranda with labs in 3-4 weeks. Will defer titrating ARB or adding another agent until follow up labs and BP are done. Chronic wisam dney disease stage 4 566720353 N18.4 [id number] Alfredo Cheng MD Telehealt h [address] [facility] [address] [place] [address] 07/31/2023 17:09:52 08/01/2023 10:23:48 Acute sinusitis 54537589 J01.90 Severity of symptoms, duration and comorbidit ies raises concern for bacterial sinusitis. Will cover with Augmentin. Pt advised to call with any problems or if symptoms don't improve. Will need in office assessment is so. Allergic rhinitis 524765 04 J30.1 Suspect that this is a large component of her symptoms. She will resume meds promise. [id number] Tessy Guy MD Main Office [address] [facility] [address] [place] [address] 09/26/2023 14:23:12 09/26/2023 15:13:07 Allergic rhinitis 16671982 J30.1 Suspect that this is a large component of her symptoms. She will resume meds promise. Asthma 354199983 J45.90 9 Hypertensive urgency 443 986394 I16.0 Was using pseudofed, she is otherwise asymptomat ic.Advised to stop pseudofed, take 1 amlodipine monitor bp if high the next day to call use to increase to 2 tab.If sx develop an sx, advised to go to ED due to risk of hypertensi ve emergency. Counseled of sx.Advised regular bp checks.Pamela aranda advised daily bp check till apt. Acute righ t otitis media 381163982 H66.91 [id number] Alfredo Cheng MD Main Office 36[address] [facility] [address] [place] [address] 10/03/2023 15:01:59 10/03/2023 15:52:08 Hypertensive urgency 163118501 I16.0 Pt's BP continues to be elevated on amlodipine , losartan, torsemideP t monitoring BP at homeRecomm end cont losartan 50 mg in AM, amlodipine 5 mg PM, increase torsemide 20 mg to daily (was on QOD prior)Pt tried [facility] in past, didn't work for her [id number] Tessy Guy MD Main Office [address] [facility] [address] [place] [address] 11/23/2023 13:35:11 11/23/2023 14:42:17 Advance directive discussed with patient 775678506 Z71.89 Adult [facility] examination 000640148 Z00.00 Patient was counseled on healthy diet, exercise and nutrition due to Body mass index is 33 kg/m . Last Colonoscop y:Date:Res ult:Plan: Had done at Dr. Zeinab willams 2006. Will try to get record.Ord ered, discussed importance of compliance . Last Mammogram: Date: 11/11/18Resu lt: Massimo-2Pla n: ordered mammogram again discussed importance of compliance . Last Pap smearDate: Result:Johnny n: no longer screening due to age Bone density scanDate: 12/16/15Resu lt: wnl Vaccines:T dAP: script provided againZoste r: script provided [id number] : 10/27/15PP SV23: 02/13/18PCV2 0: Script providedYakelin hutchinsona: 08/24/23Co vid: 01/05/21, 01/26/21, 07/30/21, 04/01/22, 08/05/22, 08/24/23RS V: 10/11/23 Routine labs today Immunizati on status reviewed. Will screen based on risk factors. Regular dental and ophtho care advised as well as seat belt and sunscreen use. Distracted driving discussed. Medication reconciled . Advance directives discussed. Rheumatoid arthritis 698 81012 M06.9 Follows rheumatolo gy next apt in [facility]em[facility] Vitamin D deficiency 347 85108 E55.9 Renal diso rder due to type 2 diabetes mellitus 697798939 E11.22 diet controlled HBA1C l6ywvoyn done 5.4ACE/ARB restarted. Aspirin EC 81 mg po qdaily - held for now due to high riskregula r feet exam advisedOph thalmology follows yearlyFoll ows renal.Lipi d profile done/ labs orderedCou nselled about regular physical activityCo unselled on diet Fatigue 33067624 R53.83 Hyperlipidemia 16392757 E78.5 Tolerated crestor without myopatyh increased dose to 10mg. Varicella vaccination 68 382000 Z23 Screening for malignant neoplasm of breast 703896861 Z12.39 Gout 81015635 M10.9 Screening for malignant neoplasm of colon 625203530 Z12.11 Administra tion of pneumococcal vaccine 19217576 Z23 Chronic ki dney disease stage 3B 439010441 N18.32 following renal Heart fail ure with normal ejection fraction 905450827 I50.30 Per chart has hx of HF likely with preserved ef.Will get echo,reass uring.Seem cards 10/08/22, follow up as needed Body mass index 30+ - obesity 323855246 E66.01 Z68.35 - Diet and exercise discussed- Patient made aware of risks of obesity- Encouraged to loose weight.- Avoid starchy and fatty food- Encouraged use of green vegetables and fruits Morbid obesity 677555268 E66.01 Hypertensi ve renal disease 31217066 I12.9 Follows renal.Low sodium diet discussedC ounseled on medication adherence - She notes BP and renal always good, had to riojas to apt and could not find parking causing to be elevated. She is otherwise asymptomat ic.Blankmaker ed on diet/exerc iseAdvised to cont. to keep BP daily BP log and technique counseled. Red flags of HTN emergency discussed and when to go to ED.Will follow up in jul, she was also advised to reach to renal. [id number] MIGUEL GRIFFITHS MD Main Office [address] [address] [place] [address] 02/17/2024 11:02:31 02/17/2024 12:13:02 Hypertensive renal disease 74829641 I12.9 Blood pressure is above norm in office. PT. is advised to restart [facility] telemonito ring , continue low sodium diet and current medication s. Amlodipine causes mild dependent edema, but not significan t enough to reduce medication . Recommend to monitor fluids, elevate legs when sitting. Try to walk more regularly. Return in 2 m. Chronic ki dney disease stage 3B 281714958 N18.32 F/u with Dr. Miranda as scheduled in October. [id number] Joaquim Proctor MD Main Office [address] [address] [place] [address] 03/02/2024 13:49:42 03/02/2024 14:15:20 Mass of neck 531444274 R22.1 x1 week of feeling a lump under the chin-since onset, size has decreased and swelling has reduced-de nies of any SOB, dysphagia, odynophagi a, or skin changes-no recent viral/bact erial infection- likely swollen lymph node/gland -will order US Essential hypertension 83268988 I10 in office BP elevated; pt notes it was high due to stress and rushing-ho mn BP systolic readings in the 120s-130s range-c/w current medication regimen and monitoring [id number] Tessy Guy MD Main Office [address] [address] [place] [address] 11/05/2024 07:55:09 11/09/2024 10:01:20 [id number] Jaoquim Proctor MD Main Office [address] [address] [place] [address] 11/12/2024 10:40:39 11/12/2024 11:35:00 Transition of care 0985466020 105 Z75.8 reviewed hospital documentat ion Hypertensi ve emergency 8110934203 22597 I16.1 was evaluated at [facility] for HTN emergency; SBP >180 with ROMULO>losart an was held-was given nifedipine to aid in controllin g BP-in office BP of 138/74 Chronic ki dney disease stage 3B 017328345 N18.32 -follows with [facility]-marcelo l doppler US was nonacute-s aw kidney specialist last week>plans to get biospy after completion of labwork Supraglottitis 950841881 J04.30 -CT of neck revealed full supraglott itis, laryngeal edema-was given augmentin course, since completed; significan t improvemen ts and resolved Rheumatoid arthritis 698 81964 M06.9 c/w current regimen [id number] Tessy Guy MD Main Office [address] [facility] [address] [facility] [place] [address] 12/03/2024 14:01:04 12/03/2024 14:55:47 Hypertensive renal disease 37468740 I12.9 Follows renal.Low sodium diet discussedC ounseled on medication adherence. Will add beta zoey as she had recent ROMULO stopped GIAN/ARB and SGLT2. Will repeat bmp first.Seei ng renal 12/14/24.Cou nseled on diet/exerc iseAdvised to cont. to keep BP daily BP log and technique counseled. Red flags of HTN emergency discussed and when to go to ED. Posterior rhinorrhea 758 98108 R09.82 Edema of l ower extremity 689176331 R60.0 likely from CCB but at this time benefits outweigh risk. Will keep current med till pt see's renal.Will check labs. [id number] Tessy Guy MD Main Office [address] [facility] [address] [place] [address] 12/21/2024 13:50:26 12/21/2024 14:47:23 Adult health examination 634122851 Z00.00 Patient was counseled on healthy diet, exercise and nutrition due to Body mass index is 37.8 kg/m . Last Colonoscop y:Date:Res ult:Plan: Had done at Dr. Zeinab willams 2006. Will try to get record.Ord ered, discussed importance of compliance . Last Mammogram: Date: 11/11/18Resu lt: Birad-2Pla n: ordered mammogram again discussed importance of compliance . Last Pap smearDate: Result:Johnny n: no longer screening due to age Bone density scanDate: 12/16/15Resu lt: wnl Vaccines:T dAP: script provided againZoste r: script provided [id number] : 10/27/15PP SV23: 02/13/18PCV2 0: Script providedIn jw: Notes had done for Covid : encourage updated vaccine, she notes she had 4RSV: 10/11/23 Routine labs today Immunizati on status reviewed. Will screen based on risk factors. Regular dental and ophtho care advised as well as seat belt and sunscreen use. Distracted driving discussed. Medication reconciled . Advance directives discussed. Advance di rective discussed with patient 691478534 Z71.89 Hypertensi ve renal disease 50736674 I12.9 Follows renal.Low sodium diet discussedC ounseled on medication adherence - She notes BP and renal always good, had to riojas to apt and could not find parking causing to be elevated. She is otherwise asymptomat ic.Home bp cuff comparable to office.Cou nseled on diet/exerc iseAdvised to cont. to keep BP daily BP log and technique counseled. Red flags of HTN emergency discussed and when to go to ED.Will follow up in jul, she was also advised to reach to renal. Chronic ki dney disease stage 3B 757912871 N18.32 following renal Rheumatoid arthritis 698 51190 M06.9 Follows rheumatolo gy next apt in [facility] Vitamin D deficiency 347 26591 E55.9 Renal diso rder due to type 2 diabetes mellitus 643745937 E11.22 diet controlled HBA1C w7qyhekd done 5.4ACE/ARB restarted. Aspirin EC 81 mg po qdaily - held for now due to high riskregula r feet exam advisedOph thalmology follows yearlyFoll ows renal.Lipi d profile done/ labs orderedCou nselled about regular physical activityCo unselled on diet Fatigue 81367569 R53.83 Hyperlipidemia 35189761 E78.5 Tolerated crestor without myopathy increased dose to 10mg. Varicella vaccination 68 639208 Z23 Screening for malignant neoplasm of breast [id number] Z12.39 Gout [id number] M10.9 Screening for malignant neoplasm of colon 386314237 Z12.11 Administra tion of pneumococcal vaccine 62356316 Z23 Heart fail ure with normal ejection fraction 252879422 I50.30 Per chart has hx of HF likely with preserved ef.Echo ordered, pending. 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 Aspirin EC 81 mg po qdaily - held for now due to high riskregula r feet exam advisedOph thalmology follows yearlyFoll ows renal.Lipi d profile done - reviewed role of statin. Will restart next visit.Coun selled about regular physical activityCo unselled on diet End stage renal failure on dialysis 349105413 N18.6 Z99.2 [id number] HD on T, TR, Sat Hypertensi ve renal disease 86630844 I12.9 Follows renal.Low sodium diet discussedC ounseled on medication adherence - She notes BP and renal always good as well as home readings.H ome bp cuff comparable to office.Cou nseled on diet/exerc iseAdvised to cont. to keep BP daily BP log and technique counseled. Red flags of HTN emergency discussed and when to go to ED.Cont. tx per renal. Hoarse 07227905 R49.0 [id number] Has ENT April 11 [id number] Tessy Guy MD Main Office [address] [facility] [address] [facility] [place] [address] 05/01/2025 08:09:23 05/01/2025 10:36:17 Hyperlipidemia 59546818 E78.5 80261735 Tolerated crestor without myopathy increased dose to 10mg. Osteoarthritis 687368653 E66.01 Alkaline p hosphatase above reference range 723656511 R74.8 [id number] [id number] Tessy Guy MD Main Office [address] [facility] [address] [place] [address] 08/21/2025 09:06:30 08/21/2025 09:43:13 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 mellitus 058443574 E11.22 diet controlled HBA1C r3yradoz done 4.9ARB restarted. Aspirin EC 81 mg po qdaily - held for now due to high riskregula r feet exam advisedOph thalmology follows yearlyFoll ows renal.Lipi d profile done - on statin.Cou nselled about regular physical activityCo unselled on diet End stage renal failure on dialysis 881761383 N18.6 Z99.2 786205 HD on T, TR, Sat Hypertensi ve renal disease 70507792 I12.9 Follows renal.Low sodium diet discussedC ounseled on medication adherence - She notes BP and renal always good as well as home readings.H ome bp cuff comparable to office.Cou nseled on diet/exerc iseAdvised to cont. to keep BP daily BP log and technique counseled. Red flags of HTN emergency discussed and when to go to ED.Cont. tx per renal. Osteoarthritis 097290022 E66.01 [id number] Tessy Guy MD Main Office [address] [facility] [address] [facility] [place] [address] 09/04/2025 08:55:44 09/04/2025 10:06:47 Well woman health examination 260773628 Z01.419 [id number] - Patient presenting for genital exam and pap smear in preparatio n for planned renal transplant . Genital exam WNL as documented . No genitourin marjorie concerns reported by patient.- Pap smear performed, specimen sent to lab. Further interventi on and evaluation to be determined based on results. Advised to RTC should she develop any concerning genitourin marjorie symptoms in the meantime. Health Concerns Section Related Observation LastModified by Organization Detai ls LastModified Time None Recorded Concern Status LastModified by Organization Details LastModified Time None Recorded Advance Directives Directive N: Payers Insurance Date Sequence Insurance Name Policy Number Policy Alexander Covered Member ID Alexander Member ID Guarantor Name 09/04/2025 2 [place] [facility] Lauren Weaver [id number] Lauren Weaver 07/18/2023 1 [employer] (MEDICARE REPLACEMENT/ ADVANTAGE - PPO) [id number] Lauren Weaver [id number] Lauren Weaver 09/29/2022 1 [facility] (MEDICARE REPLACEMENT/ ADVANTAGE - PPO) [id number] Lauren Weaver [id number] Lauren Weaver 09/04/2025 1 [facility] (MEDICARE REPLACEMENT/ ADVANTAGE - HMO) [id number] Lauren Weaver [id number] Lauren Weaver 09/03/2022 1 [place] [facility] Lauren Weaver [id number] Lauren Weaver 09/03/2022 1 [facility] (MEDICAID HMO) Lauren Weaver [id number] Lauren Weaver 08/19/2022 2 [place] [employer] Lauren Weaver [id number] Lauren Weaver Notes Date Note Type Note Provider Name and Address Organization Details Recorded Time 02/19/20 25 text/htm l Hospitalization Contact RecordReported by PatientHospitalization Contact RecordFor follow up, patient reportshospital: [facility],admit date: (please enter in format '/dd/yyyy') (01/31/25),date of discharge: (please enter in format 'mm/dd/yyyy') (02/12/25), anddate of contact: (please enter in format 'mm/dd/yyyy') (02/13/25).Medicare covered inpatient stay? no UHC Medicare advantageC with in 48 working hours? yes HCP on file? noMOLST on file? noDischarge Summary available? yes02/14/2025-PT HAD SCHEDULED HOSP F/U PRIOR TO MY OUTREACH Pt presented to [facility] ED with leg swelling. Pt was found to have hypertensive urgency, volume overload, moderately elevated troponin and worsening renal function. ROMULO on stage V CKD- advanced to ESRD, pt started on hemodialysis on 02/04/25 after permacath placement. Pt had 4 dialysis sessions.- Renal team Dr Reyes- dialysis will be at [facility] [address]Cardiology Dr Reese Anemia on stage V CKD- treated with procrit and IV iron x 3 and 1 unit of PRBC. Hg 7.3 Acute on chronic diastolic HF/volume overload, secondary to ESRD'- ECHO demonstrated dilated IVC consistent with fluid overload, EF preserved 55-60%- was on bumex 4 mg IV BID, d/w renal team and transitioned to Torsemide 80 mg daily as pt is still making some urine. Hyperphosphatemia. Secondary to renal disease.- on renvela 1600 3 x day Hypertensive Urgency- on labetalol 100 mg BID, hydralazine 25 mg BID; BP improved NSTEMI- Type II and secondary to demand ischemia from fluid overload, not endorsing CP, no AFIB on telemetry. START taking these medications-labetaloL 100 mg tabletTake 1 tablet (100 mg total) by mouth 2 (two) times a day.-sevelamer carbonate 800 mg tabletTake 2 tablets (1,600 mg total) by mouth 3 (three) times a day with meals. Swallow tablet whole; do not crush, break, or chew.-torsemide 20 mg tabletTake 4 tablets (80 mg total) by mouth 1 (one) time each day. STOP taking these medications-bisoprolol 5 mg tablet-furosemide 40 mg tablet-tramadol 50 mg tablet ASK your doctor about these medicationsActemra (tocilizumab) subcutaneous injectionInject 0.9 mL (162 mg total) under the skin 1 (one) time. MEDS RECONCILEDROS as noted in the HPI REcently discharged for [facility]. See notes below from admission. Notes that she has been going to hemodialysis T, H, Sat, which has been going well. She is frustrated that she still has persistent LE edema despite treatments. Notes no SOB, chest pain, palpitations, syncope. reviewed her medications and history since discharge 1 week ago. Notes no new complaints or concerns. We reviewed her recent hospital course and her concerns about management of ESRD, potential for transplant, etc. Hospital Course Summary (discharge 02/11/2025LOS: 11 days 74-year-old female with PMH of CKD stage V, polycystic kidney disease, HTN, DM type II who presented with leg swelling. Patient was found to have hypertensive urgency, volume overload, moderately elevated troponin and worsening renal function.-ROMULO on stage V CKD.Advanced to ESRD and patient was started on hemodialysis on 02/04 after permacath placement.Pt had 4 dialysis sessions. Renal team arranged outpatient hemodialysis at [place] [facility] where patient lives in close by. [facility] to call and HD units to confirm schedule.ADDENDUM: Communicated with Dr. Davila ([facility]) regarding outpatient dialysis arrangements. It turns out that it needs to go admissions process and none of that was done. Therefore discharge will be delayed till outpatient dialysis can be arranged. -Anemia of chronic kidney disease.Treated with Procrit and IV iron x 3 and 1 unit of PRBC. Hg 7.3 -Acute on chronic diastolic heart failure/volume overload. Secondary to ESRD.Echocardiogram demonstrated dilated IVC consistent with fluid overload. EF preserved/55-60%Was on Bumex 4mg IV BID. D/w renal team and can transition to Torsemide 80mg daily as still making some urine. -Hyperphosphatemia. Secondary to renal disease.On Renvela 1600 3 times daily. -Hypertensive urgency.On labetalol 100 mg twice a day, hydralazine 25 mg twice a day.BP improved -NSTEMI.Type II and secondary to demand ischemia from fluid overload.Not endorsing any chest pain.No A-fib on telemetry. -Rheumatoid arthritis. On weekly Actemra injections.>30 min spent on DC [facility] Inst[facility]ations[facility] - [address] [phone] Lew Keys MD [address], [address], [facility] 02/19/2025 21:38:21 03/20/20 25 text/htm l Hypertension F/UReported by PatientHPIFor lifestyle, patient reportsnot exercising regularlybut reportslimiting/avoiding salt. For medications, patient reportsside effects from medicationsbut reportstaking medications as directedandchecks blood pressure at home, range:(mild dependent edema). For associated symptoms, patient reportsno dizziness,no lightheadedness,no chest pain,no shortness of breath,no palpitations, andno calf pain with exertion.Blood pressure is elevated in officeNotes home office under 130/90 Diabetes F/UReported by PatientHPIFor associated symptoms, patient reportsnumbness of feetbut reportsno sweats,no headaches,no confusion,no increased thirst,no increased appetite,no increased urination,no blurred vision, andno calluses on feet. For context, patient reportsseeing eye doctor regularlyandchecking feet regularly.A1c todayROS as noted in the HPI Follow up for bp. Tessy Guy MD [address], [address], [facility] 03/20/2025 10:37:00 05/01/20 25 text/htm l HyperlipidemiaReported by PatientHPIFor compliance, patient reportsnoncompliantbut reportscompliant with dietandexercises. For complications, patient reportsno coronary artery disease,no peripheral artery disease, andno cardiovascular disease.The patient presents for follow-up regarding elevated lipid levels. She was previously on rosuvastatin, which was discontinued after initiation of dialysis. She has a history of intolerance to multiple statins, including simvastatin, atorvastatin, and lovastatin, but tolerated rosuvastatin well. However, she is now concerned about restarting it while on dialysis. I reassured her that although approximately 15% of rosuvastatin is renally cleared, it is generally considered safe in dialysis patients, as the medication can also be cleared during dialysis sessions. Nonetheless, for her reassurance, I switched her to pravastatin, which she agreed to start. She is aware of the plan to repeat liver function tests and lipid panel in 2 months. We also discussed her mild elevation in ALP (current value: 129 U/L). I explained that normal ranges can go up to 146 U/L, and her level is not particularly concerning. However, I had previously ordered additional labs to further evaluate, including alkaline phosphatase isoenzyme, GGT and mitochondrial antibodies, to rule out other causes. I suspect her ALP elevation is likely secondary to ESRD and related to bone metabolism changes. She also requested evaluation for right hip pain, which began in October 2024 and was evaluated in the ED, where imaging showed severe arthritis. She also has rheumatoid arthritis (RA). She is requesting a physical therapy (PT) referral. I explained that while I have no objection to referring her to PT, I would prefer to assess her in person first to determine if PT is appropriate and safe. She reports Tylenol is ineffective, and NSAIDs and opioids must be avoided due to end-stage renal disease (ESRD) on hemodialysis. She is currently not eligible for other opioids due to violation of her narcotic contract in our office. She was advised to try capsaicin cream for symptomatic relief. She is already scheduled to see orthopedics on June 06 for further evaluation. I will try to see her in 2 weeks. Tessy Guy MD [address], [address], [facility] 05/01/2025 09:43:56 08/21/20 25 text/htm l Hypertension F/UReported by PatientHPIFor lifestyle, patient reportsnot exercising regularlybut reportslimiting/avoiding salt. For medications, patient reportsside effects from medicationsbut reportstaking medications as directedandchecks blood pressure at home, range:(mild dependent edema). For associated symptoms, patient reportsno dizziness,no lightheadedness,no chest pain,no shortness of breath,no palpitations, andno calf pain with exertion.Blood pressure is elevated in officeNotes home office under 130/90 Diabetes F/UReported by PatientHPIFor context, patient reportsseeing eye doctor regularlyandchecking feet regularly. For associated symptoms, patient reportsno sweats,no headaches,no confusion,no increased thirst,no increased appetite,no increased urination,no blurred vision,no numbness of feet, andno calluses on feet.ROS as noted in the HPI Follow up for bp. Tessy Guy MD [address] [facility] [address], [place], [address], [facility] 08/21/2025 09:39:02 09/04/20 25 text/htm l ROS as noted in the HPI Lauren is a 75 year old F with PMH of HFpEF, peripheral venous insufficiency, HLD, HTN, PE, obesity, vitamin D deficiency, CKD stage 5 on dialysis, anemia of chronic disease, RA, OA, gout, asthma. She is presenting today for a well woman's health exam, including genital exam and pap smear, in preparation for upcoming renal transplant. Patient states this test is a prerequisite for receiving the planned transplant. She is reporting no genitourinary concerns today. Tessy Guy MD [address] [facility] [address], [place], [address], [facility] 09/05/2025 16:13:47 OBGyn Episode No OBEpisode recorded.
--- OUTSIDE RECORDS SUMMARY | 2025-10-07 11:22 | XMS_ITS | Encounter Summary ---
Author Organization [facility], Address [address] [place] [address] Phone Care Team Providers Care Cargo Tank Mechanic Name Role Phone Lew Keys MD Primary Care Provider [phone] Encounter Details Date Type Department Care Team (Late st Contact Info) Description 10/02/2025 Orders Only [facility] [address] [place] [address] Will Mccauley, [address] [facility] [place] [phone] Social History Tobacco Use Types Packs/Day Years [...] on file documented as of this encounter Procedures Procedure Name Priority Date/Time Associated Diagnosis Comments HEMATOLOGY Routine 10/02/2025 documented in this encounter Results * (ABNORMAL) HEMATOLOGY (10/02/2025) Hemoglobin 10.3(L) 12.0 - 16.0 g/dL [facility] Hemoglobin x 3 30.9(L) 36.0 - 48.0 % [facility] 10/02/2025 10/04/2025 11: 22 AM EST Narrative [facility] - 10/04/2025 Unless otherwise specified, test(s) performed at: [facility], [address] [place] [id number] DOORMAKER: Vince Fournier M.D. For any questions, please call customer service at FREQUENCY:OTHER Resulting Agency Comment Specimen source: Blood Will Mccauley DO LAB BLOOD ORDERABLES Final Resu lt [employer] See order comments or contact performing lab Unknown, [place] documented in this encounter Visit Diagnoses Not on filedocumented in this encounter Care Teams Cargo Tank Mechanic Relationship Specialty Start Date End Date Lew Keys MD [address] [place] [address] PCP - General Internal Medicine 03/03/20 documented as of this encounter
--- OUTSIDE RECORDS SUMMARY | 2025-10-07 11:22 | XMS_ITS | Clinical Summary ---
Author Organization [facility] Address [address] [place] [address] Care Team Providers Care Official Court Reporter Name Role Phone Lew Keys MD Primary Care Provider [phone] Social History Tobacco Use Types Packs/Day Years [...] age to complete this topic Care Teams Official Court Reporter Relationship Specialty Start Date End Date Lew Keys MD [address] [facility] [address] [place] [phone] PCP - General Internal Medicine 01/06/21
--- OUTSIDE RECORDS SUMMARY | 2025-10-07 11:23 | XMS_ITS | Encounter Summary ---
Author Organization [facility], Address [address] [place] [address] Phone Care Team Providers Care Coal Gasification Technician Name Role Phone Lew Keys MD Primary Care Provider Encounter Details Date Type Department Care Team (Late st Contact Info) Description 07/18/2023 Documentation Only [facility], [address] [place] [address] Will Mccauley, [address] [place] [phone] Social History Tobacco Use Types Packs/Day Years [...] on filedocumented in this encounter Care Teams Coal Gasification Technician Relationship Specialty Start Date End Date Lew Keys MD [address] [facility] [address] [place], [place] PCP - General Internal Medicine 03/03/20 documented as of this encounter
--- OUTSIDE RECORDS SUMMARY | 2025-10-07 11:23 | XMS_ITS | Clinical Summary ---
Author Organization [address] [place] [address] [place] [phone] Phone Care Team Providers Care Supervising Editor News Reel Name Role Phone Faustino Guy MD Primary Care Provider [phone] Allergies Active Allergy Reactions Criticality Noted Date [...] mg tabletIndication s:ESRD (end stage renal disease) ([facility] V24, [facility] V28) Take 2 tablets (1,600 mg total) [...] A DAY FOR 30 DAYS 2 Active fluticasone propionate (FLONASE) 50 mcg/actuation nasal [...] by the office 2 tablet 5 Active albuterol HFA (ProAir HFA) 90 mcg/actuation inhaler Inhale 2 puffs by mouth every 4 (four) hours. Active Active Problems Problem Noted Date Diagnosed Date Acute renal failure superimp osed on stage 5 chronic kidney disease, not on chronic dialysis, unspecified acute renal failure type ([facility] V24, [facility] V28) 01/31/2025 Encounters Date Type Department Care Team Description 08/13/2025 3:11 PM EDT Anesthesia Event [facility] End[facility] [address] [place] [address] Juan Francisco Pitts MD Weiss, Ashley, CRNA 08/13/2025 2:12 PM EDT - 08/13/2025 11:59 PM EDT Hospital Encounter [facility] [address] [place] [address] Osmin Arriola MD Colon cancer screening Discharge Disposition: Home or Self Care 07/31/2025 10:00 AM EDT - 07/31/2025 11:59 PM EDT [facility] [address] [phone] Encounter for screening mammogram for breast cancer Discharge Disposition: Home or Self Care 07/23/2025 Telephone Gastroenterology - [place] [facility] [address] [facility] [address] [place] [phone] Dulce Tovar MD from Last 3 Months Surgical History Surgery Date Site/Laterality Comments HIP FRACTURE SURGERY APPENDECTOMY BACK SURGERY FOREARM SURGERY Right Medical History Medical History Date Comments DM (diabetes mellitus) ([facility] V24, [facility] V28 ) HTN (hypertension) Asthma CKD (chronic kidney disease), stage V ([facility] V 24, [facility] V28) Polycystic kidney disease Gout Arthritis Family History Medical History Relation Name Comments [...] care for your loved ones. For example, director child or elderly care for an older adult? [...] Date Record ed Physical Abuse Unrecognized value 08/13/2025 Verbal Abuse Unrecognized value 08/13/2025 Comments No Sex and Gender Information Value [...] Sign Reading Time Taken Comments Blood Pressure 180/77 08/13/2025 5:10 PM EDT Pulse 81 08/13/2025 5:10 PM EDT Temperature 36.1 C (97 F) 08/13/2025 3:36 PM EDT Respiratory Rate 15 08/13/2025 5:10 PM EDT Oxygen Saturation 98% 08/13/2025 4:06 PM EDT Inhaled Oxygen Concentration - - Weight 81.6 kg (180 lb) 08/13/2025 2:51 PM EDT Height 167.6 cm (5' 6 ) 08/13/2025 2:51 PM EDT Body Mass Index 29.05 08/13/2025 2:51 PM EDT Plan of Treatment Health Maintenance [...] Social Influencers of Health Screening 02/01/2026 02/01/2025 Hypertension/CHF/CAD Annual BMP Blood Test 02/12/2026 02/12/2025, 02/11/2025, 02/10/2025, Additional history exists Falls Risk Assessment 08/13/2026 08/13/2025 Cholesterol Screening (Lipid Panel) 12/21/2029 12/21/2024 Colorectal Cancer Screening: Colonoscopy 08/13/2035 08/13/2025 RSV Immunization Adult Patients Completed 10/11/2023 Hepatitis [...] Associated Problems Recent Progress Patient-Stated? Author Autogenera yun Goal Care Plan Autogenerated Problem No Nicole Garvin Medical Devices Implanted Type Area Sheet Rock Applier Device Identifier Shelf Expiration Date Model / Serial / Lot Cath Dial W/Vt Kt [id number] Palindrome Precision - [id number] - [id number] Implanted:Qty: 1 on 02/04/2025 by Darien Yanes MD at [facility] Dialysis Catheters Right: Chest Wall [facility] [id number] 04/06/2029 [id number] / [id number] / [id number] Implants Implants Right: Hip Implants Implants Right: Femur Procedures Procedure Name Priority Date/Time Associated Diagnosis Comments COLONOSCOPY Routine 08/13/2025 3:35 PM EDT Colon cancer screening MG MAMMO DIGITAL SCREENING W CLAY BILAT Routine 07/31/2025 11:04 AM EDT Encounter for screening mammogram for breast cancer BASIC METABOLIC PANEL Timed 02/12/2025 7:37 AM EDT HEPATITIS C ANTIBODY Routine 02/03/2025 6:08 AM EDT HEMOGLOBIN A1C Add-On 01/31/2025 6:02 PM EDT from Last 3 Months or Most Recently Relevant to Health Maintenance Results * COLONOSCOPY Anesthesia - MAC; [facility] END[facility]COPY (08/13/2025 3:35 PM EDT) Anatomical Region Laterality Modality Other 08/13/2025 2:33 PM EDT Impressions 08/13/2025 3:37 PM EDT - Preparation of the colon was fair. - Diverticulosis in the sigmoid colon. - Internal hemorrhoids. - One 4 mm polyp in the cecum, removed with a cold snare. Resected and retrieved. Recommendation: - Repeat colonoscopy in 5 years for surveillance. - Use fiber, for example Citrucel, Fibercon, Konsyl or Metamucil. Narrative 08/13/2025 3:37 PM EDT [facility] GI Patient Name: Jan Weaver Procedure Date: 08/13/2025 2:33 PM Date of : 1950 Age: 75 Gender: Female Note Status: Finalized Attending MD: Osmin Arriola MD, Procedure Date No Time: 08/13/2025 Procedure: Colonoscopy Indications: Screening for colorectal malignant neoplasm Providers: Osmin Arriola MD Referring MD: Osmin Arriola MD Medicines: Propofol per Anesthesia Complications: No immediate complications. Estimated Blood Loss: Estimated blood loss was minimal. Procedure: Pre-Anesthesia Assessment: - ASA Grade Assessment: III - A patient with severe systemic disease. After I obtained informed consent, the scope was passed under direct vision. Throughout the procedure, the patient's blood pressure, pulse, and oxygen saturations were monitored continuously.The Colonoscope was introduced through the anus and advanced to the cecum, identified by appendiceal orifice and ileocecal valve. The colonoscopy was performed without difficulty. The patient tolerated the procedure well. The quality of the bowel preparation was fair. Findings: The perianal and digital rectal examinations were normal. A few diverticula were found in the sigmoid colon. Internal hemorrhoids were found during endoscopy. The hemorrhoids were Grade I (internal hemorrhoids that do not prolapse). A 4 mm polyp was found in the cecum. The polyp was sessile. The polyp was removed with a cold snare. Resection and retrieval were complete. Estimated blood loss was minimal. Procedure Code(s): --- Professional --- 15540, Colonoscopy, flexible; with removal of tumor(s), polyp(s), or other lesion(s) by snare technique Diagnosis Code(s): --- Professional --- Z12.11, Encounter for screening for malignant neoplasm of colon K64.0, First degree hemorrhoids D12.0, Benign neoplasm of cecum K57.30, Diverticulosis of large intestine without perforation or abscess without bleeding CPT copyright 2020 [employer]. All rights reserved. The codes documented in this report are preliminary and upon booking prizer review may be revised to meet current compliance requirements. Osmin Arriola MD 08/13/2025 3:36:58 PM This report has been signed electronically.Osmin Arriola MD Number of Addenda: 0 Note Initiated On: 08/13/2025 2:33 PM Scope In: Scope Out: Endoscopy Department at [facility] - [address] [place] [id number] Procedure Note Osmin Arriola MD - 08/13/2025 [facility] GI Patient Name: Jan Weaver Procedure Date: 08/13/2025 2:33 PM Date of : 1950 Age: 75 Gender: Female Note Status: Finalized Attending MD: Osmin Arriola MD, Procedure Date No Time: 08/13/2025 Procedure: Colonoscopy Indications: Screening for colorectal malignant neoplasm Providers: Osmin Arriola MD Referring MD: Osmin Arriola MD Medicines: Propofol per Anesthesia Complications: No immediate complications. Estimated Blood Loss: Estimated blood loss was minimal. Procedure: Pre-Anesthesia Assessment: - ASA Grade Assessment: III - A patient with severe systemic disease. After I obtained informed consent, the scope was passed under direct vision. Throughout theprocedure, the patient's blood pressure, pulse, and oxygen saturations were monitored continuously.The Colonoscope was introduced through the anus and advanced to the cecum, identified by appendiceal orifice and ileocecal valve. The colonoscopy was performed without difficulty. The patient tolerated the procedure well. The quality of the bowel preparation was fair. Findings: The perianal and digital rectal examinations were normal. A few diverticula were found in the sigmoidcolon. Internal hemorrhoids were found during endoscopy.The hemorrhoids were Grade I (internal hemorrhoids thatdo not prolapse). A 4 mm polyp was found in the cecum. The polyp was sessile. The polyp was removed with a cold snare. Resection and retrieval were complete. Estimatedblood loss was minimal. Procedure Code(s): --- Professional --- 83690, Colonoscopy, flexible; with removal of tumor(s), polyp(s), or other lesion(s) by snare technique Diagnosis Code(s): --- Professional --- Z12.11, Encounter for screening for malignantneoplasm of colon K64.0, First degree hemorrhoids D12.0, Benign neoplasm of cecum K57.30, Diverticulosis of large intestine without perforation or abscess without bleeding CPT copyright 2020 [employer]. All rights reserved. The codes documented in this report are preliminary and upon booking prizer reviewmay be revised to meet current compliance requirements. Osmin Arriola MD 08/13/2025 3:36:58 PM This report has been signed electronically.Osmin Arriola MD Number of Addenda: 0 Note Initiated On: 08/13/2025 2:33 PM Scope In: Scope Out: Endoscopy Department at [facility] - [address] [place] [phone] IMPRESSION: - Preparation of the colon was fair. - Diverticulosis in the sigmoid colon. - Internal hemorrhoids. - One 4 mm polyp in the cecum, removed with a cold snare. Resected and retrieved. Recommendation: - Repeat colonoscopy in 5 years for surveillance. - Use fiber, for example Citrucel, Fibercon, Konsylor Metamucil. us Osmin Arriola MD GI~PROCEDURE ORDERABLES Final Re sult * MG Mammo Digital Screening w Clay bilat (07/31/2025 11:04 AM EDT) Anatomical Region Laterality Modality Breast Bilateral Mammography 07/31/2025 11:1 4 AM EDT Impressions 07/31/2025 11:25 AM EDT Benign. BI-RADS CATEGORY: 2 - BENIGN RECOMMENDATION: Screening bilateral mammogram is recommended in 1 year. Mammo Location: [facility], [address] [place] [address], [id number], . -------- FINAL REPORT -------- Dictated By: Ad Baumann Dictated Date: 07/31/2025 11:14 ET Assigned Physician: Ad Baumann Reviewed and Electronically Signed By: Ad Baumann Signed Date: 07/31/2025 11:25 ET Workstation ID: [id number] Transcribed By: Self Edit Transcribed Date: 07/31/2025 [...] year. Mammo Location: [facility], [address] [place] [address], [id number], . -------- FINAL REPORT -------- Dictated By: Ad Baumann Dictated Date: 07/31/2025 11:14 ET Assigned Physician: Ad Baumann Reviewed and Electronically Signed By: Ad Baumann Signed Date: 07/31/2025 11:25 ET Workstation ID: [id number] Transcribed By: Self Edit Transcribed Date: 07/31/2025 11:14 ET us Self Referral Sppl IMG BI PROCEDURES Final Resul t * (ABNORMAL) Basic metabolic panel (02/12/2025 7:37 AM EDT) Sodium 131(L) 133 - 145 mmol/L LAB [facility] Potassium 4.3 3.5 - 5.5 mmol/L LAB CHEMISTRY METHOD 02/12/2025 8:18 AM EDT [facility] Chloride 97 96 - 110 mmol/L LAB CHEMISTRY METHOD 02/12/2025 8:18 AM [facility] CO2 29 21 - 32 mmol/L LAB CHEMISTRY METHOD 02/12/2025 8:18 AM [facility] Anion Gap 5 3 - 11 LAB CHEMISTRY METHOD 02/12/2025 8:18 AM [facility] Glucose 87 70 - 100 mg/dL LAB CHEMISTRY METHOD 02/12/2025 8:18 AM EDT [facility] BUN 16 5 - 25 mg/dL LAB CHEMISTRY METHOD 02/12/2025 8:18 AM EDT [facility] Creatinine 4.24(H) 0.50 - 1.10 mg/dL LAB CHEMISTRY METHOD 02/12/2025 8:18 AM EDT [facility] eGFR 10(L) >=60 mL/min/1. 73m2 LAB CHEMISTRY METHOD 02/12/2025 8:18 AM EDT [facility] Comment:Calculation based on the Chronic Kidney Disease Epidemiology Collaboration (CKD-EPI) equation refit without adjustment for race. BUN/Creatinine Ratio 3.8 LAB CHEMISTRY METHOD 02/12/2025 8:18 AM EDT [facility] Calcium 8.5 8.5 - 10.5 mg/dL LAB CHEMISTRY METHOD 02/12/2025 8:18 AM EDT [facility] Blood Venous blood specimen / Unknown Venipuncture / Unknown 02/12/2025 7:37 AM EDT 02/12/2025 7:43 AM EDT us Maninder Frankel MD LAB BLOOD ORDERABLES Final Resul t Performing Organization Address [facility]/ZIP Co de Phone Number [facility] [address] [place] [address], * Hepatitis C antibody (02/03/2025 6:08 AM EDT) Hepatitis C Antibody Negative Negative LAB CHEMISTRY METHOD 02/03/2025 9:05 AM EDT [facility] Blood Venous blood specimen / Unknown Venipuncture / Unknown 02/03/2025 6:08 AM EDT 02/03/2025 6:13 AM EDT us Anastasia Lugo MD LAB BLOOD ORDERABLES Final Re sult [facility] [address] [place] [address], * Hemoglobin A1c (01/31/2025 6:02 PM EDT) Hemoglobin A1C 5.3 <6.5 % LAB CHEMISTRY METHOD 02/01/2025 12:41 PM EDT [facility] Mean Bld Glu Estim. 105 mg/dL LAB CHEMISTRY METHOD 02/01/2025 12:41 PM EDT [facility] Blood Venous blood specimen / Unknown Venipuncture / Unknown 01/31/2025 6:02 PM EDT 01/31/2025 6:38 PM EDT Dhara Becerra MANUFACTURING ACCOUNTANT LAB BLOOD ORDERABLES Fin al Result [facility] [address] [place] [address], from Last 3 Months or Most Recently Relevant to Health Maintenance Additional Health Concerns Active Problems Noted Date Diagnosed Date Autogenerated Problem 08/07/2025 Insurance [employer] MEDICARE [place]ICAID - [place] Advance Directives Documents on File Type Date Recorded Patient Etcher Hand Expl anation Advance Directives and Living Will 02/07/2025 3:06 PM Zachery Weaver [facility] Care Pr oxy * Full Code - [...] Communication Froylan Weaver Spouse Health Care Agent Zachery Weaver Son First Alternate Health Care Agent Care Teams Supervising Editor News Reel Relationship Specialty Start Date End Date Faustino Guy MD [address] [facility] [address] [place] [address] PCP - General Family Medicine 07/23/25
--- OUTSIDE RECORDS SUMMARY | 2025-10-07 11:23 | XMS_ITS | Continuity of Care Document ---
Author Organization [facility], Main Office Address [address] [place] [address] Care Team Providers Care Fire Observer Name Role Phone ARPIT DEL VALLE Glass Sagger BEVERLEY PEREZ Orthopedic Surgeon [phone] JANAE UGARTE Pain Management RHODA PERSON Sewer Cleaner JANAE MARTINEZ Picking Crew Supervisor CARLOTA GRANGER Underwriting Specialist RADHA WILLIS Orthopedic Surgeon DARSHANA WILSON Thoracic Surgeon BON MIRANDA Greenhouse Manager BERHANE FINN Sharepoint Trainer TESSY LARKIN Primary Care Provider [phone] ERIN TSANG Underwriting Specialist [phone] MARII LINTON Filing Or Registry Clerk [phone] Assessment No assessment recorded. Plan of Treatment Reminders Order Date Submit Date Provider Last Modified By Organization Details Last Modified Time Details Appointments [id number] 2025 09:00A Jaclyn Larkin MD Not available Not available Not available Lab pap, IG + HPV, cervical 2024 025 CAROL ANN [facility], [address], [place], [address], 09/06/2025 18:05:48 Referral None recorded. Procedures None recorded. Surgeries None recorded. Imaging None recorded. Medication Orders None recorded. Patient TargetsNo targets recorded. Patient Instructions Encounter Date Encounter Id Patient Instructions Last Modified By Organization Details Last Modified Time 09/04/2025 [id number] I have reviewed the note and agree with the assessment and plan of care. [email or web address] Not available 09/05/2025 16:10:41 Reason for Referral None Reported. Results Created Date Observation Date Name Description Value Unit Range Abnormal Flag Note LastModifiedBy Organization Detail LastModifiedTime 08/14/2008/14/2025 LIPID PANEL cholesterol, total 186 mg/dL 100-19 9 normal Not Available [facility] ([facility]) [address] [place], [address], 08/19/2025 06:05:41 08/14/2008/14/2025 LIPID PANEL triglyceride s 42 mg/dL 0-149 normal Not Available [facility] ([facility]) [address] [place], [address], 08/19/2025 06:05:41 08/14/2008/14/2025 LIPID PANEL HDL cholesterol 99 mg/dL >39 normal Not Available [facility] ([facility]) [address] [place], [address], 08/19/2025 06:05:41 08/14/2008/14/2025 LIPID PANEL VLDL cholesterol lesia 9 mg/dL 5-40 Not Available [facility] ([facility]) [address] [place], [address], 08/19/2025 06:05:41 08/14/2008/14/2025 LIPID PANEL LDL chol calc ([facility]) 78 mg/dL 0-99 Not Available [facility] ([facility]) [address] [place], [address], 08/19/2025 06:05:41 08/14/2008/14/2025 LIPID PANEL LDL calc comment: MARKETING RESEARCH COORDINATOR Not Available [facility] ([facility]) [address] [place], [address], 08/19/2025 06:05:41 08/14/2008/14/2025 ALK PHOS ISOEN ZYME alkaline phosphatase 96 IU/L 49-135 normal Not Available [facility] ([facility]) [address] [place], [address], 08/19/2025 06:05:42 08/14/2008/19/2025 ALK PHOS ISOEN ZYME liver fraction: 19 % 18-85 Not Available [facility] ([facility]) [address] [place], [address], 08/19/2025 06:05:42 08/14/2008/19/2025 ALK PHOS ISOEN ZYME bone fraction: 67 % 14-68 Not Available [facility] ([facility]) [address] [place], [address], 08/19/2025 06:05:42 08/14/2008/19/2025 ALK PHOS ISOEN ZYME intestinal frac.: 14 % 0-18 Not Available [facility] ([facility]) [address] [place], [address], 08/19/2025 06:05:42 08/14/20 25 08/14/2025 ALT+A ST AST (SGOT) 12 IU/L 0-40 normal Not Available [facility] ([facility]) [address] [place], [address], 08/19/2025 06:05:42 08/14/2008/14/2025 ALT+A ST ALT (SGPT) 9 IU/L 0-32 normal Not Available [facility] ([facility]) [address] [place], [address], 08/19/2025 06:05:42 08/14/20 25 08/15/2025 MITOC HONDR IAL (M2) ANTIB HERIBERTO mitochondria l (M2) antibody <20.0 units 0.0-20 .0 Negat hanh 0.0 - 20.0 Equiv ocal 20.1 - 24.9 Posit hanh >24.9 Mitoc hondr ial (M2) Antib odies are found in 90-96 % of patie nts with prima ry bilia ry cirrh osis. Not Available [facility] ([facility]) [address] [facility], [place], [address], 08/19/2025 06:05:42 08/14/2008/15/2025 GGT WITH REFLE X AMYLA SE/LI PASE GGT 13 IU/L 0-60 normal Not Available [facility] ([facility]) [address] [facility], [place], [address], 08/19/2025 06:05:43 08/21/2008/21/2025 hemog lobin A1C, finge rstic k A1C 4.9 % 4-6 normal Not Available In-Office Order Internal Use Only DO Not Attach Compendium DO Not Attach Compendium, Do Not Delete/merge, [id number] 08/20/2025 17:53:43 09/04/2009/06/2025 IGP, APTIM A HPV diagnosis: Commen t NEGAT HANH FOR INTRA EPITH ELIAL NANCY N OR EDILIA LINDSEY . Not Available [facility] ([facility]) [address] [facility], [place], [address], 09/06/2025 18:05:48 09/04/2009/06/2025 IGP, APTIM A HPV specimen adequacy: Commen t Satis facto ry for evalu ation . Endoc ervic al and/o r squam ous metap lasti c cells (endo cervi lesia compo nent) are prese nt. Not Available [facility] ([facility]) [address] [facility], [place], [address], 09/06/2025 18:05:48 09/04/20 25 09/06/2025 IGP, APTIM A HPV clinician provided ICD10: Commen t Z01.4 19 Not Available [facility] ([facility]) [address] [place], [address], 09/06/2025 18:05:48 09/04/2009/06/2025 IGP, APTIM A HPV performed by: Ernestine mays, Cytol ogist (ASCP ) Not Available [facility] ([facility]) [address] [place], [address], 09/06/2025 18:05:48 09/04/2009/06/2025 IGP, APTIM A HPV . . Not Available [facility] ([facility]) [address] [place], [address], 09/06/2025 18:05:48 09/04/2009/06/2025 IGP, APTIM A HPV note: Ernestine farmer The Pap smear is a scree theresa test desamari quinteros to aid in the detec tion of susana ligna nt and malig nant condi tions of the uteri ne cervi x. It is not a diagn ostic proce dure and shoul d not be used as the sole means of detec ting cervi lesia cance r. Both false -posi tive and false -nega tive repor ts do occur . Not Available [facility] ([facility]) [address] [place], [address], 09/06/2025 18:05:48 09/04/2009/06/2025 IGP, APTIM A HPV test methodology: Ernestine farmer This liqui d based ThinP rep(R ) pap test was scree aldair with the use of an image guide velma pelaez. Not Available [facility] ([facility]) [address] [place], [address], 09/06/2025 18:05:48 09/04/2009/06/2025 IGP, APTIM A HPV HPV aptima Negati ve negati ve This nucle ic acid ampli ficat ion test detec ts fourt een high- risk HPV types (16,1 8,31, 33,35 ,39,4 5,51, 52,56 ,58,5 9,66, 68) witho ut diffe renti ation . Not Available [facility] ([facility]) [address], [place], [address], 09/06/2025 18:05:48 08/13/20 25 colon oscop y scree theresa (PROC ) No observ ation record ed. [facility] [address], [place], [address], 08/13/2025 15:49:19 Result Notes None recorded. Problems Name Problem SNOMED Code Status Onset Date Resolution Date Notes Provider Name and Address Organization Details Recorded Time Anemia of chronic disease 964271096 Active NILAM Stewart, [facility] 2 10:55:19 Chronic renal impairme nt Completed 03/29/2020 Lew Keys MD [address] [facility] [address], [place], [address], [facility] 0 08:33:28 Chronic pain syndrome 777211225 Active NILAM Stewart, [facility] 2 10:55:19 Type 2 diabetes mellitus without complica tion 475390268 Completed 02/13/2018 Lew Keys MD [address] [facility] [address], [place], [address], [facility] 8 15:44:03 Injury of ulnar nerve 54423983 Completed 11/23/2023 Tessy Larkin MD [address] [facility] [address], [place], [address], [facility] 4 14:05:13 Iridocyc litis 78815963 [facility], [facility] 2 10:55:19 Asthma 213437165 Active NILAM Stewart, [facility] 2 10:55:18 Prematur e beats 50875970 Active NILAM Stewart, [facility] 2 10:55:18 Rheumato id arthriti s 20620999 Active NILAM Stewart, [facility] 2 10:55:19 Vitamin D deficien cy 69557196 Active Keleln Bruno michael, [facility] 0 10:44:31 Degenera tion of lumbosac ral interver tebral disc 95092182 Active NILAM Stewart, [facility] 2 10:55:19 Spinal stenosis of lumbar region 42235627 Active with slippage ; L3-L4; Dx: M48.06 NILAM Stewart, [facility] 2 10:55:18 Degenera tion of lumbar interver tebral disc 20498592 Active NILAM Stewart, [facility] 2 10:55:18 Lumbosac ral radiculi tis 25753903 Active NILAM Stewart, [facility] 2 10:55:18 Arthriti s of hip 88721615 Active NILAM Stewart, [facility] 2 10:55:19 Edema 570164891 Completed 11/23/2023 Tessy Larkin MD [address] [address], [facility] [place], [address] [place] [address] 4 14:04:47 Otitis media 21780136 Completed 09/21/2016 NILAM Stewart, [facility] 6 11:09:43 Inflamma tion of rotator cuff tendon 673218469 Active NILAM Stewart, [facility] 2 10:55:19 Sinusiti s 20719299 Completed 09/21/2016 NILAM Stewart, [facility] 6 11:09:25 Acute sinusiti s 30388258 Completed 08/18/2016 Lew Keys MD [address], [place], [address], [facility] 6 16:48:06 Allergic rhinitis 03978934 Active NILAM Stewart, [facility] 2 10:55:19 Hyperlip idemia 35469421 Active Kellen Money [facility], [facility] 0 10:44:31 Ankle pain 748345982 Completed 09/21/2016 NILAM Stewart, [facility] 6 11:09:09 Menopaus e present 142236333 Completed 11/23/2023 Tessy Larkin MD [address], [place], [address], [facility] 4 14:05:32 Low back pain 279013655 Active NILAM Stewart, [facility] 2 10:55:18 Pulmonar y embolism 42893510 Completed 11/23/2023 Tessy Larkin MD [address], [place], [address], [facility] 4 08:49:09 Contusio n of face 189039160 Completed 08/18/2016 Lew Keys MD [address], [place], [address], [facility] 6 16:48:02 Pain of hip region 17950077 Completed 09/21/2016 NILAM Stewart, [facility] 6 11:09:37 Shoulder joint pain 079471035 Active NILAM Stewart, [facility] 2 10:55:18 Strain of trapeziu s muscle 885487119 Completed 09/21/2016 NILAM Stewart, [facility] 6 11:09:30 Edema of lower extremit y 045034578 Active NILAM Stewart, [facility] 2 10:55:18 Chronic kidney disease stage 2 232769784 Completed 01/07/2020 Lew Keys MD [address], [address] [place] [address] 0 11:14:09 Screenin g for malignan t neoplasm of colon Completed 200805/21/2014 RECORDED 01/24/20 09 2:15PM BY KARO GARCIA MA, ANNOTATI ON/ADDEN DUM NILAM Stewart, [facility] 1 09:02:48 Screenin g for malignan t neoplasm of colon Completed 200806/13/2014 RECORDED 01/24/20 09 2:15PM BY KARO GARCIA MA, ANNOTATI ON/ADDEN DUM NILAM Stewart, [facility] 1 09:02:48 Screenin g for malignan t neoplasm of colon Completed 200806/14/2014 RECORDED 01/24/20 09 2:15PM BY KARO GARCIA MA, ANNOTATI ON/ADDEN DUM NILAM Stewart, [facility] 1 09:02:48 Chest pain 33268740 Completed 200805/21/2014 RECORDED 05/26/20 09 11:12AM BY KARO GARCIA MA, ANNOTATI ON/ADDEN DUM Lani Manzo PA-C [address], [place], [address], [facility] 6 16:00:49 Chest pain 80418762 Completed 200806/13/2014 RECORDED 05/26/20 09 11:12AM BY KARO GARCIA MA, CASAATI ON/ADDEN DUM Lani Manzo PA-C [address], [place], [address], [facility] 6 16:00:49 Chest pain 22048159 Completed 200806/14/2014 RECORDED 05/26/20 09 11:12AM BY KARO GARCIA MA, CASAATI ON/ADDEN DUM Lani Manzo PA-C [address], [place], [address], [facility] 6 16:00:49 Edema 495199262 Completed 200905/21/2014 IMPRESSI ON: LOWER EXTREMIT IES; RECORDED 01/22/20 10 11:19AM BY ZAIDA DELATORRE ON/ADDEN DUM Tessy Larkin MD [address], [place], [address], [facility] 4 14:04:47 Iron deficien cy anemia 05131284 Completed 200905/21/2014 RECORDED 01/22/20 10 11:19AM BY ZAIDA DELATORRE ON/ADDEN DUM Lani Jovany PA-C [address], [place], [address], [facility] 6 16:00:48 Edema 080638572 Completed 200906/13/2014 IMPRESSI ON: LOWER EXTREMIT IES; RECORDED 01/22/20 10 11:19AM BY ZAIDA DELATORRE ON/ADDEN TYSNO Larkin MD [address], [facility] [place], [address], [facility] 4 14:04:47 Iron deficien cy anemia 71982426 Completed 200906/13/2014 RECORDED 01/22/20 10 11:19AM BY ZAIDA DELATORRE ON/ADDEN DUM Lani Manzo [facility] [address], [facility] [place], [address], [facility] 6 16:00:48 Edema 331231122 Completed 200906/14/2014 IMPRESSI ON: LOWER EXTREMIT IES; RECORDED 01/22/20 10 11:19AM BY ZAIDA DELATORRE ON/ADDEN DUM Tessy Larkin MD [address] [facility] [address], [place], [address], [facility] 4 14:04:47 Iron deficien cy anemia 36304023 Completed 200906/14/2014 RECORDED 01/22/20 10 11:19AM BY ZAIDA DELATORRE ON/ADDEN DUM Lani Manzo [facility] [address] [facility] [address], [place], [address], [facility] 6 16:00:48 Essentia l hyperten elicia 57132576 Completed 201005/21/2014 RECORDED 06/14/20 11 2:04PM BY KARO GARCIA MA, ANNOTATI ON/ADDEN DUM Rajani Hutton [facility] 2 11:46:33 Type 2 diabetes mellitus without complica tion 211275529 Completed 201005/21/2014 RECORDED 07/26/20 11 11:14AM BY KARO GARCIA MA, ZAIDA ON/ADDEN DUM Lew Keys MD [address], [place], [address], [facility] 8 15:44:03 Acute secretor y otitis media 764368536 Completed 201105/21/2014 RECORDED 06/20/20 12 3:49PM BY ZAIDA HA ON/ADDEN DUM Lani Manzo PA-C [address], [place], [address], [facility] 6 16:00:48 Adult health examinat ion Completed 201105/21/2014 RECORDED 06/20/20 12 3:49PM BY ZAIDA HA ON/ADDEN DUM Lani Manzo PA-C [address], [place], [address], [facility] 6 16:00:49 Acute secretor y otitis media 756301884 Completed 201106/13/2014 RECORDED 06/20/20 12 3:49PM BY ZAIDA HA ON/ADDEN DUM Lani Manzo PA-C [address], [place], [address], [facility] 6 16:00:48 Adult health examinat ion Completed 201106/13/2014 RECORDED 06/20/20 12 3:49PM BY ZAIDA HA ON/ADDEN DUM Lani Manzo PA-C [address], [place], [address], [facility] 6 16:00:49 Acute secretor y otitis media 252726869 Completed 201106/14/2014 RECORDED 06/20/20 12 3:49PM BY ZAIDA HA ON/ADDEN DUM Lani Manzo PA-C [address], [place], [address], [facility] 6 16:00:48 Adult health examinat ion Completed 201106/14/2014 RECORDED 06/20/20 12 3:49PM BY ZAIDA HA ON/ADDEN DUM Lani Manzo PA-C [address], [place], [address], [facility] 6 16:00:49 Screenin g for malignan t neoplasm of cervix Completed 201105/21/2014 RECORDED 10/11/20 12 10:52AM BY KARO GARCIA MA, ANNOTATI ON/ADDEN DUM Lani Manzo PA-C [address], [place], [address], [facility] 6 16:00:49 Pruritic disorder 735569590 Completed 201105/21/2014 RECORDED 10/11/20 12 10:52AM BY KARO GARCIA MA, ANNOTTENNILLE ON/ADDEN DUM Lani Manzo PA-C [address], [place], [address], [facility] 6 16:00:48 Red eye Completed 201105/21/2014 STORY: RED, PAINFUL EYES. HISTORY OF RHEUMATO ID ARTHRITI S.; RECORDED 10/11/20 12 10:52AM BY KARO GARCIA MA, ZAIDA ON/ADDEN DUM Lani Manzo PA-C [address], [place], [address], [facility] 6 16:00:49 Screenin g for malignan t neoplasm of cervix Completed 201106/13/2014 RECORDED 10/11/20 12 10:52AM BY KARO GARCIA MA, ANNOTATI ON/ADDEN DUM Lani Manoz PA-C [address], [place], [address], [facility] 6 16:00:49 Pruritic disorder 794327230 Completed 201106/13/2014 RECORDED 10/11/20 12 10:52AM BY KARO GARCIA MA, ANNOTATI ON/ADDEN DUM Lani Jovany PA-C [address], [place], [address], [facility] 6 16:00:48 Red eye Completed 201106/13/2014 STORY: RED, PAINFUL EYES. HISTORY OF RHEUMATO ID ARTHRITI S.; RECORDED 10/11/20 12 10:52AM BY KARO GARCIA MA, ANNOTTENNILLE ON/ADDEN DUM Lani Jovany PA-C [address] [facility] [address], [place], [address], [facility] 6 16:00:49 Screenin g for malignan t neoplasm of cervix Completed 201106/14/2014 RECORDED 10/11/20 12 10:52AM BY KARO GARCIA MA, ANNOTTENNILLE ON/ADDEN DUM Lani Jovany PA-C [address] [facility] [address], [place], [address], [facility] 6 16:00:49 Pruritic disorder 875680189 Completed 201106/14/2014 RECORDED 10/11/20 12 10:52AM BY KARO GARCIA MA, ANNOTTENNILLE ON/ADDEN DUM Lani Jovany PA-C [address] [facility] [address], [place], [address], [facility] 6 16:00:48 Red eye Completed 201106/14/2014 STORY: RED, PAINFUL EYES. HISTORY OF RHEUMATO ID ARTHRITI S.; RECORDED 10/11/20 12 10:52AM BY KARO GARCIA MA, ANNOTTENNILLE ON/ADDEN DUM Lani Jovany ESCALERA-C [address] [facility] [address], [place], [address], [facility] 6 16:00:49 Renewal of prescrip tion Completed 201205/21/2014 RECORDED 01/11/20 13 10:30AM BY KARO GARCIA MA, ANNOTATI ON/ADDEN DUM Lani Manzo PA-C [address], [place], [address], [facility] 6 16:00:49 Renewal of prescrip tion Completed 201206/13/2014 RECORDED 01/11/20 13 10:30AM BY KARO GARCIA MA, CASAATI ON/ADDEN DUM Lani Manzo PA-C [address], [place], [address], [facility] 6 16:00:49 Renewal of prescrip tion Completed 201206/14/2014 RECORDED 01/11/20 13 10:30AM BY KARO GARCIA MA, ANNOTATI ON/ADDEN DUM Lani Manzo PA-C [address], [place], [address], [facility] 6 16:00:49 Acute bronchit is 69608768 Completed 201205/21/2014 RECORDED 02/02/20 13 2:23PM BY KARO GARCIA MA, ZAIDA ON/ADDEN DUM Lani Manzo PA-C [address], [place], [address], [facility] 6 16:00:48 Cough 38655159 Completed 201205/21/2014 RECORDED 02/02/20 13 2:24PM BY KARO GARCIA MA, ANNOTATI ON/ADDEN DUM Lani Manzo PA-C [address], [place], [address], [facility] 6 16:00:49 Influenz a vaccine needed [id number] 06 Completed 201205/21/2014 RECORDED 02/02/20 13 2:23PM BY KARO GARCIA MA, ANNOTATI ON/ADDEN DUM Lani Manzo PA-C [address], [place], [address], [facility] 6 16:00:49 Administ ration of diphther ia and tetanus vaccine Completed 201205/21/2014 RECORDED 02/02/20 13 2:23PM BY KARO GARCIA MA, ZAIDA ON/ADDEN DUM Lani Manzo PA-C [address], [place], [address], [facility] 6 16:00:49 Acute bronchit is 33659120 Completed 201206/13/2014 RECORDED 02/02/20 13 2:23PM BY KARO GARCIA MA, ZAIDA ON/ADDEN DUM Lani Manzo PA-C [address], [place], [address], [facility] 6 16:00:48 Cough 06076173 Completed 201206/13/2014 RECORDED 02/02/20 13 2:24PM BY KARO GARCIA MA, ZAIDA ON/ADDEN DUM Lani Manzo PA-C [address] [facility] [address], [place], [address], [facility] 6 16:00:49 Influenz a vaccine needed [id number] 06 Completed 201206/13/2014 RECORDED 02/02/20 13 2:23PM BY KARO GARCIA MA, CASAATI ON/ADDEN DUM Lani Manzo PA-C [address], [place], [address], [facility] 6 16:00:49 Administ ration of diphther ia and tetanus vaccine Completed 201206/13/2014 RECORDED 02/02/20 13 2:23PM BY KARO GARCIA MA, ANNOTATI ON/ADDEN DUM [facility] [address], [place], [address], [facility] 6 16:00:49 Acute bronchit is 48954896 Completed 201206/14/2014 RECORDED 02/02/20 13 2:23PM BY KARO GARCIA MA, ANNOTATI ON/ADDEN DUM Lani [facility] PA-C [address], [place], [address], [facility] 6 16:00:48 Cough 99445890 Completed 201206/14/2014 RECORDED 02/02/20 13 2:24PM BY KARO GARCIA MA, CASAATI ON/ADDEN DUM [facility] [address], [place], [address], [facility] 6 16:00:49 Influenz a vaccine needed [id number] 06 Completed 201206/14/2014 RECORDED 02/02/20 13 2:23PM BY KARO GARCIA MA, ZAIDA ON/ADDEN DUM [facility] [address] [facility] [address], [place], [address], [facility] 6 16:00:49 Administ ration of diphther ia and tetanus vaccine Completed 201206/14/2014 RECORDED 02/02/20 13 2:23PM BY KARO GARCIA MA, ZAIDA ON/ADDEN DUM [facility] [address], [place], [address], [facility] 6 16:00:49 Screenin g for malignan t neoplasm of breast Completed 201205/21/2014 RECORDED 05/07/20 13 10:37AM BY KARO GARCIA MA, ANNOTATI ON/ADDEN DUM Lani Jovany LA-C [address], [place], [address], [facility] 6 16:00:49 Screenin g for malignan t neoplasm of breast Completed 201206/13/2014 RECORDED 05/07/20 13 10:37AM BY KARO GARCIA MA, ANNOTATI ON/ADDEN DUM Lani Jovany PA-C [address], [place], [address], [facility] 6 16:00:49 Screenin g for malignan t neoplasm of breast Completed 201206/14/2014 RECORDED 05/07/20 13 10:37AM BY KARO GARCIA MA, ANNOTATI ON/ADDEN DUM Lani Jovany LA-C [address], [place], [address], [facility] 6 16:00:49 Acute sinusiti s 31073977 Completed 201305/21/2014 RECORDED 01/22/20 14 12:39PM BY KARO GARCIA MA, ANNOTATI ON/ADDEN DUM Lew Keys MD [address], [place], [address], [facility] 6 16:48:06 Follow-u p encounte r Completed 201305/21/2014 RECORDED 01/22/20 14 12:39PM BY KARO GARCIA MA, ANNOTATI ON/ADDEN DUM Lani Jovany ESCALERA-C [address], [place], [address], [facility] 6 16:00:49 Contusio n of face, scalp and neck, excludin g eye(s) Completed 201305/21/2014 RECORDED 01/22/20 14 12:39PM BY KARO GARCIA MA, ANNOTATI ON/ADDEN DUM Lani Jovany PA-C [address], [place], [address], [facility] 6 16:00:49 Accident al fall Completed 201305/21/2014 RECORDED 01/22/20 14 12:39PM BY KARO GARCIA MA, ANNOTATI ON/ADDEN DUM Lani Jovany PA-C [address], [place], [address], [facility] 6 16:00:49 Acute sinusiti s 58756772 Completed 201306/13/2014 RECORDED 01/22/20 14 12:39PM BY KARO GARCIA MA, ANNOTATI ON/ADDEN DUM Lew Keys MD [address], [place], [address], [facility] 6 16:48:06 Follow-u p encounte r Completed 201306/13/2014 RECORDED 01/22/20 14 12:39PM BY KARO GARCIA MA, ANNOTTENNILLE ON/ADDEN DUM Lani Jovany ESCALERA-C [address], [place], [address], [facility] 6 16:00:49 Contusio n of face, scalp and neck, excludin g eye(s) Completed 201306/13/2014 RECORDED 01/22/20 14 12:39PM BY KARO GARCIA MA, ANNOTATI ON/ADDEN DUM Lani Jovany PA-C [address], [place], [address], [facility] 6 16:00:49 Accident al fall Completed 201306/13/2014 RECORDED 01/22/20 14 12:39PM BY KARO GARCIA MA, ANNOTTENNILLE ON/ADDEN DUM Lani Jovany EID [address], [place], [address], [facility] 6 16:00:49 Acute sinusiti s [id number] Completed 201306/14/2014 RECORDED 01/22/20 14 12:39PM BY KARO GARCIA MA, ANNOTATI ON/ADDEN DUM Lew Keys MD [address], [place], [address], [facility] 6 16:48:06 Follow-u p encounte r Completed 201306/14/2014 RECORDED 01/22/20 14 12:39PM BY KARO GARCIA MA, ZAIDA ON/ADDEN DUM Laniraquel Manzo PA-C [address], [place], [address], [facility] 6 16:00:49 Contusio n of face, scalp and neck, excludin g eye(s) Completed 201306/14/2014 RECORDED 01/22/20 14 12:39PM BY KARO GARCIA MA, ZAIDA ON/ADDEN DUM Lani Manzo PA-C [address], [place], [address], [facility] 6 16:00:49 Accident al fall Completed 201306/14/2014 RECORDED 01/22/20 14 12:39PM BY KARO GARCIA MA, ZAIDA ON/ADDEN DUM Lani Jovany EID [address], [place], [address], [facility] 6 16:00:49 Laborato ry procedur e performe d [id number] Completed 201305/21/2014 RECORDED 03/27/20 14 9:46AM BY ALISSON PEREZ MA, ANNOTATI ON/ADDEN DUM Lani Manzo PA-C [address], [place], [address], [facility] 6 16:00:49 Pre-surg joe evaluati on Completed 201306/04/2014 STORY: LEFT TKA. DR. CARROLL 0.; RECORDED 03/27/20 14 9:49AM BY ALISSON PEREZ MA, REVIEW Lani Manzo PA-C [address], [place], [address], [facility] 6 16:00:49 Laborato ry procedur e performe d [id number] Completed 201306/13/2014 RECORDED 03/27/20 14 9:46AM BY ALISSON PEREZ MA, ANNOTATI ON/ADDEN DUM Lani Manzo PA-C [address], [place], [address], [facility] 6 16:00:49 Laborato ry procedur e performe d [id number] Completed 201306/14/2014 RECORDED 03/27/20 14 9:46AM BY ALISSON PEREZ MA, ANNOTATI ON/ADDEN DUM Lani Manzo PA-C [address], [place], [address], [facility] 6 16:00:49 Dyspnea [id number] Completed 201306/13/2014 RECORDED 04/27/20 14 8:50AM BY ALISSON PEREZ MA, ANNOTATI ON/ADDEN DUM Lani Manzo PA-C [address], [place], [address], [facility] 6 16:00:49 Dyspnea [id number] Completed 201306/14/2014 RECORDED 04/27/20 14 8:50AM BY ALISSON PEREZ MA, ANNOTATI ON/ADDEN DUM Lani Manzo PA-C [address], [place], [address], [facility] 6 16:00:49 Obesity Completed 201308/06/2014 RECORDED 05/03/20 14 9:36AM BY ALISSON PEREZ MA, OFFICE VISIT Lani Manzo PA-C [address], [place], [address], [facility] 6 16:00:49 Vomiting [id number] Completed 201306/13/2014 RECORDED 05/03/20 14 9:35AM BY ALISSON PEREZ MA, ANNOTATI ON/ADDEN DUM Lani Manzo PA-C [address], [place], [address], [facility] 6 16:00:49 Vomiting [id number] Completed 201306/14/2014 RECORDED 05/03/20 14 9:35AM BY ALISSON PEREZ MA, ANNOTATI ON/ADDEN DUM [facility] [address], [place], [address], [facility] 6 16:00:49 Gout [id number] Active 2016 NILAM Stewart, [facility] 2 10:55:19 Hypokale guillermo [id number] Completed 201811/23/2023 Tessy Larkin MD [address], [place], [address], [facility] 4 14:04:37 Screenin g for malignan t neoplasm of colon Completed 201811/27/2020 NILAM Stewart, [facility] 1 09:02:48 Contusio n of chest [id number] Completed 201811/27/2020 NILAM Stewart, [facility] 1 09:02:28 Chronic kidney disease stage 3A [id number] Completed 202007/20/2022 Tessy Larkin MD [address], [place], [address], [facility] 2 08:02:30 Drug-ind uced hypokale guillermo [id number] Completed 202011/23/2023 Tessy Larkin MD [address], [place], [address], [facility] 4 14:04:42 Pain of left hand 59688821511 9103 Active 2020 NILAM Stewart, [facility] 2 10:55:19 Pain in left knee Active 2020 Karo conti MA null, [facility] 2 10:55:19 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 mellitus 044825819 Active 2021 NILAM Stewart, [facility] 2 10:55:19 Hyperten elicia monitori ng status 941756204 Active 2021 disenrol led Tina Lucio null, [facility] 2 13:37:05 Migraine 92050116 Completed 202211/23/2023 Tessy Larkin MD [address], [place], [address], [facility] 4 14:05:47 Lumbar radiculo zenaida 986761173 Active 2022 Eunice Gibson [facility] [address], [place], [address], [facility] 3 15:05:30 Peripher al venous insuffic iency 58030537 Active 2022 Alfredo Cheng MD [address], [place], [place], [address], [facility] 3 16:20:35 History of pulmonar y embolus 173062554 Active 2023 Unprovok ed PE. Dec 2015. Tessy Larkin MD [address], [place], [place], [address], [facility] 4 08:49:16 Heart failure with normal ejection fraction 635017528 Active 2023 Tessy Larkin MD [address], [place], [place], [address], [facility] 4 08:53:17 Body mass index 30+ - obesity 078450875 Active 2023 Tessy Larkin MD [address], [place], [place], [address], [facility] 4 14:12:25 Morbid obesity 663929271 Active 2023 Tessy Larkin MD [address], [place], [place], [address], [facility] 4 14:12:26 Generali zed osteoart hritis 871729545 Active 2023 Monica Griffith LPN null, [facility] 4 14:01:29 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 089084373 Active 2023 Monica Griffith LPN null, [facility] 4 14:01:29 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 Please review these documents and add these problems to the patient's chart manually as needed. Problem Notes None recorded. Procedures Surgical History Date Name Laterality Status Provider Name and Address Organization Details Recorded Time 03/20/20 25 Diabetic Foot Exam (Monofilament) completed Tessy Larkin MD [address], [address], [facility] 03/19/2025 08:22:47 12/21/19 25 Advanced Care Planning completed Tessy Larkin MD [address], [address], [facility] 12/20/2024 16:13:06 11/23/19 24 Advanced Care Planning completed Tessy Larkin MD [address], [address], [facility] 11/23/2023 08:42:44 11/23/19 24 Diabetic Foot Exam (Monofilament) completed Tessy Larkni MD [address], [address], [facility] 11/23/2023 14:10:26 07/21/20 22 Diabetic Foot Exam (Monofilament) completed Tessy Larkin MD [address], [address], [facility] 07/21/2022 10:41:17 04/20/20 22 Diabetic Foot Exam (Monofilament) completed Tessy Larkin MD [address] [address], [place], [address], [facility] 04/19/2022 08:53:45 10/06/20 21 Advanced Care Planning completed Tessy Larkin MD [address] [address], [place], [address], [facility] 10/06/2021 08:16:58 10/06/20 21 Diabetic Foot Exam (Monofilament) completed Tessy Larkin MD [address] [facility] [address], [place], [address], [facility] 10/06/2021 11:21:43 05/29/20 21 Chronic Pain Assessment completed Lety Irizarry MA [facility] 05/29/2021 08:52:53 04/03/20 21 Chronic Pain Assessment completed Kandy Cox MA [facility] 04/03/2021 10:08:41 01/02/20 21 Chronic Pain Assessment completed Lety Irizarry MA [facility] 01/02/2021 09:58:36 12/19/19 21 Chronic Pain Assessment completed Kandy Cox MA [facility] 12/19/2020 13:52:28 09/29/20 20 Chronic Pain Assessment completed Karo tamayo MA [facility] 09/29/2020 11:25:59 09/29/20 20 Six-Item Cognitive Test completed Karo tamayo MA [facility] 09/29/2020 11:24:55 07/25/20 20 Chronic Pain Assessment completed Lindsay Garsia MA [facility] 07/25/2020 13:52:55 03/29/20 20 Chronic Pain Assessment completed Karo tamayo MA [facility] 03/29/2020 08:17:52 01/07/20 20 Chronic Pain Assessment completed Karo tamayo MA [facility] 01/07/2020 10:28:24 09/15/20 19 Chronic Pain Assessment completed Russell Allison [facility] 09/15/2019 11:12:36 09/15/20 19 Diabetic Foot Exam (Monofilament) completed Russell Allison [facility] 09/15/2019 10:54:17 07/30/20 19 Mini-Cog Test completed Tierra Maicol [facility] 07/30/2019 11:38:11 03/19/20 19 Chronic Pain Assessment completed Karo tamayo MA [facility] 03/19/2019 11:37:02 12/29/19 19 Diabetic Foot Exam (Monofilament) completed Karo tamayo MA [facility] 12/29/2018 14:24:50 11/21/19 19 Most Recent Mammogram completed Kellen Bruno [facility] 11/21/2018 14:38:35 11/21/19 19 Mammogram screening completed Honey Jang [facility] 01/20/2022 18:43:01 10/14/20 18 Chronic Pain Assessment completed Karo tamayo MA [facility] 10/14/2018 10:46:56 10/14/20 18 Diabetic Foot Exam (Monofilament) completed Karo tamayo MA [facility] 10/14/2018 10:35:19 07/29/20 18 Chronic Pain Assessment completed Karo tamayo MA [facility] 07/29/2018 09:58:59 04/17/20 18 Mini-Cog Test completed Karo tamayo MA [facility] 04/17/2018 14:07:29 02/14/20 18 Chronic Pain Assessment completed Karo tamayo MA [facility] 02/13/2018 15:20:41 11/02/20 17 Chronic Pain Assessment completed Karina Servin [facility] 11/02/2017 14:55:12 08/02/20 17 Chronic Pain Assessment completed Karo tamayo MA [facility] 08/02/2017 14:45:31 05/17/20 17 Chronic Pain Assessment completed Karo tamayo MA [facility] 05/17/2017 11:19:53 02/16/20 17 Chronic Pain Assessment completed [facility]o [facility] 02/15/2017 10:48:27 12/09/19 17 Other completed Karo tamayo MA [facility] 12/14/2016 09:16:22 09/10/20 16 Egd diagnostic brush wash completed Karo tamayo MA [facility] 03/19/2019 11:28:03 03/25/20 16 Chronic Pain Assessment completed Karo tamayo MA [facility] 03/25/2016 11:23:39 12/16/19 16 Most Recent Bone Density completed Karo tamayo MA [facility] 04/17/2018 13:55:48 12/16/19 16 Dxa bone density morgan vrt fx completed Karo tamayo [facility] 04/17/2018 13:56:02 01/14/20 15 Joint Injection completed Lew Keys MD [address] [address], [place], [address], [facility] 01/14/2015 07:27:39 12/10/19 15 Orthopedic Surgery completed Cori Ospina [facility] 01/17/2015 15:10:31 05/24/20 14 Arthrd ant ntrbd min dsc lum [facility] 06/04/2014 11:49:42 11/07/19 10 Total knee arthroplasty completed Lew Keys MD [address] [facility] [address] [facility], [place], [address], [facility] 10/21/2017 13:18:29 10/05/20 07 Date of Last Colonoscopy completed Karo tamayo [facility] 03/19/2019 11:28:29 10/05/20 07 Colonoscopy completed Karo tamayo MA [facility] 03/25/2016 11:11:36 05/07/20 07 Arthrd pst tq 1ntrspc lum completed Karo tamayo MA [facility] 10/15/2014 13:13:58 11/07/18 94 Knee Surgery completed Karo tamayo MA [facility] 10/15/2014 13:13:58 11/07/18 90 Knee Surgery completed Karo tamayo MA [facility] 10/15/2014 13:13:58 11/07/18 88 Arthrd pst tq 1ntrspc lum completed Karo tamayo MA [facility] 10/15/2014 13:13:58 11/07/18 70 Appendectomy completed Karo tamayo MA [facility] 10/15/2014 13:13:58 11/07/18 61 Revision of femur epiphysis completed Karo tamayo MA [facility] 01/07/2020 10:17:40 Total knee arthroplasty completed Lew Keys MD [address], [address] 10/21/2017 13:17:46 Imaging Results None recorded. Procedure Notes None recorded. Medical Equipment None Reported. Allergies Allergen ID Allergen Name Allergen Category Reaction Reaction Severity Criticality Documentation Date Start Date Code Code System Note Provider Name and Address Organization Details Recorded Time 38990 atorvasta tin medicatio n myalgias (muscle pain) Not available Not available 07/16/2015 22975 RxNorm NILAM Stewart [facility] 5 11:01:59 2632 Enbrel medicatio n Not available Not available Not available 05/21/20142013 25450 1 RxNorm NILAM Stewart [facility] 4 11:49:42 2633 ibuprofen medicatio n Not available Not available Not available 05/21/20142013 5640 [facility] 11:49[facility]42 2634 indometha suze medicatio n Not available Not available Not available 05/21/20142013 5781 RxNorm Karo Jermaine-NILAM Gonzalez [facility] 4 11:49:42 2635 Iodinated contrast media (substanc e) medicatio n Not available Not available Not available 05/21/20142013 70327 2004 SNOMED [facility] 4 11:49[facility]42 2636 Non-stero idal anti-infl ammatory agent (substanc e) medicatio n Not available Not available Not available 05/21/20142013 30502 5008 SNOMED [facility]o [facility]aine[facility]assandraJac[facility] 4 11:49:42 62200 doxycycli ne Not available other mild Not available 03/15/20182019 3640 RxNorm NILAM Patel [facility] 2 15:54:03 36391 codeine medicatio n hives severe Not available 07/30/20192019 2670 RxNorm NILAM Patel [facility] 2 15:54:03 48654 etanercep t medicatio n Not available Not available Not available 01/04/20202019 49409 5 RxNorm NILAM Patel [facility] 2 15:54:03 86468 ferumoxyt ol medicatio n Not available Not available Not available 01/04/20202020 96480 7 RxNorm NILAM Patel [facility] 2 15:54:03 32524 simvastat in medicatio n other Not available Not available 03/29/20202019 91793 RxNorm NILAM Patel, [facility] 2 15:54:03 75500 Xiidra medicatio n rash Not available Not available 11/27/2020 59089 36 RxNorm Karo Jermaine-NILAM Gonzalez, [facility] 1 09:13:41 47669 gabapenti n medicatio n Not available Not available Not available 08/27/2021 11042 RxNorm edema , bruis ing as per pt Elias Manzo PA-C [address] [facility] [address] [address], [facility] 1 13:42:22 47476 prednison e medicatio n hives Not available Not available 05/19/2023 8640 RxNorm Karo Jermaine-NILAM Gonzalez, [facility] 3 09:12:42 81923 indometha suze medicatio n Not available Not available Not available 03/02/20242019 5781 RxNorm Monica Caporale, [employer] null, [facility] 5 15:45:23 78439 ibuprofen medicatio n Not available Not available Not available 03/02/20242019 5640 RxNorm Monica Caporale, [employer] null, [facility] 5 15:45:17 65583 azathiopr ine medicatio n Not available Not available Not available 03/02/20242023 1256 RxNorm Monica Caporale, [employer] michael, [facility] 4 13:58:24 62059 Product containin g gadoliniu m and/or gadoliniu m compound (product) medicatio n Not available Not available Not available 03/02/20242023 23685 3008 SNOMED Monica Caporale, [employer] null, [facility] 4 13:58:24 26571 Decadron medicatio n edema severe high 11/08/2024 04751 2 RxNorm Monica Griffith, [employer] null, [facility] 5 15:52:03 82451 Farxiga medicatio n Not available Not available Not available 12/03/2024 21822 72 RxNorm cause s GERALD Karo [place] conti, NILAM rodriguez, [facility] 5 14:22:22 Medications Name Sig Start [...] 05/09/20 13 2:32PM BY ZAIDA ALVAREZ ON/HARDEEP DUM; Not Available Not Available Not Available amoxicill in 875 mg tablet Take 1 tablet twice a day by oral route for 10 days. 04/06 completed Not Available Not Available Not Available prednisol one acetate 1 % eye drops,uzair penon PLACE ONE ONE DROP IN THE LEFT [...] 05/09/20 13 2:32PM BY ZAIDA ALVAREZ ON/HARDEEP MEHTA; Not Available Not Available Not Available simvastat [...] 11/12 completed 11/08/19 25- ON HOLD D/T GERALD PER D/C [facility] TO FOLLOW Not Available Not Available Not [...] REFILL REQUEST; THIS ORDER DISCONTI NUED PER [facility]. Not Available Not Available Not Available [...] completed RECORDED 03/31/20 12 11:19AM BY ZAIDA ALVAREZ/ADDEN DUM; Not Available Not Available Not Available [...] EVERY DAY 12/03 completed Rx goes to [facility] Not Available Not Available Not Available abatacept [...] Available Flonase Sensimist 27.5 mcg/actua tion nasal spray,zuair pension Take 2 sprays every day by nasal route at bedtime for 90 days. 05/19 completed Not Available Not Available Not Available OneTouch Ultra2 Meter USE WITH LANCETS AND TEST STRIPS TO TEST BLOOD SUGAR TWICE DAILY active Not Available Not Available No t Available Fluad Quad [id number] (65yr up)(PF) 60 mcg (15 mcg x 4)/0.5mL IM syringe PHARMACY ADMINIST ERED 07/25 completed Not Available Not Available Not Available Vitals Date Recorded Body height Body mass index (BMI) Body weight Oxygen saturation Heart rate Body temperature Systolic And Diastolic Provider Name and Address Organization Details Last Updated DateTime 5 165.1 cm 32 kg/m2 43587.4 4 g 96 % 77 /min 97.5 [degF] 132/69 mm[Hg] Blanca Burger MA [facility] 5 09:21:08 Social History Question Answer Notes LastModified by Organizat ion Details LastModified Time Tobacco Smoking Status Never Smoker Alisson rodriguez [facility] 08/02/2014 11:07:04 Do You Have An Advance Directive? No [email or web address] Information not available 07/28/2022 Is Blood Transfusion [...] Or Greater Than 100 Degrees Fahrenheit? No Information not available 07/25/2020 Are You Or Anyone In Your Household A Health Care Provider Or Emergency Responder? No [email or web address] Information not available 07/25/2020 To The Best Of Your Knowledge Have You Been In Close Proximity To Any Individual Who Tested Positive For COVID-19? No [email or web address] Information not available 07/25/2020 *AWV ONLY* Are [...] Of Your Most Recent Tobacco Screening? 03/20/2025 [email or web address] Information not available 03/20/2025 How Many Children Do You Have? 2 Vladimir Information not available 11/23/2023 Do You Use [...] independently without assistance or assistive devices? YESLIMIT [email or web address] Information not available 07/28/2022 Are you able to care for yourself independently? 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 Never used electronic cigarettes [email or web address] Information not available 07/28/2022 What is your exercise level? Occasional light stretches Information not available 10/15/2014 Mental Status None recorded. Family History Relationship Description Onset Age of this Age Resolved Age Notes LastModified by Organization Details LastModified Time Mother Diabetes mellitus [email or web address] Not available 06/2016 11:15:52 Mother Renal failure syndrome [email or web address] Not available 07/28 10:19:20 Sister Diabetes mellitus [email or web address] Not available 06/2016 11:15:52 Sister Cerebral amyloid angiopathy [email or web address] Not available 07/09 10:19:20 Father Coronary arterioscler osis 67 [email or web address] Not available 07/28 10:19:20 Father Essential hypertension [email or web address] Not available 10:19:20 Medical History Condition Response Arthritis Y Diabetes Y Hypertension Y Gynecological History Statement/Question Response Date of Last Pap Smear Date of Last Colonoscopy 10/05/2007 Most Recent Mammogram 11/21/2018 Most Recent Bone Density 12/16/2015 Obstetrics History GPAL:G 0 P 0 0 0 0 Immunizations Vaccine Type Date Status Note Provider Nam e and Address Organization Details Recorded Time Pneumococcal conjugate PCV 13 5 completed Not Available [facility] 05/27/2020 02:42:58 pneumococcal polysaccharide PPV23 4 completed NILAM Posey [facility] 07/28/2022 10:40:27 COVID-19, mRNA, LNP-S, PF, 30 mcg/0.3 mL dose 1 completed NILAM Posey [facility] 04/20/2022 10:55:20 COVID-19, mRNA, LNP-S, PF, 30 mcg/0.3 mL dose 1 completed NILAM Posey [facility] 04/20/2022 10:55:20 Influenza, adjuvanted, quadrivalent, PF 0 completed NILAM Posey [facility] 04/20/2022 10:55:20 COVID-19, mRNA, LNP-S, PF, 30 mcg/0.3 mL dose 1 completed NILAM Posey [facility] 04/20/2022 10:55:19 Influenza, high-dose, quadrivalent, PF 1 completed NILAM Posey [facility] 04/20/2022 10:55:20 Pneumococcal conjugate PCV 13 7 completed Not Available [facility] 12/10/2021 09:04:07 COVID-19, mRNA, LNP-S, PF, 30 mcg/0.3 mL dose, priscilla-sucrose 2 completed NILAM Posye, [facility] 04/20/2022 10:55:19 Influenza, split virus, trivalent, PF 4 completed NILAM Posey, [facility] 07/28/2022 10:40:26 Influenza, high-dose, trivalent, PF 7 completed NILAM Posey, [facility] 07/28/2022 10:40:27 Influenza, high-dose, trivalent, PF 6 completed NILAM Posey, [facility] 07/28/2022 10:40:27 Influenza, high-dose, trivalent, PF 8 completed NILAM Posey, [facility] 07/28/2022 10:40:27 Influenza, split virus, quadrivalent, PF 5 completed NILAM Posey, [facility] 07/28/2022 10:40:27 pneumococcal polysaccharide PPV23 8 completed NILAM Posey, [facility] 07/28/2022 10:40:27 Influenza, high-dose, trivalent, PF 9 completed NILAM Posey, [facility] 07/28/2022 10:40:27 COVID-19, mRNA, LNP-S, bivalent, PF, 30 mcg/0.3 mL dose 2 completed NILAM Carlson, [facility] 07/18/2023 15:59:23 Influenza, adjuvanted, quadrivalent, PF 3 completed NILAM Posey, [facility] 09/26/2023 14:41:06 COVID-19, mRNA, LNP-S, PF, priscilla-sucrose, 30 mcg/0.3 mL 3 completed NILAM Posey, [facility] 09/26/2023 14:41:06 RSV, recombinant, protein subunit RSVpreF, adjuvant reconstituted, 0.5 mL, PF 3 completed NILAM Posey, [facility] 11/23/2023 14:00:34 Pneumococcal conjugate PCV20, polysaccharide [id number] conjugate, adjuvant, PF 5 completed Not Available [facility] 09/04/2025 08:57:24 HepB-CpG 5 completed Not Available [facility] 09/04/2025 08:57:24 Pneumococcal conjugate PCV 13 7 completed Not Available [facility] 09/04/2025 08:57:24 Influenza, recombinant, trivalent, PF 5 completed Not Available [facility] 09/04/2025 08:57:24 Influenza, split virus, trivalent, preservative 9 completed Kellen rodriguez, [facility] 01/04/2020 10:44:27 Novel [id number], all formulations 0 completed Kellen rodriguez, [facility] 01/04/2020 10:44:27 Influenza, split virus, trivalent, preservative 0 completed Micheline Meyer michael, [facility] 10/27/2021 15:00:41 pneumococcal polysaccharide [id number] 9 completed Kellen rodriguez, [facility] 01/04/2020 10:44:27 Influenza, split virus, trivalent, preservative 1 completed Kellen rodriguez, [facility] 01/04/2020 10:44:27 Tdap 3 completed Kellen rodriguez, [facility] 01/04/2020 10:44:27 influenza, seasonal, intradermal, preservative free 3 completed NILAM Posey, [facility] 04/20/2022 10:55:19 influenza, seasonal, intradermal, preservative free 3 completed Kellenjesu Bruno michael, [facility] 01/04/2020 10:44:27 Influenza, split virus, quadrivalent, PF 2 completed NILAM Neri, [facility] 07/21/2022 10:46:12 Past Encounters Encounter ID Performer Location Encounter Start Date Encounter Closed Date Diagnosis/Indication Diagnosis SNOMED-CT Code Diagnosis ICD10 Code Diagnosis IMO Codes Diagnosis Note [id number] Tessy Larkin MD Main Office [address] [facility] [address] [place] [id number] 08/21/2025 09:06:30 08/21/2025 09:43:13 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 mellitus 254433715 E11.22 diet controlled HBA1C u7nofnet done 4.9ARB restarted. Aspirin EC 81 mg po qdaily - held for now due to high riskregula r feet exam advisedOph thalmology follows yearlyFoll ows renal.Lipi d profile done - on statin.Cou nselled about regular physical activityCo unselled on diet End stage renal failure on dialysis 794752479 N18.6 Z99.2 [id number] HD on T, TR, Sat Hypertensi ve renal disease 03799090 I12.9 Follows renal.Low sodium diet discussedC ounseled on medication adherence - She notes BP and renal always good as well as home readings.H ome bp cuff comparable to office.Cou nseled on diet/exerc iseAdvised to cont. to keep BP daily BP log and technique counseled. Red flags of HTN emergency discussed and when to go to ED.Cont. tx per renal. Osteoarthritis 882299701 E66.01 [id number] Tessy Larkin MD Main Office [address] [place] [id number] 09/04/2025 08:55:44 09/04/2025 10:06:47 Well woman health examination [id number] Z01.419 [id number] - Patient presenting for genital exam and [...] by Organization Details LastModified Time None Recorded Payers Encounter Date Sequence Insurance Name Policy Number Policy Alexander Covered Member ID Alexander Member ID Guarantor Name 09/04/2025 2 MEDICAID-[place]: [id number] Lauren Weaver [id number] Lauren Weaver 09/04/2025 1 [facility] (MEDICARE REPLACEMENT/ ADVANTAGE - HMO) [id number] Lauren Weaver [id number] Lauren Weaver Notes Date Note Type Note Provider Name and Address Organization Details Recorded Time 09/04/2025 text/html ROS as noted in the HPI Lauren [...] is reporting no genitourinary concerns today. Tessy Larkin MD [address] [facility] [address], [place], [address], [facility] 09/05/2025 16:13:47 OBGyn Episode No OBEpisode recorded.
--- OUTSIDE RECORDS SUMMARY | 2025-10-07 11:23 | XMS_ITS | Encounter Summary ---
Author Organization [facility], Address [address] [place] [address] Phone Care Team Providers Care Zumba Instructor Name Role Phone Lew Keys MD Primary Care Provider [phone] Encounter Details Date Type Department Care Team (Late st Contact Info) Description 06/01/2023 Documentation Only [facility], [address] [place] [address] Will Mccauley, [address] [facility] [place] [phone] Social History Tobacco Use Types Packs/Day Years [...] on filedocumented in this encounter Care Teams Zumba Instructor Relationship Specialty Start Date End Date Lew Keys MD [address] [facility] [address] [place], [place] PCP - General Internal Medicine 03/03/20 documented as of this encounter
--- OUTSIDE RECORDS SUMMARY | 2025-10-07 11:23 | XMS_ITS | Encounter Summary ---
Author Organization [facility], Address [address] [place] [address] Phone Care Team Providers Care Agronomy Supervisor Name Role Phone Lew Keys MD Primary Care Provider [phone] Encounter Details Date Type Department Care Team (Late st Contact Info) Description 01/25/2024 Documentation Only [facility], [address] [place] [address] Will Mccauley, [address] [place] [phone] Social History Tobacco Use Types Packs/Day Years [...] on filedocumented in this encounter Care Teams Agronomy Supervisor Relationship Specialty Start Date End Date Lew Keys MD [address] [facility] [address] [place], [place] PCP - General Internal Medicine 03/03/20 documented as of this encounter
--- OUTSIDE RECORDS SUMMARY | 2025-10-07 11:24 | XMS_ITS | Encounter Summary ---
Author Organization [facility], Address [address] [place] [address] Phone Care Team Providers Care Seat Coverer Name Role Phone Lew Keys MD Primary Care Provider [phone] Encounter Details Date Type Department Care Team (Late st Contact Info) Description 12/28/2024 Documentation Only [facility], [address] [place] [address] Will Mccauley, [address] [place] [phone] Social History Tobacco Use Types Packs/Day Years [...] on filedocumented in this encounter Care Teams Seat Coverer Relationship Specialty Start Date End Date Lew Keys MD [address] [facility] 207 [place], [place] PCP - General Internal Medicine 03/03/20 documented as of this encounter
--- OUTSIDE RECORDS SUMMARY | 2025-10-07 11:24 | XMS_ITS | Encounter Summary ---
Author Organization [facility] [place], Address [address] [place] [address] Phone Care Team Providers Care Food Preparer Name Role Phone Lew Keys MD Primary Care Provider [phone] Encounter Details Date Type Department Care Team (Late st Contact Info) Description 02/01/2025 Documentation Only [facility], [address] [place] [address] Will Mccauley, [address] [place] [phone] Social History Tobacco Use Types Packs/Day Years [...] on filedocumented in this encounter Care Teams Food Preparer Relationship Specialty Start Date End Date Lew Keys MD [address] [facility] 207 [place], [place] PCP - General Internal Medicine 03/03/20 documented as of this encounter
--- OUTSIDE RECORDS SUMMARY | 2025-10-07 11:24 | XMS_ITS | Encounter Summary ---
Author Organization [facility] [place], Address [address] [place] [address] Phone Care Team Providers Care Inside Sales Trainer Name Role Phone Lew Keys MD Primary Care Provider Encounter Details Date Type Department Care Team (Late st Contact Info) Description 02/08/2025 Documentation Only [facility], [address] [place] [address] Will Mccauley, [address] [place] [phone] Social History Tobacco Use Types Packs/Day Years [...] on filedocumented in this encounter Care Teams Inside Sales Trainer Relationship Specialty Start Date End Date Lew Keys MD [address] [facility] [address] [place], [place] PCP - General Internal Medicine 03/03/20 documented as of this encounter
--- OUTSIDE RECORDS SUMMARY | 2025-10-07 11:24 | XMS_ITS | Encounter Summary ---
Author Organization [facility], Address [address] [place] [address] Phone Care Team Providers Care Director Regulatory Compliance Name Role Phone Lew Keys MD Primary Care Provider [phone] Encounter Details Date Type Department Care Team (Late st Contact Info) Description 01/14/2025 Documentation Only [facility], [address] [place] [address] Amador [place]ne[place] [address] [place] [phone] Social History Tobacco Use Types Packs/Day Years [...] on filedocumented in this encounter Care Teams Director Regulatory Compliance Relationship Specialty Start Date End Date Lew Keys MD [address] [facility] 207 [place], [place] PCP - General Internal Medicine 03/03/20 documented as of this encounter
--- OUTSIDE RECORDS SUMMARY | 2025-10-07 11:24 | XMS_ITS | Encounter Summary ---
Author Organization [facility] Address [address] [place] [address] Phone Care Team Providers Care Diamond Merchant Name Role Phone Lew Keys MD Primary Care Provider [phone] Encounter Details Date Type Department Care Team (Late st Contact Info) Description 02/28/2025 Documentation Only [facility], [address] [place] [address] Lesley Ramirez Social History Tobacco [...] on filedocumented in this encounter Care Teams Diamond Merchant Relationship Specialty Start Date End Date Lew Keys MD [address] [place] [address] PCP - General Internal Medicine 03/03/20 documented as of this encounter
--- OUTSIDE RECORDS SUMMARY | 2025-10-07 11:24 | XMS_ITS | Encounter Summary ---
Author Organization [facility], Address [address] [place] [address] Phone Care Team Providers Care Manager Educational Name Role Phone Lew Keys MD Primary Care Provider [phone] Encounter Details Date Type Department Care Team (Late st Contact Info) Description 02/20/2025 Telephone [facility], [address] [place] [address] Lesley Ramirez Social History Tobacco [...] on filedocumented in this encounter Care Teams Manager Educational Relationship Specialty Start Date End Date Lew Keys MD [address] [place] [address] PCP - General Internal Medicine 03/03/20 documented as of this encounter
--- OUTSIDE RECORDS SUMMARY | 2025-10-07 11:24 | XMS_ITS | Encounter Summary ---
Author Organization [facility], Address [address] [place] [address] Phone Care Team Providers Care Mineralogy Professor Name Role Phone Lew Keys MD Primary Care Provider [phone] Encounter Details Date Type Department Care Team (Late st Contact Info) Description 12/13/2024 Documentation Only [facility], [address] [place] [address] Amador Cornejo [place] [address] [place] [phone] Social History Tobacco Use Types Packs/Day Years [...] on filedocumented in this encounter Care Teams Mineralogy Professor Relationship Specialty Start Date End Date Lew Keys MD [address] [facility] [place] 207 [place], [place] PCP - General Internal Medicine 03/03/20 documented as of this encounter
--- OUTSIDE RECORDS SUMMARY | 2025-10-07 11:24 | XMS_ITS | Encounter Summary ---
Author Organization [facility] [place], Address [address] [place] [address] Phone Care Team Providers Care Telemarketing Manager Name Role Phone Lew Keys MD Primary Care Provider [phone] Encounter Details Date Type Department Care Team (Late st Contact Info) Description 01/09/2025 Documentation Only [facility], [address] [place] [place] [address] Will Mccauley, [address] [place] [phone] Social History Tobacco Use Types Packs/Day Years [...] on filedocumented in this encounter Care Teams Telemarketing Manager Relationship Specialty Start Date End Date Lew Keys MD [address] [facility] [address] [place], [place] PCP - General Internal Medicine 03/03/20 documented as of this encounter
--- OUTSIDE RECORDS SUMMARY | 2025-10-07 11:24 | XMS_ITS | Encounter Summary ---
Author Organization [facility] [place], Address [address] [place] [address] Phone Care Team Providers Care Junior Staff Accountant Name Role Phone Lew Keys MD Primary Care Provider [phone] Encounter Details Date Type Department Care Team (Late st Contact Info) Description 02/04/2025 Documentation Only [facility], [address] [place] [address] Will Mccauley, [address] [facility] [place] [phone] Social History Tobacco Use Types Packs/Day Years [...] on filedocumented in this encounter Care Teams Junior Staff Accountant Relationship Specialty Start Date End Date Lew Keys MD [address] [facility] 207 [place], [place] PCP - General Internal Medicine 03/03/20 documented as of this encounter
--- OUTSIDE RECORDS SUMMARY | 2025-10-07 11:24 | XMS_ITS | Encounter Summary ---
Author Organization [facility] [place], Address [address] [place] [address] Phone Care Team Providers Care Administrative Hearing Officer Name Role Phone Lew Keys MD Primary Care Provider [phone] Encounter Details Date Type Department Care Team (Late st Contact Info) Description 12/10/2024 Documentation Only [facility], [address] [place] [address] Will Mccauley, [address] [place] [phone] Social History Tobacco Use Types Packs/Day Years [...] on filedocumented in this encounter Care Teams Administrative Hearing Officer Relationship Specialty Start Date End Date Lew Keys MD [address] [facility] [address] [place], [place] PCP - General Internal Medicine 03/03/20 documented as of this encounter
--- OUTSIDE RECORDS SUMMARY | 2025-10-07 11:24 | XMS_ITS | Encounter Summary ---
Author Organization [facility] [place], Address [address] [place] [address] Phone Care Team Providers Care Semiconductor Packages Sealer Name Role Phone Lew Keys MD Primary Care Provider [phone] Encounter Details Date Type Department Care Team (Late st Contact Info) Description 02/07/2025 Documentation Only [facility], [address] [place] [address] Will Mccauley, [address] [place] [phone] Social History Tobacco Use Types Packs/Day Years [...] on filedocumented in this encounter Care Teams Semiconductor Packages Sealer Relationship Specialty Start Date End Date Lew Keys MD [address] [facility] 207 [place], [place] PCP - General Internal Medicine 03/03/20 documented as of this encounter
--- OUTSIDE RECORDS SUMMARY | 2025-10-07 11:24 | XMS_ITS | Continuity of Care Document ---
Author Organization [place], Main Office Address [address] [place] [address] Care Team Providers Care Livestock Nutritionist Name Role Phone ARPIT DEL VALLE Gathering Machine Feeder BEVERLEY PEREZ Orthopedic Surgeon [phone] JANAE UGARTE Pain Management RHODA PERSON Cisco Administrator JANAE MARTINEZ Rotor Casting Machine Operator CARLOTA GRANGER Desizing Machine Operator Head End RADHA WILLIS Orthopedic Surgeon DARSHANA WILSON Thoracic Surgeon BON MIRANDA Airline Attendant BERHANE FINN Cellophane Worker TESSY LARKIN Primary Care Provider [phone] ERIN TSANG Desizing Machine Operator Head End [phone] MARII LINTON Laundry Presser [phone] Assessment No assessment recorded. Plan of Treatment Reminders Order Date Submit Date Provider Last Modified By Organization Details Last Modified Time Details Appointments [id number] 2025 09:00A M Tessy Larkin MD Not available Not available Not available Lab hemoglobi n A1C, fingersti ck 2024 Enrike andrews In-Office Order, Internal Use Only DO Not Attach Compendium DO Not Attach Compendium, Do Not Delete/merge, [id number] 08/21/2025 09:34:31 Referral None recorded. Procedures None recorded. Surgeries None recorded. Imaging None recorded. Medication Orders capsaicin 0.1 % topical cream 10/15/ 2025 10/15/2 025 [facility][id number], [address] [place], [address], 08/21/2025 09:34:34 Patient TargetsNo targets recorded. Patient InstructionsNo instructions recorded. Reason for Referral None Reported. Results Created Date Observation Date Name Description Value Unit Range Abnormal Flag Note LastModifiedBy Organization Detail LastModifiedTime 08/14/2008/14/2025 LIPID PANEL cholesterol, total 186 mg/dL 100-19 9 normal Not Available [facility] ([facility]) [address] [place], [address], 08/19/2025 06:05:41 08/14/2008/14/2025 LIPID PANEL triglyceride s 42 mg/dL 0-149 normal Not Available [facility] ([facility]) [address] [place], [address], 08/19/2025 06:05:41 08/14/2008/14/2025 LIPID PANEL HDL cholesterol 99 mg/dL >39 normal Not Available [facility] ([facility]) [address] [place], [address], 08/19/2025 06:05:41 08/14/2008/14/2025 LIPID PANEL VLDL cholesterol lesia 9 mg/dL 5-40 Not Available [facility] ([facility]) [address] [place], [address], 08/19/2025 06:05:41 08/14/2008/14/2025 LIPID PANEL LDL chol calc ([facility]) 78 mg/dL 0-99 Not Available [facility] ([facility]) [address] [place], [address], 08/19/2025 06:05:41 08/14/2008/14/2025 LIPID PANEL LDL calc comment: VOIP NETWORK TECHNICIAN Not Available [facility] ([facility]) [address] [place], [address], 08/19/2025 06:05:41 08/14/2008/14/2025 ALK PHOS ISOEN ZYME alkaline phosphatase 96 IU/L 49-135 normal Not Available [facility] ([facility]) [address] [place], [address], 08/19/2025 06:05:42 08/14/2008/19/2025 ALK PHOS ISOEN ZYME liver fraction: 19 % 18-85 Not Available [facility] ([facility]) [address] [place], [address], 08/19/2025 06:05:42 08/14/2008/19/2025 ALK PHOS ISOEN ZYME bone fraction: 67 % 14-68 Not Available [facility] ([facility]) [address] [place], [address], 08/19/2025 06:05:42 08/14/2008/19/2025 ALK PHOS ISOEN ZYME intestinal frac.: 14 % 0-18 Not Available [facility] ([facility]) [address] [place], [address], 08/19/2025 06:05:42 08/14/20 25 08/14/2025 ALT+A ST AST (SGOT) 12 IU/L 0-40 normal Not Available [facility] ([facility]) [address] [place], [address], 08/19/2025 06:05:42 08/14/2008/14/2025 ALT+A ST ALT (SGPT) 9 IU/L 0-32 normal Not Available [facility] ([facility]) [address] [place], [address], 08/19/2025 06:05:42 08/14/20 25 08/15/2025 MITOC HONDR IAL (M2) ANTIB HERIBERTO mitochondria l (M2) antibody <20.0 units 0.0-20 .0 Negat isaias 0.0 - 20.0 Equiv ocal 20.1 - 24.9 Posit isaias >24.9 Mitoc hondr ial (M2) Antib odies are found in 90-96 % of patie nts with prima ry bilia ry cirrh osis. Not Available [facility] ([facility]) [address] [facility], [place], [address], 08/19/2025 06:05:42 08/14/20 25 08/15/2025 GGT WITH REFLE X AMYLA SE/LI PASE GGT 13 IU/L 0-60 normal Not Available [facility] ([facility]) [address] [facility], [place], [address], 08/19/2025 06:05:43 08/21/20 25 08/21/2025 hemog lobin A1C, finge rstic k A1C 4.9 % 4-6 normal Not Available In-Office Order Internal Use Only DO Not Attach Compendium DO Not Attach Compendium, Do Not Delete/merge, [id number] 08/20/2025 17:53:43 07/31/2007/31/2025 mg mammo digit al scree theresa W lachelle bilat See Note [facility] , a member of [facility] Name: DEBBIE WEAVER Date of : 1949 Reason for Exam: Exam Date: 2024 [id number] EST Report Status : Final Orderi ng Provid er: SELF REFERR AL SPPL PCP: [facility]: 75 years old, Female , [...] ns. Postbi opsy marker clip in the analytical statistician ior medial right breast . No suspic [...] ended in 1 year. Mammo Locati on: [place] , [address] [place] [address] [place], [id number], . ------ -- FINAL REPORT ------ -- Dictat ed By: Ad Cronin Dictat ed Date: 2024 11:14 ET Assign ed Physic patsy: Ad Cronin Review ed and Electr onical ly Signed By: Ad Cronin Signed Date: 2024 11:25 ET Workst ation ID: [id number] Transc ribed By: Self Edit Transc ribed Date: 2024 11:14 [facility] [address] [place], [address], 08/29/2025 11:39:48 08/13/20 25 colon oscop y scree theresa (PROC ) No observ ation record ed. [facility] [address] [place], [address], 08/13/2025 15:49:19 Result Notes None recorded. Problems Name Problem SNOMED Code Status Onset Date Resolution Date Notes Provider Name and Address Organization Details Recorded Time Anemia of chronic disease 123374921 Active NILAM Stewart, [place] [facility] 2 10:55:19 Chronic renal impairme nt Completed 03/29/2020 Lew Keys MD [address] [facility] [address], [facility] [place], [address], [facility] 0 08:33:28 Chronic pain syndrome 698826018 Active NILAM Stewart, [place] 2 10:55:19 Type 2 diabetes mellitus without complica tion 141891178 Completed 02/13/2018 Lew Keys MD [address], [place], [address], [facility] 8 15:44:03 Injury of ulnar nerve 38340023 Completed 11/23/2023 Tessy Larkin MD [address], [place], [address], [facility] 4 14:05:13 Iridocyc litis 00541660 [facility] 10[facility]19 Asthma 288471348 Active NILAM Stewart, [place] 2 10:55:18 Prematur e beats 17998291 [facility] 2 10:55[facility]18 Rheumato id arthriti s 04518410 [facility] 2 10:55:19 Vitamin D deficien cy 36204486 [facility] 0 10:44:31 Degenera tion of lumbosac ral interver tebral disc 28803549 Active NILAM Stewart, [place] 2 10:55:19 Spinal stenosis of lumbar region 71645218 Active with slippage ; L3-L4; Dx: M48.06 NILAM Stewart, [place] [facility] 2 10:55:18 Degenera tion of lumbar interver tebral disc 57052715 Active NILAM Stewart, [place] [facility] 2 10:55:18 Lumbosac ral radiculi tis 14212481 Active NILAM Stewart, [place] [facility] 2 10:55:18 Arthriti s of hip 70819722 Active NILAM Stewart, [place] [facility] 2 10:55:19 Edema 871975003 Completed 11/23/2023 Tessy Larkin MD [address], [facility] [place], [address], [facility] 4 14:04:47 Otitis media 51649143 Completed 09/21/2016 NILAM Stewart, [place] [facility] 6 11:09:43 Inflamma tion of rotator cuff tendon 812064406 Active NILAM Stewart, [place] [facility] 2 10:55:19 Sinusiti s 05021026 Completed 09/21/2016 NILAM Stewart, [facility] 6 11:09:25 Acute sinusiti s 29960125 Completed 08/18/2016 Lew Keys MD [address], [facility] [place], [address], [facility] 6 16:48:06 Allergic rhinitis 27385532 Active NILAM Stewart, [place] [facility] 2 10:55:19 Hyperlip idemia 65257422 Active Kellen rodriguez, [place] [facility] 0 10:44:31 Ankle pain 220121759 Completed 09/21/2016 NILAM Stewart, [place] [facility] 6 11:09:09 Menopaus e present 533776713 Completed 11/23/2023 Tessy Larkin MD [address], [place], [address], [facility] 4 14:05:32 Low back pain 949828025 Active NILAM Stewart, [place] [facility] 2 10:55:18 Pulmonar y embolism 78815083 Completed 11/23/2023 Tessy Larkin MD [address], [place], [address], [facility] 4 08:49:09 Contusio n of face 100235397 Completed 08/18/2016 Lew Keys MD [address], [place], [address], [facility] 6 16:48:02 Pain of hip region 21971582 Completed 09/21/2016 NILAM Stewart, [place] [facility] 6 11:09:37 Shoulder joint pain 736900898 Active NILAM Stewart, [place] [facility] 2 10:55:18 Strain of trapeziu s muscle 782115093 Completed 09/21/2016 NILAM Stewart, [place] [facility] 6 11:09:30 Edema of lower extremit y 682074932 Active NILAM Stewart, [place] [facility] 2 10:55:18 Chronic kidney disease stage 2 292881232 Completed 01/07/2020 Lew Keys MD [address], [place], [address], [facility] 0 11:14:09 Screenin g for malignan t neoplasm of colon Completed 200805/21/2014 RECORDED 01/24/20 09 2:15PM BY KARO GARCIA MA, ANNOTATI ON/ADDEN DUM Karo conti MA null, [place] [facility] 1 09:02:48 Screenin g for malignan t neoplasm of colon Completed 200806/13/2014 RECORDED 01/24/20 09 2:15PM BY KARO GARCIA MA, ANNOTATI ON/ADDEN DUM Karo conti MA null, [facility] 1 09:02:48 Screenin g for malignan t neoplasm of colon Completed 200806/14/2014 RECORDED 01/24/20 09 2:15PM BY KARO GARCIA MA, ANNOTATI ON/ADDEN DUM Karo conti MA null, [facility] 1 09:02:48 Chest pain 12098330 Completed 200805/21/2014 RECORDED 05/26/20 09 11:12AM BY KARO GARCIA MA, ANNOTATI ON/ADDEN DUM Lani Jvoany PA-C [address], [place], [address], [facility] 6 16:00:49 Chest pain 27663656 Completed 200806/13/2014 RECORDED 05/26/20 09 11:12AM BY KARO GARCIA MA, ANNOTATI ON/ADDEN DUM Lani Jovany PA-C [address], [place], [address], [facility] 6 16:00:49 Chest pain 44095295 Completed 200806/14/2014 RECORDED 05/26/20 09 11:12AM BY KARO GARCIA MA, ANNOTATI ON/ADDEN DUM Lani Manzo PA-C [address], [place], [address], [facility] 6 16:00:49 Edema 045844335 Completed 200905/21/2014 IMPRESSI ON: LOWER EXTREMIT IES; RECORDED 01/22/20 10 11:19AM BY ZAIDA DELATORRE/HARDEEP Larkin MD [address], [place], [address], [facility] 4 14:04:47 Iron deficien cy anemia 07771091 Completed 200905/21/2014 RECORDED 01/22/20 10 11:19AM BY ZAIDA DELATORRE ON/HARDEEP MAYERSC [address], [place], [address], [facility] 6 16:00:48 Edema 436206745 Completed 200906/13/2014 IMPRESSI ON: LOWER EXTREMIT IES; RECORDED 01/22/20 10 11:19AM BY ZAIDA DELATORRE/HARDEEP Larkin MD [address], [place], [address], [facility] 4 14:04:47 Iron deficien cy anemia 81545905 Completed 200906/13/2014 RECORDED 01/22/20 10 11:19AM BY ZAIDA DELATORRE/HARDEEP Manzo PA-C [address], [place], [address], [facility] 6 16:00:48 Edema 423106618 Completed 200906/14/2014 IMPRESSI ON: LOWER EXTREMIT IES; RECORDED 01/22/20 10 11:19AM BY ZAIDA DELATORRE/HARDEEP Larkin MD [address], [place], [address], [facility] 4 14:04:47 Iron deficien cy anemia 31216442 Completed 200906/14/2014 RECORDED 01/22/20 10 11:19AM BY CASA DELATORREATI ON/ADDEN DUM Lani Manzo PA-C [address], [place], [address], [facility] 6 16:00:48 Essentia l hyperten elicia 72261515 Completed 201005/21/2014 RECORDED 06/14/20 11 2:04PM BY KARO GARCIA MA, CASAATI ON/ADDEN DUM Rajani Hutton [facility] 2 11:46:33 Type 2 diabetes mellitus without complica tion 973653128 Completed 201005/21/2014 RECORDED 07/26/20 11 11:14AM BY KARO GARCIA MA, ANNOTATI ON/ADDEN DUM Lew Keys MD [address], [place], [address], [facility] 8 15:44:03 Acute secretor y otitis media 226446665 Completed 201105/21/2014 RECORDED 06/20/20 12 3:49PM BY ZAIDA HA ON/ADDEN DUM Lani Manzo PA-C [address] [facility] [address], [place], [address], [facility] 6 16:00:48 Adult health examinat ion Completed 201105/21/2014 RECORDED 06/20/20 12 3:49PM BY ZAIDA HA ON/ADDEN DUM Lani Manzo PA-C [address], [place], [address], [facility] 6 16:00:49 Acute secretor y otitis media 944562438 Completed 201106/13/2014 RECORDED 06/20/20 12 3:49PM BY ZAIDA HA ON/ADDEN DUM Lani Manzo PA-C [address], [place], [address], [facility] 6 16:00:48 Adult health examinat ion Completed 201106/13/2014 RECORDED 06/20/20 12 3:49PM BY ZAIDA HA ON/ADDEN DUM Lani Manzo PA-C [address], [place], [address], [facility] 6 16:00:49 Acute secretor y otitis media 255821199 Completed 201106/14/2014 RECORDED 06/20/20 12 3:49PM BY ZAIDA HA ON/ADDEN DUM Lani Manzo PA-C [address], [place], [address], [facility] 6 16:00:48 Adult health examinat ion Completed 201106/14/2014 RECORDED 06/20/20 12 3:49PM BY ZAIDA HA ON/ADDEN DUM Lani Manzo PA-C [address], [place], [address], [facility] 6 16:00:49 Screenin g for malignan t neoplasm of cervix Completed 201105/21/2014 RECORDED 10/11/20 12 10:52AM BY KARO GARCIA MA, ZAIDA ON/ADDEN DUM Lani Manzo PA-C [address], [place], [address], [facility] 6 16:00:49 Pruritic disorder 158566108 Completed 201105/21/2014 RECORDED 10/11/20 12 10:52AM BY KARO GARCIA MA, ZAIDA ON/ADDEN DUM Lani Manzo PA-C [address], [place], [address], [facility] 6 16:00:48 Red eye Completed 201105/21/2014 STORY: RED, PAINFUL EYES. HISTORY OF RHEUMATO ID ARTHRITI S.; RECORDED 10/11/20 12 10:52AM BY KARO GARCIA MA, ANNOTATI ON/ADDEN DUM Lani Manzo PA-C [address], [place], [address], [facility] 6 16:00:49 Screenin g for malignan t neoplasm of cervix Completed 201106/13/2014 RECORDED 10/11/20 12 10:52AM BY KARO GARCIA MA, ANNOTATI ON/ADDEN DUM Lani Manzo PA-C [address], [place], [address], [facility] 6 16:00:49 Pruritic disorder 874081997 Completed 201106/13/2014 RECORDED 10/11/20 12 10:52AM BY KARO GARCIA MA, ANNOTATI ON/ADDEN DUM Lani Manzo PA-C [address], [place], [address], [facility] 6 16:00:48 Red eye Completed 201106/13/2014 STORY: RED, PAINFUL EYES. HISTORY OF RHEUMATO ID ARTHRITI S.; RECORDED 10/11/20 12 10:52AM BY KARO GARCIA MA, ZAIDA ON/ADDEN DUM Lani Manzo PA-C [address], [place], [address], [facility] 6 16:00:49 Screenin g for malignan t neoplasm of cervix Completed 201106/14/2014 RECORDED 10/11/20 12 10:52AM BY KARO GARCIA MA, ANNOTTENNILLE ON/ADDEN DUM Lani Manzo PA-C [address], [place], [address], [facility] 6 16:00:49 Pruritic disorder 072107230 Completed 201106/14/2014 RECORDED 10/11/20 12 10:52AM BY KARO GARCIA MA, ZAIDA ON/ADDEN DUM Laniraquel ESCALERA-C [address], [place], [address], [facility] 6 16:00:48 Red eye Completed 201106/14/2014 STORY: RED, PAINFUL EYES. HISTORY OF RHEUMATO ID ARTHRITI S.; RECORDED 10/11/20 12 10:52AM BY KARO GARCIA MA, ZAIDA ON/ADDEN DUM Laniraquel ESCALERA-C [address], [place], [address], [facility] 6 16:00:49 Renewal of prescrip tion Completed 201205/21/2014 RECORDED 01/11/20 13 10:30AM BY KARO GARCIA MA, ZAIDA ON/ADDEN DUM Lani Jovany ESCALERA-C [address], [place], [address], [facility] 6 16:00:49 Renewal of prescrip tion Completed 201206/13/2014 RECORDED 01/11/20 13 10:30AM BY KARO GARCIA MA, ZAIDA ON/ADDEN DUM Lani Jovany ESCALERA-C [address], [place], [address], [facility] 6 16:00:49 Renewal of prescrip tion Completed 201206/14/2014 RECORDED 01/11/20 13 10:30AM BY KARO GARCIA MA, ZAIDA ON/ADDEN DUM Lani Jovany ESCALERA-C [address], [place], [address], [facility] 6 16:00:49 Acute bronchit is 39232427 Completed 201205/21/2014 RECORDED 02/02/20 13 2:23PM BY KARO GARCIA MA, ANNOTATI ON/ADDEN DUM Lani Manzo PA-C [address], [place], [address], [facility] 6 16:00:48 Cough 39662644 Completed 201205/21/2014 RECORDED 02/02/20 13 2:24PM BY KARO GARCIA MA, ANNOTATI ON/ADDEN DUM Lani Manzo PA-C [address], [place], [address], [facility] 6 16:00:49 Influenz a vaccine needed [id number] 06 Completed 201205/21/2014 RECORDED 02/02/20 13 2:23PM BY KARO GARCIA MA, ANNOTATI ON/ADDEN DUM Lani Manzo PA-C [address], [place], [address], [facility] 6 16:00:49 Administ ration of diphther ia and tetanus vaccine Completed 201205/21/2014 RECORDED 02/02/20 13 2:23PM BY KARO GARCIA MA, ZAIDA ON/ADDEN DUM Lani Manzo PA-C [address], [place], [address], [facility] 6 16:00:49 Acute bronchit is 49790280 Completed 201206/13/2014 RECORDED 02/02/20 13 2:23PM BY KARO GARCIA MA, ANNOTATI ON/ADDEN DUM Lani Manzo PA-C [address], [place], [address], [facility] 6 16:00:48 Cough 47157155 Completed 201206/13/2014 RECORDED 02/02/20 13 2:24PM BY KARO GARCIA MA, ZAIDA ON/ADDEN DUM Lani Manzo PA-C [address], [place], [address], [facility] 6 16:00:49 Influenz a vaccine needed [id number] 06 Completed 201206/13/2014 RECORDED 02/02/20 13 2:23PM BY KARO GARCIA MA, ZAIDA ON/ADDEN DUM Laniraquel Manzo PA-C [address], [place], [address], [facility] 6 16:00:49 Administ ration of diphther ia and tetanus vaccine Completed 201206/13/2014 RECORDED 02/02/20 13 2:23PM BY KARO GARCIA MA, ZAIDA ON/ADDEN DUM Lani Manzo PA-C [address], [place], [address], [facility] 6 16:00:49 Acute bronchit is 17254533 Completed 201206/14/2014 RECORDED 02/02/20 13 2:23PM BY KARO GARCIA MA, ZAIDA ON/ADDEN DUM Lani Manzo PA-C [address], [place], [address], [facility] 6 16:00:48 Cough 37691356 Completed 201206/14/2014 RECORDED 02/02/20 13 2:24PM BY KARO GARCIA MA, ZAIDA ON/ADDEN DUM Lani Manzo PA-C [address], [place], [address], [facility] 6 16:00:49 Influenz a vaccine needed [id number] 06 Completed 201206/14/2014 RECORDED 02/02/20 13 2:23PM BY KARO GARCIA MA, ANNOTATI ON/ADDEN DUM Lani Manzo PA-C [address], [place], [address], [facility] 6 16:00:49 Administ ration of diphther ia and tetanus vaccine Completed 201206/14/2014 RECORDED 02/02/20 13 2:23PM BY KARO GARCIA MA, ANNOTATI ON/ADDEN DUM Lani Manzo PA-C [address], [place], [address], [facility] 6 16:00:49 Screenin g for malignan t neoplasm of breast Completed 201205/21/2014 RECORDED 05/07/20 13 10:37AM BY KARO GARCIA MA, ANNOTATI ON/ADDEN DUM Lani Manzo PA-C [address], [place], [address], [facility] 6 16:00:49 Screenin g for malignan t neoplasm of breast Completed 201206/13/2014 RECORDED 05/07/20 13 10:37AM BY KARO GARCIA MA, ZAIDA ON/ADDEN DUM Lani Jovany PA-C [address], [place], [address], [facility] 6 16:00:49 Screenin g for malignan t neoplasm of breast Completed 201206/14/2014 RECORDED 05/07/20 13 10:37AM BY KARO GARCIA MA, ANNOTATI ON/ADDEN DUM Lani Manzo PA-C [address], [place], [address], [facility] 6 16:00:49 Acute sinusiti s 21224231 Completed 201305/21/2014 RECORDED 01/22/20 14 12:39PM BY KARO GARCIA MA, ANNOTATI ON/ADDEN DUM Lew Keys MD [address], [place], [address], [facility] 6 16:48:06 Follow-u p encounte r Completed 201305/21/2014 RECORDED 01/22/20 14 12:39PM BY KARO GARCIA MA, ANNOTATI ON/ADDEN DUM Lani Mnazo PA-C [address], [place], [address], [facility] 6 16:00:49 Contusio n of face, scalp and neck, excludin g eye(s) Completed 201305/21/2014 RECORDED 01/22/20 14 12:39PM BY KARO GARCIA MA, ANNOTATI ON/ADDEN DUM Lani Jovany PA-C [address], [place], [address], [facility] 6 16:00:49 Accident al fall Completed 201305/21/2014 RECORDED 01/22/20 14 12:39PM BY KARO GARCIA MA, ZAIDA ON/ADDEN DUM Lani Manzo PA-C [address], [place], [address], [facility] 6 16:00:49 Acute sinusiti s 94608312 Completed 201306/13/2014 RECORDED 01/22/20 14 12:39PM BY KARO GARCIA MA, ANNOTATI ON/ADDEN DUM Lew Keys MD [address], [place], [address], [facility] 6 16:48:06 Follow-u p encounte r Completed 201306/13/2014 RECORDED 01/22/20 14 12:39PM BY KARO GARCIA MA, ANNOTATI ON/ADDEN DUM Lani Jovany ESCALERA-C [address], [place], [address], [facility] 6 16:00:49 Contusio n of face, scalp and neck, excludin g eye(s) Completed 201306/13/2014 RECORDED 01/22/20 14 12:39PM BY KARO GARCIA MA, ANNOTATI ON/ADDEN DUM Lani Jovany ESCALERA-C [address], [place], [address], [facility] 6 16:00:49 Accident al fall Completed 201306/13/2014 RECORDED 01/22/20 14 12:39PM BY KARO GARCIA MA, ANNOTATI ON/ADDEN DUM Lani Jovany ESCALERA-C [address], [place], [address], [facility] 6 16:00:49 Acute sinusiti s 19359667 Completed 201306/14/2014 RECORDED 01/22/20 14 12:39PM BY KARO GARCIA MA, ANNOTATI ON/ADDEN DUM Lew Keys MD [address], [place], [address], [facility] 6 16:48:06 Follow-u p encounte r Completed 201306/14/2014 RECORDED 01/22/20 14 12:39PM BY KARO GARCIA MA, ANNOTATI ON/ADDEN DUM Lani Jovany ESCALERA-C [address], [place], [address], [facility] 6 16:00:49 Contusio n of face, scalp and neck, excludin g eye(s) Completed 201306/14/2014 RECORDED 01/22/20 14 12:39PM BY KARO GARCIA MA, ANNOTATI ON/ADDEN DUM Lani Jovany PA-C [address], [place], [address], [facility] 6 16:00:49 Accident al fall Completed 201306/14/2014 RECORDED 01/22/20 14 12:39PM BY KARO GARCIA MA, ANNOTATI ON/ADDEN DUM Lani Jovany PA-C [address], [place], [address], [facility] 6 16:00:49 Laborato ry procedur e performe d [id number] Completed 201305/21/2014 RECORDED 03/27/20 14 9:46AM BY ALISSON PEREZ MA, ANNOTATI ON/ADDEN DUM Lani Jovany ESCALERA-C [address], [place], [address], [facility] 6 16:00:49 Pre-surg joe evaluati on Completed 201306/04/2014 STORY: LEFT TKA. DR. CARROLL 0.; RECORDED 03/27/20 14 9:49AM BY ALISSON PEREZ MA, REVIEW Lani ESCALERA-C [address], [place], [address], [facility] 6 16:00:49 Laborato ry procedur e performe d 563217176 Completed 201306/13/2014 RECORDED 03/27/20 14 9:46AM BY ALISSON PEREZ MA, ANNOTATI ON/ADDEN DUM Lani Jovany ESCALERA-C [address], [place], [address], [facility] 6 16:00:49 Laborato ry procedur e performe d [id number] Completed 201306/14/2014 RECORDED 03/27/20 14 9:46AM BY ALISSON PEREZ MA, ANNOTATI ON/ADDEN DUM Lani Manzo PA-C [address], [place], [address], [facility] 6 16:00:49 Dyspnea [id number] Completed 201306/13/2014 RECORDED 04/27/20 14 8:50AM BY ALISSON PEREZ MA, ANNOTATI ON/ADDEN DUM Lani Manzo PA-C [address], [place], [address], [facility] 6 16:00:49 Dyspnea [id number] Completed 201306/14/2014 RECORDED 04/27/20 14 8:50AM BY ALISSON PEREZ MA, ANNOTATI ON/ADDEN DUM Lani Manzo PA-C [address], [place], [address], [facility] 6 16:00:49 Obesity Completed 201308/06/2014 RECORDED 05/03/20 14 9:36AM BY ALISSON PEREZ MA, OFFICE VISIT Lani Manzo PA-C [address], [place], [address], [facility] 6 16:00:49 Vomiting [id number] Completed 201306/13/2014 RECORDED 05/03/20 14 9:35AM BY ALISSON PEREZ MA, ANNOTATI ON/ADDEN DUM Lani Manzo PA-C [address], [place], [address], [facility] 6 16:00:49 Vomiting [id number] Completed 201306/14/2014 RECORDED 05/03/20 14 9:35AM BY ALISSON PEREZ MA, ANNOTATI ON/ADDEN DUM Lani Manzo PA-C [address], [place], [address], [facility] 6 16:00:49 Gout 93154508 Active 2016 NILAM Stewart, [place] 2 10:55:19 Hypokale guillermo [id number] Completed 201811/23/2023 Tessy Larkin MD [address], [place], [address], [facility] 4 14:04:37 Screenin g for malignan t neoplasm of colon Completed 201811/27/2020 NILAM Stewart, [place] 1 09:02:48 Contusio n of chest 22102569 Completed 201811/27/2020 NILAM Stewart, [place] 1 09:02:28 Chronic kidney disease stage 3A 029624533 Completed 202007/20/2022 Tessy Larkin MD [address], [place], [address], [facility] 2 08:02:30 Drug-ind uced hypokale guillermo 735667327 Completed 202011/23/2023 Tessy Larkin MD [address], [place], [address], [facility] 4 14:04:42 Pain of left hand [id number] 9103 Active 2020 NILAM Stewart, [place] 2 10:55:19 Pain in left knee Active 2020 NILAM Stewart, [place] 2 10:55:19 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 mellitus 415953930 Active 2021 Karo conti MA null, [place] 2 10:55:19 Hyperten elicia monitori ng status 571384629 Active 2021 disenrol led Tina Lucio null, [place] 2 13:37:05 Migraine 92391499 Completed 202211/23/2023 Tessy Larkin MD [address], [place], [address], [facility] 4 14:05:47 Lumbar radiculo zenaida 086590223 Active 2022 Eunice Gibson [facility] [address], [place], [address], [facility] 3 15:05:30 Peripher al venous insuffic iency 11691435 Active 2022 Alfredo Cheng MD [address], [place], [address], [facility] 3 16:20:35 History of pulmonar y embolus 028779243 Active 2023 Unprovok ed PE. Dec 2015. Tessy Larkin MD [address], [place], [address], [facility] 4 08:49:16 Heart failure with normal ejection fraction 836736958 Active 2023 Tessy Larkin MD [address], [place], [address], [facility] 4 08:53:17 Body mass index 30+ - obesity 955750603 Active 2023 Tessy Larkin MD [address], [place], [address], [facility] 4 14:12:25 Morbid obesity 168404487 Active 2023 Tessy Larkin MD [address] [address], [place], [address], [facility] 4 14:12:26 Generali zed osteoart hritis 668054717 Active 2023 ABDULLAHI Greer, [place] 4 14:01:29 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 619478267 Active 2023 Monica Griffith LPN null, [place] 4 14:01:29 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 Please review these documents and add these problems to the patient's chart manually as needed. Problem Notes None recorded. Procedures Surgical History Date Name Laterality Status Provider Name and Address Organization Details Recorded Time 03/20/20 25 Diabetic Foot Exam (Monofilament) completed Tessy Larkin MD [address], [address], [facility] 03/19/2025 08:22:47 12/21/19 25 Advanced Care Planning completed Tessy Larkin MD [address], [address], [facility] 12/20/2024 16:13:06 11/23/19 24 Advanced Care Planning completed Tessy Larkin MD [address], [address], [facility] 11/23/2023 08:42:44 11/23/19 24 Diabetic Foot Exam (Monofilament) completed Tessy Larkin MD [address], [address], [facility] 11/23/2023 14:10:26 07/21/20 22 Diabetic Foot Exam (Monofilament) completed Tessy Larkin MD [address], [address], [facility] 07/21/2022 10:41:17 04/20/20 22 Diabetic Foot Exam (Monofilament) completed Tessy Larkin MD [address], [address], [facility] 04/19/2022 08:53:45 10/06/20 21 Advanced Care Planning completed Tessy Larkin MD [address], [address], [facility] 10/06/2021 08:16:58 10/06/20 21 Diabetic Foot Exam (Monofilament) completed Tessy Larkin MD [address], [address], [facility] 10/06/2021 11:21:43 05/29/20 21 Chronic Pain Assessment completed Lety Irizarry MA [place] 05/29/2021 08:52:53 04/03/20 21 Chronic Pain Assessment completed Kandy Cox MA [place] 04/03/2021 10:08:41 01/02/20 21 Chronic Pain Assessment completed Lety Irizarry MA [place] 01/02/2021 09:58:36 12/19/19 21 Chronic Pain Assessment completed Kandy Cox MA [place] 12/19/2020 13:52:28 09/29/20 20 Chronic Pain Assessment completed Karo tamayo MA [place] 09/29/2020 11:25:59 09/29/20 20 Six-Item Cognitive Test completed Karo tamayo MA [place] 09/29/2020 11:24:55 07/25/20 20 Chronic Pain Assessment completed Lindsay Garsia MA [place] 07/25/2020 13:52:55 03/29/20 20 Chronic Pain Assessment completed Karo tamayo MA [place] 03/29/2020 08:17:52 01/07/20 20 Chronic Pain Assessment completed Karo tamayo MA [place] 01/07/2020 10:28:24 09/15/20 19 Chronic Pain Assessment completed Russell Allison [place] 09/15/2019 11:12:36 09/15/20 19 Diabetic Foot Exam (Monofilament) completed Russell Allison [place] 09/15/2019 10:54:17 07/30/20 19 Mini-Cog Test completed Tierra Milian [place] 07/30/2019 11:38:11 03/19/20 19 Chronic Pain Assessment completed Karo tamayo MA [place] 03/19/2019 11:37:02 12/29/19 19 Diabetic Foot Exam (Monofilament) completed Karo tamayo MA [place] 12/29/2018 14:24:50 11/21/19 19 Most Recent Mammogram completed Kellen Bruno [place] 11/21/2018 14:38:35 11/21/19 19 Mammogram screening completed Honey Jang [place] 01/20/2022 18:43:01 10/14/20 18 Chronic Pain Assessment completed Karo tamayo MA [place] 10/14/2018 10:46:56 10/14/20 18 Diabetic Foot Exam (Monofilament) completed Karo tamayo MA [place] 10/14/2018 10:35:19 07/29/20 18 Chronic Pain Assessment completed Karo tamayo MA [place] 07/29/2018 09:58:59 04/17/20 18 Mini-Cog Test completed Karo tamayo MA [place] 04/17/2018 14:07:29 02/14/20 18 Chronic Pain Assessment completed Karo tamayo MA [place] 02/13/2018 15:20:41 11/02/20 17 Chronic Pain Assessment completed Karina Servin [place] 11/02/2017 14:55:12 08/02/20 17 Chronic Pain Assessment completed Karo tamayo MA [place] 08/02/2017 14:45:31 05/17/20 17 Chronic Pain Assessment completed Karo tamayo MA [place] 05/17/2017 11:19:53 02/16/20 17 Chronic Pain Assessment completed Karo tamayo MA [place] 02/15/2017 10:48:27 12/09/19 17 Other completed Karo tamayo MA [place] 12/14/2016 09:16:22 09/10/20 16 Egd diagnostic brush wash completed Karo tamayo MA [place] 03/19/2019 11:28:03 03/25/20 16 Chronic Pain Assessment completed Karo tamayo MA [place] 03/25/2016 11:23:39 12/16/19 16 Most Recent Bone Density completed Karo tamayo MA [place] 04/17/2018 13:55:48 12/16/19 16 Dxa bone density morgan vrt fx completed Karo tamayo MA [place] 04/17/2018 13:56:02 01/14/20 15 Joint Injection completed Lew Keys MD [address], [place], [address], [facility] 01/14/2015 07:27:39 12/10/19 15 Orthopedic Surgery completed Cori Ospina MA [place] 01/17/2015 15:10:31 05/24/20 14 Arthrd ant ntrbd min dsc lum completed Karo tamayo MA [place] 06/04/2014 11:49:42 11/07/19 10 Total knee arthroplasty completed Lew Keys MD [address] [facility] [address], [place], [address], [facility] 10/21/2017 13:18:29 10/05/20 07 Date of Last Colonoscopy completed Karo tamayo MA [place] 03/19/2019 11:28:29 10/05/20 07 Colonoscopy completed Karo tamayo MA [place] 03/25/2016 11:11:36 05/07/20 07 Arthrd pst tq 1ntrspc lum completed Karo tamayo MA [place] 10/15/2014 13:13:58 11/07/18 94 Knee Surgery completed Karo tamayo MA [place] 10/15/2014 13:13:58 11/07/18 90 Knee Surgery completed Karo tamayo MA [place] 10/15/2014 13:13:58 11/07/18 88 Arthrd pst tq 1ntrspc lum completed Karo tamayo MA [place] 10/15/2014 13:13:58 11/07/18 70 Appendectomy completed Karo tamayo MA [place] 10/15/2014 13:13:58 11/07/18 61 Revision of femur epiphysis completed Karo tamayo MA [place] 01/07/2020 10:17:40 Total knee arthroplasty completed Lew Keys MD [address] [facility] [address], [place], [address], [facility] 10/21/2017 13:17:46 Imaging Results None recorded. Procedure Notes None recorded. Medical Equipment None Reported. Allergies Allergen ID Allergen Name Allergen Category Reaction Reaction Severity Criticality Documentation Date Start Date Code Code System Note Provider Name and Address Organization Details Recorded Time 41008 atorvasta tin medicatio n myalgias (muscle pain) Not available Not available 07/16/2015 45660 [facility] 11:01:59 2632 Enbrel medicatio n Not available Not available Not available 05/21/20142013 37850 1 [facility] 4 11:49:42 2633 ibuprofen medicatio n Not available Not available Not available 05/21/20142013 5640 [facility] 4 11:49:42 2634 indometha suze medicatio n Not available Not available Not available 05/21/20142013 5781 RxNorm Karo NILAM Tan [place] 4 11:49:42 2635 Iodinated contrast media (substanc e) medicatio n Not available Not available Not available 05/21/20142013 21079 2004 SNOMED Karo NILAM Tan [place] 4 11:49:42 2636 Non-stero idal anti-infl ammatory agent (substanc e) medicatio n Not available Not available Not available 05/21/20142013 56611 5008 [facility]ED [facility] 4 11:49:42 38628 doxycycli ne Not available other mild Not available 03/15/20182019 3640 RxNorm NILAM Patel, [place] 2 15:54:03 80678 codeine medicatio n hives severe Not available 07/30/20192019 2670 RxNorm NILAM Patel, [place] 2 15:54:03 40707 etanercep t medicatio n Not available Not available Not available 01/04/20202019 55242 5 RxNorm NILAM Patel, [place] 2 15:54:03 73820 ferumoxyt ol medicatio n Not available Not available Not available 01/04/20202020 66169 7 RxNorm NILAM Patel, [place] 2 15:54:03 99919 simvastat in medicatio n other Not available Not available 03/29/20202019 86483 RxNorm NILAM Patel, [place] 2 15:54:03 43812 Xiidra medicatio n rash Not available Not available 11/27/2020 84366 36 RxNorm Karo NILAM Tan, [place] 1 09:13:41 19154 gabapenti n medicatio n Not available Not available Not available 08/27/2021 09317 RxNorm edema , bruis ing as per pt Elias Manzo PA-C [address] [facility] [address] [address], [facility] 1 13:42:22 58621 prednison e medicatio n hives Not available Not available 05/19/2023 8640 RxNorm Karo Jermaine-NILAM Gonzalez, [place] 3 09:12:42 08508 indometha suze medicatio n Not available Not available Not available 03/02/20242019 5781 RxNorm Monica Caporale, TIE LAYER null, [place] 5 15:45:23 92220 ibuprofen medicatio n Not available Not available Not available 03/02/20242019 5640 RxNorm Monica Caporale, [place] null, [place] 5 15:45:17 34850 azathiopr ine medicatio n Not available Not available Not available 03/02/20242023 1256 RxNorm Monica Caporale, [place] null, [place] 4 13:58:24 33998 Product containin g gadoliniu m and/or gadoliniu m compound (product) medicatio n Not available Not available Not available 03/02/20242023 36874 3008 SNOMED Monica Caporale, TIE [employer]ER null, [place] 4 13:58:24 93664 Decadron medicatio n edema severe high 11/08/2024 19696 2 RxNorm Monica Caporale, [place] [place] null, [place] 5 15:52:03 98163 Farxiga medicatio n Not available Not available Not available 12/03/2024 93659 72 RxNorm cause s GERALD Karo NILAM Tan, [place] 5 14:22:22 Medications Name Sig Start Date [...] prednisol one acetate 1 % eye drops,uzair pension PLACE ONE ONE DROP IN THE LEFT [...] Available fluoromet holone 0.1 % eye drops,[facility] formerly [facility] 09/21 completed Not Available Not Available Not [...] 25- ON HOLD D/T GERALD PER D/C CAPRI LIRA AT [facility] TO FOLLOW Not Available Not Available Not [...] REFILL REQUEST; THIS ORDER DISCONTI NUED PER MEDI-SPA N. Not Available Not Available Not Available [...] 13 1:46PM BY KARO GARCIA MA, OFFICE VISIT;DORA R RHEUMATO LOGY Not Available Not Available [...] Not Available No t Available Fluad Quad [id number] (65yr up)(PF) 60 mcg (15 mcg x 4)/0.5mL IM syringe PHARMACY ADMINIST ERED 07/25 completed Not Available Not Available Not Available Vitals Date Recorded Body weight Heart rate Oxygen saturation Systolic And Diastolic Provider Name and Address Organization Details Last Updated DateTime 08/21/2025 19676.74 g 85 /min 95 % 130/80 mm[Hg] Flower Sanchez MA [place] 08/21/2025 09:18:20 Social History Question Answer Notes LastModified by Organizat ion Details LastModified Time Tobacco Smoking Status Never Smoker Alisson Perez michael [place] 08/02/2014 11:07:04 Do You Have An Advance Directive? No [email or web address] Information not available 07/28/2022 Is Blood Transfusion [...] Or Greater Than 100 Degrees Fahrenheit? No [email or web address] Information not available 07/25/2020 Are You Or Anyone In Your Household A Health Care Provider Or Emergency Responder? No [email or web address] Information not available 07/25/2020 To The Best Of Your Knowledge Have You Been In Close Proximity To Any Individual Who Tested Positive For COVID-19? No [email or web address] Information not available 07/25/2020 *AWV ONLY* Are You Presently Prescribed Opioid Medication By PCP Or Specialist? If YES -Provider Assess The Benefit For Other, Non-opioid Pain Therapies Instead, Even If The Patient Does Not Have OUD But Is Possibly At Risk. Yes Information not available 09/29/2020 Have You Recently Traveled To A [place] [address] High Risk Area Or Gathering In The [...] independently without assistance or assistive devices? YESLIMIT [email or web address] Information not available 07/28/2022 Are you able to care for yourself independently? 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 Never used electronic cigarettes Information not available 07/28/2022 What is your exercise level? Occasional light stretches Information not available 10/15/2014 Mental Status None recorded. Family History Relationship Description Onset Age of this Age Resolved Age Notes LastModified by Organization Details LastModified Time Mother Diabetes mellitus [email or web address] Not available 06/2016 11:15:52 Mother Renal failure syndrome [email or web address] Not available 07/28 10:19:20 Sister Diabetes mellitus [email or web address] Not available 06/2016 11:15:52 Sister Cerebral amyloid angiopathy [email or web address] Not available 07/09 10:19:20 Father Coronary arterioscler osis 67 [email or web address] Not available 07/28 10:19:20 Father Essential hypertension [email or web address] Not available 10:19:20 Medical History Condition Response [...] conjugate PCV 13 5 completed Not Available [facility] 05/27/2020 02:42:58 pneumococcal polysaccharide PPV23 4 completed NILAM Posey [place] 07/28/2022 10:40:27 COVID-19, mRNA, LNP-S, PF, 30 mcg/0.3 mL dose 1 completed NILAM Posey [place] 04/20/2022 10:55:20 COVID-19, mRNA, LNP-S, PF, 30 mcg/0.3 mL dose 1 completed NILAM Posey [place] 04/20/2022 10:55:20 Influenza, adjuvanted, quadrivalent, PF 0 completed NILAM Posey, [place] 04/20/2022 10:55:20 COVID-19, mRNA, LNP-S, PF, 30 mcg/0.3 mL dose 1 completed NILAM Posey, [place] 04/20/2022 10:55:19 Influenza, high-dose, quadrivalent, PF 1 completed NILAM Posey, [place] 04/20/2022 10:55:20 Pneumococcal conjugate PCV 13 7 completed Not Available [facility] 12/10/2021 09:04:07 COVID-19, mRNA, LNP-S, PF, 30 mcg/0.3 mL dose, priscilla-sucrose 2 completed NILAM Posey, [place] 04/20/2022 10:55:19 Influenza, split virus, trivalent, PF 4 completed NILAM Posey, [place] 07/28/2022 10:40:26 Influenza, high-dose, trivalent, PF 7 completed NILAM Posey, [place] 07/28/2022 10:40:27 Influenza, high-dose, trivalent, PF 6 completed NILAM Posey, [place] 07/28/2022 10:40:27 Influenza, high-dose, trivalent, PF 8 completed NILAM Posey, [place] 07/28/2022 10:40:27 Influenza, split virus, quadrivalent, PF 5 completed NILAM Posey, [place] 07/28/2022 10:40:27 pneumococcal polysaccharide PPV23 8 completed NILAM Posey, [place] 07/28/2022 10:40:27 Influenza, high-dose, trivalent, PF 9 completed NILAM Posey, [place] 07/28/2022 10:40:27 COVID-19, mRNA, LNP-S, bivalent, PF, 30 mcg/0.3 mL dose 2 completed NILAM Carlson, [place] 07/18/2023 15:59:23 Influenza, adjuvanted, quadrivalent, PF 3 completed NILAM Posey, [place] 09/26/2023 14:41:06 COVID-19, mRNA, LNP-S, PF, priscilla-sucrose, 30 mcg/0.3 mL 3 completed NILAM Posey, [place] 09/26/2023 14:41:06 RSV, recombinant, protein subunit RSVpreF, adjuvant reconstituted, 0.5 mL, PF 3 completed NILAM Posey, [place] 11/23/2023 14:00:34 Pneumococcal conjugate PCV20, polysaccharide [id number] conjugate, adjuvant, PF 5 completed Not Available [facility] 09/04/2025 08:57:24 HepB-CpG 5 completed Not Available [facility] 09/04/2025 08:57:24 Pneumococcal conjugate PCV 13 7 completed Not Available [facility] 09/04/2025 08:57:24 Influenza, recombinant, trivalent, PF 5 completed Not Available [facility] 09/04/2025 08:57:24 Influenza, split virus, trivalent, preservative 9 [facility] 10:44:27 Novel [id number]-[id number], all formulations 0 completed Kellen Bruno null, [place] 01/04/2020 10:44:27 Influenza, split virus, trivalent, preservative 0 completed Micheline Meyer null, [place] 10/27/2021 15:00:41 pneumococcal polysaccharide PPV23 9 completed Kellen Bruno [facility], [place] 01/04/2020 10:44:27 Influenza, split virus, trivalent, preservative 1 completed Kellen Bruno [facility], [place] 01/04/2020 10:44:27 Tdap 3 completed Kellenjesu Bruno [facility], [place] 01/04/2020 10:44:27 influenza, seasonal, intradermal, preservative free 3 completed Karo Mccall MA null, [place] 04/20/2022 10:55:19 influenza, seasonal, intradermal, preservative free 3 completed Kellenjesu Bruno [facility], [place] 01/04/2020 10:44:27 Influenza, split virus, quadrivalent, PF 2 completed Boyd Belcher MA null, [place] 07/21/2022 10:46:12 Past Encounters Encounter ID Performer Location Encounter Start Date Encounter Closed Date Diagnosis/Indication Diagnosis SNOMED-CT Code Diagnosis ICD10 Code Diagnosis IMO Codes Diagnosis Note [id number] Tessy Larkin MD Main Office [address] [facility] [address] [place] [address] 08/21/2025 09:06:30 08/21/2025 09:43:13 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 mellitus 304901335 E11.22 diet controlled HBA1C u6egzizd done 4.9ARB restarted. Aspirin EC 81 mg po qdaily - held for now due to high riskregula r feet exam advisedOph thalmology follows yearlyFoll ows renal.Lipi d profile done - on statin.Cou nselled about regular physical activityCo unselled on diet End stage renal failure on dialysis 508974957 N18.6 Z99.2 039096 HD on T, TR, Sat Hypertensi ve renal disease 09430031 I12.9 Follows renal.Low sodium diet discussedC ounseled on medication adherence - She notes BP and renal always good as well as home readings.H ome bp cuff comparable to office.Cou nseled on diet/exerc iseAdvised to cont. to keep BP daily BP log and technique counseled. Red flags of HTN emergency discussed and when to go to ED.Cont. tx per renal. Osteoarthritis 894393908 E66.01 Health Concerns Section Related Observation LastModified by Organization Detai ls LastModified Time None Recorded Concern Status LastModified by Organization Details LastModified Time None Recorded Payers Encounter Date Sequence Insurance Name Policy Number Policy Alexander Covered Member ID Alexander Member ID Guarantor Name 08/21/2025 2 [id number] Weaver [id number] Lauren Weaver 08/21/2025 1 [facility] (MEDICARE REPLACEMENT/ ADVANTAGE - HMO) [id number] Lauren Weaver [id number] Lauren Weaver Notes Date Note Type Note Provider Name and Address Organization Details Recorded Time 5 text/html Hypertension F/UReported by PatientHPIFor lifestyle, patient reportsnot [...] the HPI Follow up for bp. Tessy Larkin MD [address] [address], [place], [address], [facility] 08/21/2025 09:39:02 OBGyn Episode No OBEpisode recorded.
--- OUTSIDE RECORDS SUMMARY | 2025-10-07 11:24 | XMS_ITS | Encounter Summary ---
Author Organization [facility] Address [address] [place] [address] Phone Care Team Providers Care Internal Communications Manager Name Role Phone Lew Keys MD Primary Care Provider [phone] Encounter Details Date Type Department Care Team (Late st Contact Info) Description 02/01/2025 Telephone [facility] [address] [place] [address] Lesley Ramirez Social History Tobacco [...] on filedocumented in this encounter Care Teams Internal Communications Manager Relationship Specialty Start Date End Date Lew Keys MD [address] [place] [address] [address] [place], [place] PCP - General Internal Medicine 4/27/20 documented as of this encounter
--- OUTSIDE RECORDS SUMMARY | 2025-10-07 11:24 | XMS_ITS | Encounter Summary ---
Author Organization [facility] [place], Address [address] [place] [address] Phone Care Team Providers Care Business Intelligence Developer Name Role Phone Lew Keys MD Primary Care Provider [phone] Encounter Details Date Type Department Care Team (Late st Contact Info) Description 01/31/2025 Documentation Only [facility], [address] [place] [address] Will Mccauley, [address] [place] [id number] Social History Tobacco Use Types Packs/Day Years [...] on filedocumented in this encounter Care Teams Business Intelligence Developer Relationship Specialty Start Date End Date Lew Keys MD [address] [facility] [address] [place], [place] PCP - General Internal Medicine 03/03/20 documented as of this encounter
== END 2025-10-07 10:22 | disposition home or self-care (01) ==
LOC: HO.PMC 09:36
PROVIDERS: PCP Family Medicine; Visit Provider Internal Medicine
DX: M16.52 Unilateral post-traumatic osteoarthritis, left hip (principal)
CPT/HCPCS: 20611

== ENCOUNTER → 2025-10-07 09:36 | Outpatient (BNVA) | payer OTHER, MEDICAID, SELFPAY | PROVIDERS: PCP Family Medicine; Visit Provider Internal Medicine | DX: M16.52 Unilateral post-traumatic osteoarthritis, left hip (principal); N18.6 End stage renal disease | CPT/HCPCS: 20611 ==